=== PATIENT | female | born 1940 | race Caucasian/White ===

== ENCOUNTER 2016-04-15 01:02 | Inpatient (IN) | payer BC, OTHER ==
[2016-04-15] VITALS (12 sets, daily range): BP systolic 117–168; BP diastolic 67–96; PULSE 67–115; TEMP 36.5–37.3; O2SAT 91–97; Ht 160 cm; Wt 103.4 kg
[~2016-04-15] VITALS: Ht 160 cm; Wt 103.4 kg
[~2016-04-15 01:02] MED LIST: BECL0.3A INH; CHOL100010 PO; CYAN500T13 PO; FERR325T51 PO; FLUO20CA34 PO; FRS/40 PO; GLIP-197 PO; IPRASOL4 INH; LEVO1TAB33 PO; LISI10TA PO; METO1TAB69 PO; POTA20TA16 PO; PRAV10TA39 PO; ROPI2TAB6 PO; TIOT1AER INH; ULT50 PO
[2016-04-15] MEDS ORDERED: ALBUT/IPRATROP 3MG/0.5MG NEB 3 ML VIAL INH ONE (01:30)
--- NOTE | 2016-04-15 01:30 | EMERGENCY ROOM VISIT NOTE ---
History Report prepared by Rosi: Stacey Berumen Under the Supervision of: Dr. Flores Weiner D.O. First contact with patient: :08 Chief Complaint: RESPIRATORY PROBLEMS Stated Complaint: Difficulty Breathing, cold symptoms History of Present Illness The patient is a 76 year old female who presents to the Emergency Room with complaints of persistent shortness of breath that began Sunday, but has been worsening. The patient states that Sunday she developed a head and chest cold. She states that she talked with her PCP and was placed on Levaquin and Prednisone on Sunday, but denies any relief of her symptoms. The patient states that her symptoms seem to keep worsening. She notes that she has been increasingly fatigued at home, but denies any fever. The patient notes a history of COPD, but denies any history of pneumonia. She states that she has nebulizers at home that she has been using without relief. The patient states that she has been eating and drinking normally. Source of History: patient Onset: Sunday Position: other (global) Quality: other (shortness of breath) Timing: worsening, other (persistent) Associated Symptoms: + fatigue Review of Systems See HPI for pertinent positives & negatives. A total of 10 systems reviewed and were otherwise negative. Past Medical & Surgical Medical Problems: (1) CHF (congestive heart failure) (2) CHF exacerbation (3) COPD (chronic obstructive pulmonary disease) (4) Diab Susu Wo Compl, Type Ii Or Unspec Type, Uncontrolled (5) Hyperlipidemia Nec/Nos (6) Hypertension Nos (7) Hypoxemia (8) Respiratory failure, [id number] Family History Cancer Diabetes mellitus FH: heart disease Social History Smoking Status: Former Smoker Alcohol Use: none Drug Use: none Marital Status: single Housing Status: retirement Occupation Status: retired Current/Historical Medications Scheduled Beclomethasone Dipropionate (Qvar), 2 PUFFS INH BID Cyanocobalamin (Vitamin B12 500MCG), 1,000 MCG PO DAILY Ferrous Sulfate (Iron Supplement), 325 MG PO DAILY Fluoxetine Hcl (Prozac), 20 MG PO QAM Furosemide (Lasix), 20 MG PO DAILY Glipizide (Glipizide), 5 MG PO BID Ipratropium-Albuterol (Duoneb), 1 TREATMENT INH DAILY Levofloxacin (Levaquin), 500 MG PO DAILY Lisinopril (Prinivil), 10 MG PO DAILY Metoprolol Succ (Toprol Xl) (Toprol-Xl ), 100 MG PO DAILY Pravastatin Sodium (Pravastatin Sodium), 10 MG PO DAILY Ropinirole (Requip), 2 MG PO TID Spironolactone (Aldactone), 12.5 MG PO QAM Scheduled PRN Amoxicillin (Amoxil), 500 MG PO UD PRN for DENTAL WORK Tramadol HCl (Tramadol HCl), 50 MG PO Q6 PRN for Pain Allergies Coded Allergies: Atropine (Verified Allergy, Severe, RASH, 04/15/16) Dobutamine (Verified Allergy, Severe, RASH, 04/15/16) Physical Exam Vital Signs Date Time Temp Pulse Resp B/P Pulse Ox O2 Delivery O2 Flow Rate FiO2 04/15/16 01:19 93 Nasal Cannula 4.0 04/15/16 01:19 93 Nasal Cannula 4.0 04/15/16 01:19 37.3 96 28 125/67 93 Nasal Cannula 4.0 Physical Exam HEENT: Head - normocephalic and atraumatic Pupils are equal, round, and reactive to light. Extraocular eye muscles are intact, and sclera are anicteric. Nose - moist nasal mucosa without discharge. Mouth - moist buccal mucosa. Oropharynx is nonerythematous and there is no tonsillar exudate or edema noted. Neck: Supple; no JVD, nuchal rigidity, cervical lymphadenopathy. Heart: Tachycardic rate and rhythm. There is a normal S1 and S2 with no murmurs , clicks, or gallops appreciated. Lungs: Inspiratory and expiratory wheezing. Abdomen: Soft, completely nontender, nondistended, with good bowel sounds. There are no palpable pulsatile masses or hepatosplenomegaly. There is no guarding, rigidity, or rebound noted. Extremities: Trace pedal edema. No evidence of cyanosis, clubbing. There are easily palpable peripheral pulses. Skin: Skin is hot. warm and dry with good turgor and no rashes. Medical Decision & Procedures ER Provider Diagnostic Interpretation: Portable chest x-ray: compared from December 2015: no significant change, mild pulmonary vascular congestion but no consolidation Laboratory Results 04/15/16 02:33 Red Blood Count 3.67, Mean Corpuscular Volume 98.9, Mean Corpuscular Hemoglobin 32.4, Mean Corpuscular Hemoglobin Concent 32.8, Mean Platelet Volume 10.7, Neutrophils (%) (Auto) 76.5, Lymphocytes (%) (Auto) 13.5, Monocytes (%) (Auto) 9.6, Eosinophils (%) (Auto) 0.2, Basophils (%) (Auto) 0.0, Neutrophils # (Auto) 3.33, Lymphocytes # (Auto) 0.59, Monocytes # (Auto) 0.42, Eosinophils # (Auto) 0.01, Basophils # (Auto) 0.00 04/15/16 01:49 Test 04/15/16 01:48 04/15/16 01:49 04/15/16 02:00 04/15/16 02:33 Bedside Lactic Acid Venous 2.06 mmol/L (0.90-1.70) Anion Gap 8.0 mmol/L (3-11) Est Creatinine Clear Calc Drug Dose 33.8 ml/min Estimated GFR () 33.8 Estimated GFR (Non- 29.2 BUN/Creatinine Ratio 24.9 (10-20) Calcium Level 8.7 mg/dl (8.5-10.1) Total Bilirubin 0.3 mg/dl (0.2-1) Aspartate Amino Transf (AST/SGOT) 22 U/L (15-37) Alanine Aminotransferase (ALT/SGPT) 28 U/L (12-78) Alkaline Phosphatase 105 U/L (45-117) Total Protein 6.2 gm/dl (6.4-8.2) Albumin 3.1 gm/dl (3.4-5.0) Globulin 3.1 gm/dl (2.5-4.0) Albumin/Globulin Ratio 1.0 (0.9-2) Chemistry Specimen Hemolysis Prothrombin Time 10.6 SECONDS (9.0-12.0) Prothromb Time International Ratio 1.0 (0.9-1.1) Activated Partial Thromboplast Time 24.5 SECONDS (21.0-31.0) Partial Thromboplastin Ratio 0.9 Total Creatine Kinase 36 U/L (26-192) Creatine Kinase MB 0.5 ng/ml (0.5-3.6) Creatine Kinase MB Ratio 1.4 (0-3.0) Troponin I < 0.015 ng/ml (0-0.045) Pro-B-Type Natriuretic Peptide 695 pg/ml (0-900) White Blood Count 4.36 K/uL (4.8-10.8) Red Blood Count 3.67 M/uL (4.2-5.4) Hemoglobin 11.9 g/dL (12.0-16.0) Hematocrit 36.3 % (37-47) Mean Corpuscular Volume 98.9 fL (80-100) Mean Corpuscular Hemoglobin 32.4 pg (25-34) Mean Corpuscular Hemoglobin Concent 32.8 g/dl (32-36) Platelet Count 111 K/uL (130-400) Mean Platelet Volume 10.7 fL (7.4-10.4) Neutrophils (%) (Auto) 76.5 % Lymphocytes (%) (Auto) 13.5 % Monocytes (%) (Auto) 9.6 % Eosinophils (%) (Auto) 0.2 % Basophils (%) (Auto) 0.0 % Neutrophils # (Auto) 3.33 K/uL (1.4-6.5) Lymphocytes # (Auto) 0.59 K/uL (1.2-3.4) Monocytes # (Auto) 0.42 K/uL (0.11-0.59) Eosinophils # (Auto) 0.01 K/uL (0-0.5) Basophils # (Auto) 0.00 K/uL (0-0.2) RDW Standard Deviation 49.5 fL (36.4-46.3) RDW Coefficient of Variation 13.7 % (11.5-14.5) Immature Granulocyte % (Auto) 0.2 % Immature Granulocyte # (Auto) 0.01 K/uL (0.00-0.02) Laboratory results per my review. Medications Administered Medications (Trade) Dose Ordered Sig/Polly Route Start Time Stop Time Status Last Admin Dose Admin Albuterol/ Ipratropium (Duoneb) 12 ml ONE ONCE INH 04/15/16 01:30 04/15/16 01:31 DC 04/15/16 01:37 12 ML Methylprednisolone Sodium Succinate (Solu-Medrol IV) 125 mg NOW STAT IV 04/15/16 02:10 04/15/16 02:11 DC 04/15/16 02:41 125 MG Piperacillin Sod/ Tazobactam Sod (Zosyn Iv) 4.5 gm NOW STAT IV 04/15/16 02:30 04/15/16 02:31 DC 04/15/16 02:41 4.5 GM Procedure Patient was treated with DuoNeb 12 ml INH, Solu-Medrol IV 125 mg IV, and Zosyn IV 4.5 gm IV. ECG Indication: SOB/dyspnea Rate (beats per minute): 110 Rhythm: sinus tachycardia Findings: no acute ischemic change, no ectopy ED Course 0113: Past medical records reviewed. The patient was evaluated in room A3. A complete history and physical exam was performed. A twelve-lead EKG was obtained. An IV lock was initiated and labs were drawn as above. 0130: Ordered DuoNeb 12 ml INH. A chest x-ray was performed. 0207: I reevaluated the patient and she is still not feeling better, noting that she is still short of breath. She is currently receiving her hour long DuoNeb treatment. I discussed her recent steroid prescription and she notes that it was a taper. I discussed the treatment plan with her. She verbalized complete understanding and agreement. She will be evaluated for further treatment. 0210: Ordered Solu-Medrol IV 125 mg IV. 0230: Ordered Zosyn IV 4.5 gm IV. 0326: I discussed the patient's case with JORJE Roberson. He is going to evaluate the patient for further treatment. Medical Decision The patient is a 76 year old female who presents to the ED with shortness of breath. Differential diagnosis includes COPD exacerbation, pneumonia, bronchitis , CHF. Lab interpretation: Lactic acid is 2.06, white count 4.3, hemoglobin 11.9, platelet 111, glucose 300, BUN 42, Creatinine 1.7, trop less than 0.015, BNP 695 , Co-Ags are normal. This is a 76-year-old female patient presents to the emergency department with increasing shortness of breath despite being on steroid taper and antibiotics. The patient has a history of COPD exacerbations. She has also had pneumonia and bronchitis in the past. Chest x-ray shows no obvious consolidation but her description of symptoms sound consistent with pneumonia or bronchitis. Patient was getting some improvement in her symptoms with the hour-long nebulizer treatment. [facility] for further management. Consults Time Called: [phone] Consulting Physician: JORJE Roberson Returned Call: [phone] I discussed the patient's case with JORJE Roberson. He is going to evaluate the patient for further treatment. Impression Primary Impression: COPD exacerbation Scribe Attestation The scribe's documentation has been prepared under my direction and personally reviewed by me in its entirety. I confirm that the note above accurately reflects all work, treatment, procedures, and medical decision making performed by me. Departure Information Dispostion Being Evaluated By Hospitalist Referrals Luc Daly D.O. (PCP)
[2016-04-15] MEDS ORDERED: METHYLPREDNISOLONE 125 MG VIAL IV STA (02:10)
[2016-04-15] MEDS ORDERED: PIPERACILLIN/TAZOBACTAM 4.5 GM/100ML D5W IV STA (02:30)
[2016-04-15 02:32] LABS: BUN/CREATININE RATIO 24.9 (10-20); CALCIUM 8.7 mg/dl (8.5-10.1); CREATININE 1.7 mg/dl (0.60-1.20); POTASSIUM 4.7 mmol/L (3.5-5.1)
[2016-04-15 02:35] LABS: PARTIAL THROMBOPLASTIN RATIO 0.9; PROTHROMBIN TIME (PATIENT) 10.6 SECONDS (9.0-12.0)
[2016-04-15 02:43] LABS: COMPLETE YES; EOS % 0.2 %; HEMATOCRIT 36.3 % (37-47); IG% 0.2 %; LYMPH % 13.5 %; LYMPH ABS # 0.59 K/uL (1.2-3.4); MEAN CELL VOLUME 98.9 fL (80-100); MEAN CORPUSCULAR HEMOGLOBIN 32.4 pg (25-34); MEAN CORPUSCULAR HGB CONC 32.8 g/dl (32-36); MEAN PLATELET VOLUME 10.7 fL (7.4-10.4); MONO % 9.6 %; NEUT % 76.5 %; PLATELET COUNT 111 K/uL (130-400); RED BLOOD COUNT 3.67 M/uL (4.2-5.4); WHITE BLOOD COUNT 4.36 K/uL (4.8-10.8)
[2016-04-15] MEDS ORDERED: GLC5 PO (03:04)
[2016-04-15] MEDS ORDERED: FURO-85 PO (03:06)
[2016-04-15] MEDS ORDERED: AMOX500C3 PO (03:09)
[2016-04-15] MEDS ORDERED: SPIR25TA PO (03:10)
[2016-04-15 03:21] LABS: CKMB/CK RATIO 1.4 (0-3.0)
[2016-04-15] MEDS ORDERED: VANCOMYCIN INJ 1,000 MG in SODIUM CHLORIDE 0.9% 250ML 250 ML IV STA (03:50)
[2016-04-15] MEDS ORDERED: ZOLPIDEM TARTRATE 5 MG TAB PO PRN (04:00)
[2016-04-15] MEDS ORDERED: TRAMADOL HCL 50 MG TAB PO PRN (04:00)
[2016-04-15] MEDS ORDERED: GLUCAGON FOR INJ 1 MG VIAL SQ PRN (04:00)
[2016-04-15] MEDS ORDERED: INFLUENZA VIRUS QUAD VACCINE 0.5 ML SYR IM. ONE ×2 (04:00→08:00)
[2016-04-15] MEDS ORDERED: GLUCOSE 10 TABS/TUBE PO PRN (04:00)
[2016-04-15] MEDS ORDERED: DEXTROSE 50% 50 ML SYR IV PRN (04:00)
[2016-04-15] MEDS ORDERED: ONDANSETRON INJ 2 MG/ML 2 ML VIAL IV PRN ×2 (04:00)
[2016-04-15] MEDS ORDERED: ACETAMINOPHEN 325 MG TAB PO PRN (04:00)
[2016-04-15] MEDS ORDERED: GLUCOSE 40% GEL 15 GM TUBE PO PRN (04:00)
[2016-04-15] MEDS ORDERED: NITROGLYCERIN 0.4 MG SL PER TAB CHARGE SL PRN (04:00)
[2016-04-15] MEDS ORDERED: LEVALBUTEROL 1.25MG/0.5ML NEB INH PRN (04:15)
[2016-04-15] MEDS ORDERED: IPRATROPIUM BROMIDE NEB SOLN 0.02% 2.5 ML VIAL INH PRN (04:15)
[2016-04-15] MEDS ORDERED: INSULIN GLARGINE SOLOSTAR 100 UNITS/ML 3 ML PEN SC STA (05:06)
[2016-04-15] MEDS ORDERED: LEVOFLOXACIN CONSULT ACTIVE PRN (05:15)
[2016-04-15] MEDS ORDERED: VANCOMYCIN CONSULT ACTIVE PRN (05:15)
[2016-04-15] MEDS ORDERED: PIPERACILL/TAZOBAC CONSULT ACTIVE PRN (05:15)
[2016-04-15] MEDS ORDERED: VANCOMYCIN INJ 2,500 MG in SODIUM CHLORIDE 0.9% 500ML 500 ML IV STA (05:15)
[2016-04-15] MEDS ORDERED: LEVOFLOXACIN / D5W 500 MG in PREMIXED IN D5W 100 ML IV SCH (06:00)
[2016-04-15] MEDS ORDERED: DiphenhydrAMINE HCL 50 MG/ML VIAL IV PRN (06:45)
[2016-04-15] MEDS ORDERED: NURSING VERBAL MED ORDER ONE ×2 (06:45→21:45)
--- NOTE | 2016-04-15 06:58 | History and Physical ---
History & Physical Date & Time of Service: Apr 15, 2016 at 06:47 Chief Complaint: Copd Exacerbation, Pneumonia Primary Care Physician: Luc Daly D.O. History of Present Illness Source: patient The patient is a 76-year-old female who presents emergency department with complaint of worsening shortness of breath over the past week. The symptoms initially began as a head congestion that then extended into her chest. She went to see her PCP earlier in the week was placed on Levaquin and prednisone 4 days ago has not had any relief of her symptoms in fact they've been worsening. She does use nebulizers at home without relief. She reports never being the second the past. Past Medical/Surgical History Medical Problems: (1) CHF (congestive heart failure) Status: Chronic (2) CHF exacerbation Status: Resolved (3) COPD (chronic obstructive pulmonary disease) Status: Chronic (4) Diab Susu Wo Compl, Type Ii Or Unspec Type, Uncontrolled Status: Chronic (5) Hyperlipidemia Nec/Nos Status: Chronic (6) Hypertension Nos Status: Chronic (7) Respiratory failure, [id number] Status: Chronic Family History Cancer Diabetes mellitus FH: heart disease Social History Smoking Status: Former Smoker Smokeless Tobacco Use: No Alcohol Use: none Drug Use: none Marital Status: single Housing status: lives alone Occupational Status: retired Immunizations History of Influenza Vaccine: Yes Influenza Vaccine Date: Jan 16, 2013 History of Tetanus Vaccine?: Yes Tetanus Immunization Date: Jan 07, 2013 History of Pneumococcal: Yes Pneumococcal Date: Feb 16, 2010 History of Hepatitis B Vaccine: No Multi-Drug Resistant Organisms History of MDRO: No Allergies Coded Allergies: Atropine (Verified Allergy, Severe, RASH, 04/15/16) Dobutamine (Verified Allergy, Severe, RASH, 04/15/16) Home Medications Scheduled Beclomethasone Dipropionate (Qvar), 21 PUFFS INH BID Cyanocobalamin (Vitamin B12 500MCG), 1,000 MCG PO DAILY Ferrous Sulfate (Iron Supplement), 325 MG PO DAILY Fluoxetine Hcl (Prozac), 20 MG PO QAM Furosemide (Lasix), 20 MG PO DAILY Glipizide (Glipizide), 5 MG PO BID Ipratropium-Albuterol (Duoneb), 1 TREATMENT INH DAILY Levofloxacin (Levaquin), 500 MG PO DAILY Lisinopril (Prinivil), 10 MG PO DAILY Metoprolol Succ (Toprol Xl) (Toprol-Xl ), 100 MG PO DAILY Pravastatin Sodium (Pravastatin Sodium), 10 MG PO DAILY Ropinirole (Requip), 2 MG PO TID Spironolactone (Aldactone), 12.5 MG PO QAM Scheduled PRN Amoxicillin (Amoxil), 500 MG PO UD PRN for DENTAL WORK Tramadol HCl (Tramadol HCl), 50 MG PO Q6 PRN for Pain Review of Systems The patient denies lower extremity swelling, vision change, hearing change, sore throat, fevers, chills, sweats, weight change, fatigue, nausea, vomiting, abdominal pain, pelvic pain, blood in urine or stool, dysuria, urinary frequency or urgency, headache, memory loss, rash, abnormal bruising or bleeding , imbalance, focal weakness, numbness or tingling in arms or legs, back or neck pain, night sweats. The review of systems is otherwise negative other than for that already noted above, and at least 10 systems have been reviewed. Physical Exam Vital Signs Date Time Temp Pulse Resp B/P Pulse Ox O2 Delivery O2 Flow Rate FiO2 04/15/16 05:33 37.3 115 26 117/67 Nasal Cannula 3.0 95 04/15/16 04:00 105 26 105/54 94 Nasal Cannula 3.0 04/15/16 03:32 115 28 89 04/15/16 03:28 117/67 04/15/16 03:27 114 23 89 04/15/16 03:22 123 30 85 04/15/16 03:17 124 28 86 04/15/16 03:12 115 28 100 04/15/16 03:07 114 32 100 04/15/16 03:02 113 31 100 04/15/16 02:58 111/63 04/15/16 02:57 112 26 100 04/15/16 02:53 124/64 04/15/16 02:52 113 30 100 04/15/16 02:47 109 37 100 04/15/16 02:42 107 26 100 04/15/16 02:37 104 24 99 04/15/16 02:32 104 24 100 04/15/16 02:27 99 32 99 04/15/16 02:22 97 24 99 04/15/16 02:17 96 31 99 04/15/16 02:12 96 24 98 04/15/16 02:07 96 24 98 04/15/16 02:02 92 22 97 04/15/16 01:57 90 29 99 04/15/16 01:52 90 30 98 04/15/16 01:47 90 28 98 04/15/16 01:42 87 36 98 04/15/16 01:37 89 38 98 04/15/16 01:32 92 29 91 04/15/16 01:27 91 24 91 04/15/16 01:22 92 31 91 04/15/16 01:19 93 Nasal Cannula 4.0 04/15/16 01:19 93 Nasal Cannula 4.0 04/15/16 01:19 37.3 96 28 125/67 93 Nasal Cannula 4.0 04/15/16 01:17 89 31 91 04/15/16 01:12 84 18 92 04/15/16 01:09 125/67 The patient is awake, well-developed and adequately nourished, alert and oriented 3, normocephalic and atraumatic, lying in bed and in mild to moderate acute distress secondary to respiratory difficulty. HEENT--PERRL, EOMI, mucous membranes and oropharynx dry. Neck--supple, no JVD or bruits, thyroid normal, trachea midline, no adenopathy. Heart--normal S1 and S2, no extra beats, no murmurs, rubs or gallops. Lungs--with a few faint wheezes bilaterally, significant upper airway wheezing causing mild respiratory distress, no accessory muscle use. Abdomen--normal bowel sounds and soft, nontender and nondistended, no hernias or masses, no organomegaly. Extremities--no cyanosis, clubbing or edema. There are good distal pulses b/l. Dermatologic--normal skin turgor, normal color, warm and dry, no abnormal lymph nodes, no rash. Neurologic--cranial nerves II through XII grossly intact, motor and sensory examination normal. Rheumatologic--normal range of motion, nontender, muscles and joints. Psychiatric--normal affect. Diagnostics Laboratory Results Results Past 24 Hours Test 04/15/16 01:48 04/15/16 01:49 04/15/16 02:00 04/15/16 02:33 Range/Units Bedside Lactic Acid Venous 2.06 0.90-1.70 mmol/L Sodium Level 139 136-145 mmol/L Potassium Level 4.7 3.5-5.1 mmol/L Chloride Level 99 98-107 mmol/L Carbon Dioxide Level 32 21-32 mmol/L Anion Gap 8.0 3-11 mmol/L Blood Urea Nitrogen 42 7-18 mg/dl Creatinine 1.70 0.60-1.20 mg/dl Est Creatinine Clear Calc Drug Dose 33.8 ml/min Estimated GFR () 33.8 Estimated GFR (Non- 29.2 BUN/Creatinine Ratio 24.9 10-20 Random Glucose 300 70-99 mg/dl Calcium Level 8.7 8.5-10.1 mg/dl Total Bilirubin 0.3 0.2-1 mg/dl Aspartate Amino Transf (AST/SGOT) 22 15-37 U/L Alanine Aminotransferase (ALT/SGPT) 28 12-78 U/L Alkaline Phosphatase 105 45-117 U/L Total Protein 6.2 6.4-8.2 gm/dl Albumin 3.1 3.4-5.0 gm/dl Globulin 3.1 2.5-4.0 gm/dl Albumin/Globulin Ratio 1.0 0.9-2 Chemistry Specimen Hemolysis Prothrombin Time 10.6 9.0-12.0 SECONDS Prothromb Time International Ratio 1.0 0.9-1.1 Activated Partial Thromboplast Time 24.5 21.0-31.0 SECONDS Partial Thromboplastin Ratio 0.9 Total Creatine Kinase 36 26-192 U/L Creatine Kinase MB 0.5 0.5-3.6 ng/ml Creatine Kinase MB Ratio 1.4 0-3.0 Troponin I < 0.015 0-0.045 ng/ml Pro-B-Type Natriuretic Peptide 695 0-900 pg/ml White Blood Count 4.36 4.8-10.8 K/uL Red Blood Count 3.67 4.2-5.4 M/uL Hemoglobin 11.9 12.0-16.0 g/dL Hematocrit 36.3 37-47 % Mean Corpuscular Volume 98.9 80-100 fL Mean Corpuscular Hemoglobin 32.4 25-34 pg Mean Corpuscular Hemoglobin Concent 32.8 32-36 g/dl Platelet Count 111 130-400 K/uL Mean Platelet Volume 10.7 7.4-10.4 fL Neutrophils (%) (Auto) 76.5 % Lymphocytes (%) (Auto) 13.5 % Monocytes (%) (Auto) 9.6 % Eosinophils (%) (Auto) 0.2 % Basophils (%) (Auto) 0.0 % Neutrophils # (Auto) 3.33 1.4-6.5 K/uL Lymphocytes # (Auto) 0.59 1.2-3.4 K/uL Monocytes # (Auto) 0.42 0.11-0.59 K/uL Eosinophils # (Auto) 0.01 0-0.5 K/uL Basophils # (Auto) 0.00 0-0.2 K/uL RDW Standard Deviation 49.5 36.4-46.3 fL RDW Coefficient of Variation 13.7 11.5-14.5 % Immature Granulocyte % (Auto) 0.2 % Immature Granulocyte # (Auto) 0.01 0.00-0.02 K/uL Test 04/15/16 05:54 04/15/16 06:24 Range/Units Microbiology Results 04/15/16 Blood Culture, Received Pending 04/15/16 Blood Culture, Received Pending Impression Assessment and Plan COPD exacerbation/left lower lobe pneumonia/discordant vocal cords--the patient will be admitted to the telemetry unit will be placed on Solu-Medrol 40 mg IV every 8 hours after having received on 125 mg IV and emergency department. We' ll place on vancomycin IV per renal dosing, Zosyn 3.375 mg IV every 8 hours, levofloxacin 500 mg IV every 24 hours, guaifenesin extended release 600 mg by mouth twice a day, and Xopenex with Atrovent nebulizers to use every 6 hours while awake and every 2 hours when necessary. Diabetes mellitus--continue glipizide 5 mg by mouth twice a day patient was given a one-time dose of Lantus 20 units subcutaneous nightly the early a.m. hours, and started on Lantus 14 units subcutaneous twice a day while on IV steroids, this dosing may be needed adjusted promptly. We'll place on Accu- Cheks before meals and at bedtime with NovoLog coverage. Hypertension /. CHF--continue furosemide 40 mg by mouth twice a day potassium extended release 20 mEq by mouth daily metoprolol succinate 100 mg by mouth daily, and lisinopril 10 mg by mouth daily. Hypercholesterolemia--continue pravastatin 10 mg by mouth daily. Restless leg syndrome--continue ropinirole 2 mg by mouth 3 times a day. Depression--continue fluoxetine 20 mg by mouth every morning. Vitamin B12 deficiency--continue supplemental 1000 g by mouth daily. Level of Care Telemetry Advanced Directives Existing Advance Directive: Yes Existing Living Will: Yes Existing Power of Spot Washer: Yes (Saji Pennington (Daughter)) Resuscitation Status FULL RESUSCITATION VTE Prophylaxis VTE Risk Assessment Done? Y/N: Yes Risk Level: Moderate Given or contraindicated: SCD's
--- NOTE | 2016-04-15 07:13 | DIAGNOSTIC IMAGING REPORT ---
CHEST ONE VIEW PORTABLE CLINICAL HISTORY: Sepsis SHORTNESS OF BREATH COMPARISON STUDY: December 03, 2015 FINDINGS: The heart is at the upper limits of normal in size. There is radiographic evidence of emphysema. There is no overt failure. There are linear bibasilar opacities, likely atelectatic.[ IMPRESSION: Emphysema. Bibasal atelectasis/scarring. No evidence of acute parenchymal consolidation. Electronically signed by: Conner Shultz M.D. 04/15/2016 7:11 AM Dictated Date/Time: 04/15/2016 7:10 AM
[2016-04-15] MEDS: IPRATROPIUM BROMIDE NEB SOLN 0.02% 2.5 ML VIAL INH SCH ×3 (07:29→20:48)
[2016-04-15] MEDS: LEVALBUTEROL 1.25MG/0.5ML NEB INH SCH ×3 (07:29→20:48)
[2016-04-15] MEDS ORDERED: INFLUENZA ADMINISTRATION CHARGE ONE (08:00)
[2016-04-15] MEDS ORDERED: INSULIN GLARGINE SOLOSTAR 100 UNITS/ML 3 ML PEN SC ONE ×2 (08:15→13:00)
[2016-04-15] MEDS: METHYLPREDNISOLONE IV 40 MG in SYRINGE 0 ML IV SCH ×2 (08:39→17:40)
[2016-04-15] MEDS: CYANOCOBALAMIN 500 MCG TAB (VIT B-12) PO SCH (08:41)
[2016-04-15] MEDS: FERROUS SULFATE 325 MG TAB PO SCH (08:41)
[2016-04-15] MEDS: METOPROLOL SUCC 50MG EXT REL TAB PO SCH (08:42)
[2016-04-15] MEDS: ROPINIROLE HCL 1 MG TAB PO SCH ×3 (08:43→20:27)
[2016-04-15] MEDS: FLUOXETINE HCL 20 MG CAP PO SCH (08:43)
[2016-04-15] MEDS: FUROSEMIDE 20 MG TAB PO SCH (08:44)
[2016-04-15] MEDS: SPIRONOLACTONE 25 MG TAB PO SCH (08:44)
[2016-04-15] MEDS: GUAIFENESIN 200 MG TAB PO SCH ×2 (08:45→20:26)
--- NOTE | 2016-04-15 08:48 | Hospitalist Progress Note ---
Hospitalist Progress Note Date of Service Apr 15, 2016. Subjective Pt evaluation today including: conversation w/ patient, physical exam, chart review, lab review, review of studies, review of inpatient medication list Patient reports minimal improvement in symptoms since admission. + SOB, wheezing , and productive cough- yellow sputum (chronic). She is eating and drinking OK. Patient denies any fever, chills, sweats, lightheadedness, dizziness, vision changes, CP, palpitations, edema, abdominal pain, nausea, vomiting, diarrhea, urinary symptoms, melena, numbness/tingling, weakness, muscle/joint pain, anxiety/depression, active bleeding, or new skin discoloration/changes. Medications Current Inpatient Medications Medications (Trade) Dose Ordered Sig/Polly Route Start Time Stop Time Status Last Admin Dose Admin Acetaminophen (Tylenol Tab) 650 mg Q4H PRN PO 04/15/16 04:00 05/15/16 03:59 Zolpidem Tartrate (Ambien Tab) 5 mg HSZ PRN PO 04/15/16 04:00 05/15/16 03:59 Nitroglycerin (Nitrostat Tab) 0.4 mg UD PRN SL 04/15/16 04:00 05/15/16 03:59 Cyanocobalamin (Vitamin B-12 Tab) 1,000 mcg DAILY PO 04/15/16 09:00 05/15/16 08:59 Fluoxetine HCl (Prozac Cap) 20 mg QAM PO 04/15/16 09:00 05/15/16 08:59 Furosemide (Lasix tab) 20 mg DAILY PO 04/15/16 09:00 05/15/16 08:59 Glipizide (Glucotrol Tab) 5 mg BIDM PO 04/15/16 08:00 05/15/16 07:59 Metoprolol Succinate (Toprol Xl Tab) 100 mg DAILY PO 04/15/16 09:00 05/15/16 08:59 Pravastatin Sodium (Pravachol Tab) 10 mg PM PO 04/15/16 21:00 05/15/16 20:59 Ropinirole HCl (Requip Tab) 2 mg TID PO 04/15/16 09:00 05/15/16 08:59 Spironolactone (Aldactone Tab) 12.5 mg QAM PO 04/15/16 09:00 05/15/16 08:59 Tramadol HCl (Ultram Tab) 50 mg Q6 PRN PO 04/15/16 04:00 05/15/16 03:59 Ferrous Sulfate (Feosol Tab) 325 mg DAILY PO 04/15/16 09:00 05/15/16 08:59 Ondansetron HCl (Zofran Inj) 4 mg Q6H PRN IV 04/15/16 04:00 05/15/16 03:59 Insulin Aspart (novoLOG ASPART) SLIDING SCALE If C... ACHS SC 04/15/16 06:30 05/15/16 06:59 Glucose (Glucose 40% Gel) UD PRN PO 04/15/16 04:00 05/15/16 03:59 Glucose (Glucose Chew Tab) 1 tabs UD PRN PO 04/15/16 04:00 05/15/16 03:59 Dextrose (Dextrose 50% 50ML Syringe) 50 ml UD PRN IV 04/15/16 04:00 05/15/16 03:59 Glucagon 1 mg 1 mg UD PRN SQ 04/15/16 04:00 05/15/16 03:59 Piperacillin Sod/ Tazobactam Sod 4.5 gm/Dextrose 120 ml @ 30 mls/hr Q8H IV 04/15/16 10:00 04/22/16 09:59 Methylprednisolone Sodium Succinate/ Syringe (Solu-Medrol IV/ Syringe) 0.64 ml @ 1.5 mls/min Q8H IV 04/15/16 10:00 05/15/16 09:59 Guaifenesin (Organidin Nr Tab) 600 mg BID PO 04/15/16 09:00 05/15/16 08:59 Ipratropium [place] (Atrovent 0.02% 0.5MG/2.5ML Neb) 0.5 mg Q6R INH 04/15/16 09:00 05/15/16 08:59 04/15/16 07:29 0.5 MG Levalbuterol (Xopenex 1.25MG/ 0.5ML Neb) 1.25 mg Q6R INH 04/15/16 09:00 05/15/16 08:59 04/15/16 07:29 1.25 MG Ipratropium [place] (Atrovent 0.02% 0.5MG/2.5ML Neb) 0.5 mg Q2H PRN INH 04/15/16 04:15 05/15/16 04:14 Levalbuterol (Xopenex 1.25MG/ 0.5ML Neb) 1.25 mg Q2H PRN INH 04/15/16 04:15 05/15/16 04:14 Piperacillin Sod/ Tazobactam Sod (Consult) 1 ea UD PRN N/A 04/15/16 05:15 05/15/16 05:14 Diphenhydramine HCl (Benadryl Inj) 25 mg Q4H PRN IV 04/15/16 06:45 05/15/16 06:44 04/15/16 06:48 25 MG Insulin Glargine (Lantus Solostar Pen) 22 unit BID SC 04/15/16 21:00 05/15/16 20:59 Objective Vital Signs Date Time Temp Pulse Resp B/P Pulse Ox O2 Delivery O2 Flow Rate FiO2 04/15/16 06:59 36.8 95 18 144/78 91 Nasal Cannula 3.0 04/15/16 05:33 37.3 115 26 117/67 Nasal Cannula 3.0 95 04/15/16 04:00 105 26 105/54 94 Nasal Cannula 3.0 04/15/16 03:32 115 28 89 04/15/16 03:28 117/67 04/15/16 03:27 114 23 89 04/15/16 03:22 123 30 85 04/15/16 03:17 124 28 86 04/15/16 03:12 115 28 100 04/15/16 03:07 114 32 100 04/15/16 03:02 113 31 100 04/15/16 02:58 111/63 04/15/16 02:57 112 26 100 04/15/16 02:53 124/64 04/15/16 02:52 113 30 100 04/15/16 02:47 109 37 100 04/15/16 02:42 107 26 100 04/15/16 02:37 104 24 99 04/15/16 02:32 104 24 100 04/15/16 02:27 99 32 99 04/15/16 02:22 97 24 99 04/15/16 02:17 96 31 99 04/15/16 02:12 96 24 98 04/15/16 02:07 96 24 98 04/15/16 02:02 92 22 97 04/15/16 01:57 90 29 99 04/15/16 01:52 90 30 98 04/15/16 01:47 90 28 98 04/15/16 01:42 87 36 98 04/15/16 01:37 89 38 98 04/15/16 01:32 92 29 91 04/15/16 01:27 91 24 91 04/15/16 01:22 92 31 91 04/15/16 01:19 93 Nasal Cannula 4.0 04/15/16 01:19 93 Nasal Cannula 4.0 04/15/16 01:19 37.3 96 28 125/67 93 Nasal Cannula 4.0 04/15/16 01:17 89 31 91 04/15/16 01:12 84 18 92 04/15/16 01:09 125/ Physical Exam General Appearance: no apparent distress, + obese Eyes: normal inspection, PERRL ENT: hearing grossly normal Neck: supple Respiratory/Chest: no respiratory distress, no accessory muscle use, + decreased breath sounds, + wheezing (diffuse ) Cardiovascular: regular rate, rhythm Abdomen: normal bowel sounds, non tender, soft Extremities: no calf tenderness, + swelling (trace bilateral pitting edema ) Neurologic/Psychiatric: alert, normal mood/affect, oriented x 3 Skin: normal color, warm/dry, no rash Laboratory Results Last 24 Hours Test 04/15/16 01:48 04/15/16 01:49 04/15/16 02:00 04/15/16 02:33 Bedside Lactic Acid Venous 2.06 mmol/L Sodium Level 139 mmol/L Potassium Level 4.7 mmol/L Chloride Level 99 mmol/L Carbon Dioxide Level 32 mmol/L Anion Gap 8.0 mmol/L Blood Urea Nitrogen 42 mg/dl Creatinine 1.70 mg/dl Est Creatinine Clear Calc Drug Dose 33.8 ml/min Estimated GFR () 33.8 Estimated GFR (Non- 29.2 BUN/Creatinine Ratio 24.9 Random Glucose 300 mg/dl Calcium Level 8.7 mg/dl Total Bilirubin 0.3 mg/dl Aspartate Amino Transf (AST/SGOT) 22 U/L Alanine Aminotransferase (ALT/SGPT) 28 U/L Alkaline Phosphatase 105 U/L Total Protein 6.2 gm/dl Albumin 3.1 gm/dl Globulin 3.1 gm/dl Albumin/Globulin Ratio 1.0 Chemistry Specimen Hemolysis Prothrombin Time 10.6 SECONDS Prothromb Time International Ratio 1.0 Activated Partial Thromboplast Time 24.5 SECONDS Partial Thromboplastin Ratio 0.9 Total Creatine Kinase 36 U/L Creatine Kinase MB 0.5 ng/ml Creatine Kinase MB Ratio 1.4 Troponin I < 0.015 ng/ml Pro-B-Type Natriuretic Peptide 695 pg/ml White Blood Count 4.36 K/uL Red Blood Count 3.67 M/uL Hemoglobin 11.9 g/dL Hematocrit 36.3 % Mean Corpuscular Volume 98.9 fL Mean Corpuscular Hemoglobin 32.4 pg Mean Corpuscular Hemoglobin Concent 32.8 g/dl Platelet Count 111 K/uL Mean Platelet Volume 10.7 fL Neutrophils (%) (Auto) 76.5 % Lymphocytes (%) (Auto) 13.5 % Monocytes (%) (Auto) 9.6 % Eosinophils (%) (Auto) 0.2 % Basophils (%) (Auto) 0.0 % Neutrophils # (Auto) 3.33 K/uL Lymphocytes # (Auto) 0.59 K/uL Monocytes # (Auto) 0.42 K/uL Eosinophils # (Auto) 0.01 K/uL Basophils # (Auto) 0.00 K/uL RDW Standard Deviation 49.5 fL RDW Coefficient of Variation 13.7 % Immature Granulocyte % (Auto) 0.2 % Immature Granulocyte # (Auto) 0.01 K/uL Test 04/15/16 05:54 04/15/16 06:24 04/15/16 07:20 04/15/16 07:21 Lactic Acid Level 2.2 mmol/L Bedside Glucose 387 mg/dl 368 mg/dl Assessment and Plan The patient is a 76-year-old female who presents emergency department with complaint of worsening shortness of breath over the past week. The symptoms initially began as a head congestion that then extended into her chest. She went to see her PCP earlier in the week was placed on Levaquin and Prednisone on . She has not had any relief of her symptoms in fact they've been worsening. She does use nebulizers at home without relief. Patient was admitted on 12/04/15 for acute COPD exacerbation. Acute exacerbation of chronic COPD: -Admit to the [facility] -Solu-Medrol 40 mg IV every 8 hours after having received on 125 mg IV and emergency department. -Vancomycin IV per renal dosing and Levofloxacin 500 mg IV every 24 hours d/c'd -Zosyn 3.375 mg IV every 8 hours -Guaifenesin extended release 600 mg by mouth twice a day -Xopenex with Atrovent nebulizers to use every 6 hours while awake and every 2 hours when necessary -Continue QVAR inhaler BID -Pending blood cultures -Patient follows with Иван Argueta PA-C T2DM: -Continue Glipizide 5 mg by mouth twice a day -Patient was given a one-time dose of Lantus 20 units subcutaneous on admission due to starting IV steroids -Lantus 22 units subcutaneous twice a day while on IV steroids, titrate as needed -BSG AC & HS with sliding insulin scale Hypertension/diastolic CHF: -Continue Furosemide 40 mg by mouth twice a day -Continue Potassium extended release 20 mEq by mouth daily -Continue Metoprolol succinate 100 mg by mouth daily -Continue Lisinopril 10 mg by mouth daily Hypercholesterolemia: -Continue Pravastatin 10 mg by mouth daily Restless leg syndrome: -Continue Ropinirole 2 mg by mouth 3 times a day Depression: -Continue Fluoxetine 20 mg by mouth every morning Anemia: -Continue iron supplement 325 mg PO daily -Continue b12 supplemental 1000 g by mouth daily DVT prophylaxis: -MEME and SCDs Dispo: -Return to home when medically stable
[2016-04-15] MEDS ORDERED: LEVALBUTEROL/IPRATROPIUM NEB INH SCH (09:00)
[2016-04-15] MEDS ORDERED: INSULIN GLARGINE SOLOSTAR 100 UNITS/ML 3 ML PEN SC SCH ×3 (09:00→21:00)
[2016-04-15] MEDS: INSULIN ASPART 100 UNITS/ML 3 ML PEN SC SCH ×4 (09:06→20:28)
[2016-04-15] MEDS: PIPERACILL/TAZOBAC IV 4.5 GM in DEXTROSE 5% 100ML 100 ML IV SCH ×2 (10:11→17:40)
[2016-04-15] MEDS ORDERED: INSULIN HUMAN REGULAR SC SCH (11:30)
[2016-04-15] MEDS: BECLOMETHASONE DIP HFA 80 MCG 8.7G INH INH SCH ×2 (12:57→20:25)
[2016-04-15] MEDS ORDERED: INSULIN HUMAN REGULAR PER UNIT 5 UNITS in SYRINGE 4.95 ML IV SCH (13:45)
[2016-04-15] MEDS ORDERED: OSELTAMIVIR PHOSPHATE 75 MG CAP PO ONE (14:00)
[2016-04-15] MEDS: INSULIN GLARGINE SOLOSTAR 100 UNITS/ML 3 ML PEN SC SCH (20:21)
[2016-04-15] MEDS: PRAVASTATIN SOD 10 MG TAB PO SCH (20:27)
[2016-04-15] MEDS ORDERED: CALCIUM CARBONATE 500 MG CHEWABLE PO PRN (21:45)
[2016-04-16] VITALS (10 sets, daily range): BP systolic 145–177; BP diastolic 80–92; PULSE 67–77; TEMP 36.5–36.7; O2SAT 93–98
[2016-04-16] MEDS: IPRATROPIUM BROMIDE NEB SOLN 0.02% 2.5 ML VIAL INH SCH ×3 (02:11→19:47)
[2016-04-16] MEDS: LEVALBUTEROL 1.25MG/0.5ML NEB INH SCH ×3 (02:11→19:47)
[2016-04-16] MEDS: PIPERACILL/TAZOBAC IV 4.5 GM in DEXTROSE 5% 100ML 100 ML IV SCH ×3 (02:19→18:00)
[2016-04-16] MEDS: METHYLPREDNISOLONE IV 40 MG in SYRINGE 0 ML IV SCH ×3 (02:19→18:00)
[2016-04-16] MEDS: OSELTAMIVIR PHOSPHATE SUSP 30 MG/5 ML UDP PO SCH ×2 (06:17→20:56)
[2016-04-16 08:13] LABS: COMPLETE YES; HEMATOCRIT 35.1 % (37-47); IG% 0.3 %; LYMPH % 5.3 %; LYMPH ABS # 0.32 K/uL (1.2-3.4); MEAN CELL VOLUME 95.4 fL (80-100); MEAN CORPUSCULAR HEMOGLOBIN 32.1 pg (25-34); MEAN CORPUSCULAR HGB CONC 33.6 g/dl (32-36); MEAN PLATELET VOLUME 10.7 fL (7.4-10.4); MONO % 3.5 %; NEUT % 90.9 %; PLATELET COUNT 121 K/uL (130-400); RED BLOOD COUNT 3.68 M/uL (4.2-5.4); WHITE BLOOD COUNT 6.02 K/uL (4.8-10.8)
[2016-04-16 08:34] LABS: PARTIAL THROMBOPLASTIN RATIO 0.9; PROTHROMBIN TIME (PATIENT) 11.1 SECONDS (9.0-12.0)
[2016-04-16 08:47] LABS: CALCIUM 8.7 mg/dl (8.5-10.1); CREATININE 1.8 mg/dl (0.60-1.20); MAGNESIUM 2.3 mg/dl (1.8-2.4); POTASSIUM 4.7 mmol/L (3.5-5.1)
[2016-04-16] MEDS: GUAIFENESIN 200 MG TAB PO SCH ×2 (09:01→20:55)
[2016-04-16] MEDS: ROPINIROLE HCL 1 MG TAB PO SCH ×3 (09:01→20:56)
[2016-04-16] MEDS: CYANOCOBALAMIN 500 MCG TAB (VIT B-12) PO SCH (09:02)
[2016-04-16] MEDS: FERROUS SULFATE 325 MG TAB PO SCH (09:02)
[2016-04-16] MEDS: METOPROLOL SUCC 50MG EXT REL TAB PO SCH (09:02)
[2016-04-16] MEDS: FUROSEMIDE 20 MG TAB PO SCH (09:02)
[2016-04-16] MEDS: FLUOXETINE HCL 20 MG CAP PO SCH (09:02)
[2016-04-16] MEDS: SPIRONOLACTONE 25 MG TAB PO SCH (09:03)
[2016-04-16] MEDS: BECLOMETHASONE DIP HFA 80 MCG 8.7G INH INH SCH ×2 (09:10→20:56)
--- NOTE | 2016-04-16 09:11 | Hospitalist Progress Note ---
Hospitalist Progress Note Date of Service Apr 16, 2016. Subjective Pt evaluation today including: conversation w/ patient, physical exam, chart review, lab review, review of inpatient medication list Voiding: no voiding problems, no incontinence Patient states she is feeling lousy today. SOB/non-productive cough has not improved. Extremely SOB with exertion. +body aches. Difficulty with eating/ drinking because of SOB. Patient denies any fever, chills, sweats, lightheadedness, dizziness, vision changes, CP, palpitations, edema, abdominal pain, nausea, vomiting, diarrhea, urinary symptoms, melena, numbness/tingling, weakness, anxiety/depression, active bleeding, or new skin discoloration/ changes. Medications Current Inpatient Medications Medications (Trade) Dose Ordered Sig/Polly Route Start Time Stop Time Status Last Admin Dose Admin Acetaminophen (Tylenol Tab) 650 mg Q4H PRN PO 04/15/16 04:00 05/15/16 03:59 Zolpidem Tartrate (Ambien Tab) 5 mg HSZ PRN PO 04/15/16 04:00 05/15/16 03:59 Nitroglycerin (Nitrostat Tab) 0.4 mg UD PRN SL 04/15/16 04:00 05/15/16 03:59 Cyanocobalamin (Vitamin B-12 Tab) 1,000 mcg DAILY PO 04/15/16 09:00 05/15/16 08:59 04/15/16 08:41 1,000 MCG Fluoxetine HCl (Prozac Cap) 20 mg QAM PO 04/15/16 09:00 05/15/16 08:59 04/15/16 08:43 20 MG Furosemide (Lasix tab) 20 mg DAILY PO 04/15/16 09:00 05/15/16 08:59 04/15/16 08:44 20 MG Glipizide (Glucotrol Tab) 5 mg BIDM PO 04/15/16 08:00 05/15/16 07:59 04/15/16 17:39 5 MG Metoprolol Succinate (Toprol Xl Tab) 100 mg DAILY PO 04/15/16 09:00 05/15/16 08:59 04/15/16 08:42 100 MG Pravastatin Sodium (Pravachol Tab) 10 mg PM PO 04/15/16 21:00 05/15/16 20:59 04/15/16 20:27 10 MG Ropinirole HCl (Requip Tab) 2 mg TID PO 04/15/16 09:00 05/15/16 08:59 04/15/16 20:27 2 MG Spironolactone (Aldactone Tab) 12.5 mg QAM PO 04/15/16 09:00 05/15/16 08:59 04/15/16 08:44 12.5 MG Tramadol HCl (Ultram Tab) 50 mg Q6 PRN PO 04/15/16 04:00 05/15/16 03:59 Ferrous Sulfate (Feosol Tab) 325 mg DAILY PO 04/15/16 09:00 05/15/16 08:59 04/15/16 08:41 325 MG Ondansetron HCl (Zofran Inj) 4 mg Q6H PRN IV 04/15/16 04:00 05/15/16 03:59 Insulin Aspart (novoLOG ASPART) SLIDING SCALE If C... ACHS SC 04/15/16 06:30 05/15/16 06:59 04/15/16 17:44 4 UNITS Glucose (Glucose 40% Gel) UD PRN PO 04/15/16 04:00 05/15/16 03:59 Glucose (Glucose Chew Tab) 1 tabs UD PRN PO 04/15/16 04:00 05/15/16 03:59 Dextrose (Dextrose 50% 50ML Syringe) 50 ml UD PRN IV 04/15/16 04:00 05/15/16 03:59 Glucagon 1 mg 1 mg UD PRN SQ 04/15/16 04:00 05/15/16 03:59 Piperacillin Sod/ Tazobactam Sod 4.5 gm/Dextrose 120 ml @ 30 mls/hr Q8H IV 04/15/16 10:00 04/22/16 09:59 04/16/16 02:19 30 MLS/HR Methylprednisolone Sodium Succinate/ Syringe (Solu-Medrol IV/ Syringe) 0.64 ml @ 1.5 mls/min Q8H IV 04/15/16 10:00 05/15/16 09:59 04/16/16 02:19 1.5 MLS/MIN Guaifenesin (Organidin Nr Tab) 600 mg BID PO 04/15/16 09:00 05/15/16 08:59 04/15/16 20:26 600 MG Ipratropium [place] (Atrovent 0.02% 0.5MG/2.5ML Neb) 0.5 mg Q6R INH 04/15/16 09:00 05/15/16 08:59 04/16/16 07:47 0.5 MG Levalbuterol (Xopenex 1.25MG/ 0.5ML Neb) 1.25 mg Q6R INH 04/15/16 09:00 05/15/16 08:59 04/16/16 07:47 1.25 MG Ipratropium [place] (Atrovent 0.02% 0.5MG/2.5ML Neb) 0.5 mg Q2H PRN INH 04/15/16 04:15 05/15/16 04:14 Levalbuterol (Xopenex 1.25MG/ 0.5ML Neb) 1.25 mg Q2H PRN INH 04/15/16 04:15 05/15/16 04:14 Piperacillin Sod/ Tazobactam Sod (Consult) 1 ea UD PRN N/A 04/15/16 05:15 05/15/16 05:14 Diphenhydramine HCl (Benadryl Inj) 25 mg Q4H PRN IV 04/15/16 06:45 05/15/16 06:44 04/15/16 06:48 25 MG Beclomethasone Dipropionate (Qvar 80 Mcg Hfa Inhaler) 2 puffs BID INH 04/15/16 12:00 05/15/16 11:59 04/15/16 20:25 2 PUFFS Insulin Glargine (Lantus Solostar Pen) 26 unit BID SC 04/15/16 21:00 05/15/16 20:59 04/15/16 20:21 26 UNIT Oseltamivir Phosphate (Tamiflu Susp) 30 mg BID PO 04/16/16 06:00 04/20/16 20:59 04/16/16 06:17 30 MG Calcium Carbonate (Tums Chew Tab) 500 mg PRN PRN PO 04/15/16 21:45 05/15/16 21:44 04/15/16 21:44 500 MG Objective Vital Signs Date Time Temp Pulse Resp B/P Pulse Ox O2 Delivery O2 Flow Rate FiO2 04/16/16 07:47 77 20 96 Nasal Cannula 3.0 04/16/16 06:50 36.5 67 20 145/91 93 Nasal Cannula 3.0 04/16/16 04:07 36.5 68 16 145/80 97 Nasal Cannula 3.0 04/16/16 03:52 Nasal Cannula 3.0 04/16/16 02:24 72 20 96 Nasal Cannula 3.0 04/16/16 00:00 Nasal Cannula 3.0 04/15/16 23:29 36.5 69 16 148/84 96 Nasal Cannula 3.0 04/15/16 20:54 67 20 96 Nasal Cannula 3.0 04/15/16 20:00 Nasal Cannula 3.0 04/15/16 19:06 36.6 70 18 146/82 95 Nasal Cannula 3.0 04/15/16 16:00 91 Nasal Cannula 3.0 04/15/16 14:49 36.9 69 18 148/81 95 Nasal Cannula 2.0 04/15/16 14:29 68 20 97 Nasal Cannula 3.0 04/15/16 12:00 91 Nasal Cannula 3.0 04/15/16 11:18 36.7 78 18 168/96 96 Room Air Physical Exam General Appearance: no apparent distress, + obese Eyes: normal inspection, PERRL ENT: hearing grossly normal Neck: supple Respiratory/Chest: no respiratory distress, no accessory muscle use, + decreased breath sounds, + wheezing Cardiovascular: regular rate, rhythm, no edema Abdomen: normal bowel sounds, non tender, soft Extremities: no pedal edema, no calf tenderness Neurologic/Psychiatric: alert, normal mood/affect, oriented x 3 Skin: normal color, warm/dry, no rash Laboratory Results Last 24 Hours Test 04/15/16 10:00 04/15/16 11:28 04/15/16 16:11 04/15/16 20:07 Hepatitis C Antibody Screen NEG Bedside Glucose 428 mg/dl 150 mg/dl 109 mg/dl Test 04/16/16 07:36 04/16/16 07:44 White Blood Count 6.02 K/uL Red Blood Count 3.68 M/uL Hemoglobin 11.8 g/dL Hematocrit 35.1 % Mean Corpuscular Volume 95.4 fL Mean Corpuscular Hemoglobin 32.1 pg Mean Corpuscular Hemoglobin Concent 33.6 g/dl Platelet Count 121 K/uL Mean Platelet Volume 10.7 fL Neutrophils (%) (Auto) 90.9 % Lymphocytes (%) (Auto) 5.3 % Monocytes (%) (Auto) 3.5 % Eosinophils (%) (Auto) 0.0 % Basophils (%) (Auto) 0.0 % Neutrophils # (Auto) 5.47 K/uL Lymphocytes # (Auto) 0.32 K/uL Monocytes # (Auto) 0.21 K/uL Eosinophils # (Auto) 0.00 K/uL Basophils # (Auto) 0.00 K/uL RDW Standard Deviation 47.1 fL RDW Coefficient of Variation 13.4 % Immature Granulocyte % (Auto) 0.3 % Immature Granulocyte # (Auto) 0.02 K/uL Prothrombin Time 11.1 SECONDS Prothromb Time International Ratio 1.0 Activated Partial Thromboplast Time 24.0 SECONDS Partial Thromboplastin Ratio 0.9 Sodium Level 137 mmol/L Potassium Level 4.7 mmol/L Chloride Level 95 mmol/L Carbon Dioxide Level 33 mmol/L Anion Gap 9.0 mmol/L Blood Urea Nitrogen 49 mg/dl Creatinine 1.80 mg/dl Est Creatinine Clear Calc Drug Dose 32.0 ml/min Estimated GFR () 31.6 Estimated GFR (Non- 27.2 BUN/Creatinine Ratio 27.0 Random Glucose 230 mg/dl Calcium Level 8.7 mg/dl Magnesium Level 2.3 mg/dl Bedside Glucose 234 mg/dl Assessment and Plan The patient is a 76-year-old female who presents emergency department with complaint of worsening shortness of breath over the past week. The symptoms initially began as a head congestion that then extended into her chest. She went to see her PCP earlier in the week was placed on Levaquin and Prednisone on . She has not had any relief of her symptoms in fact they've been worsening. She does use nebulizers at home without relief. Patient was admitted on 12/04/15 for acute COPD exacerbation. Acute exacerbation of chronic COPD: -Admit to the tele -Solu-Medrol 40 mg IV every 8 hours after having received on 125 mg IV and emergency department (02/13). Sarah as patient's status improves. -Vancomycin IV per renal dosing and Levofloxacin 500 mg IV every 24 hours d/c'd -Zosyn 3.375 mg IV every 8 hours -Guaifenesin extended release 600 mg by mouth twice a day -Xopenex with Atrovent nebulizers to use every 6 hours while awake and every 2 hours when necessary -Continue QVAR inhaler BID -Pending blood cultures- preliminary negative -Requiring 3L O2 with saturations in the low 90's (02/14)- wears 3L at home. -Patient follows with Иван Argueta PA-C Influenza A: -Tamiflu 75 mg PO BID x5 days (started 04/15, PM) -Droplet precautions T2DM: -Continue Glipizide 5 mg by mouth twice a day -Patient was given a one-time dose of Lantus 20 units subcutaneous on admission due to starting IV steroids -Lantus 22 units subcutaneous twice a day while on IV steroids, titrate as needed -- Increased to 26 units BID- better control of sugars -BSG AC & HS with sliding insulin scale Hypertension/diastolic CHF: -Continue Furosemide 40 mg by mouth twice a day -Continue Potassium extended release 20 mEq by mouth daily -Continue Metoprolol succinate 100 mg by mouth daily -Continue Lisinopril 10 mg by mouth daily Hypercholesterolemia: -Continue Pravastatin 10 mg by mouth daily Restless leg syndrome: -Continue Ropinirole 2 mg by mouth 3 times a day Depression: -Continue Fluoxetine 20 mg by mouth every morning Anemia: -Continue iron supplement 325 mg PO daily -Continue b12 supplemental 1000 g by mouth daily CKD, stage III, baseline cr. ~1.7: -Stable. Follow PRP DVT prophylaxis: -MEME and SCDs Dispo: -Return to ?home when medically stable -Likely need PT/OT evaluations prior to discharge
[2016-04-16] MEDS: INSULIN ASPART 100 UNITS/ML 3 ML PEN SC SCH ×4 (09:26→21:01)
[2016-04-16] MEDS: INSULIN GLARGINE SOLOSTAR 100 UNITS/ML 3 ML PEN SC SCH ×2 (09:27→21:01)
[2016-04-16] MEDS ORDERED: DiphenhydrAMINE INJ 50 MG in SYRINGE 0 ML IV PRN (09:45)
[2016-04-16] MEDS ORDERED: VANCOMYCIN CONSULT ACTIVE PRN (09:45)
[2016-04-16] MEDS ORDERED: VANCOMYCIN INJ 1,300 MG in SODIUM CHLORIDE 0.9% 250ML 250 ML IV ONE (10:00)
--- NOTE | 2016-04-16 10:09 | Pharmacy Progress Note ---
Pharmacy Antibiotic Consult Date of Service: Apr 16, 2016. Pharmacy Dosing Scope Pharmacy is consulted to initiate vancomycin IV and pip/tazo IV dosing therapy, order appropriate labs and adjust drug dose/frequency. Subjective The patient is a 76 year old female admitted on Apr 15, 2016 at 03:55. Objective Height (Feet): 5 Height (Inches): 3.00 Weight (Kilograms): 106.000 Lab Results (24hrs): Laboratory Tests Test 04/16/16 07:36 BUN/Creatinine Ratio 27.0 Blood Urea Nitrogen 49 mg/dl Creatinine 1.80 mg/dl White Blood Count 6.02 K/uL Red Blood Count 3.68 M/uL Hemoglobin 11.8 g/dL Hematocrit 35.1 % Mean Corpuscular Volume 95.4 fL Mean Corpuscular Hemoglobin 32.1 pg Mean Corpuscular Hemoglobin Concent 33.6 g/dl Platelet Count 121 K/uL Mean Platelet Volume 10.7 fL Neutrophils (%) (Auto) 90.9 % Lymphocytes (%) (Auto) 5.3 % Monocytes (%) (Auto) 3.5 % Eosinophils (%) (Auto) 0.0 % Basophils (%) (Auto) 0.0 % Neutrophils # (Auto) 5.47 K/uL Lymphocytes # (Auto) 0.32 K/uL Monocytes # (Auto) 0.21 K/uL Eosinophils # (Auto) 0.00 K/uL Basophils # (Auto) 0.00 K/uL Assessment & Plan ASSESSMENT: * Patient is a 76 year-old female admitted with pneumonia and COPD. * It is noted she was placed on levofloxacin and prednisone outpatient 4 days prior to admission and failed therapy. * Patient also has poor renal function and an elevated BMI >35kg/m2. * Patient is also on tamiflu, per physician management. * Pharmacy was consulted to dose the vancomycin IV and pip/tazo IV therapies. * Calculated half-life to be ~23hrs. * BCx2 show NGTD. PLAN: VANCOMYCIN: * Vancomycin was given as a load on 04/15 at 2500mg IV x 1 dose on 04/15 ~23mg/kg and then was stopped per the physician. * It was restarted today at 1300mg IV x 1 dose ~12mg/kg as patient had clinically declined. * Will get a random level tomorrow morning and will redose patient based off of this level for continued maintenance doses. PIP/TAZO: * Will continue patient on the maintenance doses of 4.5 g IV q8h due to CrC>20ml /min and BMI>30kg/m3. Pharmacy will continue to follow and will adjust dose/frequency as necessary. Thank you
[2016-04-16] MEDS: PRAVASTATIN SOD 10 MG TAB PO SCH (20:54)
[2016-04-17] MEDS: PIPERACILL/TAZOBAC IV 4.5 GM in DEXTROSE 5% 100ML 100 ML IV SCH ×3 (01:50→17:29)
[2016-04-17] MEDS: METHYLPREDNISOLONE IV 40 MG in SYRINGE 0 ML IV SCH ×3 (01:52→17:29)
[2016-04-17 02:29] VITALS: PULSE 68; O2SAT 98
[2016-04-17] MEDS: IPRATROPIUM BROMIDE NEB SOLN 0.02% 2.5 ML VIAL INH SCH (02:29)
[2016-04-17] MEDS: LEVALBUTEROL 1.25MG/0.5ML NEB INH SCH (02:29)
[2016-04-17 06:45] VITALS: BP 159/92; PULSE 67; TEMP 36.5; O2SAT 96
[2016-04-17 06:47] LABS: BASO % 0.1 %; BASO ABS # 0.01 K/uL (0-0.2); COMPLETE YES; HEMATOCRIT 39.3 % (37-47); IG% 0.8 %; LYMPH % 6.4 %; LYMPH ABS # 0.48 K/uL (1.2-3.4); MEAN CELL VOLUME 96.3 fL (80-100); MEAN CORPUSCULAR HEMOGLOBIN 32.1 pg (25-34); MEAN CORPUSCULAR HGB CONC 33.3 g/dl (32-36); MEAN PLATELET VOLUME 10.7 fL (7.4-10.4); MONO % 2.4 %; NEUT % 90.3 %; PLATELET COUNT 126 K/uL (130-400); RED BLOOD COUNT 4.08 M/uL (4.2-5.4); WHITE BLOOD COUNT 7.45 K/uL (4.8-10.8)
[2016-04-17 06:55] LABS: INR 1.1 (0.9-1.1); PARTIAL THROMBOPLASTIN RATIO 0.9; PROTHROMBIN TIME (PATIENT) 11.3 SECONDS (9.0-12.0)
[2016-04-17 07:13] LABS: CALCIUM 8.7 mg/dl (8.5-10.1); CREATININE 1.8 mg/dl (0.60-1.20); MAGNESIUM 2.5 mg/dl (1.8-2.4); POTASSIUM 4.3 mmol/L (3.5-5.1)
[2016-04-17] MEDS: ROPINIROLE HCL 1 MG TAB PO SCH ×3 (08:18→22:10)
[2016-04-17] MEDS: CYANOCOBALAMIN 500 MCG TAB (VIT B-12) PO SCH (08:18)
[2016-04-17] MEDS: OSELTAMIVIR PHOSPHATE SUSP 30 MG/5 ML UDP PO SCH ×2 (08:18→22:07)
[2016-04-17] MEDS: METOPROLOL SUCC 50MG EXT REL TAB PO SCH (08:18)
[2016-04-17] MEDS: GUAIFENESIN 200 MG TAB PO SCH ×2 (08:19→22:08)
[2016-04-17] MEDS: FERROUS SULFATE 325 MG TAB PO SCH (08:19)
[2016-04-17] MEDS: SPIRONOLACTONE 25 MG TAB PO SCH (08:19)
[2016-04-17] MEDS: FUROSEMIDE 20 MG TAB PO SCH (08:19)
[2016-04-17] MEDS: BECLOMETHASONE DIP HFA 80 MCG 8.7G INH INH SCH ×2 (08:20→22:08)
[2016-04-17] MEDS: FLUOXETINE HCL 20 MG CAP PO SCH (08:20)
[2016-04-17] MEDS: INSULIN ASPART 100 UNITS/ML 3 ML PEN SC SCH ×4 (08:21→22:16)
[2016-04-17] MEDS: INSULIN GLARGINE SOLOSTAR 100 UNITS/ML 3 ML PEN SC SCH ×2 (08:22→22:16)
[2016-04-17] MEDS ORDERED: VANCOMYCIN INJ 750 MG in SODIUM CHLORIDE 0.9% 250ML 250 ML IV ONE (13:00)
[2016-04-17] MEDS: LEValbuterol HFA 15GM INHALER INH SCH ×2 (14:08→22:09)
[2016-04-17] MEDS: IPRATROPIUM BROMIDE HFA INHALER INH SCH ×2 (14:08→22:09)
--- NOTE | 2016-04-17 14:26 | Hospitalist Progress Note ---
Hospitalist Progress Note Date of Service Apr 17, 2016. Subjective Pt evaluation today including: conversation w/ patient, physical exam, chart review, lab review, review of studies, review of inpatient medication list Pain: None PO Intake: Tolerating PO diet, decreased appetite Voiding: no voiding problems Patient states that her breathing is about the same as yesterday. She complains of shortness of breath at rest, dyspnea on exertion, a non-productive cough, and intermittent wheezing. She also complains of decreased appetite, although she is tolerating PO food. She does state that her weakness and fatigue have improved from yesterday, although she is still not back to baseline. The patient denies fevers, chills, sweats, chest pain, palpitations, claudication, nausea, vomiting, abdominal pain, dysuria, hematuria, urinary retention, paralysis, numbness and tingling. Additional Comments: See HPI for pertinent positives and negatives. All other systems reviewed and negative. Objective Vital Signs Date Time Temp Pulse Resp B/P Pulse Ox O2 Delivery O2 Flow Rate FiO2 04/17/16 08:45 Nasal Cannula 3.0 04/17/16 06:45 36.5 67 80 159/92 96 Nasal Cannula 3.0 04/17/16 02:29 68 18 98 Nasal Cannula 3.0 04/17/16 00:05 Nasal Cannula 3.0 04/16/16 23:33 36.6 67 18 154/84 95 Nasal Cannula 3.0 04/16/16 19:48 67 18 98 Nasal Cannula 3.0 04/16/16 16:00 96 Nasal Cannula 3.0 04/16/16 15:28 36.7 76 20 177/92 96 Nasal Cannula 4.0 Physical Exam General Appearance: WD/WN, no apparent distress, + obese (morbidly obese) Eyes: normal inspection, PERRL, EOMI ENT: normal ENT inspection, hearing grossly normal, pharynx normal, + pertinent finding (no signs of thrush) Neck: supple, no JVD, trachea midline Respiratory/Chest: lungs clear, no respiratory distress, + decreased breath sounds, + pertinent finding (very poor air movement) Cardiovascular: regular rate, rhythm, no gallop, no murmur Abdomen: normal bowel sounds, non tender, soft Extremities: non-tender, normal inspection, no pedal edema Neurologic/Psychiatric: alert, normal mood/affect, oriented x 3 Skin: normal color, warm/dry, no rash Laboratory Results Last 24 Hours Test 04/16/16 16:50 04/16/16 20:11 04/17/16 06:07 04/17/16 07:29 Bedside Glucose 275 mg/dl 236 mg/dl 221 mg/dl White Blood Count 7.45 K/uL Red Blood Count 4.08 M/uL Hemoglobin 13.1 g/dL Hematocrit 39.3 % Mean Corpuscular Volume 96.3 fL Mean Corpuscular Hemoglobin 32.1 pg Mean Corpuscular Hemoglobin Concent 33.3 g/dl Platelet Count 126 K/uL Mean Platelet Volume 10.7 fL Neutrophils (%) (Auto) 90.3 % Lymphocytes (%) (Auto) 6.4 % Monocytes (%) (Auto) 2.4 % Eosinophils (%) (Auto) 0.0 % Basophils (%) (Auto) 0.1 % Neutrophils # (Auto) 6.72 K/uL Lymphocytes # (Auto) 0.48 K/uL Monocytes # (Auto) 0.18 K/uL Eosinophils # (Auto) 0.00 K/uL Basophils # (Auto) 0.01 K/uL RDW Standard Deviation 46.9 fL RDW Coefficient of Variation 13.2 % Immature Granulocyte % (Auto) 0.8 % Immature Granulocyte # (Auto) 0.06 K/uL Prothrombin Time 11.3 SECONDS Prothromb Time International Ratio 1.1 Activated Partial Thromboplast Time 22.3 SECONDS Partial Thromboplastin Ratio 0.9 Sodium Level 139 mmol/L Potassium Level 4.3 mmol/L Chloride Level 96 mmol/L Carbon Dioxide Level 35 mmol/L Anion Gap 8.0 mmol/L Blood Urea Nitrogen 50 mg/dl Creatinine 1.80 mg/dl Est Creatinine Clear Calc Drug Dose 32.0 ml/min Estimated GFR () 31.6 Estimated GFR (Non- 27.2 BUN/Creatinine Ratio 28.0 Random Glucose 227 mg/dl Calcium Level 8.7 mg/dl Magnesium Level 2.5 mg/dl Test 04/17/16 09:45 04/17/16 11:29 Random Vancomycin Level 17.2 mcg/ml Bedside Glucose 265 mg/dl Diagnostic Results Reviewed EKG and agree with interpretation as follows: 69 bpm, NSR Assessment and Plan 76 y/o female with a history of COPD, CHF, DM II, HTN, and HLD who presents to the ED on 04/15 with worsening shortness of breath over the past week. The symptoms initially began as a head congestion that then extended into her chest. She went to see her PCP earlier in the week was placed on Levaquin and Prednisone on . She has not had any relief of her symptoms. She does use nebulizers at home without relief. Patient was admitted on 12/04/15 for acute COPD exacerbation. Acute exacerbation of chronic COPD -Admit to telemetry -Continue Solu-Medrol 40 mg IV q8h as pt still has very poor air movement, no improvement of sx. Received Solu-Medrol 125 mg IV x 1 in ED on 04/15. -D/C Vancomycin IV and Levofloxacin 500 mg IV -Continue Zosyn IV -Guaifenesin extended release 600 mg PO BID -Xopenex/Atrovent nebulizers q6hWA and q2h prn SOB/wheezing -Continue QVAR inhaler BID -Blood cultures NGTD x 2 -Requiring 3L O2 with saturations in mid to high 90s (04/17)- wears 3L at home. -Patient follows with Иван Argueta PA-C, requested to see him when he comes for hospital rounds on 04/18. Consult order placed -Sputum culture if produced Influenza A -Tamiflu 30 mg PO BID x5 days (started 04/15, PM). -Droplet precautions Diabetes mellitus type 2--last recorded HgbA1c in 2013 -Continue Glipizide 5 mg PO BID -Patient was given a one-time dose of Lantus 20 units subcutaneous on admission due to starting IV steroids -Lantus 22 units subcutaneous twice a day while on IV steroids, titrate as needed -- Increased to 26 units BID- better control of sugars -BSG AC & HS with sliding insulin scale -Recheck HgbA1c HTN -Continue metoprolol succinate 100 mg PO qd and lisinopril 10 mg PO qd Chronic diastolic CHF -Continue furosemide 40 mg PO BID and potassium extended release 20 mEq PO qd HLD -Continue pravastatin 10 mg PO qd Restless leg syndrome -Continue ropinirole 2 mg PO TID Depression -Continue fluoxetine 20 mg PO qd Anemia -Continue iron supplement 325 mg PO qd -Continue B12 supplemental 1000 g PO qd CKD, stage III, baseline cr. ~1.7 -Stable. Creatinine 1.8 04/17 -Follow with PRP DVT prophylaxis: -MEME and SCDs Dispo: -Return to home when medically stable -Likely need PT/OT evaluations prior to discharge
[2016-04-17 14:46] VITALS: BP 148/82; PULSE 64; TEMP 36.7; O2SAT 98
[2016-04-17 15:04] LABS: ESTIMATED AVERAGE GLUCOSE 203 mg/dl; HA1C FLAG Normal (Normal)
[2016-04-17 16:00] VITALS: O2SAT 98
[2016-04-17] MEDS: PRAVASTATIN SOD 10 MG TAB PO SCH (22:08)
[2016-04-17 23:59] VITALS: O2SAT 98
[2016-04-18 00:34] VITALS: BP 161/88; PULSE 63; TEMP 36.6; O2SAT 96
[2016-04-18] MEDS: METHYLPREDNISOLONE IV 40 MG in SYRINGE 0 ML IV SCH (02:11)
[2016-04-18] MEDS: LEValbuterol HFA 15GM INHALER INH SCH ×4 (02:12→21:36)
[2016-04-18] MEDS: PIPERACILL/TAZOBAC IV 4.5 GM in DEXTROSE 5% 100ML 100 ML IV SCH (02:12)
[2016-04-18] MEDS: IPRATROPIUM BROMIDE HFA INHALER INH SCH ×4 (02:12→21:37)
[2016-04-18 07:18] VITALS: BP 147/79; PULSE 58; TEMP 36.5; O2SAT 98
--- NOTE | 2016-04-18 08:33 | DIAGNOSTIC IMAGING REPORT ---
CHEST 2 VIEWS ROUTINE CLINICAL HISTORY: Pneumonia. COPD. COMPARISON STUDY: Chest radiograph April 15, 2016 per FINDINGS: No pneumothorax or pleural effusion is present. There is no evidence of pulmonary edema. Mild cardiomegaly is unchanged. Linear left lower lung opacity is suggestive of atelectasis. There is no evidence of pulmonary edema. The appearance of the chest is unchanged. Lumbar spine fusion hardware is partially imaged. IMPRESSION: 1. No acute cardiopulmonary findings. 2. Linear left basilar opacity suggestive of atelectasis. Electronically signed by: Eduardo Ruff M.D. 04/18/2016 8:31 AM Dictated Date/Time: 04/18/2016 8:30 AM
[2016-04-18 08:39] LABS: HEMATOCRIT 37.9 % (37-47); MEAN CELL VOLUME 97.9 fL (80-100); MEAN CORPUSCULAR HEMOGLOBIN 32.3 pg (25-34); MEAN PLATELET VOLUME 10.8 fL (7.4-10.4); PLATELET COUNT 109 K/uL (130-400); RED BLOOD COUNT 3.87 M/uL (4.2-5.4); WHITE BLOOD COUNT 6.86 K/uL (4.8-10.8)
[2016-04-18 08:40] LABS: BASO % 0.1 %; BASO ABS # 0.01 K/uL (0-0.2); COMPLETE YES; IG% 1.2 %; LYMPH % 6.3 %; LYMPH ABS # 0.43 K/uL (1.2-3.4); MONO % 2.9 %; NEUT % 89.5 %; PLT ESTIMATE DECREASED
[2016-04-18 08:44] LABS: BLOOD UREA NITROGEN 45 mg/dl (7-18); BUN/CREATININE RATIO 25.1 (10-20); CALCIUM 8.6 mg/dl (8.5-10.1); CARBON DIOXIDE 34 mmol/L (21-32); CHLORIDE 98 mmol/L (98-107); GLUCOSE 195 mg/dl (70-99); SODIUM 140 mmol/L (136-145)
[2016-04-18] MEDS: BECLOMETHASONE DIP HFA 80 MCG 8.7G INH INH SCH ×2 (08:56→21:35)
[2016-04-18] MEDS: CYANOCOBALAMIN 500 MCG TAB (VIT B-12) PO SCH (08:57)
[2016-04-18] MEDS: OSELTAMIVIR PHOSPHATE SUSP 30 MG/5 ML UDP PO SCH ×2 (08:57→21:38)
[2016-04-18] MEDS: SPIRONOLACTONE 25 MG TAB PO SCH (08:57)
[2016-04-18] MEDS: GUAIFENESIN 200 MG TAB PO SCH ×2 (08:58→21:37)
[2016-04-18] MEDS: FLUOXETINE HCL 20 MG CAP PO SCH (08:59)
[2016-04-18] MEDS: FUROSEMIDE 20 MG TAB PO SCH (08:59)
[2016-04-18] MEDS: METOPROLOL SUCC 50MG EXT REL TAB PO SCH (08:59)
[2016-04-18] MEDS: FERROUS SULFATE 325 MG TAB PO SCH (08:59)
[2016-04-18] MEDS: ROPINIROLE HCL 1 MG TAB PO SCH ×3 (08:59→21:38)
[2016-04-18] MEDS: INSULIN ASPART 100 UNITS/ML 3 ML PEN SC SCH ×4 (09:01→21:00)
[2016-04-18] MEDS: INSULIN GLARGINE SOLOSTAR 100 UNITS/ML 3 ML PEN SC SCH ×2 (09:02→21:43)
[2016-04-18 09:45] LABS: MAGNESIUM 2.5 mg/dl (1.8-2.4); POTASSIUM 4.5 mmol/L (3.5-5.1)
[2016-04-18] MEDS: LEVOFLOXACIN 750 MG TAB PO SCH (11:33)
--- NOTE | 2016-04-18 14:07 | Clinical Documentation Query ---
CLINICAL DOCUMENTATION QUERY Dr. VENTURA, In your clinical opinion is this patient being managed for: ( ) Possible/suspected gram negative Pneumonia ( ) Other explanation of clinical findings (Please Explain) ( ) Unable to determine (Please Define) ( ) Need to Discuss ( ) Not Agree The medical record reflects the following clinical findings, treatment, and risk factors. Clinical Indicators: 76 yo female presenting after failed outpatient treatment with levaquin and prednisone for a cough. Vital signs 37.3-96-28, 125/67, O2 sat 93% on 4L, CXR with L basilar opacity. Treatment:IV levaquin, IV vancomycin, IV zosyn, atrovent and xopenex nebs, repeat CXR, O2 support, Risk Factors: age, failed outpatient treatment, COPD with home nebs and inhalers, DM Please clarify and document your clinical opinion in the progress notes and discharge summary. Terms such as "probable", "suspected", "likely", "questionable", "possible", or "still to be ruled out" are acceptable. IF IN AGREEMENT, YOU MUST DOCUMENT ABOVE DIAGNOSTIC STATEMENT IN DAILY PROGRESS NOTES AND DISCHARGE SUMMARY. This document is not part of the patient's record. Thank You, Onelia Iqbal, RHYS [phone]
--- NOTE | 2016-04-18 14:44 | Hospitalist Progress Note ---
Hospitalist Progress Note Date of Service Apr 18, 2016. Subjective Pt evaluation today including: conversation w/ patient, physical exam, chart review, lab review, review of studies, review of inpatient medication list Patient reports feeling about the same. She states that her breathing still has not improved. She complains of shortness of breath at rest, MANCUSO, a non- productive cough, and intermittent wheezing. She states that even prolonged talking can make her feel short of breath. She still has a decreased appetite. She does state that her weakness and fatigue has continued to improve. The patient denies fevers, chills, sweats, chest pain, palpitations, claudication, nausea, vomiting, abdominal pain, dysuria, hematuria, urinary retention, paralysis, weakness, numbness and tingling. Additional Comments: See HPI for pertinent positives and negatives. All other systems reviewed and negative. Objective Vital Signs Date Time Temp Pulse Resp B/P Pulse Ox O2 Delivery O2 Flow Rate FiO2 04/18/16 08:45 Nasal Cannula 3.0 04/18/16 07:18 36.5 58 18 147/79 98 Nasal Cannula 3.0 04/18/16 00:34 36.6 63 18 161/88 96 Room Air 04/17/16 23:59 98 Nasal Cannula 2.0 04/17/16 16:00 98 Nasal Cannula 3.0 95 04/17/16 14:46 36.7 64 18 148/82 98 Nasal Cannula 3.0 Physical Exam General Appearance: WD/WN, no apparent distress, + obese (morbidly obese) Eyes: normal inspection, PERRL, EOMI ENT: normal ENT inspection, hearing grossly normal, pharynx normal (no thrush) Neck: supple, no JVD, trachea midline Respiratory/Chest: lungs clear, no respiratory distress, + decreased breath sounds, + pertinent finding (very limited air movement, unable to take an adequate deep breath) Cardiovascular: regular rate, rhythm, no gallop, no murmur Abdomen: normal bowel sounds, non tender, soft Extremities: non-tender, normal inspection, + swelling (1+ pitting edema) Neurologic/Psychiatric: alert, normal mood/affect, oriented x 3 Skin: normal color, warm/dry, no rash Laboratory Results Last 24 Hours Test 04/17/16 16:29 04/17/16 19:53 04/18/16 07:30 04/18/16 07:43 Bedside Glucose 201 mg/dl 230 mg/dl 205 mg/dl White Blood Count 6.86 K/uL Red Blood Count 3.87 M/uL Hemoglobin 12.5 g/dL Hematocrit 37.9 % Mean Corpuscular Volume 97.9 fL Mean Corpuscular Hemoglobin 32.3 pg Mean Corpuscular Hemoglobin Concent 33.0 g/dl Platelet Count 109 K/uL Mean Platelet Volume 10.8 fL Neutrophils (%) (Auto) 89.5 % Lymphocytes (%) (Auto) 6.3 % Monocytes (%) (Auto) 2.9 % Eosinophils (%) (Auto) 0.0 % Basophils (%) (Auto) 0.1 % Neutrophils # (Auto) 6.14 K/uL Lymphocytes # (Auto) 0.43 K/uL Monocytes # (Auto) 0.20 K/uL Eosinophils # (Auto) 0.00 K/uL Basophils # (Auto) 0.01 K/uL RDW Standard Deviation 47.1 fL RDW Coefficient of Variation 13.3 % Immature Granulocyte % (Auto) 1.2 % Immature Granulocyte # (Auto) 0.08 K/uL Platelet Estimate DECREASED Sodium Level 140 mmol/L Potassium Level mmol/L Chloride Level 98 mmol/L Carbon Dioxide Level 34 mmol/L Anion Gap 8.0 mmol/L Blood Urea Nitrogen 45 mg/dl Creatinine 1.80 mg/dl Est Creatinine Clear Calc Drug Dose 32.0 ml/min Estimated GFR () 31.6 Estimated GFR (Non- 27.2 BUN/Creatinine Ratio 25.1 Random Glucose 195 mg/dl Calcium Level 8.6 mg/dl Magnesium Level mg/dl Test 04/18/16 09:15 04/18/16 11:39 Potassium Level 4.5 mmol/L Magnesium Level 2.5 mg/dl Bedside Glucose 170 mg/dl Diagnostic Results Reviewed the following studies and agree with interpretation as follows: Patient Name: ANIL LLAMAS Unit Number: [id number] Dictated: 04/18/16829 Transcribed: 04/18/16829 JA Printed Date/Time: [~ rep prt dt]/[~ rep prt tm] [~ rep ct labl] - [~ rep ct ivnm] [facility] [place] [address] Dictated: 04/18/16829 Transcribed: 04/18/16829 JA Printed Date/Time: [~ rep prt dt]/[~ rep prt tm] [~ rep ct labl] - [~ rep ct ivnm] Patient: ANIL LLAMAS [id number] [facility] Rec: [id number] Address2: Acct ID: [id number] [facility] Zip: [place] [address] Date: 1940 Sex: F Room[facility]Bed: [facility] Ref Phy: Luc Daly D.O. SC: [facility] Att Phy: Carlos Baez MD, PhD Report #: [id number] Sarah Phy: Luc Daly D.O. Test: CXR Admit Phy: Yamil Torres M.D. Supervisor Photocomposition: MIGUEL Interpreting Phy: Eduardo Ruff MD Diagnosis: COPD EXACERBATION, PNEUMONIA Ordering Phy: Carlos Baez MD, PhD Service Date: 04/18/16 Admit Date: 04/15/1700/14/17 MNE: [id number] CONF: DICTATED BY: Eduardo Ruff MD]] CC: Luc Daly D.O. Lin, Daniel Y., MD, PhD Endcc: [~ rep ct add3]] CHEST 2 VIEWS ROUTINE CLINICAL HISTORY: Pneumonia. COPD. COMPARISON STUDY: Chest radiograph April 15, 2016 per FINDINGS: No pneumothorax or pleural effusion is present. There is no evidence of pulmonary edema. Mild cardiomegaly is unchanged. Linear left lower lung opacity is suggestive of atelectasis. There is no evidence of pulmonary edema. The appearance of the chest is unchanged. Lumbar spine fusion hardware is partially imaged. IMPRESSION: 1. No acute cardiopulmonary findings. 2. Linear left basilar opacity suggestive of atelectasis. Electronically signed by: Eduardo Ruff M.D. 04/18/2016 8:31 AM Dictated Date/Time: 04/18/2016 8:30 AM The status of this report is Signed. Draft = Not yet reviewed or approved by Radiologist. Signed = Reviewed and approved by Radiologist. <AttendingPhy>Carlos Baez MD, PhD</AttendingPhy> <FamilyPhy>Malika, Luc J.,D.O.</FamilyPhy> <PrimaryPhy>Luc Daly D.O.</PrimaryPhy> < UnitNumber>[id number]</UnitNumber> <VisitNumber>[id number]</VisitNumber> < PatientName>ANIL LLAMAS</PatientName> <DateOfBirth>1940</DateOfBirth > <Location>[facility]</Location> <ServiceDate>04/15/16</ServiceDate> <MNE>ESINDI</ MNE> <OrderingPhy>Carlos Baez MD, PhD</OrderingPhy> <OrderingPhyMNE>f rep ord dr wilcox</OrderingPhyMNE> <DictatingPhyMNE>f rep dict dr wilcox</DictatingPhyMNE> < CCListMNE>f rep ct damiene</CCListMNE> <AdmittingPhyMNE>f pt admit dr wilcox</ AdmittingPhyMNE> <AttendingPhyMNE>f pt attend dr wilcox</AttendingPhyMNE> <ConsultingPhyMNE>f pt consult dr wilcox</ConsultingPhyMNE> <FamilyPhyMNE>f pt fam dr wilcox</FamilyPhyMNE> <OtherPhyMNE>f pt other dr wilcox</OtherPhyMNE> < PrimaryPhyMNE>f pt prim care dr wilcox</PrimaryPhyMNE> <ReferringPhyMNE>f pt referring dr wilcox</ReferringPhyMNE> Assessment and Plan 76 y/o female with a history of COPD, CHF, DM II, HTN, and HLD who presents to the ED on 04/15 with worsening shortness of breath over the past week. The symptoms initially began as a head congestion that then extended into her chest. She went to see her PCP earlier in the week was placed on Levaquin and Prednisone on . She has not had any relief of her symptoms. She does use nebulizers at home without relief. Patient was admitted on 12/04/15 for acute COPD exacerbation. Acute exacerbation of chronic COPD -Admit to telemetry -Received Solu-Medrol 125 mg IV x 1 in ED on 04/15, then Solu-Medrol 40 mg IV q8h. D/C Solu-Medrol on 04/18 -Start Prednisone 40 mg PO BID -D/C Vancomycin IV and Levofloxacin 500 mg IV 04/15 -D/C Zosyn IV 04/18 -Switch to Levaquin 750 mg PO q48h due to creatinine clearance <49. Pt. had taken 4 days of Levaquin outpatient, but will try again now that flu is being managed -Guaifenesin extended release 600 mg PO BID -Xopenex/Atrovent nebulizers q6hWA and q2h prn SOB/wheezing -Continue QVAR inhaler BID -Blood cultures NGTD x 2 -Requiring 3L O2 with saturations in high 90s (04/18)- wears 3L at home. -Patient follows with Иван Argueta PA-C, requested to see him when he comes for hospital rounds on 04/18. Consult order placed, awaiting evaluation -Sputum culture if produced Influenza A -Tamiflu 30 mg PO BID x5 days (started 04/15, PM). -Droplet precautions Diabetes mellitus type 2--last recorded HgbA1c in 2013 -Continue Glipizide 5 mg PO BID -Patient was given a one-time dose of Lantus 20 units subcutaneous on admission due to starting IV steroids -Lantus 22 units subcutaneous twice a day while on IV steroids, titrate as needed -- Increased to 26 units BID- better control of sugars -BSG AC & HS with sliding insulin scale -Rechecked HgbA1c 8.7 on 04/17. Discussed with pt that she will need to follow up with her PCP as an outpatient regarding better control. Sugars have improved while inpatient on Lantus and Novolog sliding scale, but she does not take any insulin at home HTN -Continue metoprolol succinate 100 mg PO qd and lisinopril 10 mg PO qd Chronic diastolic CHF -Continue furosemide 40 mg PO BID and potassium extended release 20 mEq PO qd HLD -Continue pravastatin 10 mg PO qd Restless leg syndrome -Continue ropinirole 2 mg PO TID Depression -Continue fluoxetine 20 mg PO qd Anemia -Continue iron supplement 325 mg PO qd -Continue B12 supplemental 1000 g PO qd CKD, stage III, baseline cr. ~1.7 -Stable. Creatinine 1.8 04/18, BUN improving -Follow with PRP DVT prophylaxis: -MEME and SCDs Dispo: -Return to home when medically stable -PT recommends acute inpatient rehab due to deconditioning and pt living alone with a full flight of stairs -Case management following
[2016-04-18 15:01] VITALS: BP 149/82; PULSE 64; TEMP 36.7; O2SAT 92
[2016-04-18 15:45] VITALS: O2SAT 93; O2SAT 94
[2016-04-18 16:20] VITALS: O2SAT 94
[2016-04-18] MEDS: PRAVASTATIN SOD 10 MG TAB PO SCH (21:39)
[2016-04-19] VITALS (8 sets, daily range): BP systolic 144–182; BP diastolic 73–97; PULSE 64–81; TEMP 36.5–36.7; O2SAT 90–98
[2016-04-19] MEDS: IPRATROPIUM BROMIDE HFA INHALER INH SCH ×2 (02:32→08:08)
[2016-04-19] MEDS: LEValbuterol HFA 15GM INHALER INH SCH ×2 (02:32→08:08)
[2016-04-19 06:10] LABS: BASO % 0.1 %; BASO ABS # 0.01 K/uL (0-0.2); COMPLETE YES; IG% 1.4 %; MEAN CELL VOLUME 96.7 fL (80-100); MEAN CORPUSCULAR HEMOGLOBIN 31.6 pg (25-34); MEAN CORPUSCULAR HGB CONC 32.7 g/dl (32-36); MEAN PLATELET VOLUME 10.6 fL (7.4-10.4); MONO % 7.5 %; PLATELET COUNT 215 K/uL (130-400); RED BLOOD COUNT 4.24 M/uL (4.2-5.4); WHITE BLOOD COUNT 12.21 K/uL (4.8-10.8)
[2016-04-19 06:28] LABS: BLOOD UREA NITROGEN 45 mg/dl (7-18); CARBON DIOXIDE 40 mmol/L (21-32); CHLORIDE 97 mmol/L (98-107); GLUCOSE 67 mg/dl (70-99); SODIUM 142 mmol/L (136-145)
[2016-04-19] MEDS: OSELTAMIVIR PHOSPHATE SUSP 30 MG/5 ML UDP PO SCH ×2 (08:07→20:25)
[2016-04-19] MEDS: BECLOMETHASONE DIP HFA 80 MCG 8.7G INH INH SCH ×3 (08:08→20:27)
[2016-04-19] MEDS: CYANOCOBALAMIN 500 MCG TAB (VIT B-12) PO SCH (08:09)
[2016-04-19] MEDS: SPIRONOLACTONE 25 MG TAB PO SCH (08:09)
[2016-04-19] MEDS: FERROUS SULFATE 325 MG TAB PO SCH (08:09)
[2016-04-19] MEDS: GUAIFENESIN 200 MG TAB PO SCH ×2 (08:10→20:20)
[2016-04-19] MEDS: METOPROLOL SUCC 50MG EXT REL TAB PO SCH (08:10)
[2016-04-19] MEDS: FLUOXETINE HCL 20 MG CAP PO SCH (08:10)
[2016-04-19] MEDS: ROPINIROLE HCL 1 MG TAB PO SCH ×3 (08:10→20:19)
[2016-04-19] MEDS: FUROSEMIDE 20 MG TAB PO SCH (08:45)
[2016-04-19] MEDS: INSULIN GLARGINE SOLOSTAR 100 UNITS/ML 3 ML PEN SC SCH ×2 (08:47→20:24)
[2016-04-19] MEDS: INSULIN ASPART 100 UNITS/ML 3 ML PEN SC SCH ×4 (08:47→20:25)
[2016-04-19] MEDS ORDERED: METHYLPREDNISOLONE IV 20 MG in SYRINGE 0 ML IV ONE (11:00)
--- NOTE | 2016-04-19 11:02 | CONSULTATION REPORT ---
DATE OF CONSULTATION: 04/18/2016 DATE OF CONSULTATION: 04/18/2016. REASON FOR CONSULTATION: COPD exacerbation. HISTORY OF PRESENT ILLNESS: The patient is a 76-year-old female who we follow in the office. She was last seen in our office at the end of December 2015 for a regular followup and was doing well at the time. We follow her in the office for severe COPD as well as pulmonary hypertension, COPD and is oxygen dependent. The patient apparently started with symptoms of difficulty with her breathing about a week ago. She contacted the office and had antibiotic and prednisone called in for her. She had been on that about 4 days and was not seeing any improvement. She is becoming a little bit more short of breath and symptoms did worsen a little bit so she presented to [facility] emergency room where she was admitted on 04/15/2016. In the ER they did do flu titers and she was positive for influenza A. She did have chest x-ray done which did not show any evidence of pneumonia, did show emphysematous change as well as bibasilar atelectasis and scarring. The patient reports that her symptoms were such that she was coughing. She was coughing up a little bit of yellow mucus, although not getting a lot. She was having wheezing. She was more short of breath. She was having to use her oxygen at a little bit higher rate than her normal 2-3 liters per minute. She felt that she did have a low grade fever but she was not completely certain. She did have wheezing. She did have increased dyspnea on exertion. She did have some headache. She had some body aches and chills. She did not really have any GI symptoms. No nausea or vomiting, no indigestion or heartburn. She states that her legs may have been a little bit more swollen than normal, although it was not significant. She states that she felt very fatigued and run down and had no energy. She denied any chest pain, no palpitations. No pleuritic chest pain. She denied any vomiting, no diarrhea. She denied any dysuria. She reports that prior to this she had been in her normal state of health. As stated earlier, we last saw the patient in the office in December of 2015. Reviewing her records, her last PFT was 2012 and showed a forced vital capacity of 1.77 liters which was 65% of predicted, an FEV1 was 0.83 liters which is 38% predicted and FEV1/FVC ratio of 57% of predicted. Her DLCO was 39% of predicted. Interpretation was severe COPD with no response to bronchodilation. The patient also has pulmonary hypertension for which she underwent a right heart catheterization in October 2014 that showed peak pulmonary artery pressure at the time of 52. The patient also follows with cardiology for some congestive heart failure. The patient reports since being in the hospital her symptoms have improved. She is not as short of breath as she was. She still is feeling very rundown and tired. She denies any other concerns or problems at this time. When I saw her physical therapy was in with her and discussion was being made about possible transition to [facility]. PAST MEDICAL HISTORY: Includes pulmonary hypertension with peak pulmonary artery pressure of 52 in October 2014, severe COPD which is oxygen dependent, chronic diastolic failure, diabetes mellitus, depression, chronic kidney disease stage III, hyperlipidemia, chronic edema, hypertension, restless leg syndrome, chronic back pain, vitamin D deficiency. PAST SURGICAL HISTORY: Includes right heart catheterization, multiple bronchoscopy, cholecystectomy, spinal arthrodesis, tonsillectomy and total knee replacement. FAMILY HISTORY: Includes hypertension, breast cancer in her daughter. SOCIAL HISTORY: The patient is a former smoker having smoked 1 pack a day for 30 years. She quit several years ago. She is retired. CURRENT MEDICATIONS: Per hospitalist history and physical include QVAR 2 puffs twice daily, vitamin B12 1000 mcg p.o. daily, iron sulfate 325 mg daily, Prozac 20 mg daily, Lasix 20 mg daily, glipizide 5 mg twice daily, DuoNeb anywhere from 1 to 4 times a day, lisinopril 10 mg daily, Toprol 100 mg daily, pravastatin 10 mg daily, Requip 2 mg 3 times daily, Aldactone 12.5 mg daily, tramadol 50 mg q. 6 hours as needed for pain. ALLERGIES: ATROPINE AND DOBUTAMINE. REVIEW OF SYSTEMS: As above, otherwise unremarkable. PHYSICAL EXAMINATION: GENERAL: The patient is a 76-year-old female sitting at bedside, does not appear in any acute respiratory distress, really does not appear in any distress in general. She is alert and oriented x3. Mood is good. Affect is good. VITAL SIGNS: Temp 36.5, pulse 58, respirations 18, blood pressure is 147/79, pulse ox 98% on 3 liters. HEAD, EYES, EARS, NOSE, AND THROAT: Normocephalic, atraumatic. Pupils equal, round and reactive to light and accommodation. Extraocular movements are intact. [place] moist gingival and buccal mucosa. NECK: Supple. No mass. No adenopathy. No bruit. CHEST: The patient has diminished breath sounds bilaterally. Few faint wheezes, although difficult to ascertain due to limited airflow. No rale or rhonchi noted at this time. CARDIOVASCULAR: Regular rate and rhythm. No murmurs, gallops or rubs. ABDOMEN: Bowel sounds are present. Abdomen soft, nontender. No guarding, rigidity or organomegaly. EXTREMITIES: The patient has 1+ pitting edema, no erythema, no cyanosis or clubbing. NEUROLOGIC: Cranial nerves II through XII are intact. No focal deficit noted. LABORATORY DATA: Shows a white count of 6,000, H\T\H 12.5 and 37.9, platelet count 109,000. BUN 45, creatinine 1.8. Flu cultures positive for influenza A. Blood cultures negative to date. Chest x-ray shows no acute findings. IMPRESSION: This is a 76-year-old female who we follow in the office for severe COPD as well as pulmonary hypertension who was admitted through the Emergency Room on 04/15/2016 with increased difficulty with her breathing. She was found to have influenza type A via nasal swab. At this point, I agree with covering her with Tamiflu. Would recommend cover for the 5 days as recommended. I also agree with the antibiotic choice of hospitalist team to cover for possible bacterial exacerbation of her COPD with her immunocompromised state being what it is with having the flu. Continue oxygen. The patient unfortunately is on oxygen continuously and wears 3 liters via nasal cannula. This will be continued following hospitalization. Agree with hospice recommendation try to get sputum culture although the patient usually has limited mucus production and difficulty expectorating any mucus. May want to consider flutter valve to see if we can help with this. At this point, will continue to follow up with the patient. ISMAEL
--- NOTE | 2016-04-19 11:21 | PROGRESS NOTE ---
DATE: 04/19/2016 DATE: 04/19/2016. PROBLEM LIST: Includes: 1. Influenza A. 2. Oxygen-dependent chronic obstructive pulmonary disease with exacerbation. 3. Severe chronic obstructive pulmonary disease. SUBJECTIVE: The patient actually is feeling a little worse today. She feels like her her chest is more tight. She is not able to move air as easily as she did yesterday. She is having a cough. The cough is dry. She states it is starting to break up a little bit. She is feeling more short of breath than she was. She states that sitting up in bed today made her a little bit short of breath. She did have some difficulty overnight. Apparently her oxygen tubing became disconnected and her oxygen saturation was down in the 50% to 60% range according to the patient when they checked it. Once her oxygen was hooked up correctly, her saturations came back to the low 90%. The patient reports that she still is very rundown and tired. She still has no energy. She is not having any fever that she is aware of. No chills. She does have chest heaviness and tightness which is consistent with where she has been. She denies any other difficulties at this time. No diarrhea. No abdominal pain. No nausea or vomiting. She is voiding well. No swelling in her extremities. OBJECTIVE: GENERAL: The patient is a 76-year-old female lying in bed, does not appear in any acute distress, does get a little bit winded with speaking. No accessory muscle use. She is alert and oriented x3. Mood is good. Affect is good. VITAL SIGNS: Temp 36.6, pulse 72, respirations 18, blood pressure is 144/76, pulse ox is 92% on 3 liters. HEAD, EYES, EARS, NOSE, AND THROAT: Normocephalic, atraumatic. Pupils equal, round, reactive to light and accommodation. Extraocular movements are intact. [place] moist gingival and buccal mucosa. NECK: Supple. No mass, no adenopathy, no bruit. CHEST: Breath sounds actually more diminished today. No significant wheezing although air movement is not good today. Actually less than it was yesterday. No rales or rhonchi appreciated. CARDIOVASCULAR: Regular rate and rhythm. No murmurs, gallops or rubs. ABDOMEN: Soft, nontender. No guarding, rigidity or organomegaly. EXTREMITIES: No erythema or edema. LABORATORY DATA: Shows white count 12,000, H\T\H of 13.4 and 41.0, platelet count 215,000. BUN 45, creatinine 1.8. No new imaging. IMPRESSION: This is a 76-year-old female with severe chronic obstructive pulmonary disease who is oxygen dependent, who is having exacerbation to her breathing as well as testing positive for influenza A. In reviewing her medications at this point the patient needs to be on nebulization. This patient unfortunately cannot generate enough inspiratory effort to adequately get inhaled medication from a metered dose inhaler into her lungs deep enough to really benefit her. She does need nebulization, therefore I will switch her back over to neb treatment. We will do nebs q. 4 hours while awake and every 2 hours as needed, also want to give her 20 mg of Solu-Medrol IV just as a 1-time dose to see if we can open airway at this point. As stated will switch her over to a nebulized medication q. 4 hours while awake and q. 2 hours as needed. Give her Solu-Medrol one time dose today, would recommend to continue prednisone at 40 mg orally b.i.d. Agree with continuing oral antibiotic. Finish out 5-day course of Tamiflu. Also put order in for flutter valve to see if we can get the secretions mobilizing as they start to break up. Will continue to follow through hospitalization. I do still think the patient is going to require short term rehabilitation stay such as at [facility]. We are seeing influenza A in the elderly as it is very fatiguing for them. They lose a lot of strength and they are much higher fall risk. At this point, will continue to follow.
--- NOTE | 2016-04-19 11:32 | Progress Note ---
Progress Note pt seen and examed, d/w PA about romo points of dignosis and care plan, agreed current management, for details please referral to PA's note Influenza A, and Acute exacerbation of chronic COPD, with baseline poor pulm function, Improving watery slowly, pulmonology input appreciated Continue steroid, scheduled nebulizer treatment every 4 hours as needed, Continue antibiotics , will continue totally 7-8 days of antibiotics Follow up sputum culture Continue 3L O2 with saturations in high 90s (04/18)- wears 3L at home. Planning for rehabilitation in day 1 or 2 Encourage out of bed to chair, incentive spirometry etc.
[2016-04-19] MEDS: IPRATROPIUM BROMIDE NEB SOLN 0.02% 2.5 ML VIAL INH SCH ×3 (11:33→19:05)
[2016-04-19] MEDS: LEVALBUTEROL 1.25MG/0.5ML NEB INH SCH ×3 (11:33→19:05)
[2016-04-19] MEDS ORDERED: SODIUM CHLORIDE 0.65% NA SOLN 45 ML (OCEAN) PRN (11:45)
[2016-04-19] MEDS ORDERED: LEVALBUTEROL/IPRATROPIUM NEB INH SCH (12:00)
--- NOTE | 2016-04-19 14:17 | Hospitalist Progress Note ---
Hospitalist Progress Note Date of Service Apr 19, 2016. Subjective Pt evaluation today including: conversation w/ patient, physical exam, chart review, lab review, conversation w/ retail sales consultant (spoke with Иван Argueta PA-C), review of inpatient medication list PO Intake: Decreased appetite, tolerating PO diet Voiding: no voiding problems Patient reports having difficulty last night. She states that she had been experiencing worsening shortness of breath for a few hours before she summoned the nurse, who discovered that her oxygen had been accidentally disconnected. Per the patient, her pulse ox was in the 50s at that time, but it did return to the low 90s once her oxygen was reconnected. Currently, her breathing feels about the same as it has been. She still complains of SOB, MANCUSO, non-productive cough, and intermittent wheezing. She complains of decreased appetite and states that her food has been tasting "off" today. The patient denies fevers, chills, sweats, chest pain, palpitations, claudication, nausea, vomiting, abdominal pain, dysuria, hematuria, urinary retention, paralysis, weakness, numbness and tingling. Additional Comments: See HPI for pertinent positives and negatives. All other systems reviewed and negative. Objective Vital Signs Date Time Temp Pulse Resp B/P Pulse Ox O2 Delivery O2 Flow Rate FiO2 04/19/16 10:33 80 24 90 Nasal Cannula 3.0 04/19/16 08:45 Nasal Cannula 3.0 04/19/16 08:27 36.6 72 18 144/76 92 Nasal Cannula 3.0 04/19/16 00:13 36.7 69 18 152/82 93 3.0 04/19/16 00:00 Nasal Cannula 3.0 04/18/16 16:20 94 Nasal Cannula 3.0 04/18/16 15:45 94 Nasal Cannula 3.0 04/18/16 15:01 36.7 64 18 149/82 92 Nasal Cannula 3.0 Physical Exam General Appearance: WD/WN, no apparent distress, + obese (morbidly obese) Eyes: normal inspection, PERRL, EOMI ENT: normal ENT inspection, hearing grossly normal, + pertinent finding (thrush ) Neck: supple, no JVD, trachea midline Respiratory/Chest: no respiratory distress, + decreased breath sounds (very poor air movement, decreased inspirations compared to yesterday), + wheezing Cardiovascular: regular rate, rhythm, no gallop, no murmur Abdomen: normal bowel sounds, non tender, soft Extremities: normal range of motion, non-tender, + swelling (1+ pitting edema) Neurologic/Psychiatric: alert, normal mood/affect, oriented x 3 Skin: normal color, warm/dry, no rash Laboratory Results Last 24 Hours Test 04/18/16 16:34 04/18/16 20:57 04/19/16 05:07 04/19/16 05:10 Bedside Glucose 160 mg/dl 115 mg/dl 72 mg/dl White Blood Count 12.21 K/uL Red Blood Count 4.24 M/uL Hemoglobin 13.4 g/dL Hematocrit 41.0 % Mean Corpuscular Volume 96.7 fL Mean Corpuscular Hemoglobin 31.6 pg Mean Corpuscular Hemoglobin Concent 32.7 g/dl Platelet Count 215 K/uL Mean Platelet Volume 10.6 fL Neutrophils (%) (Auto) 82.0 % Lymphocytes (%) (Auto) 9.0 % Monocytes (%) (Auto) 7.5 % Eosinophils (%) (Auto) 0.0 % Basophils (%) (Auto) 0.1 % Neutrophils # (Auto) 10.02 K/uL Lymphocytes # (Auto) 1.10 K/uL Monocytes # (Auto) 0.91 K/uL Eosinophils # (Auto) 0.00 K/uL Basophils # (Auto) 0.01 K/uL RDW Standard Deviation 45.4 fL RDW Coefficient of Variation 13.0 % Immature Granulocyte % (Auto) 1.4 % Immature Granulocyte # (Auto) 0.17 K/uL Sodium Level 142 mmol/L Potassium Level mmol/L Chloride Level 97 mmol/L Carbon Dioxide Level 40 mmol/L Anion Gap 5.0 mmol/L Blood Urea Nitrogen 45 mg/dl Creatinine 1.60 mg/dl Est Creatinine Clear Calc Drug Dose 36.0 ml/min Estimated GFR () 36.4 Estimated GFR (Non- 31.4 BUN/Creatinine Ratio 28.0 Random Glucose 67 mg/dl Calcium Level 9.0 mg/dl Test 04/19/16 07:51 04/19/16 08:10 04/19/16 11:55 Bedside Glucose 102 mg/dl 83 mg/dl Potassium Level 3.8 mmol/L Assessment and Plan 76 y/o female with a history of COPD, CHF, DM II, HTN, and HLD who presents to the ED on 04/15 with worsening shortness of breath over the past week. The symptoms initially began as a head congestion that then extended into her chest. She went to see her PCP earlier in the week was placed on Levaquin and Prednisone on . She has not had any relief of her symptoms. She does use nebulizers at home without relief. Patient was admitted on 12/04/15 for acute COPD exacerbation. Acute exacerbation of chronic COPD -Admit to telemetry -Received Solu-Medrol 125 mg IV x 1 in ED on 04/15, then Solu-Medrol 40 mg IV q8h. D/C Solu-Medrol on 04/18 -Continue Prednisone 40 mg PO BID -D/C Vancomycin IV and Levofloxacin 500 mg IV 04/15 -D/C Zosyn IV 04/18 -Switch to Levaquin 750 mg PO q48h due to creatinine clearance <49. Pt. had taken 4 days of Levaquin outpatient, but will try again now that flu is being managed -Guaifenesin extended release 600 mg PO BID -Xopenex/Atrovent nebulizers q4hWA and q2h prn SOB/wheezing -Continue QVAR inhaler BID -Blood cultures NGTD x 2 -Requiring 3L O2 with saturations in low 90s (04/19)- wears 3L at home. -Pulmonology consulted, appreciate recs: spoke with Иван Argueta PA-C, who states that patient has very poor baseline and is not much worse off than her normal. She will definitely need nebulizer treatments as she does not have the ability to adequately draw in MDI medications. He gave her a 1 time dose of Solu-Medrol 20 mg IV to help open her up more, otherwise can continue prednisone 40 mg PO BID. He recommended a very slow taper, in a few days she can go down to 60 mg qd and then taper 5 mg every 4-5 days. Also recommended trying a flutter valve to help clear her mucus. -Sputum culture if produced Influenza A -Tamiflu 30 mg PO BID x5 days (started 1/15, AM), last dose will be evening of -Droplet precautions Oral candidiasis -Start nystatin 5 ml PO QID x 14 days Diabetes mellitus type 2--last recorded HgbA1c in 2013 -Continue Glipizide 5 mg PO BID -Patient was given a one-time dose of Lantus 20 units subcutaneous on admission due to starting IV steroids -Lantus 22 units subcutaneous twice a day while on IV steroids, titrate as needed -- Increased to 26 units BID- better control of sugars -BSG AC & HS with sliding insulin scale -Rechecked HgbA1c 8.7 on 04/17. Discussed with pt that she will need to follow up with her PCP as an outpatient regarding better control. Sugars have improved while inpatient on Lantus and Novolog sliding scale, but she does not take any insulin at home. As steroids are tapered down, may be able to decrease insulin. HTN -Continue metoprolol succinate 100 mg PO qd and lisinopril 10 mg PO qd Chronic diastolic CHF -Continue furosemide 40 mg PO BID and potassium extended release 20 mEq PO qd HLD -Continue pravastatin 10 mg PO qd Restless leg syndrome -Continue ropinirole 2 mg PO TID Depression -Continue fluoxetine 20 mg PO qd Anemia -Continue iron supplement 325 mg PO qd -Continue B12 supplemental 1000 g PO qd CKD, stage III, baseline cr. ~1.7 -Stable. Creatinine 1.6 04/19, BUN stable -Follow with PRP DVT prophylaxis: -MEME and SCDs Dispo: -Return to home when medically stable -PT recommends acute inpatient rehab due to deconditioning and pt living alone with a full flight of stairs -Case management following, will place referral to [facility] per patient's request
[2016-04-19] MEDS: NYSTATIN SUSP 500,000 U/5 ML UDC PO SCH ×2 (16:41→20:19)
[2016-04-19] MEDS: PRAVASTATIN SOD 10 MG TAB PO SCH (20:19)
[2016-04-20 06:13] LABS: COMPLETE YES; HEMATOCRIT 36.6 % (37-47); IG% 1.5 %; LYMPH ABS # 0.48 K/uL (1.2-3.4); MEAN CELL VOLUME 98.1 fL (80-100); MEAN CORPUSCULAR HEMOGLOBIN 31.9 pg (25-34); MEAN CORPUSCULAR HGB CONC 32.5 g/dl (32-36); MEAN PLATELET VOLUME 10.4 fL (7.4-10.4); MONO % 5.9 %; NEUT % 84.6 %; PLATELET COUNT 119 K/uL (130-400); RED BLOOD COUNT 3.73 M/uL (4.2-5.4); WHITE BLOOD COUNT 5.98 K/uL (4.8-10.8)
[2016-04-20 06:47] LABS: BLOOD UREA NITROGEN 43 mg/dl (7-18); BUN/CREATININE RATIO 30.6 (10-20); CALCIUM 8.7 mg/dl (8.5-10.1); CARBON DIOXIDE 36 mmol/L (21-32); CHLORIDE 98 mmol/L (98-107); GLUCOSE 171 mg/dl (70-99); SODIUM 141 mmol/L (136-145)
--- NOTE | 2016-04-20 07:04 | PULMONARY PROGRESS NOTE ---
DATE: 04/20/2016 HISTORY OF PRESENT ILLNESS: The patient is comfortable this morning. She states she is very weak. She is able to ambulate in the hallways twice yesterday, did developed dyspnea with ambulation. She states she would have difficulty with ambulating at home. She is tolerating the nebulizer very well. She is not on a long acting bronchodilator. She is on prednisone 40 mg b.i.d. She states she is better than at the time of admission. She continues to have a bit of cough which is nonproductive with some anorexia. She slept fairly well last night. According to nurses' notes, she was ambulating independently to the bathroom without difficulty or significant dyspnea. She is able to ambulate in the hallway without difficulty except for dyspnea with exertion, but states she is weak. PHYSICAL EXAMINATION: VITAL SIGNS: Stable. Blood pressure 153/73, oxygen saturation 97% on 3 liters. Her weight is 105 kilograms and that has been stable. Nurses' notes and medications reviewed. HEENT AND NECK: Unremarkable except for a small posterior pharynx and large pendulous uvula abutting up against the posterior pharyngeal wall and a large tongue. Mandibular exam unremarkable. No neck vein distention or HJR. No adenopathy is noted. Thyroid nonpalpable. HEART: Regular rate and rhythm. No murmurs are heard. LUNGS: Reveal some mild wheezing with expiration bilaterally with decreased breath sounds. Scattered rhonchi are noted as well. There is no fremitus or dullness to percussion. ABDOMEN: Soft and obese, nontender. EXTREMITIES: She has no cyanosis, clubbing or edema. IMAGING DATA: Chest x-ray revealed a bit of linear plate-like atelectasis at the left lower lobe area. Otherwise, it looked good. Evidence of previous surgery of the lumbar spine was noted. LABORATORY DATA: White count 5.98, hemoglobin 11.9 with a platelet count of 119,000 which is slightly reduced. PRP shows a CO2 of 40, BUN of 45, creatinine 1.6. Sugars have been in the 200-230 range. Magnesium was 2.5. Hepatitis B core antibody and hepatitis C antibodies are negative. The influenza antigen for influenza A was positive. Blood cultures so far are unremarkable. IMPRESSION: 1. Chronic obstructive lung disease with exacerbation. 2. Influenza A. 3. Chronic kidney disease. 4. Diabetes mellitus. RECOMMENDATIONS: 1. Decrease prednisone at 60 mg daily. 2. Add Symbicort 160/4.5 two puffs b.i.d. and I believe the inhaled steroids, QVAR 80 mcg could be held at this point. 3. Continue on the nebulizer with Atrovent and albuterol 4 times a day and then q. 4 hours p.r.n. 4. Continue with increasing the patient's activity. Overall, she seems to be improving nicely. At this point, I will continue with the CPAP each time she sleeps. ZULEIKAD
[2016-04-20 07:32] VITALS: PULSE 52; O2SAT 97
[2016-04-20] MEDS: LEVALBUTEROL 1.25MG/0.5ML NEB INH SCH ×4 (07:32→20:13)
[2016-04-20] MEDS: IPRATROPIUM BROMIDE NEB SOLN 0.02% 2.5 ML VIAL INH SCH ×4 (07:32→20:13)
[2016-04-20 07:39] VITALS: BP 177/90; PULSE 52; TEMP 36.6; O2SAT 98
[2016-04-20] MEDS: FLUOXETINE HCL 20 MG CAP PO SCH (08:36)
[2016-04-20] MEDS: FUROSEMIDE 20 MG TAB PO SCH (08:36)
[2016-04-20] MEDS: SPIRONOLACTONE 25 MG TAB PO SCH (08:37)
[2016-04-20] MEDS: GUAIFENESIN 200 MG TAB PO SCH ×2 (08:38→19:48)
[2016-04-20] MEDS: ROPINIROLE HCL 1 MG TAB PO SCH ×3 (08:38→19:49)
[2016-04-20] MEDS: METOPROLOL SUCC 50MG EXT REL TAB PO SCH (08:39)
[2016-04-20] MEDS: CYANOCOBALAMIN 500 MCG TAB (VIT B-12) PO SCH (08:39)
[2016-04-20] MEDS: FERROUS SULFATE 325 MG TAB PO SCH (08:39)
[2016-04-20] MEDS: NYSTATIN SUSP 500,000 U/5 ML UDC PO SCH ×4 (08:40→19:48)
[2016-04-20] MEDS: BECLOMETHASONE DIP HFA 80 MCG 8.7G INH INH SCH ×2 (08:41→19:48)
[2016-04-20] MEDS: INSULIN ASPART 100 UNITS/ML 3 ML PEN SC SCH ×4 (08:52→21:00)
[2016-04-20] MEDS: OSELTAMIVIR PHOSPHATE SUSP 30 MG/5 ML UDP PO SCH ×2 (08:53→19:48)
[2016-04-20] MEDS: INSULIN GLARGINE SOLOSTAR 100 UNITS/ML 3 ML PEN SC SCH ×2 (08:53→21:12)
[2016-04-20 11:07] VITALS: PULSE 89; O2SAT 97
[2016-04-20] MEDS: LEVOFLOXACIN 750 MG TAB PO SCH (13:16)
--- NOTE | 2016-04-20 14:36 | Progress Note ---
Subjective Date of Service: Apr 20, 2016. Subjective Pt evaluation today including: conversation w/ patient, conversation w/ family , physical exam, chart review, lab review, review of studies, conversation w/ account consultant, review of inpatient medication list Still feeling generalized weakness,SOB WHEN out of bed to the rest room, associated with the some wheezing No fever no cough, no chest pain Problem List Medical Problems: (1) Cellulitis Status: Acute (2) COPD exacerbation Status: Acute (3) COPD exacerbation Status: Acute (4) Hypoxia Status: Acute (5) SOB (shortness of breath) Status: Acute Review of Systems Constitutional: + fatigue, + weakness, No chills, No fever, No problem reported , No sweats, No weight loss Eyes: No diplopia, No discharge, No eye pain, No redness, No worsening of vision ENT: No dental problems, No hearing loss, No nasal symptoms, No sore throat, No tinnitus, No trouble swallowing, No unusual epistaxis Respiratory: + dyspnea on exertion, + shortness of breath, No cough, No dyspnea at rest, No hemoptysis, No sputum, No wheezing Cardiac: No PND, No chest pain, No claudication, No edema, No orthopnea, No palpitations Abdomen: No constipation, No diarrhea, No nausea, No pain, No vomiting Musculoskeletal: No calf pain, No joint pain, No muscle pain, No swelling Female : No abnormal vaginal bleeding, No dysuria, No hematuria, No incontinence, No urinary frequency, No vaginal discharge Neurologic: No balance problems, No memory loss, No numbness/tingling, No paralysis, No vertigo, No weakness Psychiatric: No anhedonism, No anxiety, No depression symptoms, No insomnia, No substance abuse Heme: No abnormal bleeding/bruising, No clotting problems, No night sweats, No swollen lymph nodes Endo: No excessive thirst, No excessive urination, No fatigue Skin: No bleeding, No color change, No itch, No new/changing skin lesions, No rash Objective Vital Signs Date Time Temp Pulse Resp B/P Pulse Ox O2 Delivery O2 Flow Rate FiO2 04/20/16 11:07 89 20 97 Nasal Cannula 3.0 04/20/16 08:00 Nasal Cannula 3.0 04/20/16 07:39 36.6 52 20 177/90 98 Nasal Cannula 3.0 04/20/16 07:32 52 20 97 Nasal Cannula 3.0 98 04/20/16 00:00 Nasal Cannula 3.0 04/19/16 23:52 36.5 81 18 153/73 94 Room Air 04/19/16 21:00 64 177/97 04/19/16 19:15 Nasal Cannula 3.0 04/19/16 19:06 71 20 97 Nasal Cannula 3.0 04/19/16 16:54 Nasal Cannula 3.0 04/19/16 15:54 36.7 71 17 182/96 98 Nasal Cannula 3.0 Humidified Air 04/19/16 15:16 65 20 97 Nasal Cannula 3.0 Physical Exam General Appearance: + obese Eyes: normal inspection, PERRL, EOMI, sclerae normal ENT: normal ENT inspection, hearing grossly normal, pharynx normal Neck: supple, no adenopathy, thyroid normal, no JVD, no carotid bruits, trachea midline Respiratory/Chest: chest non-tender, normal breath sounds, no respiratory distress, no accessory muscle use, + decreased breath sounds, + wheezing (mild right Lower lung) Cardiovascular: regular rate, rhythm, no edema, no gallop, no JVD, no murmur Abdomen: normal bowel sounds, non tender, soft, no organomegaly, no pulsatile mass Extremities: normal range of motion, non-tender, normal inspection, no pedal edema, no calf tenderness, normal capillary refill, pelvis stable Neurologic/Psychiatric: transition manager II-XII nml as tested, no motor/sensory deficits, alert, normal mood/affect, oriented x 3 Skin: normal color, warm/dry, no rash Lymphatic: no adenopathy Laboratory Results Last 24 Hours Test 04/19/16 16:29 04/19/16 16:30 04/19/16 16:53 04/19/16 20:10 Bedside Glucose 69 mg/dl 68 mg/dl 117 mg/dl 208 mg/dl Test 04/20/16 05:20 04/20/16 06:58 04/20/16 07:33 04/20/16 12:09 White Blood Count 5.98 K/uL Red Blood Count 3.73 M/uL Hemoglobin 11.9 g/dL Hematocrit 36.6 % Mean Corpuscular Volume 98.1 fL Mean Corpuscular Hemoglobin 31.9 pg Mean Corpuscular Hemoglobin Concent 32.5 g/dl Platelet Count 119 K/uL Mean Platelet Volume 10.4 fL Neutrophils (%) (Auto) 84.6 % Lymphocytes (%) (Auto) 8.0 % Monocytes (%) (Auto) 5.9 % Eosinophils (%) (Auto) 0.0 % Basophils (%) (Auto) 0.0 % Neutrophils # (Auto) 5.06 K/uL Lymphocytes # (Auto) 0.48 K/uL Monocytes # (Auto) 0.35 K/uL Eosinophils # (Auto) 0.00 K/uL Basophils # (Auto) 0.00 K/uL RDW Standard Deviation 46.7 fL RDW Coefficient of Variation 13.0 % Immature Granulocyte % (Auto) 1.5 % Immature Granulocyte # (Auto) 0.09 K/uL Sodium Level 141 mmol/L Potassium Level mmol/L 4.2 mmol/L Chloride Level 98 mmol/L Carbon Dioxide Level 36 mmol/L Anion Gap 7.0 mmol/L Blood Urea Nitrogen 43 mg/dl Creatinine 1.40 mg/dl Est Creatinine Clear Calc Drug Dose 40.9 ml/min Estimated GFR () 42.8 Estimated GFR (Non- 36.9 BUN/Creatinine Ratio 30.6 Random Glucose 171 mg/dl Calcium Level 8.7 mg/dl Bedside Glucose 146 mg/dl 139 mg/dl Assessment and Plan 76-year-old white female admitted on Influenza A, and Acute exacerbation of chronic COPD, with baseline poor pulm function, Influenza A, is complete totally 5 days treatment Acute exacerbation of chronic COPD, chronic respiratory failure home O2 dependent with baseline poor pulm function, Improving very slowly, pulmonology input appreciated Continue steroid, scheduled nebulizer treatment every 4 hours as needed, Continue antibiotics , will continue totally 7-8 days of antibiotics Follow up sputum culture Continue 3L O2 with saturations in high 90s (04/18)- wears 3L at home. Oral candidiasis, Start nystatin 5 ml PO QID x 14 days Diabetes mellitus type 2--last recorded HgbA1c in 2013 -Continue Glipizide 5 mg PO BID -Lantus 22 units subcutaneous twice a day while on IV steroids, titrate as needed -- Increased to 26 units BID- better control of sugars -Rechecked HgbA1c 8.7 on 04/17. Discussed with pt that she will need to follow up with her PCP as an outpatient regarding better control. Sugars have improved while inpatient on Lantus and Novolog sliding scale, but she does not take any insulin at home. As steroids are tapered down, may be able to decrease insulin. HTN, Chronic diastolic CHF, HLD, Restless leg syndrome, Depression, Anemia: Stable continue current medication CKD, stage III, baseline cr. ~1.7: Stable Planning for rehabilitation tomorrow Encourage out of bed to chair, incentive spirometry etc. GI and DVT prophylaxis Continued [facility] stay due to: home environment unsafe for pt Discharge planning: rehab hospital
[2016-04-20 15:54] VITALS: BP 166/88; PULSE 66; TEMP 36.6; O2SAT 93
[2016-04-20 15:55] VITALS: PULSE 63; O2SAT 98
[2016-04-20] MEDS: PRAVASTATIN SOD 10 MG TAB PO SCH (19:48)
[2016-04-20 20:00] VITALS: PULSE 73; O2SAT 96
[2016-04-21 00:10] VITALS: BP 178/105; PULSE 71; TEMP 36.4; O2SAT 94
[2016-04-21 07:27] VITALS: BP 162/82; PULSE 56; TEMP 36.5; O2SAT 97
--- NOTE | 2016-04-21 07:28 | PROGRESS NOTE ---
DATE: 04/21/2016 She is able to ambulate in the room without difficulty. She is working on the computer this morning at 6:00 and states she feels much better. She denies cough or wheezing or chest pain. Slept very well last night. According to nurses' notes she did well yesterday afternoon after being transferred to another room. She states throughout the night her wheezing has improved. PHYSICAL EXAMINATION: VITAL SIGNS: Stable. She remains hypertensive, blood pressure 178/105 at midnight. She is afebrile, pulse is 70 and regular, respiratory rate is 16 this morning, oxygen saturation 94% on room air. Weight 103.4 kilograms. She was 106 kilograms on the which is probably relatively stable. Nurses' notes and meds reviewed. HEENT: Unremarkable except for a small posterior pharynx and a small nose. No thrush is noted. No adenopathy is noted. Carotid upstroke normal, no bruits auscultated. Expansion of the thorax is good with deep inspiration. HEART: Regular rate and rhythm. No murmurs are auscultated. No gallops are heard. LUNGS: Clear with decreased breath sounds bilaterally. With forced expiration, she has some very mild wheezing right at the end of expiration. ABDOMEN: Soft and nontender. She has no cyanosis, clubbing or edema. Chest x-ray revealed minimal atelectatic changes at the left base. EKG was normal. Hemoglobin 11.9 yesterday. Sugars have been in the 138-146 range although on the 18 she did have some hyperglycemia. BUN is 43, creatinine of 1.4, CO2 is elevated at 36. Influenza A is positive. IMPRESSION: 1. Chronic obstructive lung disease with exacerbation. 2. Influenza A. 3. Obesity. RECOMMENDATIONS: 1. At this point, I think the Levaquin probably could be discontinued. 2. Recommend decreasing the prednisone to 40 mg daily with a taper over about one week. 3. Increase activity as much as possible. 4. May consider holding the Lasix because of the elevated BUN and creatinine and adjusting the Aldactone appropriately. 5. Continue on the Xopenex with Atrovent 4 times a day or q. 4 hours p.r.n. I believe changing her to Symbicort 160/4.5 two puffs b.i.d. with a mouth rinse and stopping the Qvar would be appropriate as well. She can follow up with Иван Argueta PA-C next week. Overall, she seems to be doing well. She is anxious to get out and do some ambulating in the hallway today as well.
[2016-04-21 07:59] VITALS: PULSE 73; O2SAT 96
[2016-04-21] MEDS: IPRATROPIUM BROMIDE NEB SOLN 0.02% 2.5 ML VIAL INH SCH (07:59)
[2016-04-21] MEDS: LEVALBUTEROL 1.25MG/0.5ML NEB INH SCH (07:59)
[2016-04-21] MEDS: FUROSEMIDE 20 MG TAB PO SCH (08:00)
[2016-04-21] MEDS: BECLOMETHASONE DIP HFA 80 MCG 8.7G INH INH SCH (08:00)
[2016-04-21] MEDS: FLUOXETINE HCL 20 MG CAP PO SCH (08:00)
[2016-04-21] MEDS: SPIRONOLACTONE 25 MG TAB PO SCH (08:01)
[2016-04-21] MEDS: METOPROLOL SUCC 50MG EXT REL TAB PO SCH (08:03)
[2016-04-21] MEDS: FERROUS SULFATE 325 MG TAB PO SCH (08:03)
[2016-04-21] MEDS: CYANOCOBALAMIN 500 MCG TAB (VIT B-12) PO SCH (08:03)
[2016-04-21] MEDS: GUAIFENESIN 200 MG TAB PO SCH (08:04)
[2016-04-21] MEDS: NYSTATIN SUSP 500,000 U/5 ML UDC PO SCH ×2 (08:04→12:00)
[2016-04-21] MEDS: ROPINIROLE HCL 1 MG TAB PO SCH ×2 (08:04→13:39)
[2016-04-21] MEDS: INSULIN ASPART 100 UNITS/ML 3 ML PEN SC SCH ×2 (09:13→13:14)
[2016-04-21] MEDS: INSULIN GLARGINE SOLOSTAR 100 UNITS/ML 3 ML PEN SC SCH (09:14)
[2016-04-21 09:17] LABS: BASO % 0.1 %; BASO ABS # 0.01 K/uL (0-0.2); COMPLETE YES; HEMATOCRIT 43.3 % (37-47); IG% 1.6 %; LYMPH % 8.2 %; MEAN CELL VOLUME 96.7 fL (80-100); MEAN CORPUSCULAR HEMOGLOBIN 31.5 pg (25-34); MEAN CORPUSCULAR HGB CONC 32.6 g/dl (32-36); MEAN PLATELET VOLUME 10.4 fL (7.4-10.4); MONO % 6.9 %; NEUT % 83.2 %; PLATELET COUNT 159 K/uL (130-400); RED BLOOD COUNT 4.48 M/uL (4.2-5.4); WHITE BLOOD COUNT 9.79 K/uL (4.8-10.8)
--- NOTE | 2016-04-21 09:40 | Progress Note ---
Progress Note pt seen and examed, d/w PA about romo points of dignosis and care plan, agreed current management, for details please referral to PA's note Slowly improving, I feel she improved at least 30% compared to yesterday although bed sitting up, we'll continue slowly tapering of steroid, continue breathing treatment, will agree to send to [facility] rehabilitation if bed available today
[2016-04-21 09:58] LABS: BUN/CREATININE RATIO 28.9 (10-20); CREATININE 1.4 mg/dl (0.60-1.20); POTASSIUM 3.9 mmol/L (3.5-5.1)
[2016-04-21 11:33] VITALS: PULSE 75; O2SAT 97
--- NOTE | 2016-04-21 11:44 | Hospitalist Progress Note ---
Hospitalist Progress Note Date of Service Apr 21, 2016. Subjective Pt evaluation today including: conversation w/ patient, physical exam, chart review, lab review, review of inpatient medication list PO Intake: Tolerating PO diet, appetite improving Voiding: no voiding problems Patient reports feeling okay. She states that she is slowly improving. She still complains of shortness of breath, although she states that it has improved. She also complains of dyspnea on exertion, a non-productive cough, and intermittent wheezing. She states that she still has a decreased appetite but that it has also been slowly improving. She complains of weakness and fatigue. The patient denies fevers, chills, sweats, chest pain, palpitations, claudication, nausea, vomiting, abdominal pain, dysuria, hematuria, urinary retention, paralysis, weakness, numbness and tingling. Additional Comments: See HPI for pertinent positives and negatives. All other systems reviewed and negative. Objective Vital Signs Date Time Temp Pulse Resp B/P Pulse Ox O2 Delivery O2 Flow Rate FiO2 04/21/16 08:00 Nasal Cannula 3.0 04/21/16 07:59 73 18 96 Nasal Cannula 3.0 04/21/16 07:27 36.5 56 18 162/82 97 Nasal Cannula 4.0 04/21/16 00:10 36.4 71 18 178/105 94 4.0 04/21/16 00:00 Nasal Cannula 4.0 04/20/16 20:00 73 18 96 Nasal Cannula 3.0 04/20/16 20:00 Nasal Cannula 3.0 04/20/16 16:00 Nasal Cannula 3.0 04/20/16 15:55 63 20 98 Nasal Cannula 3.0 04/20/16 15:54 36.6 66 16 166/88 93 Nasal Cannula 3.0 Humidified Oxygen Physical Exam General Appearance: WD/WN, no apparent distress, + obese (morbidly obese) Eyes: normal inspection, PERRL, EOMI ENT: normal ENT inspection, hearing grossly normal, pharynx normal Neck: supple, no JVD, trachea midline Respiratory/Chest: normal breath sounds, no respiratory distress, + decreased breath sounds, + wheezing (inspiratory wheezing throughout) Cardiovascular: regular rate, rhythm, no gallop, no murmur Abdomen: normal bowel sounds, non tender, soft Extremities: normal inspection, no pedal edema, no calf tenderness Neurologic/Psychiatric: alert, normal mood/affect, oriented x 3 Skin: normal color, warm/dry, no rash Laboratory Results Last 24 Hours Test 04/20/16 12:09 04/20/16 16:33 04/20/16 20:47 04/21/16 07:53 Bedside Glucose 139 mg/dl 149 mg/dl 138 mg/dl 123 mg/dl Test 04/21/16 08:35 White Blood Count 9.79 K/uL Red Blood Count 4.48 M/uL Hemoglobin 14.1 g/dL Hematocrit 43.3 % Mean Corpuscular Volume 96.7 fL Mean Corpuscular Hemoglobin 31.5 pg Mean Corpuscular Hemoglobin Concent 32.6 g/dl Platelet Count 159 K/uL Mean Platelet Volume 10.4 fL Neutrophils (%) (Auto) 83.2 % Lymphocytes (%) (Auto) 8.2 % Monocytes (%) (Auto) 6.9 % Eosinophils (%) (Auto) 0.0 % Basophils (%) (Auto) 0.1 % Neutrophils # (Auto) 8.14 K/uL Lymphocytes # (Auto) 0.80 K/uL Monocytes # (Auto) 0.68 K/uL Eosinophils # (Auto) 0.00 K/uL Basophils # (Auto) 0.01 K/uL RDW Standard Deviation 44.6 fL RDW Coefficient of Variation 12.7 % Immature Granulocyte % (Auto) 1.6 % Immature Granulocyte # (Auto) 0.16 K/uL Sodium Level 141 mmol/L Potassium Level 3.9 mmol/L Chloride Level 94 mmol/L Carbon Dioxide Level 39 mmol/L Anion Gap 8.0 mmol/L Blood Urea Nitrogen 41 mg/dl Creatinine 1.40 mg/dl Est Creatinine Clear Calc Drug Dose 40.5 ml/min Estimated GFR () 42.8 Estimated GFR (Non- 36.9 BUN/Creatinine Ratio 28.9 Random Glucose 99 mg/dl Calcium Level 9.0 mg/dl Assessment and Plan 76 y/o female with a history of COPD, CHF, DM II, HTN, and HLD who presents to the ED on 04/15 with worsening shortness of breath over the past week. The symptoms initially began as a head congestion that then extended into her chest. She went to see her PCP earlier in the week was placed on Levaquin and Prednisone on . She has not had any relief of her symptoms. She does use nebulizers at home without relief. Patient was admitted on 12/04/15 for acute COPD exacerbation. Acute exacerbation of chronic COPD -Admit to telemetry. Transferred to med/surg 04/20 as she has been stable -Received Solu-Medrol 125 mg IV x 1 in ED on 04/15, then Solu-Medrol 40 mg IV q8h. D/C Solu-Medrol on 04/18 -Decrease Prednisone to 60 mg PO qd -D/C Vancomycin IV and Levofloxacin 500 mg IV 04/15 -D/C Zosyn IV 04/18 -Switched to Levaquin 750 mg PO q48h due to creatinine clearance <49. Pt. had taken 4 days of Levaquin outpatient, but will try again now that flu is being managed -Levaquin D/C'd 04/21 as pt has received 7 days of abx -Guaifenesin extended release 600 mg PO BID -Xopenex/Atrovent nebulizers q4hWA and q2h prn SOB/wheezing -Hold QVAR as per pulm recs -Blood cultures final no growth x 2 -Requiring 3L O2 with saturations in mid 90s (04/21)- wears 3L at home. -Pulmonology consulted, appreciate recs: spoke with Иван Argueta PA-C, who states that patient has very poor baseline and is not much worse off than her normal. She will definitely need nebulizer treatments as she does not have the ability to adequately draw in MDI medications. He gave her a 1 time dose of Solu-Medrol 20 mg IV to help open her up more, otherwise can continue prednisone 40 mg PO BID. He recommended a very slow taper, in a few days she can go down to 60 mg qd and then taper 5 mg every 4-5 days. Also recommended trying a flutter valve to help clear her mucus. -Dr. Dawson of pulmonology recs decreasing Prednisone, stopping abx, holding QVAR and adding Symbicort; however, pt has tried Symbicort in the past and it did not help. -Sputum culture if produced Influenza A -Tamiflu 30 mg PO BID x5 days (started 1/15, AM), last dose will be evening of --all doses taken, course completed Oral candidiasis -Continue nystatin 5 ml PO QID x 14 days, day #3 Diabetes mellitus type 2--last recorded HgbA1c in 2013 -Continue Glipizide 5 mg PO BID -Patient was given a one-time dose of Lantus 20 units subcutaneous on admission due to starting IV steroids -Lantus 22 units subcutaneous twice a day while on IV steroids, titrate as needed -- Increased to 26 units BID- better control of sugars -BSG AC & HS with sliding insulin scale -Rechecked HgbA1c 8.7 on 04/17. Discussed with pt that she will need to follow up with her PCP as an outpatient regarding better control. Sugars have improved while inpatient on Lantus and Novolog sliding scale, but she does not take any insulin at home. As steroids are tapered down, may be able to decrease insulin. HTN -Continue metoprolol succinate 100 mg PO qd and lisinopril 10 mg PO qd Chronic diastolic CHF -Continue furosemide 40 mg PO BID and potassium extended release 20 mEq PO qd HLD -Continue pravastatin 10 mg PO qd Restless leg syndrome -Continue ropinirole 2 mg PO TID Depression -Continue fluoxetine 20 mg PO qd Anemia -Continue iron supplement 325 mg PO qd -Continue B12 supplemental 1000 g PO qd CKD, stage III, baseline cr. ~1.7 -Stable. Creatinine 1.4 04/21, BUN stable -Follow with PRP DVT prophylaxis: -MEME and SCDs Dispo: -Return to home when medically stable -PT recommends acute inpatient rehab due to deconditioning and pt living alone with a full flight of stairs -Insurance denied [facility]SN[facility]. CM talked to pt regarding SNF options, she is agreeable to [facility]. Referral placed.
[2016-04-21] MEDS ORDERED: NYSS5 PO (13:00)
[2016-04-21] MEDS ORDERED: IPRASOL4 INH (13:00)
[2016-04-21] MEDS ORDERED: PRD10 PO (13:00)
--- NOTE | 2016-04-21 13:22 | Discharge Instructions ---
Discharge Instructions Admission Reason for Admission: Copd Exacerbation, Pneumonia Discharge Discharge Diagnosis / Problem: Chronic obstructive pulmonary disease exacerbation, influenza A Discharge Goals Goal(s): Decrease discomfort, Improve function, Diagnostic testing, Therapeutic intervention Activity Recommendations Activity Limitations: as noted below Lifting Limitations: no more than 10 pounds Exercise/Sports Limitations: gradually increase as tolerated Shower/Bathe: no limitations . Instructions / Follow-Up Instructions / Follow-Up You were admitted to the hospital for an exacerbation of your chronic obstructive pulmonary disease (COPD). You were also found to be positive for influenza A. You were treated with IV antibiotics, steroids, and Tamiflu, as well as supportive care such as IV fluids. Due to your weakness and fatigue, you were evaluated by physical therapy, who recommended that you stay at an acute rehab facility to work on getting your strength back. Unfortunately, your insurance denied a stay at [facility], but you will be able to pursue acute physical therapy rehab at [facility] instead. You will continue your Duoneb treatments from home, however you may use them every 6 hours while you're awake. You may use a treatment every 2 hours as needed for shortness of breath or wheezing. Your QVAR has been held as it is likely not being drawn into your lungs properly and adding any real benefit. Your antibiotics have been stopped as you have received 7 days of treatment, which is adequate. You will continue taking Prednisone. As per Иван Argueta PA-C's recommendations , you have been placed on a long, slow taper. Please take as directed: -Take 6 tablets by mouth a day for 4 days -Take 5.5 tablets a day for 4 days -Take 5 tablets a day for 4 days -Take 4.5 tablets a day for 4 days -Take 4 tablets a day for 4 days -Take 3.5 tablets a day for 4 days -Take 3 tablets a day for 4 days -Take 2.5 tablets a day for 4 days -Take 2 tablets a day for 4 days -Take 1.5 tablets a day for 4 days -Take 1 tablet a day for 4 days -Take 0.5 tablet a day for 4 days, then STOP You also developed oral candidiasis, or thrush, during your stay. You have been given oral Nystatin to treat this infection. Please continue to use 5 mL ( 1 teaspoon) of Nystatin four times a day for the next 11 days to complete the course. Please seek medical attention if you experience fevers, chills, sweats, chest pain, worsening shortness of breath, nausea, or vomiting. Please follow up with your primary care provider in 1 week. Current Hospital Diet Patient's current hospital diet: AHA Diet (Heart Healthy), Diabetes Type 2 Diet Discharge Diet Recommended Diet: AHA Diet (Heart Healthy), Diabetes Type 2 Diet Pending Studies Studies pending at discharge: no Laboratory Results Hemoglobin A1c Test 04/17/16 06:07 Range/Units Estimated Average Glucose 203 mg/dl Hemoglobin A1c 8.7 H 4.5-5.6 % Medical Emergencies . Who to Call and When: Medical Emergencies: If at any time you feel your situation is an emergency, please call 911 immediately. . Non-Emergent Contact Non-Emergency issues call your: Primary Care Provider Call Non-Emergent contact if: you have a fever, you have any medication questions . Past History Medical & Surgical History: (1) Influenza A (2) COPD (chronic obstructive pulmonary disease) (3) Oral candidiasis . "Provider Documentation" section prepared by Tova Ventura. VTE Core Measure Inpt VTE Proph given/why not?: SCD's
--- NOTE | 2016-04-21 13:28 | Discharge Summary ---
Discharge Summary Admission Date: Apr 15, 2016 at 03:55 Discharge Date: Apr 21, 2016 Discharge Disposition: care home facility ([facility]) Principal Diagnosis: COPD exacerbation, Influenza A Immunizations: Have You Had Influenza Vaccine: Yes Influenza Vaccine Date: Jan 16, 2013 History of Tetanus Vaccine?: Yes Tetanus Immunization Date: Jan 07, 2013 History of Pneumococcal: Yes Pneumococcal Date: Feb 16, 2010 History of Hepatitis B Vaccine: No Medication Reconciliation New Medications: Prednisone (Prednisone) 10 Mg Tab 10 MG PO UD for 48 Days, #156 TABS Take 6 tabs (60 mg) daily for 4 days. Then decrease dose by 5 mg daily for 4 days. Decrease dose by 5 mg every 4 days. Nystatin (Nystatin) 5 Ml Susp 5 ML PO QID for 11 Days, #220 ML Take 5 ml (1 teaspoon) by mouth four times a day. Changed Medications: Ipratropium-Albuterol (Duoneb) 3 Ml Nebu 1 TREATMENT INH Q6HWA for 30 Days, #150 UNITS (Changed from: DAILY; MIDDAY) Use 1 neb treatment every 6 hours while awake. May use every 2 hours as needed for shortness of breath & wheezing. Continued Medications: Amoxicillin (Amoxil) 500 Mg Cap 500 MG PO UD PRN for DENTAL WORK Cyanocobalamin (Vitamin B12 500MCG) 500 Mcg Tab 1000 MCG PO DAILY Ferrous Sulfate (Iron Supplement) 325 Mg Tab 325 MG PO DAILY Fluoxetine Hcl (Prozac) 20 Mg Cap 20 MG PO QAM Furosemide (Lasix) 20 Mg Tab 20 MG PO DAILY, TAB Glipizide (Glipizide) 5 Mg Tab 5 MG PO BID Lisinopril (Prinivil) 10 Mg Tab 10 MG PO DAILY Metoprolol Succ (Toprol Xl) (Toprol-Xl ) 100 Mg Tabcr 100 MG PO DAILY Pravastatin Sodium (Pravastatin Sodium) 10 Mg Tab 10 MG PO DAILY Ropinirole (Requip) 2 Mg Tab 2 MG PO TID Spironolactone (Aldactone) 25 Mg Tab 12.5 MG PO QAM Tramadol HCl (Tramadol HCl) 50 Mg Tab 50 MG PO Q6 PRN for Pain Discontinued Medications: Beclomethasone Dipropionate (Qvar) 80 Mcg/ Aer 2 PUFFS INH BID, 3 Refills Levofloxacin (Levaquin) 500 Mg Tab 500 MG PO DAILY, #10 Referrals At Discharge Follow up Referrals: [employer] Referral - Within 1 Week with Иван Argueta PA-C Discharge Exam See Hospitalist Progress Note 04/21/16 for HPI, ROS, and physical exam. Hospital Course 76 y/o female with a history of COPD, CHF, DM II, HTN, and HLD who presents to the ED on 04/15 with worsening shortness of breath over the past week. The symptoms initially began as a head congestion that then extended into her chest. She went to see her PCP earlier in the week was placed on Levaquin and Prednisone on . She has not had any relief of her symptoms. She does use nebulizers at home without relief. Patient was admitted on 12/04/15 for acute COPD exacerbation. Acute exacerbation of chronic COPD -Admit to telemetry. Transferred to med/surg 04/20 as she has been stable -Received Solu-Medrol 125 mg IV x 1 in ED on 04/15, then Solu-Medrol 40 mg IV q8h. D/C Solu-Medrol on 04/18 -Decrease Prednisone to 60 mg PO qd 04/21. Will taper Prednisone as per Иван Argueta's recommendations: 60 mg PO qd x 4 days, then decrease by 5 mg every 4 days until completion. -D/C Vancomycin IV and Levofloxacin 500 mg IV 04/15 -D/C Zosyn IV 04/18 -Switched to Levaquin 750 mg PO q48h due to creatinine clearance <49. Pt. had taken 4 days of Levaquin outpatient, but will try again now that flu is being managed -Levaquin D/C'd 04/21 as pt has received 7 days of abx -Guaifenesin extended release 600 mg PO BID. D/C upon discharge, not effective. -Xopenex/Atrovent nebulizers q4hWA and q2h prn SOB/wheezing -Hold QVAR as per pulm recs -Blood cultures final no growth x 2 -Requiring 3L O2 with saturations in mid 90s (04/21)- wears 3L at home. -Pulmonology consulted, appreciate recs: spoke with Иван Argueta PA-C, who states that patient has very poor baseline and is not much worse off than her normal. She will definitely need nebulizer treatments as she does not have the ability to adequately draw in MDI medications. He gave her a 1 time dose of Solu-Medrol 20 mg IV to help open her up more, otherwise can continue prednisone 40 mg PO BID. He recommended a very slow taper, in a few days she can go down to 60 mg qd and then taper 5 mg every 4-5 days. Also recommended trying a flutter valve to help clear her mucus. -Dr. Dawson of pulmonology recs decreasing Prednisone, stopping abx, holding QVAR and adding Symbicort; however, pt has tried Symbicort in the past and it did not help. -Sputum culture if produced Influenza A -Tamiflu 30 mg PO BID x5 days (started 04/16, AM), last dose will be evening of --all doses taken, course completed Oral candidiasis -Continue nystatin 5 ml PO QID x 14 days, day #3. Script for remaining 11 days given at discharge. Diabetes mellitus type 2--last recorded HgbA1c in 2013 -Continue Glipizide 5 mg PO BID -Patient was given a one-time dose of Lantus 20 units subcutaneous on admission due to starting IV steroids -Lantus 22 units subcutaneous twice a day while on IV steroids, titrate as needed -- Increased to 26 units BID- better control of sugars -BSG AC & HS with sliding insulin scale -Rechecked HgbA1c 8.7 on 04/17. Discussed with pt that she will need to follow up with her PCP as an outpatient regarding better control. Sugars have improved while inpatient on Lantus and Novolog sliding scale, but she does not take any insulin at home. As steroids are tapered down, may be able to decrease insulin. HTN -Continue metoprolol succinate 100 mg PO qd and lisinopril 10 mg PO qd Chronic diastolic CHF -Continue furosemide 40 mg PO BID and potassium extended release 20 mEq PO qd HLD -Continue pravastatin 10 mg PO qd Restless leg syndrome -Continue ropinirole 2 mg PO TID Depression -Continue fluoxetine 20 mg PO qd Anemia -Continue iron supplement 325 mg PO qd -Continue B12 supplemental 1000 g PO qd CKD, stage III, baseline cr. ~1.7 -Stable. Creatinine 1.4 04/21, BUN stable -Follow with PRP DVT prophylaxis: -MEME and SCDs Dispo: -Return to home when medically stable -PT recommends acute inpatient rehab due to deconditioning and pt living alone with a full flight of stairs -Insurance denied [facility]. CM talked to pt regarding SNF options, she is agreeable to [facility]. Referral placed. [facility] accepted pt and can take her today (04/21) Total Time Spent: Greater than 30 minutes This includes examination of the patient, discharge planning, medication reconciliation, and communication with other providers. Discharge Instructions Please refer to the electronic Patient Visit Report (Discharge Instructions) for additional information.
[2016-04-21 13:50] VITALS: BP 162/82; PULSE 75; TEMP 36.5; O2SAT 97
[2016-09-01] MEDS ORDERED: SYMIN INH (10:49)
[2016-09-01] MEDS ORDERED: IPRASOL4 INH (10:49)
[2016-09-01] MEDS ORDERED: PRD10 PO (10:49)
[2016-09-01] MEDS ORDERED: DTR2 PO (10:49)
[2016-09-01] MEDS ORDERED: DLR500 PO (10:49)
== END 2016-04-21 14:39 | DRG 191 ==
LOC: ENRESERVTM → ENRESERVDT → EDBD 01:02 → C.EDA 01:07 → UNDOADMIN 03:55 → C.MED 03:55 → C.MS4W 04-20 22:39
PROVIDERS: ADMIT Hospitalist; ATTEND Hospitalist
DX: J44.1 Chronic obstructive pulmonary disease with (acute) exacerbation (principal); I50.32 Chronic diastolic (congestive) heart failure; J96.10 Chronic respiratory failure, unspecified whether with hypoxia or hypercapnia; B37.0 Candidal stomatitis; J11.1 Influenza due to unidentified influenza virus with other respiratory manifestations; E78.00 Pure hypercholesterolemia, unspecified; E11.9 Type 2 diabetes mellitus without complications; E66.9 Obesity, unspecified; E78.5 Hyperlipidemia, unspecified; I27.2 Other secondary pulmonary hypertension; D64.9 Anemia, unspecified; I12.9 Hypertensive chronic kidney disease with stage 1 through stage 4 chronic kidney disease, or unspecified chronic kidney disease; N18.3 Chronic kidney disease, stage 3 (moderate); G25.81 Restless legs syndrome; F32.9 Major depressive disorder, single episode, unspecified; E53.8 Deficiency of other specified B group vitamins; Z83.3 Family history of diabetes mellitus; Z87.891 Personal history of nicotine dependence; Z82.49 Family history of ischemic heart disease and other diseases of the circulatory system; Z99.81 Dependence on supplemental oxygen

== ENCOUNTER 2016-08-24 12:42 | Inpatient (IN) | payer BC, OTHER ==
[~2016-08-24] VITALS: Ht 162.6 cm; Wt 100.3 kg
[~2016-08-24 12:42] MED LIST changes: +AMOX500C3 PO; -BECL0.3A INH; -CHOL100010 PO; -FRS/40 PO; +FURO-85 PO; +GLC5 PO; -GLIP-197 PO; -LEVO1TAB33 PO; +METO100T44 PO; -METO1TAB69 PO; +NYSS5 PO; -POTA20TA16 PO; +PRD10 PO; +SPIR25TA PO; -TIOT1AER INH
[2016-08-24 13:23] VITALS: BP 134/77; PULSE 83; TEMP 36.6; O2SAT 91; BMI 39.4
[2016-08-24] MEDS ORDERED: NURSING VERBAL MED ORDER ONE (13:30)
--- NOTE | 2016-08-24 13:44 | History and Physical ---
History & Physical Date & Time of Service: August 24, 2016 at 13:29 Chief Complaint: Laie Exacerbation Primary Care Physician: Luc Daly D.O. History of Present Illness Source: patient This is a 76-year-old female with a past medical history of multiple COPD exacerbations, chronic diastolic CHF, DM II, HTN, and HLD who presents as a direct admission from the pulmonary clinic per request of Иван Argueta PA-C. The paient has been admitted for multiple COPD exacerbations within the past year, this being the third in hospital stay. Patient reports her increasing shortness of breath has come on for about a three-week timeframe. She had cannot remember if she began feeling this way at the end of her last prednisone taper, but this seems to be about the same time frame. She reports she is coughing and bringing up sputum which is yellow. She also notes a decreased exercise tolerance to walking. At home she wears 3 L O2 chronically, and currently with saturations equal to 91% on 4 L. The patient has not been on antibiotics recently. She denies any fevers, chills, sweats. She admits to occasionally having a dull chest ache but denies any sharp acute or stabbing pains. She denies any abdominal complaints, last bowel movement was yesterday. She typically ambulates without assistance, occasionally uses a cane when she is out. Past Medical/Surgical History Medical Problems: (1) CHF (congestive heart failure) Status: Chronic (2) CHF exacerbation Status: Resolved (3) COPD (chronic obstructive pulmonary disease) Status: Chronic (4) Diab Susu Wo Compl, Type Ii Or Unspec Type, Uncontrolled Status: Chronic (5) Hyperlipidemia Nec/Nos Status: Chronic (6) Hypertension Nos Status: Chronic (7) Respiratory failure, [id number] Status: Chronic Family History Cancer Diabetes mellitus FH: heart disease Social History Smoking Status: Former Smoker Smokeless Tobacco Use: No Alcohol Use: none Drug Use: none Marital Status: single Housing status: lives alone Occupational Status: retired Immunizations History of Influenza Vaccine: Yes Influenza Vaccine Date: Jan 16, 2013 History of Tetanus Vaccine?: Yes Tetanus Immunization Date: Jan 07, 2013 History of Pneumococcal: Yes Pneumococcal Date: Feb 16, 2010 History of Hepatitis B Vaccine: No Multi-Drug Resistant Organisms History of MDRO: No Allergies Coded Allergies: Atropine (Verified Allergy, Severe, RASH, 04/15/16) Dobutamine (Verified Allergy, Severe, RASH, 04/15/16) Home Medications Scheduled Cyanocobalamin (Vitamin B12 500MCG), 1,000 MCG PO DAILY Ferrous Sulfate (Iron Supplement), 325 MG PO DAILY Fluoxetine Hcl (Prozac), 20 MG PO QAM Furosemide (Lasix), 20 MG PO DAILY Glipizide (Glipizide), 5 MG PO BID Ipratropium-Albuterol (Duoneb), 1 TREATMENT INH Q6HWA Lisinopril (Prinivil), 10 MG PO DAILY Metoprolol Succ (Toprol Xl) (Toprol-Xl ), 100 MG PO DAILY Nystatin (Nystatin), 5 ML PO QID Pravastatin Sodium (Pravastatin Sodium), 10 MG PO DAILY Prednisone (Prednisone), 10 MG PO UD Ropinirole (Requip), 2 MG PO TID Spironolactone (Aldactone), 12.5 MG PO QAM Scheduled PRN Amoxicillin (Amoxil), 500 MG PO UD PRN for DENTAL WORK Tramadol HCl (Tramadol HCl), 50 MG PO Q6 PRN for Pain Review of Systems Constitutional: No fever, chills, sweats, + increased fatigue & weakness Eyes: No diplopia, no changes in vision ENT: No sore throat, tinnitus, or trouble swallowing Respiratory: See history of present illness Cardiovascular: No chest pain, palpitations, or flutter Abdomen: No pain, No constipation, No diarrhea, No nausea, No vomiting Musculoskeletal: No calf pain, No joint pain, No swelling Genitourinary : No dysuria or urinary frequency, No hematuria Neurologic: No numbness/tingling, no difficulty with ambulation, no sensory or motor deficits Psychiatric: No depression or anxiety symptoms Endocrine: No fatigue, No weight changes Integumentary: No itch, No rash Physical Exam Vital Signs Date Time Temp Pulse Resp B/P Pulse Ox O2 Delivery O2 Flow Rate FiO2 08/24/16 13:23 36.6 83 20 134/77 91 4.0 General: awake, alert, no apparent distress, sitting up in bed Head: Normocephalic, atraumatic ENT: PERRL, EOMI, no pharyngeal exudate, mucous membranes moist Chest: On 4 L via NC, sats equal 91%, presents with expiratory wheezing throughout and tight breath sounds, no rales or rhonchi. Cardiac: Regular rate and rhythm, no murmur, no JVD, normal peripheral pulses, good capillary refill Abdominal: NABS x 4 quadrants, soft, nontender to palpation, no rebound, guarding or tenderness Extremities: Normal inspection, no peripheral edema or erythema, calfs nontender to palpation Psych: Normal mood and affect Neuro: AAO x 3, strength intact bilaterally and related 5/5, no motor deficits, speech is clear, no peripheral sensory deficits Diagnostics Diagnostic Radiology Ordered CXR Impression Assessment and Plan 76 y/o female with PMHx of COPD, chronic diastolic CHF, DM II, HTN, and HLD who presents as a direct admission from the pulmonary clinic per request of Иван Argueta PA-C. The kelvin has been admitted for multiple COPD exacerbations within the past year, this being the third in hospital stay. Acute exacerbation of chronic COPD - [facility] - Ordered Solu-Medrol 125 mg IV x 1 in ED on 04/15, then Solu-Medrol 40 mg IV q8h - can eventually transition to po taper once symptoms improved. - Continue supportive care with duonebs, incentive spirometry, guaifenesin 600 mg BID for now - Xopenex/Atrovent nebulizers q4hWA and q2h prn SOB/wheezing - No labs, so ordering all. Will check blood cultures - WBC = 8K with a mild left shift, hgb 11, MCV is elevated, - O2 sats are 91 % on 4 L, typically wears 3L at baseline - Pulmonology consulted, appreciate recs - Sputum culture if produced Diabetes mellitus type 2 - Continue Glipizide 5 mg PO BID - Will order one-time dose of Lantus 20 units subcutaneous on admission due to starting IV steroids, can titrate as glucose increases- last admission the pt required 26 U BID which allowed for adequate control of glucose - Lantus 22 units subcutaneous twice a day while on IV steroids, titrate as needed - ISS with accuchecks AC & HS - Last HgbA1c 8.7 on 04/17. - rechecking HTN -Continue metoprolol succinate 100 mg PO qd and lisinopril 10 mg PO qd Chronic diastolic CHF -Continue furosemide 40 mg PO BID and potassium extended release 20 mEq PO qd HLD -Continue pravastatin 10 mg PO qd Restless leg syndrome -Continue ropinirole 2 mg PO TID Depression -Continue fluoxetine 20 mg PO qd Anemia, iron deficiency -Continue iron supplement 325 mg PO qd -Continue B12 supplemental 1000 g PO qd CKD, stage III, baseline cr. ~1.6 -Stable. Creatinine 1.3 -Follow with PRP DVT prophylaxis: -MEME and SCDs, Lovenox 40 mg subq CODE STATUS: FULL CODE Disposition: Pt from home, discharge when medically stable Level of Care Med/Surg Resuscitation Status FULL RESUSCITATION VTE Prophylaxis Risk Level: Low Given or contraindicated: Enoxaparin (Lovenox)SQ, T.E.D. Stockings, SCD's Reviewed: Pt Seen/Exam by Me History Pt is feeling somewhat improved. Feels her breathing is still tight. No chest pain. Ate without issue. Does note LE swelling b/l. She states she has had more salt lately. She also states that she has self decreased her lasix dose due to urinary incontinence. On prior lasix dosing she noted "just some dribbling" and was able to do fine with depends, however on the increased dosing she is having what she describes as stress incontinence that is soaking 3-4 depends a day "and I can't afford that". She states she feels the urge to urinate but by the time she is able to get to a bathroom she has already gone. "If I took the dose they had me on I would have to sit by the toilet all day." She has not seen cardiology to discuss this with them. Agree with HPI/ROS as noted. Pt was reported to me by Иван Argueta as hypoxic to 70s-80s in the office on increased O2. General Appearance: no apparent distress, obese Respiratory: lungs clear, no respiratory distress, decreased breath sounds Cardiovascular: normal peripheral pulses, regular rate, rhythm Gastrointestinal: non tender, soft Extremities: non-tender, pedal edema (1+ pitting) Neurologic/Psychiatric: alert, normal mood/affect Skin Characteristics: normal color, warm/dry Assessment/Plan Agree with plan as outlined above COPD exacerbation nebs, steroids CHF: self decreased lasix dosing Monitor during admission This will need addressed prior to or shortly after d/c to avoid CHF exacerbation
[2016-08-24] MEDS ORDERED: GLUCOSE 40% GEL 15 GM TUBE PO PRN (13:45)
[2016-08-24] MEDS ORDERED: GLUCAGON FOR INJ 1 MG VIAL SQ PRN (13:45)
[2016-08-24] MEDS ORDERED: GLUCOSE 10 TABS/TUBE PO PRN (13:45)
[2016-08-24] MEDS ORDERED: ACETAMINOPHEN 325 MG TAB PO PRN (13:45)
[2016-08-24] MEDS ORDERED: TRAMADOL HCL 50 MG TAB PO PRN (13:45)
[2016-08-24] MEDS ORDERED: ONDANSETRON INJ 2 MG/ML 2 ML VIAL IV PRN (13:45)
[2016-08-24] MEDS ORDERED: DEXTROSE 50% 50 ML SYR IV PRN (13:45)
[2016-08-24] MEDS ORDERED: PATIENT'S HEIGHT AND/OR WEIGHT NEEDED SCH (14:00)
[2016-08-24] MEDS ORDERED: PHARMACY GLYCEMIC MGMT CONSULT PRN (14:00)
[2016-08-24] MEDS ORDERED: POLYETHYLENE (MIRALAX) 17 GM PACK PO PRN (14:00)
[2016-08-24] MEDS ORDERED: METHYLPREDNISOLONE 125 MG in SYRINGE 0 ML IV SCH (14:00)
[2016-08-24] MEDS: ROPINIROLE HCL 1 MG TAB PO SCH ×2 (14:29→20:28)
[2016-08-24 14:38] LABS: BASO % 0.2 %; BASO ABS # 0.02 K/uL (0-0.2); COMPLETE YES; EOS % 1.1 %; HEMATOCRIT 35.5 % (37-47); IG% 0.1 %; LYMPH % 9.4 %; LYMPH ABS # 0.79 K/uL (1.2-3.4); MEAN CELL VOLUME 101.7 fL (80-100); MEAN CORPUSCULAR HEMOGLOBIN 31.5 pg (25-34); MEAN PLATELET VOLUME 10.7 fL (7.4-10.4); MONO % 5.4 %; NEUT % 83.8 %; PLATELET COUNT 147 K/uL (130-400); RED BLOOD COUNT 3.49 M/uL (4.2-5.4); WHITE BLOOD COUNT 8.41 K/uL (4.8-10.8)
[2016-08-24 14:53] LABS: BLOOD UREA NITROGEN 14 mg/dl (7-18); BUN/CREATININE RATIO 11.1 (10-20); CALCIUM 8.9 mg/dl (8.5-10.1); CARBON DIOXIDE 39 mmol/L (21-32); CHLORIDE 102 mmol/L (98-107); GLUCOSE 162 mg/dl (70-99); POTASSIUM 3.7 mmol/L (3.5-5.1); SODIUM 144 mmol/L (136-145)
[2016-08-24 14:57] LABS: INR 1.1 (0.9-1.1); PROTHROMBIN TIME (PATIENT) 11.6 SECONDS (9.0-12.0)
[2016-08-24 15:19] VITALS: PULSE 89; O2SAT 95
[2016-08-24] MEDS ORDERED: NURSING DECISION MEDICATION ORDER SCH (15:30)
[2016-08-24] MEDS ORDERED: GUAIFENESIN 200 MG TAB PO PRN (15:30)
--- NOTE | 2016-08-24 15:56 | Pharmacy Progress Note ---
Glycemic Control Intl Consult Date of Service August 24, 2016. Scope Glycemic Pharmacist consulted by Dr Parker on 08/24/16 for glycemic control and to write orders per [facility] inpatient glycemic control protocol Objective Weight (Kilograms): 102.400 Accuchecks BSG (last 24hrs): Test 08/24/16 14:20 Random Glucose 162 mg/dl (70-99) Laboratory Data (last 24hrs) Test 08/24/16 14:20 Anion Gap 3.0 mmol/L BUN/Creatinine Ratio 11.1 Blood Urea Nitrogen 14 mg/dl Creatinine 1.30 mg/dl Potassium Level 3.7 mmol/L Sodium Level 144 mmol/L White Blood Count 8.41 K/uL Red Blood Count 3.49 M/uL Hemoglobin 11.0 g/dL Hematocrit 35.5 % Mean Corpuscular Volume 101.7 fL Mean Corpuscular Hemoglobin 31.5 pg Mean Corpuscular Hemoglobin Concent 31.0 g/dl Platelet Count 147 K/uL Mean Platelet Volume 10.7 fL Neutrophils (%) (Auto) 83.8 % Lymphocytes (%) (Auto) 9.4 % Monocytes (%) (Auto) 5.4 % Eosinophils (%) (Auto) 1.1 % Basophils (%) (Auto) 0.2 % Neutrophils # (Auto) 7.05 K/uL Lymphocytes # (Auto) 0.79 K/uL Monocytes # (Auto) 0.45 K/uL Eosinophils # (Auto) 0.09 K/uL Basophils # (Auto) 0.02 K/uL Recent Pertinent Medications Outpatient Anti-diabetic Regimen: * Glipizide 5 mg PO BID * A1c = 8.7 % 04/17/16 Risk Factors for Insulin Resistance: * Steroids: Solu-medrol 125 mg IV x 1, then 40 mg IV q8h * Diet: AHA/T2DM Assessment & Plan ASSESSMENT: * ADA & AACE recommend a goal blood sugar range 140-180 mg/dl for the majority of critically ill & non-critically ill patients. However, more stringent targets may be selected in individual cases. Will utilize more stringent goal of 110-140 mg/dl based on patient age & comorbidities. * Pt is maintained on oral antidiabetic agents as an outpatient * Oral agents are not recommended for inpatient use d/t drug interactions, changing PO intake, and difficulty titrating for acute hyper/hypoglycemia. ADA recommends re-initiating outpatient oral agents 1-2 days prior to discharge if/ when appropriate if they were held on admission. * Will hold oral agents for admission and utilize SQ basal bolus insulin regimen which is the recommended regimen for inpatient glycemic control. * 76 yr old T2DM female admitted with COPD exacerbation receiving high dose IV steroids. * Patient was admitted to [facility] in April of this year. She was on the same dose of steroids (40 mg IV q8) and required 26 units of Lantus BID plus 11-32 units of bolus insulin per day. * Current BSG is acceptable, however, I anticipate steroid induced hyperglycemia. * Will give first dose of Lantus now - based on weight and stress of 3. Further Lantus per scale until exact requirements are known. * Bolus insulin will be based on weight and stress of 2 PLAN FOR INPATIENT GLYCEMIC CONTROL: * Holding outpatient oral diabetes medications * Basal insulin with LANTUS * 25 units now * 20-25 units (20 if BSG is less than 160, 25 units for BSG 160 mg/dL or more) * Correctional Insulin with NOVOLOG ACHS * Goal Range: Low 110 mg/dL - High 140 mg/dL * Correction Factor: 25 mg/dL/unit * Nutritional / Prandial insulin per carb ratio of 1 unit per 8 grams CHO consumed * Add overnight checks with coverage at 00 and 04 * Please note that the plan above was derived based on current level of insulin resistance and hospital stress. These recommendations are appropriate for inpatient admission only. Plan of care upon discharge will need to be reassessed to avoid potential outpatient hypo/hyperglycemia. Thank you.
[2016-08-24] MEDS ORDERED: ALBUT/IPRATROP 3MG/0.5MG NEB 3 ML VIAL INH SCH (16:00)
--- NOTE | 2016-08-24 16:00 | DIAGNOSTIC IMAGING REPORT ---
TWO VIEW CHEST CLINICAL HISTORY: COPD exacerbation.. FINDINGS: PA and lateral chest radiographs are compared to study dated 04/18/2016 and correlated with chest CT dated 12/06/2015. PA view is degraded by patient rotation. The heart is enlarged and there is atherosclerotic calcification of the thoracic aorta. The pulmonary vasculature is noncongested. Emphysematous change and chronic interstitial thickening are similar to previous. There are bibasilar airspace opacities. No pleural effusion is identified. There is no pneumothorax. The skeletal structures are osteopenic. Degenerative change is noted in the thoracic spine and shoulders. Fusion hardware is partially imaged in the upper lumbar spine. Cholecystectomy clips are observed. IMPRESSION: 1. Cardiomegaly and emphysema. There is no radiographic evidence of congestive failure. 2. There are increasing bibasilar airspace opacities as compared to 04/18/2016. This could represent atelectasis versus an infectious/inflammatory pneumonitis. Clinical correlation will be required and radiographic follow-up to resolution is recommended. Electronically signed by: Ivan Garcia M.D. 08/24/2016 3:59 PM Dictated Date/Time: 08/24/2016 3:57 PM
[2016-08-24] MEDS ORDERED: INSULIN GLARGINE SOLOSTAR 100 UNITS/ML 3 ML PEN SC ONE (16:30)
[2016-08-24 16:59] LABS: URINE APPEARANCE CLEAR (CLEAR); URINE BILIRUBIN NEG (NEG); URINE COLOR YELLOW; URINE EPITHELIAL CELL AUTO 20-30 /lpf (0-5); URINE NITRITE NEG (NEG); UROBILINOGEN NEG (NEG); ZZUR CULT IF INDIC CLEAN CATCH YES
[2016-08-24 17:01] LABS: MANUAL MICROSCOPIC REQUIRED? NO; REVIEW REQ? NO
[2016-08-24] MEDS: INSULIN ASPART 100 UNITS/ML 3 ML PEN SC SCH ×3 (17:43→23:55)
--- NOTE | 2016-08-24 18:06 | Pulmonary Consultation ---
History General Date of Service: August 24, 2016. Stated Complaint: COPD Exacerbation HPI The patient is a 76 year old female with h/o end stage COPD, chronically dyspneic, was progressively getting worse, states that her O2 sat was around 70 % with minimal exertion at home, taking a long time to recover. She denies fever or chills, denies worsening cough or sputum production. Had multiple hospitalizations in the past for COPD exacerbations. Last April she was admitted foe influenza. She is not on steroid therapy now, but for the past year she was taking steroids for a long time, she would tend to worsen when it would be stopped In 2012 her PFT: FEV1/FVC: 47% FEV1: 0.83/38% FVC: 1.77/65% T.63/252% FVC: 2.85/95% RV: 9.04/480% RV/T% DLCO: 40% DLCO/VA: 75% Historian: patient Review of Systems Constitutional: reports: as stated in HPI Eyes: reports: no symptoms ENT: reports: no symptoms Cardiovascular: reports: edema, denies: chest pain, syncope Respiratory: reports: MANCUSO, cough, shortness of breath, sputum production, wheezing Gastrointestinal: reports: no symptoms Genitourinary - Female: reports: no symptoms Musculoskeletal: reports: no symptoms Neurologic: reports: no symptoms Psychiatric: reports: no symptoms Endocrine: no symptoms Hematologic / Lymphatic: no symptoms Past Medical History Past Medical History: COPD, depression, GERD, hypertension Past Surgical History: hysterectomy, orthopedic surgery Family History Cancer Diabetes mellitus FH: heart disease Parent: Cancer Social History Hx Tobacco Use In Past Year?: Yes Smoking Status: Former Smoker (quit in 2002, almost 1 ppd for most of adult life) Alcohol: socially Drug Use: none Marital status: single Housing status: lives alone Occupational Status: retired Immunizations History of Influenza Vaccine: Yes Influenza Vaccine Date: Jan 16, 2013 History of Tetanus Vaccine?: Yes Tetanus Immunization Date: Jan 07, 2013 History of Pneumococcal: Yes Pneumococcal Date: Feb 16, 2010 History of Hepatitis B Vaccine: No History of MDRO History of MDRO: No Allergies Coded Allergies: Atropine (Verified Allergy, Severe, RASH, 04/15/16) Dobutamine (Verified Allergy, Severe, RASH, 04/15/16) Current Medications Reported Home Medications Medications Dose Route/Sig Max Daily Dose Days Date Category Dose Instructions Prednisone 10 Mg Tab 10 Mg PO UD 48 04/21/16 Rx Take 6 tabs (60 mg) daily for 4 days. Then decrease dose by 5 mg daily for 4 days. Decrease dose by 5 mg every 4 days. Nystatin 5 Ml Susp 5 Ml PO QID 11 04/21/16 Rx Take 5 ml (1 teaspoon) by mouth four times a day. Duoneb (Ipratropium-Albuterol) 3 Ml Nebu 1 Treatment INH Q6HWA 30 04/21/16 Rx Use 1 neb treatment every 6 hours while awake. May use every 2 hours as needed for shortness of breath & wheezing. Aldactone (Spironolactone) 25 Mg Tab 12.5 Mg PO QAM 04/15/16 Reported Amoxil (Amoxicillin) 500 Mg Cap 500 Mg PO UD PRN 04/15/16 Reported Lasix (Furosemide) 20 Mg Tab 20 Mg PO DAILY 04/15/16 Reported Tramadol HCl 50 Mg Tab 50 Mg PO Q6 PRN 04/15/16 Reported Glipizide 5 Mg Tab 5 Mg PO BID 04/15/16 Reported Pravastatin Sodium 10 Mg Tab 10 Mg PO DAILY 08/10/13 Reported Vitamin B12 500MCG (Cyanocobalamin) 500 Mcg Tab 1,000 Mcg PO DAILY 08/10/13 Reported Prinivil (Lisinopril) 10 Mg Tab 10 Mg PO DAILY 08/10/13 Reported Iron Supplement (Ferrous Sulfate) 325 Mg Tab 325 Mg PO DAILY 07/10/12 Reported Requip (Ropinirole HCl) 2 Mg Tab 2 Mg PO TID 07/10/12 Reported Toprol-Xl (Metoprolol Succinate) 100 Mg Tabcr 100 Mg PO DAILY 07/10/12 Reported Prozac (Fluoxetine Hcl) 20 Mg Cap 20 Mg PO QAM 10/13/11 Reported Physical Physical Exam Vital Signs: Date Time Temp Pulse Resp B/P Pulse Ox O2 Delivery O2 Flow Rate FiO2 08/24/16 15:19 89 22 95 Nasal Cannula 3.0 08/24/16 13:23 36.6 83 20 134/77 91 Nasal Cannula 4.0 General Appearance: mild distress, obese Eyes: PERRLA ENT: NORMAL THROAT EXAM Neck: NO TENDERNESS, TRACHEA MIDLINE Respiratory: wheezing, other (very diminished breath sounds) Cardiovasular: REGULAR RATE/RHYTHM, NORMAL S1S2 Abdomen: NON TENDER, NO REBOUND, NO GUARDING Upper Extremities: NO EDEMA Lower Extremities: edema (bilateral) Neuro: ALERT, ORIENTED x 3 Diagnostics Labs Results Past 24 Hours Test 08/24/16 14:20 08/24/16 14:35 08/24/16 16:45 08/24/16 16:48 Range/Units White Blood Count 8.41 4.8-10.8 K/uL Red Blood Count 3.49 4.2-5.4 M/uL Hemoglobin 11.0 12.0-16.0 g/dL Hematocrit 35.5 37-47 % Mean Corpuscular Volume 101.7 80-100 fL Mean Corpuscular Hemoglobin 31.5 25-34 pg Mean Corpuscular Hemoglobin Concent 31.0 32-36 g/dl Platelet Count 147 130-400 K/uL Mean Platelet Volume 10.7 7.4-10.4 fL Neutrophils (%) (Auto) 83.8 % Lymphocytes (%) (Auto) 9.4 % Monocytes (%) (Auto) 5.4 % Eosinophils (%) (Auto) 1.1 % Basophils (%) (Auto) 0.2 % Neutrophils # (Auto) 7.05 1.4-6.5 K/uL Lymphocytes # (Auto) 0.79 1.2-3.4 K/uL Monocytes # (Auto) 0.45 0.11-0.59 K/uL Eosinophils # (Auto) 0.09 0-0.5 K/uL Basophils # (Auto) 0.02 0-0.2 K/uL RDW Standard Deviation 50.3 36.4-46.3 fL RDW Coefficient of Variation 13.5 11.5-14.5 % Immature Granulocyte % (Auto) 0.1 % Immature Granulocyte # (Auto) 0.01 0.00-0.02 K/uL Sodium Level 144 136-145 mmol/L Potassium Level 3.7 3.5-5.1 mmol/L Chloride Level 102 98-107 mmol/L Carbon Dioxide Level 39 21-32 mmol/L Anion Gap 3.0 3-11 mmol/L Blood Urea Nitrogen 14 7-18 mg/dl Creatinine 1.30 0.60-1.20 mg/dl Estimated GFR () 46.8 Estimated GFR (Non- 40.4 BUN/Creatinine Ratio 11.1 10-20 Random Glucose 162 70-99 mg/dl Calcium Level 8.9 8.5-10.1 mg/dl Prothrombin Time 11.6 9.0-12.0 SECONDS Prothromb Time International Ratio 1.1 0.9-1.1 Urine Color YELLOW Urine Appearance CLEAR CLEAR Urine pH 5.0 4.5-7.5 Urine Specific [place] 1.010 1.000-1.030 Urine Protein NEG NEG Urine Glucose (UA) NEG NEG Urine Ketones NEG NEG Urine Occult Blood NEG NEG Urine Nitrite NEG NEG Urine Bilirubin NEG NEG Urine Urobilinogen NEG NEG Urine Leukocyte Esterase TRACE NEG Urine WBC (Auto) 10-30 0-5 /hpf Urine RBC (Auto) 0-4 0-4 /hpf Urine Hyaline Casts (Auto) 1-5 0-5 /lpf Urine Epithelial Cells (Auto) 20-30 0-5 /lpf Urine Bacteria (Auto) NEG NEG Bedside Glucose 203 70-90 mg/dl Microbiology Results 08/24/16 Blood Culture, Received Pending 08/24/16 Blood Culture, Received Pending 08/24/16 Urine Culture, Received Pending Diagnostic Radiology CXR today: 1. Cardiomegaly and emphysema. There is no radiographic evidence of congestive failure. 2. There are increasing bibasilar airspace opacities as compared to 04/18/2016. This could represent atelectasis versus an infectious/inflammatory pneumonitis. Clinical correlation will be required and radiographic follow-up to resolution is recommended. Impression Assessment and Plan 76 year old female with advanced emphysema, presents with an exacerbation episode. Plan: [place] steroids, bronchodilators around the clock No immediate need for Abx, WBC normal, afebrile. The CXR likely shows basilar atelectasis. Supplement O2. Will consider lobsterman Prednisone therapy after the taper. To be followed up as outpatient. Continue diuretics. Has pulmonary HTN based on RHC from 2014, PAP 52/21. Probably secondary to pulmonary disease, not amenable to PH therapy since it is not group I. DVT prophylaxis Note Total Time (mins): 35
[2016-08-24] MEDS: LEVALBUTEROL 1.25MG/0.5ML NEB INH SCH (19:23)
[2016-08-24] MEDS: IPRATROPIUM BROMIDE NEB SOLN 0.02% 2.5 ML VIAL INH SCH (19:23)
[2016-08-24 19:24] VITALS: PULSE 96; O2SAT 93
[2016-08-24 19:30] VITALS: O2SAT 3
[2016-08-24] MEDS ORDERED: INSULIN GLARGINE SOLOSTAR 100 UNITS/ML 3 ML PEN SC SCH (20:00)
[2016-08-24] MEDS: ENOXAPARIN 40 MG/0.4 ML SYR SQ SCH (20:29)
[2016-08-24] MEDS ORDERED: LEVALBUTEROL/IPRATROPIUM NEB INH SCH (21:00)
[2016-08-24] MEDS ORDERED: METHYLPREDNISOLONE IV 40 MG in SYRINGE 0 ML IV SCH (22:00)
[2016-08-24 23:43] VITALS: BP 158/79; PULSE 72; TEMP 36.8; O2SAT 91
[2016-08-25] VITALS (9 sets, daily range): BP systolic 148–170; BP diastolic 79–90; PULSE 56–96; TEMP 36.6–36.9; O2SAT 90–97
[2016-08-25] MEDS: LEVALBUTEROL 1.25MG/0.5ML NEB INH SCH ×4 (01:40→18:51)
[2016-08-25] MEDS: IPRATROPIUM BROMIDE NEB SOLN 0.02% 2.5 ML VIAL INH SCH ×4 (01:40→18:51)
[2016-08-25] MEDS: INSULIN ASPART 100 UNITS/ML 3 ML PEN SC SCH ×5 (03:54→21:00)
[2016-08-25 06:51] LABS: COMPLETE YES; EOS % 0.2 %; HEMATOCRIT 31.1 % (37-47); IG% 0.4 %; LYMPH % 5.8 %; LYMPH ABS # 0.31 K/uL (1.2-3.4); MEAN CELL VOLUME 100.3 fL (80-100); MEAN CORPUSCULAR HEMOGLOBIN 32.3 pg (25-34); MEAN CORPUSCULAR HGB CONC 32.2 g/dl (32-36); MEAN PLATELET VOLUME 10.9 fL (7.4-10.4); MONO % 1.9 %; NEUT % 91.7 %; PLATELET COUNT 119 K/uL (130-400); WHITE BLOOD COUNT 5.35 K/uL (4.8-10.8)
[2016-08-25 07:19] LABS: ESTIMATED AVERAGE GLUCOSE 143 mg/dl; HA1C FLAG Normal (Normal)
[2016-08-25 07:23] LABS: BUN/CREATININE RATIO 16.5 (10-20); CALCIUM 8.1 mg/dl (8.5-10.1); CREATININE 1.4 mg/dl (0.60-1.20); POTASSIUM 4.2 mmol/L (3.5-5.1)
[2016-08-25] MEDS: LISINOPRIL 10 MG TAB PO SCH (07:53)
[2016-08-25] MEDS: METOPROLOL SUCC 50MG EXT REL TAB PO SCH (07:53)
[2016-08-25] MEDS: ROPINIROLE HCL 1 MG TAB PO SCH ×3 (07:54→21:05)
[2016-08-25] MEDS: PRAVASTATIN SOD 10 MG TAB PO SCH (07:55)
[2016-08-25] MEDS: FUROSEMIDE 20 MG TAB PO SCH (07:55)
[2016-08-25] MEDS: CYANOCOBALAMIN 500 MCG TAB (VIT B-12) PO SCH (07:56)
[2016-08-25] MEDS: FLUOXETINE HCL 20 MG CAP PO SCH (07:56)
[2016-08-25] MEDS: FERROUS SULFATE 325 MG TAB PO SCH (07:57)
[2016-08-25] MEDS: SPIRONOLACTONE 25 MG TAB PO SCH (07:57)
--- NOTE | 2016-08-25 08:39 | Clinical Documentation Query ---
AZUCENA Baron : CLINICAL DOCUMENTATION QUERY Patient is a 76 year old female admitted for acute COPD exacerbation as a direct admission from the pulmonary clinic. Documentation includes home use of 3 L/min of supplemental O2 chronically. As appropriate, consider documentation as suggested below to capture the severity of illness associated with this clinical diagnosis. Thank you. In your clinical opinion is this patient being managed for: (x ) Chronic respiratory failure with hypoxia ( ) Other explanation of clinical findings (Please Explain) ( ) Unable to determine (Please Define) ( ) Need to Discuss ( ) Not Agree The medical record reflects the following clinical findings, treatment, and risk factors. Clinical Indicators: As above Treatment: 3 L/min of supplemental O2 chronically Risk Factors: Chronic diastolic CHF, COPD, smoking history Please clarify and document your clinical opinion in the progress notes and discharge summary. Terms such as "probable", "suspected", "likely", "questionable", "possible", or "still to be ruled out" are acceptable. IF IN AGREEMENT, YOU MUST DOCUMENT ABOVE DIAGNOSTIC STATEMENT IN DAILY PROGRESS NOTES AND DISCHARGE SUMMARY. This document is not part of the patient's record. Thank You, Craig Julian, RHYS [phone]
[2016-08-25] MEDS: INSULIN GLARGINE SOLOSTAR 100 UNITS/ML 3 ML PEN SC SCH ×2 (09:01→21:07)
--- NOTE | 2016-08-25 11:05 | Pharmacy Progress Note ---
Glycemic Control: Progress Nt Date of Service August 25, 2016. Scope Glycemic Pharmacist consulted by for glycemic control and to write orders per [facility] inpatient glycemic control protocol. Objective Accuchecks BSG (last 24hrs): Test 08/24/16 14:20 08/24/16 16:48 08/24/16 20:10 08/24/16 23:50 Random Glucose 162 mg/dl (70-99) Bedside Glucose 203 mg/dl (70-90) 199 mg/dl (70-90) 252 mg/dl (70-90) Test 08/25/16 03:51 08/25/16 06:20 08/25/16 07:36 Bedside Glucose 269 mg/dl (70-90) 184 mg/dl (70-90) Random Glucose 215 mg/dl (70-99) Laboratory Data (last 24hrs) HbA1c: Test 08/25/16 06:20 Hemoglobin A1c 6.6 % (4.5-5.6) H Recent Pertinent Medications Outpatient Anti-diabetic Regimen: * Glipizide 5mg PO BIDM The patient is currently receiving: * Basal insulin: Lantus 20-25 units every 12 hours depending on BSG 20 units if BSG < 160 25 units if BSG > 160 * Correctional Insulin: Novolog Correction per scale ACHS Goal Range: Low 110 mg/dL - High 140 mg/dL Correction Factor: 25 mg/dL/unit * Prandial insulin: Per carb ratio of 1 unit per 8 grams CHO consumed * Oral Agents: On hold for admission Risk Factors for Insulin Resistance: * Steroids * Diet Assessment & Plan ASSESSMENT: Initial: * Pt is maintained on oral antidiabetic agents as an outpatient with adequate control per recent A1c. No changes needed at discharge. * Oral agents are not recommended for inpatient use d/t drug interactions, changing PO intake, and difficulty titrating for acute hyper/hypoglycemia. ADA recommends re-initiating outpatient oral agents 1-2 days prior to discharge if/ when appropriate if they were held on admission. * Will hold oral agents for admission and utilize SQ basal bolus insulin regimen which is the recommended regimen for inpatient glycemic control. * Pt known to pharmacy from previous admissions/glycemic consults * Patient was admitted to [facility] in April of this year. She was on the same dose of steroids (40 mg IV q8) and required 26 units of Lantus BID plus 11-32 units of bolus insulin per day. 08/25/16: * Pt ordered high dose RTC steroids --> Solumedrol 40mg IV Q8hrs * Will utilize weight/high stress based dosing and titrate based on BSG trends and steroid dosing * Pt has required 86 units of insulin over the past 24hrs. * 50 units of basal insulin * 36 units of prandial insulin (lower d/t no CHO intake overnight) * BSGs ranging 184 - 269mg/dl over the past 24hrs * Continue high stress basal insulin dosing * Initial bolus insulin dosing was based on stress = 2, now that solumedrol is being scheduled Q8hrs, will increase to high stress bolus insulin parameters. Steroids have their most profound effect on postprandial hyperglycemia therefore aggressive CF/CR warranted. PLAN FOR INPATIENT GLYCEMIC CONTROL: * Hold outpatient oral diabetes medications * Continue Basal insulin with LANTUS * 20-25 units (20 if BSG is less than 160, 25 units for BSG 160 mg/dL or more) SQ Q12hrs * Tighten Bolus Insulin with NOVOLOG ACHS * Goal Range: Low 110 mg/dL - High 140 mg/dL * Correction Factor: 15 mg/dL/unit * Nutritional / Prandial insulin per carb ratio of 1 unit per 5 grams CHO consumed * Please note that the plan above was derived based on current level of insulin resistance and hospital stress. These recommendations are appropriate for inpatient admission only. Plan of care upon discharge will need to be reassessed to avoid potential outpatient hypo/hyperglycemia. Thank you.
[2016-08-25] MEDS: METHYLPREDNISOLONE IV 40 MG in SYRINGE 0 ML IV SCH ×2 (13:02→21:05)
[2016-08-25] MEDS ORDERED: HydrALAZINE HCL 20 MG/ML VIAL IV. PRN (14:30)
--- NOTE | 2016-08-25 14:34 | Hospitalist Progress Note ---
Hospitalist Progress Note Date of Service August 25, 2016. Subjective Pt evaluation today including: conversation w/ patient, physical exam, chart review, lab review, review of studies, conversation w/ mobile sales consultant, review of inpatient medication list Patient reports still feeling fairly winded. Occasional productive cough with yellow sputum. Denies any fever or chills. She was particularly winded when she got up to use the restroom. Denies any dizziness. She reports her oxygen dropped to 70s with ambulation. Additional Comments: 6 system review negative. Please see pertinent positives in the history of present illness section. Objective Vital Signs Date Time Temp Pulse Resp B/P Pulse Ox O2 Delivery O2 Flow Rate FiO2 08/25/16 14:09 68 16 90 Nasal Cannula 3.0 08/25/16 08:00 94 Nasal Cannula 3.0 08/25/16 07:28 66 16 94 Nasal Cannula 3.0 08/25/16 07:18 36.6 56 20 148/79 97 Room Air 08/25/16 01:40 96 16 93 Nasal Cannula 3.0 08/25/16 00:01 Nasal Cannula 4.0 08/24/16 23:43 36.8 72 18 158/79 91 Nasal Cannula 2.0 08/24/16 19:30 Nasal Cannula 4.0 08/24/16 19:24 96 26 93 Nasal Cannula 3.0 08/24/16 15:19 89 22 95 Nasal Cannula 3.0 Physical Exam General Appearance: + mild distress (mild respiratory distress) Eyes: EOMI Neck: no JVD Respiratory/Chest: + pertinent finding (decreased breath sounds at the bases bilaterally. No wheezing auscultated. No crackles. No rhonchi.) Cardiovascular: regular rate, rhythm Abdomen: normal bowel sounds, non tender, soft Extremities: + pertinent finding (+1 pitting edema noted in the lower extremities left greater than right. No erythema, warmth or tenderness appreciated.) Neurologic/Psychiatric: no motor/sensory deficits, oriented x 3 Skin: warm/dry Laboratory Results 08/25/16 06:20 Red Blood Count 3.10, Mean Corpuscular Volume 100.3, Mean Corpuscular Hemoglobin 32.3, Mean Corpuscular Hemoglobin Concent 32.2, Mean Platelet Volume 10.9, Neutrophils (%) (Auto) 91.7, Lymphocytes (%) (Auto) 5.8, Monocytes (%) ( Auto) 1.9, Eosinophils (%) (Auto) 0.2, Basophils (%) (Auto) 0.0, Neutrophils # ( Auto) 4.91, Lymphocytes # (Auto) 0.31, Monocytes # (Auto) 0.10, Eosinophils # ( Auto) 0.01, Basophils # (Auto) 0.00 08/25/16 06:20 Test 08/24/16 14:35 08/24/16 16:45 08/25/16 06:20 08/25/16 11:37 Prothrombin Time 11.6 SECONDS (9.0-12.0) Prothromb Time International Ratio 1.1 (0.9-1.1) Urine Color YELLOW Urine Appearance CLEAR (CLEAR) Urine pH 5.0 (4.5-7.5) Urine Specific [place] 1.010 (1.000-1.030) Urine Protein NEG (NEG) Urine Glucose (UA) NEG (NEG) Urine Ketones NEG (NEG) Urine Occult Blood NEG (NEG) Urine Nitrite NEG (NEG) Urine Bilirubin NEG (NEG) Urine Urobilinogen NEG (NEG) Urine Leukocyte Esterase TRACE (NEG) Urine WBC (Auto) 10-30 /hpf (0-5) Urine RBC (Auto) 0-4 /hpf (0-4) Urine Hyaline Casts (Auto) 1-5 /lpf (0-5) Urine Epithelial Cells (Auto) 20-30 /lpf (0-5) Urine Bacteria (Auto) NEG (NEG) White Blood Count 5.35 K/uL (4.8-10.8) Red Blood Count 3.10 M/uL (4.2-5.4) Hemoglobin 10.0 g/dL (12.0-16.0) Hematocrit 31.1 % (37-47) Mean Corpuscular Volume 100.3 fL (80-100) Mean Corpuscular Hemoglobin 32.3 pg (25-34) Mean Corpuscular Hemoglobin Concent 32.2 g/dl (32-36) Platelet Count 119 K/uL (130-400) Mean Platelet Volume 10.9 fL (7.4-10.4) Neutrophils (%) (Auto) 91.7 % Lymphocytes (%) (Auto) 5.8 % Monocytes (%) (Auto) 1.9 % Eosinophils (%) (Auto) 0.2 % Basophils (%) (Auto) 0.0 % Neutrophils # (Auto) 4.91 K/uL (1.4-6.5) Lymphocytes # (Auto) 0.31 K/uL (1.2-3.4) Monocytes # (Auto) 0.10 K/uL (0.11-0.59) Eosinophils # (Auto) 0.01 K/uL (0-0.5) Basophils # (Auto) 0.00 K/uL (0-0.2) RDW Standard Deviation 48.1 fL (36.4-46.3) RDW Coefficient of Variation 13.2 % (11.5-14.5) Immature Granulocyte % (Auto) 0.4 % Immature Granulocyte # (Auto) 0.02 K/uL (0.00-0.02) Anion Gap 5.0 mmol/L (3-11) Est Creatinine Clear Calc Drug Dose 40.7 ml/min Estimated GFR () 42.8 Estimated GFR (Non- 36.9 BUN/Creatinine Ratio 16.5 (10-20) Estimated Average Glucose 143 mg/dl Hemoglobin A1c 6.6 % (4.5-5.6) Calcium Level 8.1 mg/dl (8.5-10.1) Bedside Glucose 154 mg/dl (70-90) Last 24 Hours Test 08/24/16 14:20 08/24/16 14:35 08/24/16 16:45 08/24/16 16:48 White Blood Count 8.41 K/uL Red Blood Count 3.49 M/uL Hemoglobin 11.0 g/dL Hematocrit 35.5 % Mean Corpuscular Volume 101.7 fL Mean Corpuscular Hemoglobin 31.5 pg Mean Corpuscular Hemoglobin Concent 31.0 g/dl Platelet Count 147 K/uL Mean Platelet Volume 10.7 fL Neutrophils (%) (Auto) 83.8 % Lymphocytes (%) (Auto) 9.4 % Monocytes (%) (Auto) 5.4 % Eosinophils (%) (Auto) 1.1 % Basophils (%) (Auto) 0.2 % Neutrophils # (Auto) 7.05 K/uL Lymphocytes # (Auto) 0.79 K/uL Monocytes # (Auto) 0.45 K/uL Eosinophils # (Auto) 0.09 K/uL Basophils # (Auto) 0.02 K/uL RDW Standard Deviation 50.3 fL RDW Coefficient of Variation 13.5 % Immature Granulocyte % (Auto) 0.1 % Immature Granulocyte # (Auto) 0.01 K/uL Sodium Level 144 mmol/L Potassium Level 3.7 mmol/L Chloride Level 102 mmol/L Carbon Dioxide Level 39 mmol/L Anion Gap 3.0 mmol/L Blood Urea Nitrogen 14 mg/dl Creatinine 1.30 mg/dl Estimated GFR () 46.8 Estimated GFR (Non- 40.4 BUN/Creatinine Ratio 11.1 Random Glucose 162 mg/dl Calcium Level 8.9 mg/dl Prothrombin Time 11.6 SECONDS Prothromb Time International Ratio 1.1 Urine Color YELLOW Urine Appearance CLEAR Urine pH 5.0 Urine Specific [place] 1.010 Urine Protein NEG Urine Glucose (UA) NEG Urine Ketones NEG Urine Occult Blood NEG Urine Nitrite NEG Urine Bilirubin NEG Urine Urobilinogen NEG Urine Leukocyte Esterase TRACE Urine WBC (Auto) 10-30 /hpf Urine RBC (Auto) 0-4 /hpf Urine Hyaline Casts (Auto) 1-5 /lpf Urine Epithelial Cells (Auto) 20-30 /lpf Urine Bacteria (Auto) NEG Bedside Glucose 203 mg/dl Test 08/24/16 20:10 08/24/16 23:50 08/25/16 03:51 08/25/16 06:20 Bedside Glucose 199 mg/dl 252 mg/dl 269 mg/dl White Blood Count 5.35 K/uL Red Blood Count 3.10 M/uL Hemoglobin 10.0 g/dL Hematocrit 31.1 % Mean Corpuscular Volume 100.3 fL Mean Corpuscular Hemoglobin 32.3 pg Mean Corpuscular Hemoglobin Concent 32.2 g/dl Platelet Count 119 K/uL Mean Platelet Volume 10.9 fL Neutrophils (%) (Auto) 91.7 % Lymphocytes (%) (Auto) 5.8 % Monocytes (%) (Auto) 1.9 % Eosinophils (%) (Auto) 0.2 % Basophils (%) (Auto) 0.0 % Neutrophils # (Auto) 4.91 K/uL Lymphocytes # (Auto) 0.31 K/uL Monocytes # (Auto) 0.10 K/uL Eosinophils # (Auto) 0.01 K/uL Basophils # (Auto) 0.00 K/uL RDW Standard Deviation 48.1 fL RDW Coefficient of Variation 13.2 % Immature Granulocyte % (Auto) 0.4 % Immature Granulocyte # (Auto) 0.02 K/uL Sodium Level 142 mmol/L Potassium Level 4.2 mmol/L Chloride Level 100 mmol/L Carbon Dioxide Level 37 mmol/L Anion Gap 5.0 mmol/L Blood Urea Nitrogen 23 mg/dl Creatinine 1.40 mg/dl Est Creatinine Clear Calc Drug Dose 40.7 ml/min Estimated GFR () 42.8 Estimated GFR (Non- 36.9 BUN/Creatinine Ratio 16.5 Random Glucose 215 mg/dl Estimated Average Glucose 143 mg/dl Hemoglobin A1c 6.6 % Calcium Level 8.1 mg/dl Test 08/25/16 07:36 08/25/16 11:37 Bedside Glucose 184 mg/dl 154 mg/dl Assessment and Plan 76 y/o female with PMHx of COPD, chronic diastolic CHF, DM II, HTN, and HLD who presents as a direct admission from the pulmonary clinic per request of Иван Argueta PA-C. The paient has been admitted for multiple COPD exacerbations within the past year, this being the third in hospital stay. Acute on chronic respiratory failure with hypoxia secondary to COPD exacerbation and possibly mild decompensation of Diastolic CHF - Admitted to [facility] -pulm consult appreciated: continue Solumedrol 40 mg IV q 8 h hold off on ABX for now (no fever, WBC) continue scheduled duonebs -goal O2 88-92% -continue Mucinex 600 mg po BID Diabetes mellitus type 2 -pharmacy managing HTN -Continue metoprolol succinate 100 mg PO qd -hold lisinopril 10 mg PO qd temporarily for slight bump in CR and anticipated diuresis Diastolic CHF-pt admits to not taking lasix as prescribed. She takes 20 mg daily instead of 40 mg daily d/t frequent urination and incontinence -Continue Lasix 20 mg po daily -Give one dose of Lasix 20 mg IV now -I&O monitoring -daily standing scale weights Urinary incontinence-->? secondary to Lasix vs infectious etiology or urge incontinence -UA 10 -30 WBCs-->await urine culture -consider addition of Oxybutynin HLD -Continue pravastatin 10 mg PO qd Restless leg syndrome -Continue ropinirole 2 mg PO TID Depression -Continue fluoxetine 20 mg PO qd Anemia, iron deficiency -Continue iron supplement 325 mg PO qd -Continue B12 supplemental 1000 g PO qd CKD, stage III, baseline cr. ~1.6 -follow PRP DVT prophylaxis: -MEME and SCDs, Lovenox 40 mg subq CODE STATUS: FULL CODE Disposition: Pt from home, discharge when medically stable
[2016-08-25] MEDS ORDERED: FUROSEMIDE INJ 20 MG in SYRINGE 0 ML IV SCH (15:00)
--- NOTE | 2016-08-25 15:13 | Pulmonology Progress Note ---
Pulmonary Progress Note Date of Service August 25, 2016. Attending Dr. Price Subjective Some improvement today. Ambulating inside the room, but desaturating easily. Less dyspneic though. States that her rhinorrhea and cough resolved in the hospital Objective General Appearance: no distress, obese Eyes: PERRLA ENT: NORMAL THROAT EXAM Neck: NO TENDERNESS, TRACHEA MIDLINE Respiratory: faint wheezing, very diminished breath sounds Cardiovasular: REGULAR RATE/RHYTHM, NORMAL S1S2 Abdomen: NON TENDER, NO REBOUND, NO GUARDING Upper Extremities: NO EDEMA Lower Extremities: edema (bilateral) Neuro: ALERT, ORIENTED x 3 Assessment & Plan 76 year old female with advanced emphysema, presents with an exacerbation episode. Plan: Continue steroids, bronchodilators around the clock No immediate need for Abx, WBC normal, afebrile. The CXR likely shows basilar atelectasis. Supplement O2. Ambulate as tolerated, increase the O2 before/ Recommend terminal operator Prednisone therapy after the taper. To be followed up as outpatient. Continue diuretics. Has pulmonary HTN based on RHC from 2014, PAP 52/21. Probably secondary to pulmonary disease, not amenable to PH therapy since it is not group I. Patient is looking into an assisted living, I think it is a good idea, plus, another benefit would be removal of a possible offending agent that is contributing to rhinorrhea and cough DVT prophylaxis Data Medications: Current Inpatient Medications Medications (Trade) Dose Ordered Sig/Polly Route Start Time Stop Time Status Last Admin Dose Admin Enoxaparin Sodium (Lovenox Inj) 40 mg Q24H SQ 08/24/16 21:00 09/23/16 20:59 08/24/16 20:29 40 MG Acetaminophen (Tylenol Tab) 650 mg Q4H PRN PO 08/24/16 13:45 09/23/16 13:44 08/24/16 23:53 650 MG Polyethylene (Miralax Powder Packet) 17 gm DAILY PRN PO 08/24/16 14:00 09/23/16 13:59 Ondansetron HCl (Zofran Inj) 4 mg Q6H PRN IV 08/24/16 13:45 09/23/16 13:44 Cyanocobalamin (Vitamin B-12 Tab) 1,000 mcg DAILY PO 08/25/16 08:00 09/24/16 07:59 08/25/16 07:56 1,000 MCG Fluoxetine HCl (Prozac Cap) 20 mg QAM PO 08/25/16 08:00 09/24/16 07:59 08/25/16 07:56 20 MG Furosemide (Lasix Tab) 20 mg DAILY PO 08/25/16 08:00 09/24/16 07:59 08/25/16 07:55 20 MG Lisinopril (Zestril Tab) 10 mg DAILY PO 08/25/16 08:00 09/24/16 07:59 Future Hold Metoprolol Succinate (Toprol Xl Tab) 100 mg DAILY PO 08/25/16 08:00 09/24/16 07:59 08/25/16 07:53 100 MG Pravastatin Sodium (Pravachol Tab) 10 mg DAILY PO 08/25/16 08:00 09/24/16 07:59 08/25/16 07:55 10 MG Ropinirole HCl (Requip Tab) 2 mg TID PO 08/24/16 14:00 09/23/16 13:59 08/25/16 13:02 2 MG Spironolactone (Aldactone Tab) 12.5 mg QAM PO 08/25/16 08:00 09/24/16 07:59 08/25/16 07:57 12.5 MG Tramadol HCl (Ultram Tab) 50 mg Q6 PRN PO 08/24/16 13:45 09/23/16 13:44 Ferrous Sulfate (Feosol Tab) 325 mg DAILY PO 08/25/16 08:00 09/24/16 07:59 08/25/16 07:57 325 MG Insulin Aspart (novoLOG ASPART) SLIDING SCALE If C... ACHS SC 08/24/16 16:30 09/23/16 16:29 08/25/16 13:00 11 UNITS Glucose (Glucose 40% Gel) 15-30 GRAMS 15 GRAMS... UD PRN PO 08/24/16 13:45 09/23/16 13:44 Glucose (Glucose Chew Tab) 4-8 Tablets 4 Tabl... UD PRN PO 08/24/16 13:45 09/23/16 13:44 Dextrose (Dextrose 50% 50ML Syringe) 25-50ML OF 50% DW IV FOR... UD PRN IV 08/24/16 13:45 09/23/16 13:44 Glucagon (Glucagon Inj) 1 mg UD PRN SQ 08/24/16 13:45 09/23/16 13:44 Miscellaneous Information (Consult Glycemic Management Pharmacy) 1 ea UD PRN N/A 08/24/16 14:00 09/23/16 13:59 Insulin Glargine (Lantus Solostar Pen) SEE PROTOCOL TEXT ... BID SC 08/25/16 08:00 09/24/16 07:59 08/25/16 09:01 25 UNIT Insulin Aspart (novoLOG ASPART) SLIDING SCALE If C... 0000,0400 SC 08/25/16 00:00 09/24/16 00:00 08/25/16 03:54 6 UNITS Guaifenesin (Organidin Nr Tab) 200 mg Q4H PRN PO 08/24/16 15:30 09/23/16 15:29 Ipratropium [place] (Atrovent 0.02% 0.5MG/2.5ML Neb) 0.5 mg Q6R INH 08/24/16 21:00 09/23/16 20:59 08/25/16 14:09 0.5 MG Levalbuterol 1.25 mg 1.25 mg Q6R INH 08/24/16 21:00 09/23/16 20:59 08/25/16 14:09 1.25 MG Methylprednisolone Sodium Succinate 40 mg/Syringe 0.64 ml @ 1.5 mls/min Q8 IV 08/25/16 14:00 09/24/16 13:59 08/25/16 13:02 1.5 MLS/MIN Furosemide/Syringe (Lasix Inj/ Syringe) 2 ml @ 4 mls/min TODAY@1500 IV 08/25/16 15:00 08/25/16 17:00 Hydralazine HCl (HydrALAZINE INJ) 10 mg Q6H PRN IV. 08/25/16 14:30 09/24/16 14:29 I & O: 24-Hour Column 08/25/16 08:00 Intake Total 240 ml Output Total 400 ml Balance -160 ml Vital Signs: Date Time Temp Pulse Resp B/P Pulse Ox O2 Delivery O2 Flow Rate FiO2 08/25/16 14:30 36.9 69 16 162/87 93 3.0 08/25/16 14:19 68 92 08/25/16 14:09 68 16 90 Nasal Cannula 3.0 08/25/16 08:00 94 Nasal Cannula 3.0 08/25/16 07:28 66 16 94 Nasal Cannula 3.0 08/25/16 07:18 36.6 56 20 148/79 97 Room Air 08/25/16 01:40 96 16 93 Nasal Cannula 3.0 08/25/16 00:01 Nasal Cannula 4.0 08/24/16 23:43 36.8 72 18 158/79 91 Nasal Cannula 2.0 08/24/16 19:30 Nasal Cannula 4.0 08/24/16 19:24 96 26 93 Nasal Cannula 3.0 08/24/16 15:19 89 22 95 Nasal Cannula 3.0 Laboratory Results: Last 24 Hours Test 08/24/16 16:45 08/24/16 16:48 08/24/16 20:10 08/24/16 23:50 Urine Color YELLOW Urine Appearance CLEAR Urine pH 5.0 Urine Specific [place] 1.010 Urine Protein NEG Urine Glucose (UA) NEG Urine Ketones NEG Urine Occult Blood NEG Urine Nitrite NEG Urine Bilirubin NEG Urine Urobilinogen NEG Urine Leukocyte Esterase TRACE Urine WBC (Auto) 10-30 /hpf Urine RBC (Auto) 0-4 /hpf Urine Hyaline Casts (Auto) 1-5 /lpf Urine Epithelial Cells (Auto) 20-30 /lpf Urine Bacteria (Auto) NEG Bedside Glucose 203 mg/dl 199 mg/dl 252 mg/dl Test 08/25/16 03:51 08/25/16 06:20 08/25/16 07:36 08/25/16 11:37 Bedside Glucose 269 mg/dl 184 mg/dl 154 mg/dl White Blood Count 5.35 K/uL Red Blood Count 3.10 M/uL Hemoglobin 10.0 g/dL Hematocrit 31.1 % Mean Corpuscular Volume 100.3 fL Mean Corpuscular Hemoglobin 32.3 pg Mean Corpuscular Hemoglobin Concent 32.2 g/dl Platelet Count 119 K/uL Mean Platelet Volume 10.9 fL Neutrophils (%) (Auto) 91.7 % Lymphocytes (%) (Auto) 5.8 % Monocytes (%) (Auto) 1.9 % Eosinophils (%) (Auto) 0.2 % Basophils (%) (Auto) 0.0 % Neutrophils # (Auto) 4.91 K/uL Lymphocytes # (Auto) 0.31 K/uL Monocytes # (Auto) 0.10 K/uL Eosinophils # (Auto) 0.01 K/uL Basophils # (Auto) 0.00 K/uL RDW Standard Deviation 48.1 fL RDW Coefficient of Variation 13.2 % Immature Granulocyte % (Auto) 0.4 % Immature Granulocyte # (Auto) 0.02 K/uL Sodium Level 142 mmol/L Potassium Level 4.2 mmol/L Chloride Level 100 mmol/L Carbon Dioxide Level 37 mmol/L Anion Gap 5.0 mmol/L Blood Urea Nitrogen 23 mg/dl Creatinine 1.40 mg/dl Est Creatinine Clear Calc Drug Dose 40.7 ml/min Estimated GFR () 42.8 Estimated GFR (Non- 36.9 BUN/Creatinine Ratio 16.5 Random Glucose 215 mg/dl Estimated Average Glucose 143 mg/dl Hemoglobin A1c 6.6 % Calcium Level 8.1 mg/dl
[2016-08-25] MEDS: ENOXAPARIN 40 MG/0.4 ML SYR SQ SCH (21:05)
[2016-08-26] VITALS (10 sets, daily range): BP systolic 123–170; BP diastolic 71–93; PULSE 59–72; TEMP 36.4–36.6; O2SAT 94–100
[2016-08-26] MEDS: INSULIN ASPART 100 UNITS/ML 3 ML PEN SC SCH ×6 (00:39→20:47)
[2016-08-26] MEDS: IPRATROPIUM BROMIDE NEB SOLN 0.02% 2.5 ML VIAL INH SCH ×4 (01:59→19:00)
[2016-08-26] MEDS: LEVALBUTEROL 1.25MG/0.5ML NEB INH SCH ×4 (01:59→19:00)
[2016-08-26] MEDS: METHYLPREDNISOLONE IV 40 MG in SYRINGE 0 ML IV SCH ×3 (05:08→20:56)
[2016-08-26 06:24] LABS: COMPLETE YES; HEMATOCRIT 32.7 % (37-47); IG% 0.3 %; LYMPH % 4.9 %; LYMPH ABS # 0.33 K/uL (1.2-3.4); MEAN CORPUSCULAR HEMOGLOBIN 31.2 pg (25-34); MEAN CORPUSCULAR HGB CONC 31.2 g/dl (32-36); MEAN PLATELET VOLUME 10.9 fL (7.4-10.4); MONO % 1.6 %; NEUT % 93.2 %; PLATELET COUNT 133 K/uL (130-400); RED BLOOD COUNT 3.27 M/uL (4.2-5.4); WHITE BLOOD COUNT 6.77 K/uL (4.8-10.8)
[2016-08-26 07:03] LABS: BUN/CREATININE RATIO 23.2 (10-20); CALCIUM 8.2 mg/dl (8.5-10.1); CREATININE 1.6 mg/dl (0.60-1.20); POTASSIUM 4.3 mmol/L (3.5-5.1)
[2016-08-26] MEDS: FERROUS SULFATE 325 MG TAB PO SCH (08:21)
[2016-08-26] MEDS: HydrALAZINE 10 MG TAB PO SCH ×3 (08:21→20:51)
[2016-08-26] MEDS: PRAVASTATIN SOD 10 MG TAB PO SCH (08:21)
[2016-08-26] MEDS: FLUOXETINE HCL 20 MG CAP PO SCH (08:21)
[2016-08-26] MEDS: ROPINIROLE HCL 1 MG TAB PO SCH ×3 (08:22→20:51)
[2016-08-26] MEDS: METOPROLOL SUCC 50MG EXT REL TAB PO SCH (08:22)
[2016-08-26] MEDS: CYANOCOBALAMIN 500 MCG TAB (VIT B-12) PO SCH (08:23)
[2016-08-26] MEDS: INSULIN GLARGINE SOLOSTAR 100 UNITS/ML 3 ML PEN SC SCH (09:52)
[2016-08-26] MEDS: HEPARIN SOD 5000 UNIT/0.5 ML CARP SQ SCH ×2 (09:53→20:53)
--- NOTE | 2016-08-26 10:50 | Progress Note ---
Subjective Date of Service: August 26, 2016. Subjective Pt evaluation today including: conversation w/ patient, physical exam, chart review, lab review, review of studies, conversation w/ technology methodology consultant, review of inpatient medication list Sitting up in chair, eating breakfast, reported doing the same, possible difficulty breathing is better Patient worry about oral thrush when she is on current medication No other complaints Problem List Medical Problems: (1) Cellulitis Status: Acute (2) COPD exacerbation Status: Acute (3) COPD exacerbation Status: Acute (4) Hypoxia Status: Acute (5) SOB (shortness of breath) Status: Acute Review of Systems Constitutional: No chills, No fatigue, No fever, No problem reported, No sweats , No weakness, No weight loss Eyes: No diplopia, No discharge, No eye pain, No redness, No worsening of vision ENT: + tinnitus, No dental problems, No hearing loss, No nasal symptoms, No sore throat, No trouble swallowing, No unusual epistaxis Respiratory: + cough, + dyspnea on exertion, + shortness of breath, No dyspnea at rest, No hemoptysis, No sputum, No wheezing Cardiac: No PND, No chest pain, No claudication, No edema, No orthopnea, No palpitations Abdomen: No constipation, No diarrhea, No nausea, No pain, No vomiting Musculoskeletal: No calf pain, No joint pain, No muscle pain, No swelling Female : No abnormal vaginal bleeding, No dysuria, No hematuria, No incontinence, No urinary frequency, No vaginal discharge Neurologic: No balance problems, No memory loss, No numbness/tingling, No paralysis, No vertigo, No weakness Psychiatric: No anhedonism, No anxiety, No depression symptoms, No insomnia, No substance abuse Heme: No abnormal bleeding/bruising, No clotting problems, No night sweats, No swollen lymph nodes Endo: No excessive thirst, No excessive urination, No fatigue Skin: No bleeding, No color change, No itch, No new/changing skin lesions, No rash Objective Vital Signs Date Time Temp Pulse Resp B/P Pulse Ox O2 Delivery O2 Flow Rate FiO2 08/26/16 07:17 36.6 63 16 170/92 100 Nasal Cannula 3.5 08/26/16 07:08 70 16 100 Nasal Cannula 3.0 08/26/16 01:59 66 16 95 Nasal Cannula 3.0 08/26/16 00:00 95 Nasal Cannula 3.0 08/25/16 23:55 36.6 57 20 170/90 93 Room Air 08/25/16 18:51 66 16 95 Nasal Cannula 3.0 08/25/16 14:30 36.9 69 16 162/87 93 3.0 08/25/16 14:19 68 92 08/25/16 14:09 68 16 90 Nasal Cannula 3.0 Physical Exam General Appearance: WD/WN, no apparent distress, + obese Eyes: normal inspection, PERRL, EOMI, sclerae normal ENT: normal ENT inspection, hearing grossly normal, pharynx normal Neck: supple, no adenopathy, thyroid normal, no JVD, no carotid bruits, trachea midline Respiratory/Chest: chest non-tender, normal breath sounds, no respiratory distress, no accessory muscle use, + decreased breath sounds Cardiovascular: regular rate, rhythm, no edema, no gallop, no JVD, no murmur Abdomen: normal bowel sounds, non tender, soft, no organomegaly, no pulsatile mass Extremities: normal range of motion, non-tender, normal inspection, no pedal edema, no calf tenderness, normal capillary refill, pelvis stable 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, no motor/sensory deficits, alert, normal mood/affect, oriented x 3 Skin: normal color, warm/dry, no rash Lymphatic: no adenopathy Laboratory Results Last 24 Hours Test 08/25/16 11:37 08/25/16 16:34 08/25/16 20:26 08/26/16 00:21 Bedside Glucose 154 mg/dl 82 mg/dl 131 mg/dl 175 mg/dl Test 08/26/16 05:01 08/26/16 05:48 08/26/16 07:36 Bedside Glucose 213 mg/dl 216 mg/dl White Blood Count 6.77 K/uL Red Blood Count 3.27 M/uL Hemoglobin 10.2 g/dL Hematocrit 32.7 % Mean Corpuscular Volume 100.0 fL Mean Corpuscular Hemoglobin 31.2 pg Mean Corpuscular Hemoglobin Concent 31.2 g/dl Platelet Count 133 K/uL Mean Platelet Volume 10.9 fL Neutrophils (%) (Auto) 93.2 % Lymphocytes (%) (Auto) 4.9 % Monocytes (%) (Auto) 1.6 % Eosinophils (%) (Auto) 0.0 % Basophils (%) (Auto) 0.0 % Neutrophils # (Auto) 6.31 K/uL Lymphocytes # (Auto) 0.33 K/uL Monocytes # (Auto) 0.11 K/uL Eosinophils # (Auto) 0.00 K/uL Basophils # (Auto) 0.00 K/uL RDW Standard Deviation 48.0 fL RDW Coefficient of Variation 13.0 % Immature Granulocyte % (Auto) 0.3 % Immature Granulocyte # (Auto) 0.02 K/uL Sodium Level 139 mmol/L Potassium Level 4.3 mmol/L Chloride Level 96 mmol/L Carbon Dioxide Level 36 mmol/L Anion Gap 7.0 mmol/L Blood Urea Nitrogen 37 mg/dl Creatinine 1.60 mg/dl Est Creatinine Clear Calc Drug Dose 35.7 ml/min Estimated GFR () 36.4 Estimated GFR (Non- 31.4 BUN/Creatinine Ratio 23.2 Random Glucose 205 mg/dl Calcium Level 8.2 mg/dl Assessment and Plan 76 y/o female with admitted on Aug 24 2016 because of COPD exacerbation COPD exacerbation: Stable and possible improving Chronic respiratory failure with hypoxia and home O2 dependent advanced emphysema, possibly mild decompensation of Diastolic CHF: Stable Possible acute on chronic renal failure stage III, today's creatinine is 1.6 from 1.3 upon admission, although possible in her baseline, however I will stop Lasix and Aldactone, and hold her lisinopril, will watch renal function closely Accelerated hypertension, likely because of holding of lisinopril, has started hydrolyzing, scheduled and as needed Possible oral thrush: Okay to start nystatin mouthwash PMHx of COPD, chronic diastolic CHF, DM II, HTN, and HLD has multiple COPD exacerbations within the past year, this being the third in hospital stay. continue Solumedrol 40 mg IV q 8 h not on ABX for now (no fever, WBC) continue scheduled duonebs -goal O2 88-92% -continue Mucinex 600 mg po BID -I&O monitoring -daily standing scale weights Urinary incontinence--> is not new per patient, possible urge incontinence -UA 10 -30 WBCs-->await urine culture -consider addition of Oxybutynin Pulmonary just recommend rat exterminator Prednisone therapy after the taper. To be followed up as outpatient. Discussed her about the long-term prednisone, she says she will not do it until talk to Kendall Oates Patient is looking into an assisted living, Disposition: Pt from home, discharge when medically stable Discussed with patient with present of nurse about a care plan, discussed the risks and benefits, Continued [facility] stay due to: multiple IV medications needed Discharge planning: home
--- NOTE | 2016-08-26 11:19 | Pharmacy Progress Note ---
Glycemic Control: Progress Nt Date of Service August 26, 2016. Scope Glycemic Pharmacist consulted for glycemic control and to write orders per formerly [facility] inpatient glycemic control protocol. Objective Accuchecks BSG (last 24hrs): Test 08/25/16 11:37 08/25/16 16:34 08/25/16 20:26 08/26/16 00:21 Bedside Glucose 154 mg/dl (70-90) 82 mg/dl (70-90) 131 mg/dl (70-90) 175 mg/dl (70-90) Test 08/26/16 05:01 08/26/16 05:48 08/26/16 07:36 Bedside Glucose 213 mg/dl (70-90) 216 mg/dl (70-90) Random Glucose 205 mg/dl (70-99) Laboratory Data (last 24hrs) HbA1c: Test 08/25/16 06:20 Hemoglobin A1c 6.6 % (4.5-5.6) H Recent Pertinent Medications Outpatient Anti-diabetic Regimen: * Glipizide 5mg PO BIDM The patient is currently receiving: * Basal insulin: Lantus 20-25 units every 12 hours depending on BSG 20 units if BSG < 160 25 units if BSG > 160 * Correctional Insulin: Novolog Correction per scale ACHS Goal Range: Low 110 mg/dL - High 140 mg/dL Correction Factor: 15 mg/dL/unit * Prandial insulin: Per carb ratio of 1 unit per 5 grams CHO consumed * Oral Agents: On hold for admission Risk Factors for Insulin Resistance: * Steroids * Diet Assessment & Plan ASSESSMENT: Initial: * Pt is maintained on oral antidiabetic agents as an outpatient with adequate control per recent A1c. * Oral agents are not recommended for inpatient use d/t drug interactions, changing PO intake, and difficulty titrating for acute hyper/hypoglycemia. ADA recommends re-initiating outpatient oral agents 1-2 days prior to discharge if/ when appropriate if they were held on admission. * Will hold oral agents for admission and utilize SQ basal bolus insulin regimen which is the recommended regimen for inpatient glycemic control. * Pt known to pharmacy from previous admissions/glycemic consults * Patient was admitted to [facility] in April of this year. She was on the same dose of steroids (40 mg IV q8) and required 26 units of Lantus BID plus 11-32 units of bolus insulin per day. 08/26/16: * Pt continues on high dose RTC steroids --> Solumedrol 40mg IV Q8hrs * Initiated SQ basal bolus insulin regimen on 08/24 based on weight/high stress. Titrating dosing daily based on BSG trends and steroid dosing * Pt has required 64+ units of insulin over the past 24hrs. * 25 units of basal insulin ... unfortunately, pt refused basal insulin dose last evening which resulted in rebound hyperglycemia this morning * 39units of prandial/correctional insulin * BSGs ranging 82 - 216mg/dl over the past 24hrs, goal BSGs are 100-140mg/dl. * Continue high stress basal insulin dosing * Steroids have their most profound effect on postprandial hyperglycemia therefore aggressive CF/CR warranted. * Will increase AM dosing of basal insulin this morning secondary to rebound hyperglycemia. Schedule lower PM dose this evening in hopes that patient will not refuse dose. PLAN FOR INPATIENT GLYCEMIC CONTROL: SQ basal bolus insulin regimen based on an estimated total daily dose of 70-80 units/day secondary to Solumedrol 40mg IV Q8hrs. * Hold outpatient oral diabetes medications * Basal insulin * Lantus 30 units SQ in AM + 10 units in PM if BSG > 140mg/dl * Bolus Insulin * NovoLog ACHS * Goal Range: Low 110 mg/dL - High 140 mg/dL * Correction Factor: 15 mg/dL/unit * Nutritional / Prandial insulin per carb ratio of 1 unit per 5 grams CHO consumed * Taper insulin regimen with each step down in steroid dosing. * Please note that the plan above was derived based on current level of insulin resistance and hospital stress. These recommendations are appropriate for inpatient admission only. Plan of care upon discharge will need to be reassessed to avoid potential outpatient hypo/hyperglycemia. Thank you. Looking ahead to discharge: * Pt is maintained on glipizide as an outpatient with adequate control per recent A1c. Insulin most likely not needed at discharge but pt may benefit from once daily NPH if high dose prednisone taper is continued at discharge.
--- NOTE | 2016-08-26 13:19 | Pulmonology Progress Note ---
Pulmonary Progress Note Date of Service August 26, 2016. Attending Dr. Price Subjective No improvement today. Objective General Appearance: no distress, obese Eyes: PERRLA ENT: NORMAL THROAT EXAM Neck: NO TENDERNESS, TRACHEA MIDLINE Respiratory: faint wheezing, very diminished breath sounds Cardiovasular: REGULAR RATE/RHYTHM, NORMAL S1S2 Abdomen: NON TENDER, NO REBOUND, NO GUARDING Upper Extremities: NO EDEMA Lower Extremities: edema (bilateral) Neuro: ALERT, ORIENTED x 3 Assessment & Plan 76 year old female with advanced emphysema, presents with an exacerbation episode. Plan: Continue steroids, bronchodilators around the clock No need for Abx, WBC normal, afebrile. The CXR likely shows basilar atelectasis. Supplement O2. Recommend chcf Prednisone therapy after the taper. To be followed up as outpatient. Will discuss with Иван Argueta, he is managing her as outpatient, she is on Qvar. Used to be on Spiriva and Tudorza. I am not sure why she is on Qvar now, but we'll probably have to escalate the outpatient regimen to include combo inhaled steroid/LABA plus a long acting anticholinergic. Consider adding Daliresp as well Diuretics on hold, mild bump in creatinine, but not far from her baseline Has pulmonary HTN based on RHC from 2014, PAP 52/21. Probably secondary to pulmonary disease, not amenable to PH therapy since it is not group I. Patient is looking into an assisted living, I think it is a good idea, plus, another benefit would be removal of a possible offending agent that is contributing to rhinorrhea and cough DVT prophylaxis Data Medications: Current Inpatient Medications Medications (Trade) Dose Ordered Sig/Polly Route Start Time Stop Time Status Last Admin Dose Admin Acetaminophen (Tylenol Tab) 650 mg Q4H PRN PO 08/24/16 13:45 09/23/16 13:44 08/24/16 23:53 650 MG Polyethylene (Miralax Powder Packet) 17 gm DAILY PRN PO 08/24/16 14:00 09/23/16 13:59 Ondansetron HCl (Zofran Inj) 4 mg Q6H PRN IV 08/24/16 13:45 09/23/16 13:44 Cyanocobalamin (Vitamin B-12 Tab) 1,000 mcg DAILY PO 08/25/16 08:00 09/24/16 07:59 08/26/16 08:23 1,000 MCG Fluoxetine HCl (Prozac Cap) 20 mg QAM PO 08/25/16 08:00 09/24/16 07:59 08/26/16 08:21 20 MG Furosemide (Lasix Tab) 20 mg DAILY PO 08/25/16 08:00 09/24/16 07:59 Future Hold 08/25/16 07:55 20 MG Lisinopril (Zestril Tab) 10 mg DAILY PO 08/25/16 08:00 09/24/16 07:59 Future Hold Metoprolol Succinate (Toprol Xl Tab) 100 mg DAILY PO 08/25/16 08:00 09/24/16 07:59 08/26/16 08:22 100 MG Pravastatin Sodium (Pravachol Tab) 10 mg DAILY PO 08/25/16 08:00 09/24/16 07:59 08/26/16 08:21 10 MG Ropinirole HCl (Requip Tab) 2 mg TID PO 08/24/16 14:00 09/23/16 13:59 08/26/16 08:22 2 MG Spironolactone (Aldactone Tab) 12.5 mg QAM PO 08/25/16 08:00 09/24/16 07:59 Future Hold 08/25/16 07:57 12.5 MG Tramadol HCl (Ultram Tab) 50 mg Q6 PRN PO 08/24/16 13:45 09/23/16 13:44 Ferrous Sulfate (Feosol Tab) 325 mg DAILY PO 08/25/16 08:00 09/24/16 07:59 08/26/16 08:21 325 MG Insulin Aspart (novoLOG ASPART) SLIDING SCALE If C... ACHS SC 08/24/16 16:30 09/23/16 16:29 08/26/16 09:52 14 UNITS Glucose (Glucose 40% Gel) 15-30 GRAMS 15 GRAMS... UD PRN PO 08/24/16 13:45 09/23/16 13:44 Glucose (Glucose Chew Tab) 4-8 Tablets 4 Tabl... UD PRN PO 08/24/16 13:45 09/23/16 13:44 Dextrose (Dextrose 50% 50ML Syringe) 25-50ML OF 50% DW IV FOR... UD PRN IV 08/24/16 13:45 09/23/16 13:44 Glucagon (Glucagon Inj) 1 mg UD PRN SQ 08/24/16 13:45 09/23/16 13:44 Miscellaneous Information (Consult Glycemic Management Pharmacy) 1 ea UD PRN N/A 08/24/16 14:00 09/23/16 13:59 Insulin Aspart (novoLOG ASPART) SLIDING SCALE If C... 0000,0400 SC 08/25/16 00:00 09/24/16 00:00 08/26/16 05:07 3 UNITS Guaifenesin (Organidin Nr Tab) 200 mg Q4H PRN PO 08/24/16 15:30 09/23/16 15:29 Ipratropium [place] (Atrovent 0.02% 0.5MG/2.5ML Neb) 0.5 mg Q6R INH 08/24/16 21:00 09/23/16 20:59 08/26/16 07:08 0.5 MG Levalbuterol 1.25 mg 1.25 mg Q6R INH 08/24/16 21:00 09/23/16 20:59 08/26/16 07:08 1.25 MG Methylprednisolone Sodium Succinate/ Syringe (Solu-Medrol IV/ Syringe) 0.64 ml @ 1.5 mls/min Q8 IV 08/25/16 14:00 09/24/16 13:59 08/26/16 05:08 1.5 MLS/MIN Insulin Glargine (Lantus Solostar Pen) 30 unit DAILY SC 08/26/16 08:00 09/25/16 07:59 08/26/16 09:52 30 UNIT Hydralazine HCl (Apresoline Tab) 10 mg TID PO 08/26/16 08:00 09/25/16 07:59 08/26/16 08:21 10 MG Heparin Sodium (Porcine) (Heparin Sq 5000 Unit/0.5ml) 5,000 unit Q12 SQ 08/26/16 09:00 09/25/16 08:59 08/26/16 09:53 5,000 UNIT Nystatin (Mycostatin Susp) 10 ml QID PO 08/26/16 12:00 08/29/16 11:59 Hydralazine HCl (HydrALAZINE INJ) 20 mg Q6H PRN IV. 08/26/16 14:30 09/25/16 14:29 Insulin Glargine (Lantus Solostar Pen) see protocol text HS SC 08/26/16 21:00 09/25/16 20:59 I & O: 24-Hour Column 08/26/16 08:00 Intake Total 200 ml Balance 200 ml Vital Signs: Date Time Temp Pulse Resp B/P Pulse Ox O2 Delivery O2 Flow Rate FiO2 08/26/16 08:00 Nasal Cannula 3.0 08/26/16 07:17 36.6 63 16 170/92 100 Nasal Cannula 3.5 08/26/16 07:08 70 16 100 Nasal Cannula 3.0 08/26/16 01:59 66 16 95 Nasal Cannula 3.0 08/26/16 00:00 95 Nasal Cannula 3.0 08/25/16 23:55 36.6 57 20 170/90 93 Room Air 08/25/16 18:51 66 16 95 Nasal Cannula 3.0 08/25/16 14:30 36.9 69 16 162/87 93 3.0 08/25/16 14:19 68 92 08/25/16 14:09 68 16 90 Nasal Cannula 3.0 Laboratory Results: Last 24 Hours Test 08/25/16 16:34 08/25/16 20:26 08/26/16 00:21 08/26/16 05:01 Bedside Glucose 82 mg/dl 131 mg/dl 175 mg/dl 213 mg/dl Test 08/26/16 05:48 08/26/16 07:36 08/26/16 11:23 White Blood Count 6.77 K/uL Red Blood Count 3.27 M/uL Hemoglobin 10.2 g/dL Hematocrit 32.7 % Mean Corpuscular Volume 100.0 fL Mean Corpuscular Hemoglobin 31.2 pg Mean Corpuscular Hemoglobin Concent 31.2 g/dl Platelet Count 133 K/uL Mean Platelet Volume 10.9 fL Neutrophils (%) (Auto) 93.2 % Lymphocytes (%) (Auto) 4.9 % Monocytes (%) (Auto) 1.6 % Eosinophils (%) (Auto) 0.0 % Basophils (%) (Auto) 0.0 % Neutrophils # (Auto) 6.31 K/uL Lymphocytes # (Auto) 0.33 K/uL Monocytes # (Auto) 0.11 K/uL Eosinophils # (Auto) 0.00 K/uL Basophils # (Auto) 0.00 K/uL RDW Standard Deviation 48.0 fL RDW Coefficient of Variation 13.0 % Immature Granulocyte % (Auto) 0.3 % Immature Granulocyte # (Auto) 0.02 K/uL Sodium Level 139 mmol/L Potassium Level 4.3 mmol/L Chloride Level 96 mmol/L Carbon Dioxide Level 36 mmol/L Anion Gap 7.0 mmol/L Blood Urea Nitrogen 37 mg/dl Creatinine 1.60 mg/dl Est Creatinine Clear Calc Drug Dose 35.7 ml/min Estimated GFR () 36.4 Estimated GFR (Non- 31.4 BUN/Creatinine Ratio 23.2 Random Glucose 205 mg/dl Calcium Level 8.2 mg/dl Bedside Glucose 216 mg/dl 314 mg/dl
[2016-08-26] MEDS: NYSTATIN SUSP 500,000 U/5 ML UDC PO SCH ×3 (13:48→20:50)
[2016-08-26] MEDS ORDERED: HydrALAZINE HCL 20 MG/ML VIAL IV. PRN (14:30)
[2016-08-26] MEDS ORDERED: INSULIN GLARGINE SOLOSTAR 100 UNITS/ML 3 ML PEN SC SCH (21:00)
[2016-08-27] VITALS (8 sets, daily range): BP systolic 125–170; BP diastolic 71–94; PULSE 65–90; TEMP 36.5; O2SAT 91–96
[2016-08-27] MEDS: LEVALBUTEROL 1.25MG/0.5ML NEB INH SCH ×4 (02:02→18:55)
[2016-08-27] MEDS: IPRATROPIUM BROMIDE NEB SOLN 0.02% 2.5 ML VIAL INH SCH ×4 (02:02→18:55)
[2016-08-27] MEDS: INSULIN ASPART 100 UNITS/ML 3 ML PEN SC SCH ×6 (04:57→20:49)
[2016-08-27] MEDS: METHYLPREDNISOLONE IV 40 MG in SYRINGE 0 ML IV SCH ×3 (05:46→20:51)
[2016-08-27 05:53] LABS: COMPLETE YES; HEMATOCRIT 32.7 % (37-47); IG% 0.1 %; LYMPH % 4.1 %; LYMPH ABS # 0.29 K/uL (1.2-3.4); MEAN CELL VOLUME 101.2 fL (80-100); MEAN CORPUSCULAR HEMOGLOBIN 32.5 pg (25-34); MEAN CORPUSCULAR HGB CONC 32.1 g/dl (32-36); MEAN PLATELET VOLUME 10.9 fL (7.4-10.4); MONO % 2.8 %; PLATELET COUNT 139 K/uL (130-400); RED BLOOD COUNT 3.23 M/uL (4.2-5.4); WHITE BLOOD COUNT 7.15 K/uL (4.8-10.8)
[2016-08-27 06:37] LABS: BUN/CREATININE RATIO 33.3 (10-20); CALCIUM 8.2 mg/dl (8.5-10.1); CREATININE 1.4 mg/dl (0.60-1.20); MAGNESIUM 2.6 mg/dl (1.8-2.4); POTASSIUM 4.2 mmol/L (3.5-5.1)
[2016-08-27] MEDS: INSULIN GLARGINE SOLOSTAR 100 UNITS/ML 3 ML PEN SC SCH (08:49)
[2016-08-27] MEDS: HEPARIN SOD 5000 UNIT/0.5 ML CARP SQ SCH ×2 (08:49→20:55)
[2016-08-27] MEDS: SPIRONOLACTONE 25 MG TAB PO SCH (09:26)
[2016-08-27] MEDS: HydrALAZINE 10 MG TAB PO SCH ×3 (09:28→20:52)
[2016-08-27] MEDS: FERROUS SULFATE 325 MG TAB PO SCH (09:28)
[2016-08-27] MEDS: FUROSEMIDE 20 MG TAB PO SCH (09:29)
[2016-08-27] MEDS: FLUOXETINE HCL 20 MG CAP PO SCH (09:29)
[2016-08-27] MEDS: PRAVASTATIN SOD 10 MG TAB PO SCH (09:29)
[2016-08-27] MEDS: ROPINIROLE HCL 1 MG TAB PO SCH ×3 (09:30→20:52)
[2016-08-27] MEDS: METOPROLOL SUCC 50MG EXT REL TAB PO SCH (09:30)
[2016-08-27] MEDS: CYANOCOBALAMIN 500 MCG TAB (VIT B-12) PO SCH (09:31)
[2016-08-27] MEDS: NYSTATIN SUSP 500,000 U/5 ML UDC PO SCH ×4 (09:32→20:50)
--- NOTE | 2016-08-27 13:00 | Urology Consultation ---
History General Date of Service: August 27, 2016. Chief Complaint: Urinary incontinence Primary Care Physician: Luc Daly D.O. Pt seen a urologist before?: No History of Present Illness 76 yo female admitted due to respiratory difficulties associated with her longstanding COPD. Her inpatient and outpatient charts are reviewed. She notes she has been on longstanding therapy with Lasix for CHF and respiratory difficulties but recently this has started causing urgency and significant urge incontinence. She has baseline low volume [place]. She notes a history of sporadic UTIs, not typically an issue and promptly resolved. It seems her incontinence caused some noncompliance with her Lasix therapy. She has not seen a urologist previously. At worst, she was using 3-4 Depends a day and cost was prohibitive. Urology consultation is requested to assist with her difficulties. She denies trouble with constipation, does note baseline difficulties with dry mouth. HPI - Urinary Incontinence Duration: months Pads per day: 3-4 Type of incontinence: stress, urgent Urodynamics done?: No Laboratory Last 24 Hours Test 08/26/16 16:25 08/26/16 20:13 08/27/16 00:26 08/27/16 04:00 Bedside Glucose 126 mg/dl 126 mg/dl 104 mg/dl 113 mg/dl Test 08/27/16 05:33 08/27/16 07:43 08/27/16 11:22 White Blood Count 7.15 K/uL Red Blood Count 3.23 M/uL Hemoglobin 10.5 g/dL Hematocrit 32.7 % Mean Corpuscular Volume 101.2 fL Mean Corpuscular Hemoglobin 32.5 pg Mean Corpuscular Hemoglobin Concent 32.1 g/dl Platelet Count 139 K/uL Mean Platelet Volume 10.9 fL Neutrophils (%) (Auto) 93.0 % Lymphocytes (%) (Auto) 4.1 % Monocytes (%) (Auto) 2.8 % Eosinophils (%) (Auto) 0.0 % Basophils (%) (Auto) 0.0 % Neutrophils # (Auto) 6.65 K/uL Lymphocytes # (Auto) 0.29 K/uL Monocytes # (Auto) 0.20 K/uL Eosinophils # (Auto) 0.00 K/uL Basophils # (Auto) 0.00 K/uL RDW Standard Deviation 48.0 fL RDW Coefficient of Variation 13.0 % Immature Granulocyte % (Auto) 0.1 % Immature Granulocyte # (Auto) 0.01 K/uL Sodium Level 140 mmol/L Potassium Level 4.2 mmol/L Chloride Level 98 mmol/L Carbon Dioxide Level 35 mmol/L Anion Gap 7.0 mmol/L Blood Urea Nitrogen 47 mg/dl Creatinine 1.40 mg/dl Est Creatinine Clear Calc Drug Dose 40.8 ml/min Estimated GFR () 42.8 Estimated GFR (Non- 36.9 BUN/Creatinine Ratio 33.3 Random Glucose 114 mg/dl Calcium Level 8.2 mg/dl Magnesium Level 2.6 mg/dl Bedside Glucose 143 mg/dl 196 mg/dl Problem List Medical Problems: (1) Cellulitis Status: Acute (2) COPD exacerbation Status: Acute (3) COPD exacerbation Status: Acute (4) Hypoxia Status: Acute (5) SOB (shortness of breath) Status: Acute Past History congestive heart failure, COPD, depression, diabetes, GERD, high cholesterol, hypertension, renal disease, other (obesity, pulmonary HTN) Past Surgical History: cholecystectomy, hysterectomy, orthopedic surgery, spinal surgery, TKR, tonsillectomy Family History Cancer Diabetes mellitus FH: heart disease BRCA daughter, HTN parents Social History Hx Tobacco Use In Past Year?: Yes Smoking: non-smoker, quit greater than 1 year Alcohol: socially Drug use: none Marital status: single, Housing status: lives alone Occupation status: retired Immunizations History of Influenza Vaccine: Yes Influenza Vaccine Date: Jan 16, 2013 History of Tetanus Vaccine?: Yes Tetanus Immunization Date: Jan 07, 2013 History of Pneumococcal: Yes Pneumococcal Date: Feb 16, 2010 History of Hepatitis B Vaccine: No History of MDRO No Allergies Coded Allergies: Atropine (Verified Allergy, Severe, RASH, 04/15/16) Dobutamine (Verified Allergy, Severe, RASH, 04/15/16) Medications Home Medications: Home Meds and Scripts Medications Dose Route/Sig Max Daily Dose Days Date Category Dose Instructions Prednisone 10 Mg Tab 10 Mg PO UD 48 04/21/16 Rx Take 6 tabs (60 mg) daily for 4 days. Then decrease dose by 5 mg daily for 4 days. Decrease dose by 5 mg every 4 days. Nystatin 5 Ml Susp 5 Ml PO QID 11 04/21/16 Rx Take 5 ml (1 teaspoon) by mouth four times a day. Duoneb (Ipratropium-Albuterol) 3 Ml Nebu 1 Treatment INH Q6HWA 30 04/21/16 Rx Use 1 neb treatment every 6 hours while awake. May use every 2 hours as needed for shortness of breath & wheezing. Aldactone (Spironolactone) 25 Mg Tab 12.5 Mg PO QAM 04/15/16 Reported Amoxil (Amoxicillin) 500 Mg Cap 500 Mg PO UD PRN 04/15/16 Reported Lasix (Furosemide) 20 Mg Tab 20 Mg PO DAILY 04/15/16 Reported Tramadol HCl 50 Mg Tab 50 Mg PO Q6 PRN 04/15/16 Reported Glipizide 5 Mg Tab 5 Mg PO BID 04/15/16 Reported Pravastatin Sodium 10 Mg Tab 10 Mg PO DAILY 08/10/13 Reported Vitamin B12 500MCG (Cyanocobalamin) 500 Mcg Tab 1,000 Mcg PO DAILY 08/10/13 Reported Prinivil (Lisinopril) 10 Mg Tab 10 Mg PO DAILY 08/10/13 Reported Iron Supplement (Ferrous Sulfate) 325 Mg Tab 325 Mg PO DAILY 07/10/12 Reported Requip (Ropinirole HCl) 2 Mg Tab 2 Mg PO TID 07/10/12 Reported Toprol-Xl (Metoprolol Succinate) 100 Mg Tabcr 100 Mg PO DAILY 07/10/12 Reported Prozac (Fluoxetine Hcl) 20 Mg Cap 20 Mg PO QAM 10/13/11 Reported Inpatient Medications: Current Inpatient Medications Medications (Trade) Dose Ordered Sig/Polly Route Start Time Stop Time Status Last Admin Dose Admin Acetaminophen (Tylenol Tab) 650 mg Q4H PRN PO 08/24/16 13:45 09/23/16 13:44 08/24/16 23:53 650 MG Polyethylene (Miralax Powder Packet) 17 gm DAILY PRN PO 08/24/16 14:00 09/23/16 13:59 Ondansetron HCl (Zofran Inj) 4 mg Q6H PRN IV 08/24/16 13:45 09/23/16 13:44 Cyanocobalamin (Vitamin B-12 Tab) 1,000 mcg DAILY PO 08/25/16 08:00 09/24/16 07:59 08/27/16 09:31 1,000 MCG Fluoxetine HCl (Prozac Cap) 20 mg QAM PO 08/25/16 08:00 09/24/16 07:59 08/27/16 09:29 20 MG Furosemide (Lasix Tab) 20 mg DAILY PO 08/25/16 08:00 09/24/16 07:59 Future hold 08/27/16 09:29 20 MG Lisinopril (Zestril Tab) 10 mg DAILY PO 08/25/16 08:00 09/24/16 07:59 Future Hold Metoprolol Succinate (Toprol Xl Tab) 100 mg DAILY PO 08/25/16 08:00 09/24/16 07:59 08/27/16 09:30 100 MG Pravastatin Sodium (Pravachol Tab) 10 mg DAILY PO 08/25/16 08:00 09/24/16 07:59 08/27/16 09:29 10 MG Ropinirole HCl (Requip Tab) 2 mg TID PO 08/24/16 14:00 09/23/16 13:59 08/27/16 09:30 2 MG Spironolactone (Aldactone Tab) 12.5 mg QAM PO 08/25/16 08:00 09/24/16 07:59 Future hold 08/27/16 09:26 12.5 MG Tramadol HCl (Ultram Tab) 50 mg Q6 PRN PO 08/24/16 13:45 09/23/16 13:44 Ferrous Sulfate (Feosol Tab) 325 mg DAILY PO 08/25/16 08:00 09/24/16 07:59 08/27/16 09:28 325 MG Insulin Aspart (novoLOG ASPART) SLIDING SCALE If C... ACHS SC 08/24/16 16:30 09/23/16 16:29 08/27/16 08:48 10 UNITS Glucose (Glucose 40% Gel) 15-30 GRAMS 15 GRAMS... UD PRN PO 08/24/16 13:45 09/23/16 13:44 Glucose (Glucose Chew Tab) 4-8 Tablets 4 Tabl... UD PRN PO 08/24/16 13:45 09/23/16 13:44 Dextrose (Dextrose 50% 50ML Syringe) 25-50ML OF 50% DW IV FOR... UD PRN IV 08/24/16 13:45 09/23/16 13:44 Glucagon (Glucagon Inj) 1 mg UD PRN SQ 08/24/16 13:45 09/23/16 13:44 Miscellaneous Information (Consult Glycemic Management Pharmacy) 1 ea UD PRN N/A 08/24/16 14:00 09/23/16 13:59 Guaifenesin (Organidin Nr Tab) 200 mg Q4H PRN PO 08/24/16 15:30 09/23/16 15:29 Ipratropium [place] (Atrovent 0.02% 0.5MG/2.5ML Neb) 0.5 mg Q6R INH 08/24/16 21:00 09/23/16 20:59 08/27/16 07:42 0.5 MG Levalbuterol 1.25 mg 1.25 mg Q6R INH 08/24/16 21:00 09/23/16 20:59 08/27/16 07:42 1.25 MG Methylprednisolone Sodium Succinate/ Syringe (Solu-Medrol IV/ Syringe) 0.64 ml @ 1.5 mls/min Q8 IV 08/25/16 14:00 09/24/16 13:59 08/27/16 05:46 1.5 MLS/MIN Insulin Glargine (Lantus Solostar Pen) 30 unit DAILY SC 08/26/16 08:00 09/25/16 07:59 08/27/16 08:49 30 UNIT Hydralazine HCl (Apresoline Tab) 10 mg TID PO 08/26/16 08:00 09/25/16 07:59 08/27/16 09:28 10 MG Heparin Sodium (Porcine) (Heparin Sq 5000 Unit/0.5ml) 5,000 unit Q12 SQ 08/26/16 09:00 09/25/16 08:59 08/27/16 08:49 5,000 UNIT Nystatin (Mycostatin Susp) 10 ml QID PO 08/26/16 12:00 08/29/16 11:59 08/27/16 09:32 10 ML Hydralazine HCl (HydrALAZINE INJ) 20 mg Q6H PRN IV. 08/26/16 14:30 09/25/16 14:29 Review of Systems Review of Systems Constitutional: No chills, No fever Eyes: No double vision, No eye pain Endocrine: No tired/sluggish Gastrointestinal: No nausea, No vomiting Cardiovascular: + swelling ankles/feet Respiratory: + shortness of breath (chronic) Skin: No boils Musculoskeletal: + arthritis Ears / Nose / Throat: No hoarse voice, No sinus Psychologic / Mental: No trouble remembering Female : + frequent urination, + leaking urine, + see HPI Physical Exam Vital Signs: Vital Signs Past 12 Hours Date Time Temp Pulse Resp B/P Pulse Ox O2 Delivery O2 Flow Rate FiO2 08/27/16 08:00 Nasal Cannula 3.0 08/27/16 07:43 74 20 93 Nasal Cannula 3.0 08/27/16 07:25 36.5 78 20 125/71 92 3.0 08/27/16 02:02 80 24 96 Nasal Cannula 3.0 Physical Exam: General Appearance: + mild distress, + obese ENT: hearing grossly normal Neck: supple, no adenopathy Respiratory/Chest: + respiratory distress (moderate SOB) Cardiovascular: + pertinent finding (+ LE edema) Gastrointestinal: Abdomen: normal abdomen Bladder: normal bladder Renal: normal renal Liver: normal liver Spleen: normal spleen Neurologic/Psychiatric: alert Skin: normal color Assessment & Plan Assessment & Plan A/P 76 yo female with urge incontinence Her voiding difficulties seem to be impacting her compliance. Recent UC&S shows contamination, no UTI. I think it would be reasonable to start a trial of anticholinergics - tolteridine 2 mg BID ordered. She is warned against possible worsening of her dry mouth. Side effect profile reviewed. Will plan on outpatient f/u in the next few weeks to f/u effect of medication. Contact information provided. Thank you for allowing us to participate in this patient's care. Please recall our service PRN any new issues or concerns.
[2016-08-27] MEDS ORDERED: BUDESONIDE/FORMOTEROL FUMARATE 160/4.5 60 PUFFS/INHALER INH ONE (13:17)
[2016-08-27] MEDS ORDERED: ROFLUMILAST 500 MCG TAB PO ONE (13:22)
--- NOTE | 2016-08-27 14:31 | Pharmacy Progress Note ---
Glycemic Control: Progress Nt Date of Service August 27, 2016. Scope Glycemic Pharmacist consulted for glycemic control and to write orders per [facility] inpatient glycemic control protocol. Objective Accuchecks BSG (last 24hrs): Test 08/26/16 16:25 08/26/16 20:13 08/27/16 00:26 08/27/16 04:00 Bedside Glucose 126 mg/dl (70-90) 126 mg/dl (70-90) 104 mg/dl (70-90) 113 mg/dl (70-90) Test 08/27/16 05:33 08/27/16 07:43 08/27/16 11:22 Random Glucose 114 mg/dl (70-99) Bedside Glucose 143 mg/dl (70-90) 196 mg/dl (70-90) Laboratory Data (last 24hrs) HbA1c: Test 08/25/16 06:20 Hemoglobin A1c 6.6 % (4.5-5.6) H Recent Pertinent Medications Outpatient Anti-diabetic Regimen: * Glipizide 5mg PO BIDM The patient is currently receiving: * Basal insulin: Lantus 30 units SQ Q24hrs - given in the morning * Correctional Insulin: Novolog Correction per scale ACHS Goal Range: Low 110 mg/dL - High 140 mg/dL Correction Factor: 15 mg/dL/unit * Prandial insulin: Per carb ratio of 1 unit per 5 grams CHO consumed * Oral Agents: On hold for admission Risk Factors for Insulin Resistance: * Steroids * Diet Assessment & Plan ASSESSMENT: Initial: * Pt known to pharmacy from previous admissions/glycemic consults * Patient was admitted to [facility] in April of this year. She was on the same dose of steroids (40 mg IV q8) and required 26 units of Lantus BID plus 11-32 units of bolus insulin per day. * Outpatient glipizide on hold for admission and pt is being treated wit SQ basal bolus insulin regimen for steroid induced hyperglycemia 08/27/16: * Pt continues on high dose RTC steroids --> Solumedrol 40mg IV Q8hrs * Initiated SQ basal bolus insulin regimen on 08/24 based on weight/high stress. Titrating dosing daily based on BSG trends and steroid dosing * Pt has required 84+ units of insulin over the past 24hrs. * 30 units of basal insulin * 54units of prandial/correctional insulin * Preferred distribution of basal:prandial insulin for steroid induced hyperglycemia is ~30-40% basal:60-70% prandial as steroids have their most profound effect on post-prandial hyperglycemia. Also, do not want too much additional basal insulin on board in the event that steroids are rapidly tapered - this would lead to hypoglycemia. * BSGs ranging 126 - 196mg/dl over the past 24hrs, goal BSGs are 100-140mg/dl. * Continue high stress basal insulin dosing PLAN FOR INPATIENT GLYCEMIC CONTROL: SQ basal bolus insulin regimen based on an estimated total daily dose of 70-80 units/day secondary to Solumedrol 40mg IV Q8hrs. * Hold outpatient oral diabetes medications * Basal insulin * Lantus 30 units SQ in AM * Bolus Insulin * NovoLog ACHS * Goal Range: Low 110 mg/dL - High 140 mg/dL * Correction Factor: 15 mg/dL/unit * Nutritional / Prandial insulin per carb ratio of 1 unit per 5 grams CHO consumed * Taper insulin regimen with each step down in steroid dosing. * Please note that the plan above was derived based on current level of insulin resistance and hospital stress. These recommendations are appropriate for inpatient admission only. Plan of care upon discharge will need to be reassessed to avoid potential outpatient hypo/hyperglycemia. Thank you. Looking ahead to discharge: * Pt is maintained on glipizide as an outpatient with adequate control per recent A1c. Insulin most likely not needed at discharge but pt may benefit from once daily NPH if high dose prednisone taper is continued at discharge.
--- NOTE | 2016-08-27 15:32 | Pulmonology Progress Note ---
Pulmonary Progress Note Date of Service August 27, 2016. Attending Dr. Price Subjective Feels about the same, desaturating in the 70s with minimal exertion. Objective General Appearance: no distress, obese Eyes: PERRLA ENT: NORMAL THROAT EXAM Neck: NO TENDERNESS, TRACHEA MIDLINE Respiratory: faint wheezing, very diminished breath sounds Cardiovasular: REGULAR RATE/RHYTHM, NORMAL S1S2 Abdomen: NON TENDER, NO REBOUND, NO GUARDING Upper Extremities: NO EDEMA Lower Extremities: edema (bilateral) Neuro: ALERT, ORIENTED x 3 Assessment & Plan 76 year old female with advanced emphysema, presents with an exacerbation episode. Plan: Continue steroids, bronchodilators around the clock No need for Abx, WBC normal, afebrile. The CXR likely shows basilar atelectasis. Supplement O2. Recommend meterman Prednisone therapy after the taper. To be followed up as outpatient. I discussed with the patient, will start her on Symbicort (she takes Qvar as outpatient). I also added Daliresp, I counseled her regarding side effects. Will see if it helps her. Start Tudorza when she is closing in her discharge, meanwhile on short acting antimuscarinics Resumed Lasix. Has pulmonary HTN based on RHC from 2014, PAP 52/21. Probably secondary to pulmonary disease, not amenable to PH therapy since it is not group I. Patient is looking into an assisted living, I think it is a good idea, plus, another benefit would be removal of a possible offending agent that is contributing to rhinorrhea and cough DVT prophylaxis - SC heparin Data Medications: Current Inpatient Medications Medications (Trade) Dose Ordered Sig/Polly Route Start Time Stop Time Status Last Admin Dose Admin Acetaminophen (Tylenol Tab) 650 mg Q4H PRN PO 08/24/16 13:45 09/23/16 13:44 08/24/16 23:53 650 MG Polyethylene (Miralax Powder Packet) 17 gm DAILY PRN PO 08/24/16 14:00 09/23/16 13:59 Ondansetron HCl (Zofran Inj) 4 mg Q6H PRN IV 08/24/16 13:45 09/23/16 13:44 Cyanocobalamin (Vitamin B-12 Tab) 1,000 mcg DAILY PO 08/25/16 08:00 09/24/16 07:59 08/27/16 09:31 1,000 MCG Fluoxetine HCl (Prozac Cap) 20 mg QAM PO 08/25/16 08:00 09/24/16 07:59 08/27/16 09:29 20 MG Furosemide (Lasix Tab) 20 mg DAILY PO 08/25/16 08:00 09/24/16 07:59 Future hold 08/27/16 09:29 20 MG Lisinopril (Zestril Tab) 10 mg DAILY PO 08/25/16 08:00 09/24/16 07:59 Future Hold Metoprolol Succinate (Toprol Xl Tab) 100 mg DAILY PO 08/25/16 08:00 09/24/16 07:59 08/27/16 09:30 100 MG Pravastatin Sodium (Pravachol Tab) 10 mg DAILY PO 08/25/16 08:00 09/24/16 07:59 08/27/16 09:29 10 MG Ropinirole HCl (Requip Tab) 2 mg TID PO 08/24/16 14:00 09/23/16 13:59 08/27/16 14:14 2 MG Spironolactone (Aldactone Tab) 12.5 mg QAM PO 08/25/16 08:00 09/24/16 07:59 Future hold 08/27/16 09:26 12.5 MG Tramadol HCl (Ultram Tab) 50 mg Q6 PRN PO 08/24/16 13:45 09/23/16 13:44 Ferrous Sulfate (Feosol Tab) 325 mg DAILY PO 08/25/16 08:00 09/24/16 07:59 08/27/16 09:28 325 MG Insulin Aspart (novoLOG ASPART) SLIDING SCALE If C... ACHS SC 08/24/16 16:30 09/23/16 16:29 08/27/16 14:07 17 UNITS Glucose (Glucose 40% Gel) 15-30 GRAMS 15 GRAMS... UD PRN PO 08/24/16 13:45 09/23/16 13:44 Glucose (Glucose Chew Tab) 4-8 Tablets 4 Tabl... UD PRN PO 08/24/16 13:45 09/23/16 13:44 Dextrose (Dextrose 50% 50ML Syringe) 25-50ML OF 50% DW IV FOR... UD PRN IV 08/24/16 13:45 09/23/16 13:44 Glucagon (Glucagon Inj) 1 mg UD PRN SQ 08/24/16 13:45 09/23/16 13:44 Miscellaneous Information (Consult Glycemic Management Pharmacy) 1 ea UD PRN N/A 08/24/16 14:00 09/23/16 13:59 Guaifenesin (Organidin Nr Tab) 200 mg Q4H PRN PO 08/24/16 15:30 09/23/16 15:29 Ipratropium [place] (Atrovent 0.02% 0.5MG/2.5ML Neb) 0.5 mg Q6R INH 08/24/16 21:00 09/23/16 20:59 08/27/16 14:05 0.5 MG Levalbuterol 1.25 mg 1.25 mg Q6R INH 08/24/16 21:00 09/23/16 20:59 08/27/16 14:05 1.25 MG Methylprednisolone Sodium Succinate/ Syringe (Solu-Medrol IV/ Syringe) 0.64 ml @ 1.5 mls/min Q8 IV 08/25/16 14:00 09/24/16 13:59 08/27/16 14:09 1.5 MLS/MIN Insulin Glargine (Lantus Solostar Pen) 30 unit DAILY SC 08/26/16 08:00 09/25/16 07:59 08/27/16 08:49 30 UNIT Hydralazine HCl (Apresoline Tab) 10 mg TID PO 08/26/16 08:00 09/25/16 07:59 08/27/16 14:14 10 MG Heparin Sodium (Porcine) (Heparin Sq 5000 Unit/0.5ml) 5,000 unit Q12 SQ 08/26/16 09:00 09/25/16 08:59 08/27/16 08:49 5,000 UNIT Nystatin (Mycostatin Susp) 10 ml QID PO 08/26/16 12:00 08/29/16 11:59 08/27/16 14:15 10 ML Hydralazine HCl (HydrALAZINE INJ) 20 mg Q6H PRN IV. 08/26/16 14:30 09/25/16 14:29 Tolterodine Tartrate (Detrol Tab) 2 mg BID PO 08/27/16 20:00 09/26/16 19:59 Budesonide/ Formoterol Fumarate (Symbicort 160/ 4.5 Inh) 2 puffs BID INH 08/27/16 20:00 09/26/16 19:59 Roflumilast (Daliresp Tab) 500 mcg DAILY PO 08/28/16 08:00 09/27/16 07:59 I & O: 24-Hour Column 08/27/16 08:00 Intake Total 670 ml Balance 670 ml Vital Signs: Date Time Temp Pulse Resp B/P Pulse Ox O2 Delivery O2 Flow Rate FiO2 08/27/16 14:46 36.5 67 20 153/83 91 08/27/16 14:13 65 170/94 08/27/16 14:05 87 20 96 Nasal Cannula 3.0 08/27/16 08:00 Nasal Cannula 3.0 08/27/16 07:43 74 20 93 Nasal Cannula 3.0 08/27/16 07:25 36.5 78 20 125/71 92 3.0 08/27/16 02:02 80 24 96 Nasal Cannula 3.0 08/27/16 00:00 96 Nasal Cannula 3.0 08/26/16 23:48 36.4 63 20 160/90 94 Nasal Cannula 2.0 08/26/16 21:00 63 161/93 08/26/16 19:00 72 18 96 Nasal Cannula 3.0 08/26/16 16:00 Nasal Cannula 3.0 Laboratory Results: Last 24 Hours Test 08/26/16 16:25 08/26/16 20:13 08/27/16 00:26 08/27/16 04:00 Bedside Glucose 126 mg/dl 126 mg/dl 104 mg/dl 113 mg/dl Test 08/27/16 05:33 08/27/16 07:43 08/27/16 11:22 White Blood Count 7.15 K/uL Red Blood Count 3.23 M/uL Hemoglobin 10.5 g/dL Hematocrit 32.7 % Mean Corpuscular Volume 101.2 fL Mean Corpuscular Hemoglobin 32.5 pg Mean Corpuscular Hemoglobin Concent 32.1 g/dl Platelet Count 139 K/uL Mean Platelet Volume 10.9 fL Neutrophils (%) (Auto) 93.0 % Lymphocytes (%) (Auto) 4.1 % Monocytes (%) (Auto) 2.8 % Eosinophils (%) (Auto) 0.0 % Basophils (%) (Auto) 0.0 % Neutrophils # (Auto) 6.65 K/uL Lymphocytes # (Auto) 0.29 K/uL Monocytes # (Auto) 0.20 K/uL Eosinophils # (Auto) 0.00 K/uL Basophils # (Auto) 0.00 K/uL RDW Standard Deviation 48.0 fL RDW Coefficient of Variation 13.0 % Immature Granulocyte % (Auto) 0.1 % Immature Granulocyte # (Auto) 0.01 K/uL Sodium Level 140 mmol/L Potassium Level 4.2 mmol/L Chloride Level 98 mmol/L Carbon Dioxide Level 35 mmol/L Anion Gap 7.0 mmol/L Blood Urea Nitrogen 47 mg/dl Creatinine 1.40 mg/dl Est Creatinine Clear Calc Drug Dose 40.8 ml/min Estimated GFR () 42.8 Estimated GFR (Non- 36.9 BUN/Creatinine Ratio 33.3 Random Glucose 114 mg/dl Calcium Level 8.2 mg/dl Magnesium Level 2.6 mg/dl Bedside Glucose 143 mg/dl 196 mg/dl
--- NOTE | 2016-08-27 16:50 | Progress Note ---
Subjective Date of Service: August 27, 2016. Subjective Pt evaluation today including: conversation w/ patient, physical exam, chart review, lab review, review of studies, conversation w/ internal control consultant, review of inpatient medication list Sitting up, reading computer, however she reported difficulty breathing not really improving, was having dyspnea on exertion and desaturation when in the restroom, Some cough, denied chest pain Problem List Medical Problems: (1) Cellulitis Status: Acute (2) COPD exacerbation Status: Acute (3) COPD exacerbation Status: Acute (4) Hypoxia Status: Acute (5) SOB (shortness of breath) Status: Acute Review of Systems Constitutional: No chills, No fatigue, No fever, No problem reported, No sweats , No weakness, No weight loss Eyes: No diplopia, No discharge, No eye pain, No redness, No worsening of vision ENT: No dental problems, No hearing loss, No nasal symptoms, No sore throat, No tinnitus, No trouble swallowing, No unusual epistaxis Respiratory: + cough, + dyspnea on exertion, + see HPI, + shortness of breath, + sputum, + wheezing, No dyspnea at rest, No hemoptysis Cardiac: No PND, No chest pain, No claudication, No edema, No orthopnea, No palpitations Abdomen: No constipation, No diarrhea, No nausea, No pain, No vomiting Musculoskeletal: No calf pain, No joint pain, No muscle pain, No swelling Female : + incontinence, No abnormal vaginal bleeding, No dysuria, No hematuria, No urinary frequency, No vaginal discharge Neurologic: No balance problems, No memory loss, No numbness/tingling, No paralysis, No vertigo, No weakness Psychiatric: No anhedonism, No anxiety, No depression symptoms, No insomnia, No substance abuse Heme: No abnormal bleeding/bruising, No clotting problems, No night sweats, No swollen lymph nodes Endo: No excessive thirst, No excessive urination, No fatigue Skin: No bleeding, No color change, No itch, No new/changing skin lesions, No rash Objective Vital Signs Date Time Temp Pulse Resp B/P Pulse Ox O2 Delivery O2 Flow Rate FiO2 08/27/16 14:46 36.5 67 20 153/83 91 08/27/16 14:13 65 170/94 08/27/16 14:05 87 20 96 Nasal Cannula 3.0 08/27/16 08:00 Nasal Cannula 3.0 08/27/16 07:43 74 20 93 Nasal Cannula 3.0 08/27/16 07:25 36.5 78 20 125/71 92 3.0 08/27/16 02:02 80 24 96 Nasal Cannula 3.0 08/27/16 00:00 96 Nasal Cannula 3.0 08/26/16 23:48 36.4 63 20 160/90 94 Nasal Cannula 2.0 08/26/16 21:00 63 161/93 08/26/16 19:00 72 18 96 Nasal Cannula 3.0 Physical Exam General Appearance: WD/WN, no apparent distress, + obese Eyes: normal inspection, PERRL, EOMI, sclerae normal ENT: normal ENT inspection, hearing grossly normal, pharynx normal Neck: supple, no adenopathy, thyroid normal, no JVD, no carotid bruits, trachea midline Respiratory/Chest: chest non-tender, normal breath sounds, no respiratory distress, no accessory muscle use, + decreased breath sounds Cardiovascular: regular rate, rhythm, no edema, no gallop, no JVD, no murmur Abdomen: normal bowel sounds, non tender, soft, no organomegaly, no pulsatile mass Extremities: normal range of motion, non-tender, normal inspection, no pedal edema, no calf tenderness, normal capillary refill, pelvis stable Neurologic/Psychiatric: landscape supervisor II-XII nml as tested, no motor/sensory deficits, alert, normal mood/affect, oriented x 3 Skin: normal color, warm/dry, no rash Lymphatic: no adenopathy Laboratory Results Last 24 Hours Test 08/26/16 20:13 08/27/16 00:26 08/27/16 04:00 08/27/16 05:33 Bedside Glucose 126 mg/dl 104 mg/dl 113 mg/dl White Blood Count 7.15 K/uL Red Blood Count 3.23 M/uL Hemoglobin 10.5 g/dL Hematocrit 32.7 % Mean Corpuscular Volume 101.2 fL Mean Corpuscular Hemoglobin 32.5 pg Mean Corpuscular Hemoglobin Concent 32.1 g/dl Platelet Count 139 K/uL Mean Platelet Volume 10.9 fL Neutrophils (%) (Auto) 93.0 % Lymphocytes (%) (Auto) 4.1 % Monocytes (%) (Auto) 2.8 % Eosinophils (%) (Auto) 0.0 % Basophils (%) (Auto) 0.0 % Neutrophils # (Auto) 6.65 K/uL Lymphocytes # (Auto) 0.29 K/uL Monocytes # (Auto) 0.20 K/uL Eosinophils # (Auto) 0.00 K/uL Basophils # (Auto) 0.00 K/uL RDW Standard Deviation 48.0 fL RDW Coefficient of Variation 13.0 % Immature Granulocyte % (Auto) 0.1 % Immature Granulocyte # (Auto) 0.01 K/uL Sodium Level 140 mmol/L Potassium Level 4.2 mmol/L Chloride Level 98 mmol/L Carbon Dioxide Level 35 mmol/L Anion Gap 7.0 mmol/L Blood Urea Nitrogen 47 mg/dl Creatinine 1.40 mg/dl Est Creatinine Clear Calc Drug Dose 40.8 ml/min Estimated GFR () 42.8 Estimated GFR (Non- 36.9 BUN/Creatinine Ratio 33.3 Random Glucose 114 mg/dl Calcium Level 8.2 mg/dl Magnesium Level 2.6 mg/dl Test 08/27/16 07:43 08/27/16 11:22 Bedside Glucose 143 mg/dl 196 mg/dl Assessment and Plan 76 y/o female with admitted on Aug 24 2016 because of COPD exacerbation, COPD exacerbation: Stable and a little improving Chronic respiratory failure with hypoxia and home O2 dependent advanced emphysema, continue current care, continue Solu-Medrol, nebulizer treatment, I recommend from sales merchandiser, we started Symbicort (she takes Qvar as outpatient), added Daliresp, Per sales merchandiser start Tudorza when she is closing in her discharge, meanwhile on short acting antimuscarinics possibly mild decompensation of Diastolic CHF: Stable Possible acute on chronic renal failure stage III, yesterday creatinine is 1.6 from 1.3 upon admission, although possible in her baseline Lasix and Aldactone was hold yesterday , and restart it today because improving renal function and continue hold her lisinopril, will watch renal function closely Accelerated hypertension, likely because of holding of lisinopril, has started hydrolyzing, scheduled and as needed Possible oral thrush: Okay to start nystatin mouthwash PMHx of COPD, chronic diastolic CHF, DM II, HTN, and HLD has multiple COPD exacerbations within the past year, this being the third in hospital stay. Urinary incontinence--> is not new per patient, possible urge incontinence -UA 10 -30 WBCs-->await urine culture - Urology saw her, start a trial of anticholinergics - tolteridine 2 mg BID ordered, and has appointment to follow up plan Patient is looking into an assisted living, Disposition: Pt from home, discharge when medically stable Continued [facility] stay due to: multiple IV medications needed Discharge planning: home
[2016-08-27] MEDS: BUDESONIDE/FORMOTEROL FUMARATE 160/4.5 60 PUFFS/INHALER INH SCH (20:53)
[2016-08-27] MEDS: TOLTERODINE TARTRATE 2 MG TAB PO SCH (20:53)
[2016-08-28] VITALS (7 sets, daily range): BP systolic 150–173; BP diastolic 83–98; PULSE 60–88; TEMP 36.4–36.8; O2SAT 91–99
[2016-08-28] MEDS: IPRATROPIUM BROMIDE NEB SOLN 0.02% 2.5 ML VIAL INH SCH ×4 (01:52→18:45)
[2016-08-28] MEDS: LEVALBUTEROL 1.25MG/0.5ML NEB INH SCH ×4 (01:52→18:45)
[2016-08-28] MEDS: METHYLPREDNISOLONE IV 40 MG in SYRINGE 0 ML IV SCH ×3 (06:08→21:42)
[2016-08-28] MEDS: BUDESONIDE/FORMOTEROL FUMARATE 160/4.5 60 PUFFS/INHALER INH SCH ×2 (07:47→21:41)
[2016-08-28] MEDS: SPIRONOLACTONE 25 MG TAB PO SCH (07:48)
[2016-08-28] MEDS: HydrALAZINE 10 MG TAB PO SCH ×3 (07:49→21:44)
[2016-08-28] MEDS: FERROUS SULFATE 325 MG TAB PO SCH (07:50)
[2016-08-28] MEDS: ROFLUMILAST 500 MCG TAB PO SCH (07:50)
[2016-08-28] MEDS: TOLTERODINE TARTRATE 2 MG TAB PO SCH ×2 (07:50→21:44)
[2016-08-28] MEDS: FUROSEMIDE 20 MG TAB PO SCH (07:55)
[2016-08-28] MEDS: FLUOXETINE HCL 20 MG CAP PO SCH (07:56)
[2016-08-28] MEDS: PRAVASTATIN SOD 10 MG TAB PO SCH (07:56)
[2016-08-28] MEDS: METOPROLOL SUCC 50MG EXT REL TAB PO SCH (07:57)
[2016-08-28] MEDS: ROPINIROLE HCL 1 MG TAB PO SCH ×3 (07:57→21:45)
[2016-08-28] MEDS: CYANOCOBALAMIN 500 MCG TAB (VIT B-12) PO SCH (07:58)
[2016-08-28] MEDS: INSULIN ASPART 100 UNITS/ML 3 ML PEN SC SCH ×4 (08:38→21:00)
[2016-08-28] MEDS: HEPARIN SOD 5000 UNIT/0.5 ML CARP SQ SCH ×2 (08:39→21:40)
[2016-08-28] MEDS: INSULIN GLARGINE SOLOSTAR 100 UNITS/ML 3 ML PEN SC SCH (08:40)
[2016-08-28] MEDS: NYSTATIN SUSP 500,000 U/5 ML UDC PO SCH ×4 (08:46→21:43)
--- NOTE | 2016-08-28 11:57 | Pulmonology Progress Note ---
Pulmonary Progress Note Date of Service August 28, 2016. Attending Subjective Does not feel much improved feels good at rest and the starts to get very short of breath on exertion Objective General Appearance: no distress, obese Eyes: PERRLA ENT: NORMAL THROAT EXAM Neck: NO TENDERNESS, TRACHEA MIDLINE Respiratory: faint wheezing, very diminished breath sounds Cardiovasular: REGULAR RATE/RHYTHM, NORMAL S1S2 Abdomen: NON TENDER, NO REBOUND, NO GUARDING Upper Extremities: NO EDEMA Lower Extremities: edema (bilateral) Neuro: ALERT, ORIENTED x 3 Assessment & Plan 76 year old female with advanced emphysema, presents with an exacerbation episode. Plan: Continue steroids, bronchodilators around the clock No need for Abx, WBC normal, afebrile. The CXR likely shows basilar atelectasis. Supplement O2. might also benefit from home trilogy upon discharge and w/u for [facility] outpatient continue symbicort and daliresp will slowly taper steroids add spiriva or tudorza at the time discharge pt/ot will also need pulmonary rehab as outpatient Patient lives alone and does not want to go to any assisted facility Data Medications: Current Inpatient Medications Medications (Trade) Dose Ordered Sig/Polly Route Start Time Stop Time Status Last Admin Dose Admin Acetaminophen (Tylenol Tab) 650 mg Q4H PRN PO 08/24/16 13:45 09/23/16 13:44 08/24/16 23:53 650 MG Polyethylene (Miralax Powder Packet) 17 gm DAILY PRN PO 08/24/16 14:00 09/23/16 13:59 Ondansetron HCl (Zofran Inj) 4 mg Q6H PRN IV 08/24/16 13:45 09/23/16 13:44 Cyanocobalamin (Vitamin B-12 Tab) 1,000 mcg DAILY PO 08/25/16 08:00 09/24/16 07:59 08/28/16 07:58 1,000 MCG Fluoxetine HCl (Prozac Cap) 20 mg QAM PO 08/25/16 08:00 09/24/16 07:59 08/28/16 07:56 20 MG Furosemide (Lasix Tab) 20 mg DAILY PO 08/25/16 08:00 09/24/16 07:59 Future hold 08/28/16 07:55 20 MG Lisinopril (Zestril Tab) 10 mg DAILY PO 08/25/16 08:00 09/24/16 07:59 Future hold Metoprolol Succinate (Toprol Xl Tab) 100 mg DAILY PO 08/25/16 08:00 09/24/16 07:59 08/28/16 07:57 100 MG Pravastatin Sodium (Pravachol Tab) 10 mg DAILY PO 08/25/16 08:00 09/24/16 07:59 08/28/16 07:56 10 MG Ropinirole HCl (Requip Tab) 2 mg TID PO 08/24/16 14:00 09/23/16 13:59 08/28/16 07:57 2 MG Spironolactone (Aldactone Tab) 12.5 mg QAM PO 08/25/16 08:00 09/24/16 07:59 Future hold 08/28/16 07:48 12.5 MG Tramadol HCl (Ultram Tab) 50 mg Q6 PRN PO 08/24/16 13:45 09/23/16 13:44 Ferrous Sulfate (Feosol Tab) 325 mg DAILY PO 08/25/16 08:00 09/24/16 07:59 08/28/16 07:50 325 MG Insulin Aspart (novoLOG ASPART) SLIDING SCALE If C... ACHS SC 08/24/16 16:30 09/23/16 16:29 08/28/16 08:38 13 UNITS Glucose (Glucose 40% Gel) 15-30 GRAMS 15 GRAMS... UD PRN PO 08/24/16 13:45 09/23/16 13:44 Glucose (Glucose Chew Tab) 4-8 Tablets 4 Tabl... UD PRN PO 08/24/16 13:45 09/23/16 13:44 Dextrose (Dextrose 50% 50ML Syringe) 25-50ML OF 50% DW IV FOR... UD PRN IV 08/24/16 13:45 09/23/16 13:44 Glucagon (Glucagon Inj) 1 mg UD PRN SQ 08/24/16 13:45 09/23/16 13:44 Miscellaneous Information (Consult Glycemic Management Pharmacy) 1 ea UD PRN N/A 08/24/16 14:00 09/23/16 13:59 Guaifenesin (Organidin Nr Tab) 200 mg Q4H PRN PO 08/24/16 15:30 09/23/16 15:29 Ipratropium [place] (Atrovent 0.02% 0.5MG/2.5ML Neb) 0.5 mg Q6R INH 08/24/16 21:00 09/23/16 20:59 08/28/16 07:11 0.5 MG Levalbuterol 1.25 mg 1.25 mg Q6R INH 08/24/16 21:00 09/23/16 20:59 08/28/16 07:12 1.25 MG Methylprednisolone Sodium Succinate/ Syringe (Solu-Medrol IV/ Syringe) 0.64 ml @ 1.5 mls/min Q8 IV 08/25/16 14:00 09/24/16 13:59 08/28/16 06:08 1.5 MLS/MIN Insulin Glargine (Lantus Solostar Pen) 30 unit DAILY SC 08/26/16 08:00 09/25/16 07:59 08/28/16 08:40 30 UNIT Hydralazine HCl (Apresoline Tab) 10 mg TID PO 08/26/16 08:00 09/25/16 07:59 08/28/16 07:49 10 MG Heparin Sodium (Porcine) (Heparin Sq 5000 Unit/0.5ml) 5,000 unit Q12 SQ 08/26/16 09:00 09/25/16 08:59 08/28/16 08:39 5,000 UNIT Nystatin (Mycostatin Susp) 10 ml QID PO 08/26/16 12:00 08/29/16 11:59 08/28/16 08:46 10 ML Hydralazine HCl (HydrALAZINE INJ) 20 mg Q6H PRN IV. 08/26/16 14:30 09/25/16 14:29 Tolterodine Tartrate (Detrol Tab) 2 mg BID PO 08/27/16 20:00 09/26/16 19:59 08/28/16 07:50 2 MG Budesonide/ Formoterol Fumarate (Symbicort 160/ 4.5 Inh) 2 puffs BID INH 08/27/16 20:00 09/26/16 19:59 08/28/16 07:47 2 PUFFS Roflumilast (Daliresp Tab) 500 mcg DAILY PO 08/28/16 08:00 09/27/16 07:59 08/28/16 07:50 500 MCG I & O: 24-Hour Column 08/28/16 08:00 Intake Total 410 ml Output Total 2200 ml Balance -1790 ml Vital Signs: Date Time Temp Pulse Resp B/P Pulse Ox O2 Delivery O2 Flow Rate FiO2 08/28/16 08:00 Nasal Cannula 3.0 08/28/16 07:36 36.4 60 18 160/84 99 Nasal Cannula 3.0 08/28/16 07:12 84 18 93 Nasal Cannula 3.0 08/28/16 01:52 86 18 96 Nasal Cannula 3.0 08/28/16 00:31 36.4 71 20 173/98 91 Room Air 08/27/16 23:59 Nasal Cannula 3.0 08/27/16 18:55 90 18 95 Nasal Cannula 3.0 08/27/16 16:00 Nasal Cannula 3.0 08/27/16 14:46 36.5 67 20 153/83 91 08/27/16 14:13 65 170/94 08/27/16 14:05 87 20 96 Nasal Cannula 3.0 Laboratory Results: Last 24 Hours Test 08/27/16 16:34 08/27/16 20:28 08/28/16 07:38 Bedside Glucose 202 mg/dl 144 mg/dl 111 mg/dl
--- NOTE | 2016-08-28 17:48 | Progress Note ---
Subjective Date of Service: August 28, 2016. Subjective pt is very tremulous and still gets markedly short of breath with minor exertion , no cough or sputum which is a marked difference from home( usually with rhinorhea and cough), she has no other complaints or problems at this time, is considering snf for subacute rehab or assisted living on discharge Problem List Medical Problems: (1) Cellulitis Status: Acute (2) COPD exacerbation Status: Acute (3) COPD exacerbation Status: Acute (4) Hypoxia Status: Acute (5) SOB (shortness of breath) Status: Acute Review of Systems Constitutional: + fatigue, + weakness, No chills, No fever ENT: No hearing loss, No sore throat, No unusual epistaxis Respiratory: + dyspnea on exertion, + shortness of breath, No cough, No sputum Cardiac: No chest pain, No edema, No orthopnea Abdomen: No nausea, No pain, No vomiting Musculoskeletal: + joint pain, + swelling, No muscle pain Female : No dysuria, No urinary frequency Objective Vital Signs Date Time Temp Pulse Resp B/P Pulse Ox O2 Delivery O2 Flow Rate FiO2 08/28/16 17:24 36.8 63 18 150/83 94 3.0 08/28/16 14:12 67 153/84 08/28/16 08:00 Nasal Cannula 3.0 08/28/16 07:36 36.4 60 18 160/84 99 Nasal Cannula 3.0 08/28/16 07:12 84 18 93 Nasal Cannula 3.0 08/28/16 01:52 86 18 96 Nasal Cannula 3.0 08/28/16 00:31 36.4 71 20 173/98 91 Room Air 08/27/16 23:59 Nasal Cannula 3.0 08/27/16 18:55 90 18 95 Nasal Cannula 3.0 Physical Exam General Appearance: WD/WN, + moderate distress, + obese Eyes: PERRL, EOMI ENT: hearing grossly normal, pharynx normal Neck: supple, thyroid normal Respiratory/Chest: + decreased breath sounds, + accessory muscle use, + rales Cardiovascular: regular rate, rhythm, no murmur Abdomen: normal bowel sounds, non tender, soft Extremities: no calf tenderness, + pedal edema (trace) Neurologic/Psychiatric: alert, oriented x 3 Laboratory Results Last 24 Hours Test 08/27/16 20:28 5/29/17 07:38 08/28/16 12:06 08/28/16 16:53 Bedside Glucose 144 mg/dl 111 mg/dl 161 mg/dl 93 mg/dl Assessment and Plan 76 y/o female with admitted on Aug 24 2016 because of COPD exacerbation, COPD exacerbation: Chronic respiratory failure with hypoxia and home O2 dependent Solu-Medrol, nebulizer treatment, Symbicort (she takes Qvar as outpatient), added Daliresp, Per field service manager start Tudorza when she is closing in her discharge(or spiriva) , consider trilogy at discharge chronic diastolic heart failure, stable acute on chronic renal failure stage III, yesterday creatinine is 1.6 from 1.3 upon admission, Lasix and Aldactone restarted after initial hold and continue hold her lisinopril Possible oral thrush: nystatin mouthwash improved Urinary incontinence--> is not new per patient, possible urge incontinence - Urology saw her, start a trial of anticholinergics - tolteridine 2 mg BID ordered, and has appointment to follow up plan, urine culture pending Continued [facility] stay due to: multiple IV medications needed Discharge planning: home
[2016-08-29] VITALS (9 sets, daily range): BP systolic 151–163; BP diastolic 71–94; PULSE 60–85; TEMP 36.4–36.6; O2SAT 78–97
[2016-08-29] MEDS: IPRATROPIUM BROMIDE NEB SOLN 0.02% 2.5 ML VIAL INH SCH ×4 (03:00→19:10)
[2016-08-29] MEDS: LEVALBUTEROL 1.25MG/0.5ML NEB INH SCH ×4 (03:00→19:10)
[2016-08-29] MEDS: METHYLPREDNISOLONE IV 40 MG in SYRINGE 0 ML IV SCH ×2 (06:09→18:28)
[2016-08-29] MEDS: BUDESONIDE/FORMOTEROL FUMARATE 160/4.5 60 PUFFS/INHALER INH SCH ×2 (08:07→20:56)
[2016-08-29] MEDS: METOPROLOL SUCC 50MG EXT REL TAB PO SCH (08:08)
[2016-08-29] MEDS: CYANOCOBALAMIN 500 MCG TAB (VIT B-12) PO SCH (08:08)
[2016-08-29] MEDS: NYSTATIN SUSP 500,000 U/5 ML UDC PO SCH (08:10)
[2016-08-29] MEDS: HydrALAZINE 10 MG TAB PO SCH ×3 (08:11→20:56)
[2016-08-29] MEDS: TOLTERODINE TARTRATE 2 MG TAB PO SCH ×2 (08:11→20:57)
[2016-08-29] MEDS: ROPINIROLE HCL 1 MG TAB PO SCH ×3 (08:11→20:57)
[2016-08-29] MEDS: FUROSEMIDE 20 MG TAB PO SCH (08:11)
[2016-08-29] MEDS: SPIRONOLACTONE 25 MG TAB PO SCH (08:11)
[2016-08-29] MEDS: FERROUS SULFATE 325 MG TAB PO SCH (08:11)
[2016-08-29] MEDS: ROFLUMILAST 500 MCG TAB PO SCH (08:11)
[2016-08-29] MEDS: FLUOXETINE HCL 20 MG CAP PO SCH (08:12)
[2016-08-29] MEDS: PRAVASTATIN SOD 10 MG TAB PO SCH (08:12)
[2016-08-29] MEDS: LISINOPRIL 10 MG TAB PO SCH (08:12)
[2016-08-29] MEDS: INSULIN ASPART 100 UNITS/ML 3 ML PEN SC SCH ×4 (08:52→20:59)
[2016-08-29] MEDS: INSULIN GLARGINE SOLOSTAR 100 UNITS/ML 3 ML PEN SC SCH (08:52)
[2016-08-29] MEDS: HEPARIN SOD 5000 UNIT/0.5 ML CARP SQ SCH ×2 (08:53→21:06)
--- NOTE | 2016-08-29 10:00 | Pulmonology Progress Note ---
Pulmonary Progress Note Date of Service August 29, 2016. Attending Subjective No new complaints Tolerating daliresp so far Has never had pulmonary rehab according to her Objective General Appearance: no distress, obese Eyes: PERRLA ENT: NORMAL THROAT EXAM Neck: NO TENDERNESS, TRACHEA MIDLINE Respiratory: clear, good air entry b/l Cardiovasular: REGULAR RATE/RHYTHM, NORMAL S1S2 Abdomen: NON TENDER, NO REBOUND, NO GUARDING Upper Extremities: NO EDEMA Lower Extremities: edema (bilateral) improving Neuro: ALERT, ORIENTED x 4 Assessment & Plan 76 year old female with advanced emphysema, presents with an exacerbation episode. Plan: decrease solumedrol to q 12 hrs continue neb rx q 6 hrs add spiriva or tudorza prior to discharge Her weight is also contributing to her shortness of breath advise weight loss continue daliresp : daliresp also can cause weight loss which might benefit the patient needs pul rehab as outpatient continue o2 3L at rest and 5L on exertion ( o2 sats drop to 78% on exertion on 3L ) evaluate for trilogy before discharge Data Medications: Current Inpatient Medications Medications (Trade) Dose Ordered Sig/Polly Route Start Time Stop Time Status Last Admin Dose Admin Acetaminophen (Tylenol Tab) 650 mg Q4H PRN PO 08/24/16 13:45 09/23/16 13:44 08/24/16 23:53 650 MG Polyethylene (Miralax Powder Packet) 17 gm DAILY PRN PO 08/24/16 14:00 09/23/16 13:59 Ondansetron HCl (Zofran Inj) 4 mg Q6H PRN IV 08/24/16 13:45 09/23/16 13:44 Cyanocobalamin (Vitamin B-12 Tab) 1,000 mcg DAILY PO 08/25/16 08:00 09/24/16 07:59 08/29/16 08:08 1,000 MCG Fluoxetine HCl (Prozac Cap) 20 mg QAM PO 08/25/16 08:00 09/24/16 07:59 08/29/16 08:12 20 MG Furosemide (Lasix Tab) 20 mg DAILY PO 08/25/16 08:00 09/24/16 07:59 Future hold 08/29/16 08:11 20 MG Lisinopril (Zestril Tab) 10 mg DAILY PO 08/25/16 08:00 09/24/16 07:59 Future hold 08/29/16 08:12 10 MG Metoprolol Succinate (Toprol Xl Tab) 100 mg DAILY PO 08/25/16 08:00 09/24/16 07:59 08/29/16 08:08 100 MG Pravastatin Sodium (Pravachol Tab) 10 mg DAILY PO 08/25/16 08:00 09/24/16 07:59 08/29/16 08:12 10 MG Ropinirole HCl (Requip Tab) 2 mg TID PO 08/24/16 14:00 09/23/16 13:59 08/29/16 08:11 2 MG Spironolactone (Aldactone Tab) 12.5 mg QAM PO 08/25/16 08:00 09/24/16 07:59 Future hold 08/29/16 08:11 12.5 MG Tramadol HCl (Ultram Tab) 50 mg Q6 PRN PO 08/24/16 13:45 09/23/16 13:44 Ferrous Sulfate (Feosol Tab) 325 mg DAILY PO 08/25/16 08:00 09/24/16 07:59 08/29/16 08:11 325 MG Insulin Aspart (novoLOG ASPART) SLIDING SCALE If C... ACHS SC 08/24/16 16:30 09/23/16 16:29 08/29/16 08:52 10 UNITS Glucose (Glucose 40% Gel) 15-30 GRAMS 15 GRAMS... UD PRN PO 08/24/16 13:45 09/23/16 13:44 Glucose (Glucose Chew Tab) 4-8 Tablets 4 Tabl... UD PRN PO 08/24/16 13:45 09/23/16 13:44 Dextrose (Dextrose 50% 50ML Syringe) 25-50ML OF 50% DW IV FOR... UD PRN IV 08/24/16 13:45 09/23/16 13:44 Glucagon (Glucagon Inj) 1 mg UD PRN SQ 08/24/16 13:45 09/23/16 13:44 Miscellaneous Information (Consult Glycemic Management Pharmacy) 1 ea UD PRN N/A 08/24/16 14:00 09/23/16 13:59 Guaifenesin (Organidin Nr Tab) 200 mg Q4H PRN PO 08/24/16 15:30 09/23/16 15:29 Ipratropium [place] (Atrovent 0.02% 0.5MG/2.5ML Neb) 0.5 mg Q6R INH 08/24/16 21:00 09/23/16 20:59 08/29/16 07:26 0.5 MG Levalbuterol 1.25 mg 1.25 mg Q6R INH 08/24/16 21:00 09/23/16 20:59 08/29/16 07:26 1.25 MG Methylprednisolone Sodium Succinate/ Syringe (Solu-Medrol IV/ Syringe) 0.64 ml @ 1.5 mls/min Q8 IV 08/25/16 14:00 09/24/16 13:59 08/29/16 06:09 1.5 MLS/MIN Insulin Glargine (Lantus Solostar Pen) 30 unit DAILY SC 08/26/16 08:00 09/25/16 07:59 08/29/16 08:52 30 UNIT Hydralazine HCl (Apresoline Tab) 10 mg TID PO 08/26/16 08:00 09/25/16 07:59 08/29/16 08:11 10 MG Heparin Sodium (Porcine) (Heparin Sq 5000 Unit/0.5ml) 5,000 unit Q12 SQ 08/26/16 09:00 09/25/16 08:59 08/29/16 08:53 5,000 UNIT Nystatin (Mycostatin Susp) 10 ml QID PO 08/26/16 12:00 08/29/16 11:59 08/29/16 08:10 10 ML Hydralazine HCl (HydrALAZINE INJ) 20 mg Q6H PRN IV. 08/26/16 14:30 09/25/16 14:29 Tolterodine Tartrate (Detrol Tab) 2 mg BID PO 08/27/16 20:00 09/26/16 19:59 08/29/16 08:11 2 MG Budesonide/ Formoterol Fumarate (Symbicort 160/ 4.5 Inh) 2 puffs BID INH 08/27/16 20:00 09/26/16 19:59 08/29/16 08:07 2 PUFFS Roflumilast (Daliresp Tab) 500 mcg DAILY PO 08/28/16 08:00 09/27/16 07:59 08/29/16 08:11 500 MCG I & O: 24-Hour Column 08/29/16 08:00 Intake Total 480 ml Output Total 2400 ml Balance -1920 ml Vital Signs: Date Time Temp Pulse Resp B/P Pulse Ox O2 Delivery O2 Flow Rate FiO2 08/29/16 08:00 95 Nasal Cannula 3.0 08/29/16 07:26 85 18 95 Nasal Cannula 3.0 08/29/16 07:21 36.6 60 18 161/84 95 3.0 08/29/16 00:00 Nasal Cannula 3.0 08/28/16 18:45 88 18 93 Nasal Cannula 3.0 08/28/16 17:24 36.8 63 18 150/83 94 3.0 08/28/16 16:30 Nasal Cannula 3.0 08/28/16 14:12 67 153/84 Laboratory Results: Last 24 Hours Test 08/28/16 12:06 08/28/16 16:53 08/28/16 20:25 08/29/16 07:39 Bedside Glucose 161 mg/dl 93 mg/dl 110 mg/dl 125 mg/dl
--- NOTE | 2016-08-29 11:31 | Pharmacy Progress Note ---
Glycemic Control: Progress Nt Date of Service August 29, 2016. Scope Glycemic Pharmacist consulted by Dr Parker on 08/24/16 for glycemic control and to write orders per [facility] inpatient glycemic control protocol. Objective Accuchecks BSG (last 24hrs): Test 08/28/16 12:06 08/28/16 16:53 08/28/16 20:25 08/29/16 07:39 Bedside Glucose 161 mg/dl (70-90) 93 mg/dl (70-90) 110 mg/dl (70-90) 125 mg/dl (70-90) HbA1c: Test 08/25/16 06:20 Hemoglobin A1c 6.6 % (4.5-5.6) H Recent Pertinent Medications Outpatient Anti-diabetic Regimen: * Glipizide 5mg PO BIDM The patient is currently receiving: * Basal insulin: Lantus 30 units SQ Q24hrs - given in the morning * Correctional Insulin: Novolog Correction per scale ACHS Goal Range: Low 110 mg/dL - High 140 mg/dL Correction Factor: 15 mg/dL/unit * Prandial insulin: Per carb ratio of 1 unit per 5 grams CHO consumed * Oral Agents: On hold for admission Risk Factors for Insulin Resistance: * Steroids - Solu Medrol 40 mg IV q8h --> 40 mg IV q12h on 08/29 * Diet Assessment & Plan ASSESSMENT: Initial: * Pt known to pharmacy from previous admissions/glycemic consults * Patient was admitted to [facility] in April of this year. She was on the same dose of steroids (40 mg IV q8) and required 26 units of Lantus BID plus 11-32 units of bolus insulin per day. * Outpatient glipizide on hold for admission and pt is being treated wit SQ basal bolus insulin regimen for steroid induced hyperglycemia 08/29/16: * Pt continues on high dose RTC steroids * Solumedrol 40mg IV Q8hrs -> taper to q12h today * Initiated SQ basal bolus insulin regimen on 08/24 based on weight/high stress. Titrating dosing daily based on BSG trends and steroid dosing * Pt required 61-66 units per day over the past 48 hours. BSGs ranging 93 - 161 mg/dl over the past 24hrs * Preferred distribution of basal:prandial insulin for steroid induced hyperglycemia is ~30-40% basal:60-70% prandial as steroids have their most profound effect on post-prandial hyperglycemia. Also, do not want too much additional basal insulin on board in the event that steroids are rapidly tapered - this would lead to hypoglycemia. * Fasting BSG within goal. Will change to Lantus per scale starting with am dose on 08/30 incase steroid taper warrants change to basal requirements. * I anticipate correctional/prandial needs to start decreasing due to tapering of steroids * will loosen CF and CR parameters starting with dinner PLAN FOR INPATIENT GLYCEMIC CONTROL: * Hold outpatient oral diabetes medications * Basal insulin * Lantus 25-30 units SQ in AM * 25 units for BSG less than 140 md/dL * 30 units for BSG 140 mg/dL or greater * Bolus Insulin * NovoLog ACHS * Goal Range: Low 110 mg/dL - High 140 mg/dL * Correction Factor: 15 mg/dL/unit * Nutritional / Prandial insulin per carb ratio of 1 unit per 5 grams CHO consumed * Change to Correction factor of 20 and carb ratio of 6 @ HS * Taper insulin regimen with each step down in steroid dosing. * Please note that the plan above was derived based on current level of insulin resistance and hospital stress. These recommendations are appropriate for inpatient admission only. Plan of care upon discharge will need to be reassessed to avoid potential outpatient hypo/hyperglycemia. Thank you. Looking ahead to discharge: * Pt is maintained on glipizide as an outpatient with adequate control per recent A1c. Insulin most likely not needed at discharge but pt may benefit from once daily NPH if high dose prednisone taper is continued at discharge.
--- NOTE | 2016-08-29 14:13 | Progress Note ---
Subjective Date of Service: August 29, 2016. Subjective this pt is not really improving greatly is stable at rest but has significant dyspnea on exertion, including hypoxia on exertion. she has little cough since coming to hospital unlike when she was at home with much rhinorrhea and coughing Problem List Medical Problems: (1) Cellulitis Status: Acute (2) COPD exacerbation Status: Acute (3) COPD exacerbation Status: Acute (4) Hypoxia Status: Acute (5) SOB (shortness of breath) Status: Acute Review of Systems Constitutional: + fatigue, + weakness, No chills, No fever Respiratory: + dyspnea on exertion, + shortness of breath, No cough, No dyspnea at rest, No sputum Cardiac: No PND, No chest pain, No orthopnea Abdomen: No diarrhea, No nausea, No pain, No vomiting Musculoskeletal: No joint pain, No muscle pain Neurologic: No memory loss, No paralysis, No weakness Psychiatric: No anhedonism, No depression symptoms Objective Vital Signs Date Time Temp Pulse Resp B/P Pulse Ox O2 Delivery O2 Flow Rate FiO2 08/29/16 12:45 70 153/75 08/29/16 10:19 78 08/29/16 08:00 95 Nasal Cannula 3.0 08/29/16 07:26 85 18 95 Nasal Cannula 3.0 08/29/16 07:21 36.6 60 18 161/84 95 3.0 08/29/16 00:00 Nasal Cannula 3.0 08/28/16 18:45 88 18 93 Nasal Cannula 3.0 08/28/16 17:24 36.8 63 18 150/83 94 3.0 08/28/16 16:30 Nasal Cannula 3.0 08/28/16 14:12 67 153/84 Physical Exam General Appearance: WD/WN, + moderate distress Neck: supple, trachea midline Respiratory/Chest: + respiratory distress, + decreased breath sounds, + accessory muscle use Cardiovascular: regular rate, rhythm, no murmur Abdomen: normal bowel sounds, non tender, soft Extremities: no pedal edema, no calf tenderness Neurologic/Psychiatric: alert, oriented x 3 Laboratory Results Last 24 Hours Test 08/28/16 16:53 08/28/16 20:25 08/29/16 07:39 08/29/16 11:34 Bedside Glucose 93 mg/dl 110 mg/dl 125 mg/dl 193 mg/dl Assessment and Plan 76 y/o female with admitted on Aug 24 2016 because of COPD exacerbation, COPD exacerbation: not really getting any better, may need placement for care Chronic respiratory failure with hypoxia and home O2 dependent Solu-Medrol reduced to bid, nebulizer treatment, Symbicort (she takes Qvar as outpatient), added Daliresp, Per modeling manager start Tudorza when she is closing in her discharge(or spiriva) , consider trilogy at discharge chronic diastolic heart failure, continues to be stable acute on chronic renal failure stage III, resolved oral thrush: improved with nystatin mouthwash Urinary incontinence--> urge incontinence- tolteridine 2 mg BID ordered improved will follow up as outpt Continued [facility] stay due to: multiple IV medications needed Discharge planning: home
[2016-08-29] MEDS ORDERED: NURSING VERBAL MED ORDER ONE (16:15)
[2016-08-29] MEDS: NYSTATIN POWDER 15GM BTL EXT PRN (18:28)
[2016-08-30] VITALS (12 sets, daily range): BP systolic 138–167; BP diastolic 76–91; PULSE 62–75; TEMP 36.2–36.8; O2SAT 85–100
[2016-08-30] MEDS: IPRATROPIUM BROMIDE NEB SOLN 0.02% 2.5 ML VIAL INH SCH ×4 (01:32→19:07)
[2016-08-30] MEDS: LEVALBUTEROL 1.25MG/0.5ML NEB INH SCH ×4 (01:32→19:07)
[2016-08-30 06:45] LABS: MEAN CORPUSCULAR HEMOGLOBIN 30.5 pg (25-34); MEAN CORPUSCULAR HGB CONC 30.5 g/dl (32-36); MEAN PLATELET VOLUME 10.6 fL (7.4-10.4); PLATELET COUNT 211 K/uL (130-400); WHITE BLOOD COUNT 11.17 K/uL (4.8-10.8)
[2016-08-30] MEDS: HydrALAZINE 10 MG TAB PO SCH ×3 (07:35→19:38)
[2016-08-30] MEDS: CYANOCOBALAMIN 500 MCG TAB (VIT B-12) PO SCH (07:36)
[2016-08-30] MEDS: FERROUS SULFATE 325 MG TAB PO SCH (07:36)
[2016-08-30] MEDS: METOPROLOL SUCC 50MG EXT REL TAB PO SCH (07:36)
[2016-08-30] MEDS: ROPINIROLE HCL 1 MG TAB PO SCH ×3 (07:36→19:39)
[2016-08-30] MEDS: ROFLUMILAST 500 MCG TAB PO SCH (07:37)
[2016-08-30] MEDS: TOLTERODINE TARTRATE 2 MG TAB PO SCH ×2 (07:37→19:39)
[2016-08-30] MEDS: SPIRONOLACTONE 25 MG TAB PO SCH (07:37)
[2016-08-30] MEDS: LISINOPRIL 10 MG TAB PO SCH (07:37)
[2016-08-30] MEDS: PRAVASTATIN SOD 10 MG TAB PO SCH (07:37)
[2016-08-30] MEDS: FLUOXETINE HCL 20 MG CAP PO SCH (07:37)
[2016-08-30] MEDS: FUROSEMIDE 20 MG TAB PO SCH (07:38)
[2016-08-30] MEDS: BUDESONIDE/FORMOTEROL FUMARATE 160/4.5 60 PUFFS/INHALER INH SCH ×2 (07:38→19:37)
[2016-08-30] MEDS: NYSTATIN POWDER 15GM BTL EXT PRN ×2 (07:38→16:41)
[2016-08-30] MEDS: METHYLPREDNISOLONE IV 40 MG in SYRINGE 0 ML IV SCH (07:38)
[2016-08-30] MEDS ORDERED: INSULIN GLARGINE SOLOSTAR 100 UNITS/ML 3 ML PEN SC SCH (08:00)
[2016-08-30] MEDS: INSULIN ASPART 100 UNITS/ML 3 ML PEN SC SCH ×4 (08:52→20:55)
[2016-08-30] MEDS: HEPARIN SOD 5000 UNIT/0.5 ML CARP SQ SCH ×2 (08:53→20:56)
[2016-08-30 09:25] LABS: BUN/CREATININE RATIO 33.3 (10-20); CREATININE 1.6 mg/dl (0.60-1.20); POTASSIUM 4.1 mmol/L (3.5-5.1)
[2016-08-30 09:27] LABS: CALCIUM 8.6 mg/dl (8.5-10.1)
--- NOTE | 2016-08-30 11:13 | Pulmonology Progress Note ---
Pulmonary Progress Note Date of Service August 30, 2016. Attending Subjective no new complaints Objective General Appearance: no distress, obese Eyes: PERRLA ENT: NORMAL THROAT EXAM Neck: NO TENDERNESS, TRACHEA MIDLINE Respiratory: clear, good air entry b/l Cardiovasular: REGULAR RATE/RHYTHM, NORMAL S1S2 Abdomen: NON TENDER, NO REBOUND, NO GUARDING Upper Extremities: NO EDEMA Lower Extremities: edema (bilateral) improving Neuro: ALERT, ORIENTED x 4 Assessment & Plan 76 year old female with advanced emphysema, presents with an exacerbation episode. Plan: d/c iv solumedrol start po prednisone 50 mg day , taper by 10 mg QOD until d/c continue neb rx q 6 hrs add spiriva or tudorza prior to discharge Her weight is also contributing to her shortness of breath advise weight loss continue daliresp : daliresp also can cause weight loss which might benefit the patient needs pul rehab as outpatient continue o2 3L at rest and 5L on exertion ( o2 sats drop to 78% on exertion on 3L ) evaluate for trilogy before discharge continue pt/ot patient appears to be open today for discussion about going to a rehab center first Data Medications: Current Inpatient Medications Medications (Trade) Dose Ordered Sig/Polly Route Start Time Stop Time Status Last Admin Dose Admin Acetaminophen (Tylenol Tab) 650 mg Q4H PRN PO 08/24/16 13:45 09/23/16 13:44 08/24/16 23:53 650 MG Polyethylene (Miralax Powder Packet) 17 gm DAILY PRN PO 08/24/16 14:00 09/23/16 13:59 Ondansetron HCl (Zofran Inj) 4 mg Q6H PRN IV 08/24/16 13:45 09/23/16 13:44 Cyanocobalamin (Vitamin B-12 Tab) 1,000 mcg DAILY PO 08/25/16 08:00 09/24/16 07:59 08/30/16 07:36 1,000 MCG Fluoxetine HCl (Prozac Cap) 20 mg QAM PO 08/25/16 08:00 09/24/16 07:59 08/30/16 07:37 20 MG Furosemide (Lasix Tab) 20 mg DAILY PO 08/25/16 08:00 09/24/16 07:59 Future hold 08/30/16 07:38 20 MG Lisinopril (Zestril Tab) 10 mg DAILY PO 08/25/16 08:00 09/24/16 07:59 Future hold 08/30/16 07:37 10 MG Metoprolol Succinate (Toprol Xl Tab) 100 mg DAILY PO 08/25/16 08:00 09/24/16 07:59 08/30/16 07:36 100 MG Pravastatin Sodium (Pravachol Tab) 10 mg DAILY PO 08/25/16 08:00 09/24/16 07:59 08/30/16 07:37 10 MG Ropinirole HCl (Requip Tab) 2 mg TID PO 08/24/16 14:00 09/23/16 13:59 08/30/16 07:36 2 MG Spironolactone (Aldactone Tab) 12.5 mg QAM PO 08/25/16 08:00 09/24/16 07:59 Future hold 08/30/16 07:37 12.5 MG Tramadol HCl (Ultram Tab) 50 mg Q6 PRN PO 08/24/16 13:45 09/23/16 13:44 Ferrous Sulfate (Feosol Tab) 325 mg DAILY PO 08/25/16 08:00 09/24/16 07:59 08/30/16 07:36 325 MG Glucose (Glucose 40% Gel) 15-30 GRAMS 15 GRAMS... UD PRN PO 08/24/16 13:45 09/23/16 13:44 Glucose (Glucose Chew Tab) 4-8 Tablets 4 Tabl... UD PRN PO 08/24/16 13:45 09/23/16 13:44 Dextrose (Dextrose 50% 50ML Syringe) 25-50ML OF 50% DW IV FOR... UD PRN IV 08/24/16 13:45 09/23/16 13:44 Glucagon (Glucagon Inj) 1 mg UD PRN SQ 08/24/16 13:45 09/23/16 13:44 Miscellaneous Information (Consult Glycemic Management Pharmacy) 1 ea UD PRN N/A 08/24/16 14:00 09/23/16 13:59 Guaifenesin (Organidin Nr Tab) 200 mg Q4H PRN PO 08/24/16 15:30 09/23/16 15:29 Ipratropium [place] (Atrovent 0.02% 0.5MG/2.5ML Neb) 0.5 mg Q6R INH 08/24/16 21:00 09/23/16 20:59 08/30/16 07:02 0.5 MG Levalbuterol (Xopenex 1.25MG/ 0.5ML Neb) 1.25 mg Q6R INH 08/24/16 21:00 09/23/16 20:59 08/30/16 07:02 1.25 MG Hydralazine HCl (Apresoline Tab) 10 mg TID PO 08/26/16 08:00 09/25/16 07:59 08/30/16 07:35 10 MG Heparin Sodium (Porcine) (Heparin Sq 5000 Unit/0.5ml) 5,000 unit Q12 SQ 08/26/16 09:00 09/25/16 08:59 08/30/16 08:53 5,000 UNIT Hydralazine HCl (HydrALAZINE INJ) 20 mg Q6H PRN IV. 08/26/16 14:30 09/25/16 14:29 Tolterodine Tartrate (Detrol Tab) 2 mg BID PO 08/27/16 20:00 09/26/16 19:59 08/30/16 07:37 2 MG Budesonide/ Formoterol Fumarate (Symbicort 160/ 4.5 Inh) 2 puffs BID INH 08/27/16 20:00 09/26/16 19:59 08/30/16 07:38 2 PUFFS Roflumilast (Daliresp Tab) 500 mcg DAILY PO 08/28/16 08:00 09/27/16 07:59 08/30/16 07:37 500 MCG Insulin Glargine (Lantus Solostar Pen) see protocol text DAILY SC 08/30/16 08:00 09/29/16 07:59 08/30/16 08:53 25 UNIT Insulin Aspart (novoLOG ASPART) SLIDING SCALE If C... ACHS SC 08/29/16 21:00 09/28/16 20:59 08/30/16 08:52 4 UNITS Nystatin (Mycostatin Powder) 1 appln PRN PRN EXT 08/29/16 16:30 09/28/16 16:29 08/30/16 07:38 1 APPLN I & O: 24-Hour Column 08/30/16 08:00 Intake Total 1145 ml Output Total 2100 ml Balance -955 ml Vital Signs: Date Time Temp Pulse Resp B/P Pulse Ox O2 Delivery O2 Flow Rate FiO2 08/30/16 08:00 100 Nasal Cannula 3.0 08/30/16 07:49 36.2 62 20 167/91 100 Nasal Cannula 4.0 162/83 08/30/16 07:03 64 16 98 Nasal Cannula 3.0 08/30/16 01:33 71 16 96 Nasal Cannula 3.0 08/30/16 00:07 36.5 64 20 152/81 93 Nasal Cannula 4.0 08/30/16 00:00 Nasal Cannula 3.0 08/29/16 21:00 64 18 151/71 94 Nasal Cannula 3.0 08/29/16 19:10 71 16 96 Nasal Cannula 3.0 08/29/16 16:00 Nasal Cannula 3.0 08/29/16 15:10 62 18 97 Nasal Cannula 3.0 08/29/16 15:08 36.4 69 18 163/94 95 4.0 08/29/16 12:45 70 153/75 Laboratory Results: Last 24 Hours Test 08/29/16 11:34 08/29/16 16:43 08/29/16 20:35 08/30/16 06:30 Bedside Glucose 193 mg/dl 70 mg/dl 72 mg/dl White Blood Count 11.17 K/uL Red Blood Count 4.10 M/uL Hemoglobin 12.5 g/dL Hematocrit 41.0 % Mean Corpuscular Volume 100.0 fL Mean Corpuscular Hemoglobin 30.5 pg Mean Corpuscular Hemoglobin Concent 30.5 g/dl RDW Standard Deviation 47.9 fL RDW Coefficient of Variation 13.1 % Platelet Count 211 K/uL Mean Platelet Volume 10.6 fL Sodium Level 141 mmol/L Potassium Level 4.1 mmol/L Chloride Level 97 mmol/L Carbon Dioxide Level 36 mmol/L Anion Gap 8.0 mmol/L Blood Urea Nitrogen 53 mg/dl Creatinine 1.60 mg/dl Est Creatinine Clear Calc Drug Dose 35.5 ml/min Estimated GFR () 36.4 Estimated GFR (Non- 31.4 BUN/Creatinine Ratio 33.3 Random Glucose 94 mg/dl Calcium Level 8.6 mg/dl Test 08/30/16 08:00 Bedside Glucose 91 mg/dl
--- NOTE | 2016-08-30 11:16 | Pharmacy Progress Note ---
Glycemic Control: Progress Nt Date of Service August 30, 2016. Scope Glycemic Pharmacist consulted by Dr Parker on 08/24/16 for glycemic control and to write orders per [facility] inpatient glycemic control protocol. Objective Accuchecks BSG (last 24hrs): Test 08/29/16 11:34 08/29/16 16:43 08/29/16 20:35 08/30/16 06:30 Bedside Glucose 193 mg/dl (70-90) 70 mg/dl (70-90) 72 mg/dl (70-90) Random Glucose 94 mg/dl (70-99) Test 08/30/16 08:00 Bedside Glucose 91 mg/dl (70-90) Laboratory Data (last 24hrs) Test 08/30/16 06:30 Anion Gap 8.0 mmol/L BUN/Creatinine Ratio 33.3 Blood Urea Nitrogen 53 mg/dl Creatinine 1.60 mg/dl Potassium Level 4.1 mmol/L Sodium Level 141 mmol/L White Blood Count 11.17 K/uL HbA1c: Test 08/25/16 06:20 Hemoglobin A1c 6.6 % (4.5-5.6) H Recent Pertinent Medications Outpatient Anti-diabetic Regimen: * Glipizide 5mg PO BIDM The patient is currently receiving: * Basal insulin: Lantus 30 units SQ Q24hrs - given in the morning * Correctional Insulin: Novolog Correction per scale ACHS Goal Range: Low 110 mg/dL - High 140 mg/dL Correction Factor: 20 mg/dL/unit * Prandial insulin: Per carb ratio of 1 unit per 6 grams CHO consumed * Oral Agents: On hold for admission Risk Factors for Insulin Resistance: * Steroids - Solu Medrol 40 mg IV q8h --> 40 mg IV q12h on 08/29 * Diet Assessment & Plan ASSESSMENT: Initial: * Pt known to pharmacy from previous admissions/glycemic consults * Patient was admitted to [facility] in April of this year. She was on the same dose of steroids (40 mg IV q8) and required 26 units of Lantus BID plus 11-32 units of bolus insulin per day. * Outpatient glipizide on hold for admission and pt is being treated wit SQ basal bolus insulin regimen for steroid induced hyperglycemia 08/29/16: * Pt continues on high dose RTC steroids - Solumedrol 40mg IV Q8hrs -> taper to q12h today * Titrating dosing daily based on BSG trends and steroid dosing * Pt required 61-66 units per day over the past 48 hours. BSGs ranging 93 - 161 mg/dl over the past 24hrs * Fasting BSG within goal. Will change to Lantus per scale starting with am dose on 08/30 incase steroid taper warrants change to basal requirements. * I anticipate correctional/prandial needs to start decreasing due to tapering of steroids * will loosen CF and CR parameters starting with dinner 08/30/16: * Adequate glycemic control over the past 24 hours * BSGs ranged from 70 to 193 mg/dL * Patient received 59 units of insulin * Risk factors for insulin resistance remain unchanged today * Solu medrol IV continued at 40 mg IV BID * Continue to titrate insulin regimen as steroids are decreased * Fasting BSG at goal but I anticipate it will further decrease tomorrow * Will loosen bolus insulin parameters due to BSG significantly less than 100 mg/dL x 2 checks yesterday * Decrease basal and bolus insulin based off of anticipated need of TDD of 50 units PLAN FOR INPATIENT GLYCEMIC CONTROL: * Hold outpatient oral diabetes medications * Basal insulin * Lantus 20-25 units SQ in AM * 20 units for BSG less than 140 md/dL * 25 units for BSG 140 mg/dL or greater * Bolus Insulin * NovoLog ACHS * Goal Range: Low 110 mg/dL - High 140 mg/dL * Correction Factor: 30 mg/dL/unit * Nutritional / Prandial insulin per carb ratio of 1 unit per 10 grams CHO consumed * Taper insulin regimen with each step down in steroid dosing. * Please note that the plan above was derived based on current level of insulin resistance and hospital stress. These recommendations are appropriate for inpatient admission only. Plan of care upon discharge will need to be reassessed to avoid potential outpatient hypo/hyperglycemia. Thank you. DISCHARGE RECOMMENDATIONS: * Pt is maintained on glipizide as an outpatient with adequate control per recent A1c. Insulin most likely not needed at discharge but pt may benefit from once daily NPH if high dose prednisone taper is continued at discharge.
--- NOTE | 2016-08-30 18:12 | Progress Note ---
Subjective Date of Service: August 30, 2016. Subjective This pt remains very short of breath, mostly with exertion, significant desaturations, pt understands in the short lomeli she want to go to subacute rehab and considers [facility] Problem List Medical Problems: (1) Cellulitis Status: Acute (2) COPD exacerbation Status: Acute (3) COPD exacerbation Status: Acute (4) Hypoxia Status: Acute (5) SOB (shortness of breath) Status: Acute Review of Systems Constitutional: No chills, No fever Respiratory: + cough, + dyspnea on exertion, + shortness of breath, No dyspnea at rest, No sputum, No wheezing Cardiac: No PND, No chest pain, No orthopnea Abdomen: No diarrhea, No nausea, No pain, No vomiting Female : No dysuria, No urinary frequency Psychiatric: No anhedonism, No depression symptoms Objective Vital Signs Date Time Temp Pulse Resp B/P Pulse Ox O2 Delivery O2 Flow Rate FiO2 08/30/16 16:57 Room Air 08/30/16 14:43 36.7 69 22 151/81 93 Nasal Cannula 4.0 08/30/16 14:10 71 16 96 Nasal Cannula 3.0 08/30/16 13:51 69 153/81 08/30/16 10:29 85 08/30/16 08:00 100 Nasal Cannula 3.0 08/30/16 07:49 36.2 62 20 167/91 100 Nasal Cannula 4.0 162/83 08/30/16 07:03 64 16 98 Nasal Cannula 3.0 08/30/16 01:33 71 16 96 Nasal Cannula 3.0 08/30/16 00:07 36.5 64 20 152/81 93 Nasal Cannula 4.0 08/30/16 00:00 Nasal Cannula 3.0 08/29/16 21:00 64 18 151/71 94 Nasal Cannula 3.0 08/29/16 19:10 71 16 96 Nasal Cannula 3.0 Physical Exam General Appearance: WD/WN, + moderate distress Eyes: PERRL, EOMI Neck: supple, no JVD Respiratory/Chest: + decreased breath sounds, + accessory muscle use Cardiovascular: regular rate, rhythm, no murmur Abdomen: normal bowel sounds, non tender, soft Extremities: no pedal edema, no calf tenderness Neurologic/Psychiatric: alert, oriented x 3 Laboratory Results Last 24 Hours Test 08/29/16 20:35 08/30/16 06:30 08/30/16 08:00 08/30/16 11:20 Bedside Glucose 72 mg/dl 91 mg/dl 134 mg/dl White Blood Count 11.17 K/uL Red Blood Count 4.10 M/uL Hemoglobin 12.5 g/dL Hematocrit 41.0 % Mean Corpuscular Volume 100.0 fL Mean Corpuscular Hemoglobin 30.5 pg Mean Corpuscular Hemoglobin Concent 30.5 g/dl RDW Standard Deviation 47.9 fL RDW Coefficient of Variation 13.1 % Platelet Count 211 K/uL Mean Platelet Volume 10.6 fL Sodium Level 141 mmol/L Potassium Level 4.1 mmol/L Chloride Level 97 mmol/L Carbon Dioxide Level 36 mmol/L Anion Gap 8.0 mmol/L Blood Urea Nitrogen 53 mg/dl Creatinine 1.60 mg/dl Est Creatinine Clear Calc Drug Dose 35.5 ml/min Estimated GFR () 36.4 Estimated GFR (Non- 31.4 BUN/Creatinine Ratio 33.3 Random Glucose 94 mg/dl Calcium Level 8.6 mg/dl Test 08/30/16 17:16 Bedside Glucose 162 mg/dl Assessment and Plan 76 y/o female with admitted on Aug 24 2016 because of COPD exacerbation, COPD exacerbation: very hypoxic with exertion Chronic respiratory failure with hypoxia and home O2 dependent Solu-Medrol now transitioned to po prednisone nebulizer treatment, Symbicort ( she takes Qvar as outpatient), added Daliresp, Per nat instructor start Tudorza when she is closing in her discharge(or spiriva) , consider trilogy at discharge per pulmonary recommendations chronic diastolic heart failure, her dyspnea seems pulmonary acute on chronic renal failure stage III, resolved oral thrush: improved with nystatin mouthwash Urinary incontinence--> urge incontinence- tolteridine 2 mg BID ordered improved will follow up as outpt Continued [facility] stay due to: multiple IV medications needed Discharge planning: home
[2016-08-31] VITALS (8 sets, daily range): BP systolic 143–163; BP diastolic 77–90; PULSE 63–83; TEMP 36.7–36.9; O2SAT 94–98; Ht 162.6 cm; Wt 100.3 kg
[2016-08-31] MEDS: LEVALBUTEROL 1.25MG/0.5ML NEB INH SCH ×4 (01:08→19:29)
[2016-08-31] MEDS: IPRATROPIUM BROMIDE NEB SOLN 0.02% 2.5 ML VIAL INH SCH ×4 (01:08→19:29)
[2016-08-31] MEDS: BUDESONIDE/FORMOTEROL FUMARATE 160/4.5 60 PUFFS/INHALER INH SCH ×2 (09:04→20:28)
[2016-08-31] MEDS: LISINOPRIL 10 MG TAB PO SCH (09:05)
[2016-08-31] MEDS: FUROSEMIDE 20 MG TAB PO SCH (09:05)
[2016-08-31] MEDS: METOPROLOL SUCC 50MG EXT REL TAB PO SCH (09:05)
[2016-08-31] MEDS: SPIRONOLACTONE 25 MG TAB PO SCH (09:06)
[2016-08-31] MEDS: ROFLUMILAST 500 MCG TAB PO SCH (09:06)
[2016-08-31] MEDS: PRAVASTATIN SOD 10 MG TAB PO SCH (09:06)
[2016-08-31] MEDS: FLUOXETINE HCL 20 MG CAP PO SCH (09:06)
[2016-08-31] MEDS: ROPINIROLE HCL 1 MG TAB PO SCH ×3 (09:07→20:31)
[2016-08-31] MEDS: FERROUS SULFATE 325 MG TAB PO SCH (09:07)
[2016-08-31] MEDS: CYANOCOBALAMIN 500 MCG TAB (VIT B-12) PO SCH (09:07)
[2016-08-31] MEDS: HydrALAZINE 10 MG TAB PO SCH ×3 (09:07→20:29)
[2016-08-31] MEDS: TOLTERODINE TARTRATE 2 MG TAB PO SCH ×2 (09:07→20:31)
[2016-08-31] MEDS: INSULIN ASPART 100 UNITS/ML 3 ML PEN SC SCH ×4 (09:14→20:38)
[2016-08-31] MEDS: HEPARIN SOD 5000 UNIT/0.5 ML CARP SQ SCH ×2 (09:17→20:36)
--- NOTE | 2016-08-31 10:24 | Pulmonology Progress Note ---
Pulmonary Progress Note Date of Service Aug 31, 2016. Attending Subjective no new complaints says she will be discharged to rehab center Objective General Appearance: no distress, obese Eyes: PERRLA ENT: NORMAL THROAT EXAM Neck: NO TENDERNESS, TRACHEA MIDLINE Respiratory: clear, good air entry b/l Cardiovasular: REGULAR RATE/RHYTHM, NORMAL S1S2 Abdomen: NON TENDER, NO REBOUND, NO GUARDING Upper Extremities: NO EDEMA Lower Extremities: edema (bilateral) improving Neuro: ALERT, ORIENTED x 4 Assessment & Plan 76 year old female with advanced emphysema, presents with an exacerbation episode. Plan: d/c iv solumedrol start po prednisone 50 mg day , taper by 10 mg QOD until d/c continue neb rx q 6 hrs add spiriva or tudorza prior to discharge Her weight is also contributing to her shortness of breath advise weight loss continue daliresp : daliresp also can cause weight loss which might benefit the patient needs pul rehab as outpatient continue o2 3L at rest and 5L on exertion ( o2 sats drop to 78% on exertion on 3L ) evaluate for trilogy before discharge continue pt/ot f/u with pulmonary as outpatient nothing much to add at this time will sign off Data Medications: Current Inpatient Medications Medications (Trade) Dose Ordered Sig/Polly Route Start Time Stop Time Status Last Admin Dose Admin Acetaminophen (Tylenol Tab) 650 mg Q4H PRN PO 08/24/16 13:45 09/23/16 13:44 08/24/16 23:53 650 MG Polyethylene (Miralax Powder Packet) 17 gm DAILY PRN PO 08/24/16 14:00 09/23/16 13:59 Ondansetron HCl (Zofran Inj) 4 mg Q6H PRN IV 08/24/16 13:45 09/23/16 13:44 Cyanocobalamin (Vitamin B-12 Tab) 1,000 mcg DAILY PO 08/25/16 08:00 09/24/16 07:59 08/31/16 09:07 1,000 MCG Fluoxetine HCl (Prozac Cap) 20 mg QAM PO 08/25/16 08:00 09/24/16 07:59 08/31/16 09:06 20 MG Furosemide (Lasix Tab) 20 mg DAILY PO 08/25/16 08:00 09/24/16 07:59 Future hold 08/31/16 09:05 20 MG Lisinopril (Zestril Tab) 10 mg DAILY PO 08/25/16 08:00 09/24/16 07:59 Future hold 08/31/16 09:05 10 MG Metoprolol Succinate (Toprol Xl Tab) 100 mg DAILY PO 08/25/16 08:00 09/24/16 07:59 08/31/16 09:05 100 MG Pravastatin Sodium (Pravachol Tab) 10 mg DAILY PO 08/25/16 08:00 09/24/16 07:59 08/31/16 09:06 10 MG Ropinirole HCl (Requip Tab) 2 mg TID PO 08/24/16 14:00 09/23/16 13:59 08/31/16 09:07 2 MG Spironolactone (Aldactone Tab) 12.5 mg QAM PO 08/25/16 08:00 09/24/16 07:59 Future hold 08/31/16 09:06 12.5 MG Tramadol HCl (Ultram Tab) 50 mg Q6 PRN PO 08/24/16 13:45 09/23/16 13:44 Ferrous Sulfate (Feosol Tab) 325 mg DAILY PO 08/25/16 08:00 09/24/16 07:59 08/31/16 09:07 325 MG Glucose (Glucose 40% Gel) 15-30 GRAMS 15 GRAMS... UD PRN PO 08/24/16 13:45 09/23/16 13:44 Glucose (Glucose Chew Tab) 4-8 Tablets 4 Tabl... UD PRN PO 08/24/16 13:45 09/23/16 13:44 Dextrose (Dextrose 50% 50ML Syringe) 25-50ML OF 50% DW IV FOR... UD PRN IV 08/24/16 13:45 09/23/16 13:44 Glucagon (Glucagon Inj) 1 mg UD PRN SQ 08/24/16 13:45 09/23/16 13:44 Miscellaneous Information (Consult Glycemic Management Pharmacy) 1 ea UD PRN N/A 08/24/16 14:00 09/23/16 13:59 Guaifenesin (Organidin Nr Tab) 200 mg Q4H PRN PO 08/24/16 15:30 09/23/16 15:29 Ipratropium [place] (Atrovent 0.02% 0.5MG/2.5ML Neb) 0.5 mg Q6R INH 08/24/16 21:00 09/23/16 20:59 08/31/16 06:55 0.5 MG Levalbuterol (Xopenex 1.25MG/ 0.5ML Neb) 1.25 mg Q6R INH 08/24/16 21:00 09/23/16 20:59 08/31/16 06:55 1.25 MG Hydralazine HCl (Apresoline Tab) 10 mg TID PO 08/26/16 08:00 09/25/16 07:59 08/31/16 09:07 10 MG Heparin Sodium (Porcine) (Heparin Sq 5000 Unit/0.5ml) 5,000 unit Q12 SQ 08/26/16 09:00 09/25/16 08:59 08/31/16 09:17 5,000 UNIT Hydralazine HCl (HydrALAZINE INJ) 20 mg Q6H PRN IV. 08/26/16 14:30 09/25/16 14:29 Tolterodine Tartrate (Detrol Tab) 2 mg BID PO 08/27/16 20:00 09/26/16 19:59 08/31/16 09:07 2 MG Budesonide/ Formoterol Fumarate (Symbicort 160/ 4.5 Inh) 2 puffs BID INH 08/27/16 20:00 09/26/16 19:59 08/31/16 09:04 2 PUFFS Roflumilast (Daliresp Tab) 500 mcg DAILY PO 08/28/16 08:00 09/27/16 07:59 08/31/16 09:06 500 MCG Insulin Aspart (novoLOG ASPART) SLIDING SCALE If C... ACHS SC 08/29/16 21:00 09/28/16 20:59 08/30/16 20:55 4 UNITS Nystatin (Mycostatin Powder) 1 appln PRN PRN EXT 08/29/16 16:30 09/28/16 16:29 08/30/16 16:41 1 APPLN Prednisone (PredniSONE TAB) 50 mg Taper DAILY PO 08/31/16 08:00 09/10/16 07:59 08/31/16 09:08 50 MG Vital Signs: Date Time Temp Pulse Resp B/P (MAP) Pulse Ox O2 Delivery O2 Flow Rate FiO2 08/31/16 07:56 36.7 83 20 163/82 (109) 98 Nasal Cannula 4.0 08/31/16 07:41 Nasal Cannula 3.0 08/31/16 06:55 75 16 94 Nasal Cannula 3.0 08/31/16 01:09 66 16 96 Nasal Cannula 3.0 08/31/16 00:00 Nasal Cannula 3.0 08/30/16 23:57 36.8 66 20 138/76 (96) 99 Room Air 08/30/16 19:41 73 146/83 (104) 08/30/16 19:08 75 16 97 Nasal Cannula 3.0 08/30/16 16:57 Room Air 08/30/16 14:43 36.7 69 22 151/81 (104) 93 Nasal Cannula 4.0 08/30/16 14:10 71 16 96 Nasal Cannula 3.0 08/30/16 13:51 69 153/81 (105) 08/30/16 10:29 85 Laboratory Results: Last 24 Hours Test 08/30/16 11:20 08/30/16 17:16 08/30/16 20:18 08/31/16 07:41 Bedside Glucose 134 mg/dl 162 mg/dl 243 mg/dl 46 mg/dl Test 08/31/16 08:00 Bedside Glucose 73 mg/dl
[2016-08-31] MEDS: NYSTATIN POWDER 15GM BTL EXT PRN ×2 (12:42→22:31)
--- NOTE | 2016-08-31 13:31 | Progress Note ---
Subjective Date of Service: Aug 31, 2016. Subjective this pt remains short of breath, she did however do well at PT, she did also ask about end of life care information and agreed to speak to palliative care nurse cough and marked MANCUSO Problem List Medical Problems: (1) Cellulitis Status: Acute (2) COPD exacerbation Status: Acute (3) COPD exacerbation Status: Acute (4) Hypoxia Status: Acute (5) SOB (shortness of breath) Status: Acute Review of Systems Constitutional: + weakness, + fatigue, No fever, No chills Respiratory: + cough, + sputum, + shortness of breath, + dyspnea on exertion Cardiac: No chest pain, No orthopnea, No PND Abdomen: No pain, No nausea, No vomiting, No diarrhea Musculoskeletal: No joint pain, No muscle pain, No swelling Female : No dysuria, No urinary frequency Psychiatric: No depression symptoms, No anhedonism, No anxiety Objective Vital Signs Date Time Temp Pulse Resp B/P (MAP) Pulse Ox O2 Delivery O2 Flow Rate FiO2 08/31/16 11:54 66 155/77 (103) 08/31/16 07:56 36.7 83 20 163/82 (109) 98 Nasal Cannula 4.0 08/31/16 07:41 Nasal Cannula 3.0 08/31/16 06:55 75 16 94 Nasal Cannula 3.0 08/31/16 01:09 66 16 96 Nasal Cannula 3.0 08/31/16 00:00 Nasal Cannula 3.0 08/30/16 23:57 36.8 66 20 138/76 (96) 99 Room Air 08/30/16 19:41 73 146/83 (104) 08/30/16 19:08 75 16 97 Nasal Cannula 3.0 08/30/16 16:57 Room Air 08/30/16 14:43 36.7 69 22 151/81 (104) 93 Nasal Cannula 4.0 08/30/16 14:10 71 16 96 Nasal Cannula 3.0 08/30/16 13:51 69 153/81 (105) Physical Exam General Appearance: WD/WN, + mild distress Eyes: PERRL, EOMI Neck: supple, no JVD, trachea midline Respiratory/Chest: + respiratory distress, + decreased breath sounds, + accessory muscle use Cardiovascular: regular rate, rhythm, no murmur Abdomen: normal bowel sounds, non tender, soft Extremities: no pedal edema, no calf tenderness Neurologic/Psychiatric: alert, oriented x 3 Laboratory Results Last 24 Hours Test 08/30/16 17:16 08/30/16 20:18 08/31/16 07:41 08/31/16 08:00 Bedside Glucose 162 mg/dl 243 mg/dl 46 mg/dl 73 mg/dl Test 08/31/16 11:31 Bedside Glucose 209 mg/dl Assessment and Plan 76 y/o female with admitted on Aug 24 2016 because of COPD exacerbation, COPD exacerbation: very hypoxic with exertion, however did well walking at PT 08/31, will attempt to arrange outpt pulm rehab Chronic respiratory failure with hypoxia and home O2 dependent Solu-Medrol now transitioned to po prednisone nebulizer treatment, Symbicort ( she takes Qvar as outpatient), added Daliresp, Per mobile application engineer start Tudorza when she is closing in her discharge(or spiriva) , consider trilogy at discharge per pulmonary recommendations chronic diastolic heart failure, her dyspnea seems pulmonary acute on chronic renal failure stage III, resolved oral thrush: improved with nystatin mouthwash Urinary incontinence--> urge incontinence- tolteridine 2 mg BID ordered improved will follow up as outpt Hospice care eval for home support Continued [facility] stay due to: multiple IV medications needed Discharge planning: home
--- NOTE | 2016-08-31 15:48 | Palliative Care Consultation ---
Consultation Date of Consultation: Aug 31, 2016. Requesting Physician: Dr. Angel Attending Physician: Dr. Angel Reason for Consultation: Goals of care History of Present Illness This 76 year old female patient presented to the hospital as a direct admission from Jada Cervantse, office for COPD exacerbation. Other PMH listed below. Patient was last in the hospital in April with COPD, influenza and pneumonia. She went to [facility] for rehab after that admission, then home with home health and eventually was discharged and was home independently. Here, CXR showed increased bibasilar airspace opacities representing atelectasis vs. infectious/inflammatory pneumonitis. She was started on IV solu-medrol and nebulizers. She is being followed by pulmonology, is now switched to oral prednisone, and is continuing her home meds. Pulm suggests starting patient on Tudorza or Spiriva prior to discharge as well. Patient was talking about nursing homes that had end-of-life care and is beginning to think about her advance care planning. Palliative care consulted to assist in establishing goals of care talk about options for end of life care when the time comes. I met with patient in room 420. She is awake, alert and oriented x4. Pleasant and talkative, mildly short of breath at rest but she states this is her baseline. She denies any pain or discomfort. Regarding her COPD, patient stated , "I know my lungs are going to get any better. I just want to maintain the function I have." It's important to the patient to remain independent for as long as she can and to spend time with her family. At this time, she lives alone in a 2-story condo. She has some concerns about that, which is why she was wanting to go to SNF. She performed too well with physical therapy to qualify for a SNF for rehab. We discussed home health options and an eventual transition to hospice. I reiterated that I was not telling her she was hospice- appropriate at this time, I just wanted to explain the service so she knows options. She verbalized understanding. At this time, she [facility] (as she's had in the past). We discussed ways to make living easier at home, such as moving potty chair to 1st floor she she doesn't have to go up and down stairs. Patient does have a living will/advance directive and would want to be made comfortable when she is end-stage. I did not specifically talk about code status with her. Tomorrow I will go over a POLST form and offer completing it with her. Past Medical/Surgical History Medical History: CHF COPD DM type 2 HLD Htn Social History Smoking Status: Former Smoker (quit in 2002, almost 1 ppd for most of adult life) History of Alcohol Use: Yes Drug Use: none Marital Status: single, Housing Status: lives alone Occupation Status: retired Review of Systems Constitutional: No weakness Respiratory: + cough, + shortness of breath, + dyspnea on exertion Cardiac: + edema, No chest pain Abdomen: No pain, No nausea, No vomiting Female : No problem reported Psychiatric: No depression symptoms, No anxiety Allergies Coded Allergies: Atropine (Verified Allergy, Severe, RASH, 04/15/16) Dobutamine (Verified Allergy, Severe, RASH, 04/15/16) Medications Current Inpatient Medications Medications (Trade) Dose Ordered Sig/Polly Route Start Time Stop Time Status Last Admin Dose Admin Acetaminophen (Tylenol Tab) 650 mg Q4H PRN PO 08/24/16 13:45 09/23/16 13:44 08/24/16 23:53 650 MG Polyethylene (Miralax Powder Packet) 17 gm DAILY PRN PO 08/24/16 14:00 09/23/16 13:59 Ondansetron HCl (Zofran Inj) 4 mg Q6H PRN IV 08/24/16 13:45 09/23/16 13:44 Cyanocobalamin (Vitamin B-12 Tab) 1,000 mcg DAILY PO 08/25/16 08:00 09/24/16 07:59 08/31/16 09:07 1,000 MCG Fluoxetine HCl (Prozac Cap) 20 mg QAM PO 08/25/16 08:00 09/24/16 07:59 08/31/16 09:06 20 MG Furosemide (Lasix Tab) 20 mg DAILY PO 08/25/16 08:00 09/24/16 07:59 Future hold 08/31/16 09:05 20 MG Lisinopril (Zestril Tab) 10 mg DAILY PO 08/25/16 08:00 09/24/16 07:59 Future hold 08/31/16 09:05 10 MG Metoprolol Succinate (Toprol Xl Tab) 100 mg DAILY PO 08/25/16 08:00 09/24/16 07:59 08/31/16 09:05 100 MG Pravastatin Sodium (Pravachol Tab) 10 mg DAILY PO 08/25/16 08:00 09/24/16 07:59 08/31/16 09:06 10 MG Ropinirole HCl (Requip Tab) 2 mg TID PO 08/24/16 14:00 09/23/16 13:59 08/31/16 13:30 2 MG Spironolactone (Aldactone Tab) 12.5 mg QAM PO 08/25/16 08:00 09/24/16 07:59 Future hold 08/31/16 09:06 12.5 MG Tramadol HCl (Ultram Tab) 50 mg Q6 PRN PO 08/24/16 13:45 09/23/16 13:44 Ferrous Sulfate (Feosol Tab) 325 mg DAILY PO 08/25/16 08:00 09/24/16 07:59 08/31/16 09:07 325 MG Glucose (Glucose 40% Gel) 15-30 GRAMS 15 GRAMS... UD PRN PO 08/24/16 13:45 09/23/16 13:44 Glucose (Glucose Chew Tab) 4-8 Tablets 4 Tabl... UD PRN PO 08/24/16 13:45 09/23/16 13:44 Dextrose (Dextrose 50% 50ML Syringe) 25-50ML OF 50% DW IV FOR... UD PRN IV 08/24/16 13:45 09/23/16 13:44 Glucagon (Glucagon Inj) 1 mg UD PRN SQ 08/24/16 13:45 09/23/16 13:44 Guaifenesin (Organidin Nr Tab) 200 mg Q4H PRN PO 08/24/16 15:30 09/23/16 15:29 Ipratropium [place] (Atrovent 0.02% 0.5MG/2.5ML Neb) 0.5 mg Q6R INH 08/24/16 21:00 09/23/16 20:59 08/31/16 14:23 0.5 MG Levalbuterol (Xopenex 1.25MG/ 0.5ML Neb) 1.25 mg Q6R INH 08/24/16 21:00 09/23/16 20:59 08/31/16 14:23 1.25 MG Hydralazine HCl (Apresoline Tab) 10 mg TID PO 08/26/16 08:00 09/25/16 07:59 08/31/16 13:30 10 MG Heparin Sodium (Porcine) (Heparin Sq 5000 Unit/0.5ml) 5,000 unit Q12 SQ 08/26/16 09:00 09/25/16 08:59 08/31/16 09:17 5,000 UNIT Hydralazine HCl (HydrALAZINE INJ) 20 mg Q6H PRN IV. 08/26/16 14:30 09/25/16 14:29 Tolterodine Tartrate (Detrol Tab) 2 mg BID PO 08/27/16 20:00 09/26/16 19:59 08/31/16 09:07 2 MG Budesonide/ Formoterol Fumarate (Symbicort 160/ 4.5 Inh) 2 puffs BID INH 08/27/16 20:00 09/26/16 19:59 08/31/16 09:04 2 PUFFS Roflumilast (Daliresp Tab) 500 mcg DAILY PO 08/28/16 08:00 09/27/16 07:59 08/31/16 09:06 500 MCG Insulin Aspart (novoLOG ASPART) SLIDING SCALE If C... ACHS SC 08/29/16 21:00 09/28/16 20:59 08/31/16 12:39 7 UNITS Nystatin (Mycostatin Powder) 1 appln PRN PRN EXT 08/29/16 16:30 09/28/16 16:29 08/31/16 12:42 1 APPLN Prednisone (PredniSONE TAB) 50 mg Taper DAILY PO 08/31/16 08:00 09/10/16 07:59 08/31/16 09:08 50 MG Physical Exam Date Time Temp Pulse Resp B/P (MAP) Pulse Ox O2 Delivery O2 Flow Rate FiO2 08/31/16 14:23 72 16 94 Nasal Cannula 3.0 08/31/16 13:28 71 153/81 (105) 08/31/16 11:54 66 155/77 (103) 08/31/16 07:56 36.7 83 20 163/82 (109) 98 Nasal Cannula 4.0 08/31/16 07:41 Nasal Cannula 3.0 08/31/16 06:55 75 16 94 Nasal Cannula 3.0 08/31/16 01:09 66 16 96 Nasal Cannula 3.0 08/31/16 00:00 Nasal Cannula 3.0 08/30/16 23:57 36.8 66 20 138/76 (96) 99 Room Air 08/30/16 19:41 73 146/83 (104) 08/30/16 19:08 75 16 97 Nasal Cannula 3.0 08/30/16 16:57 Room Air 08/30/16 14:43 36.7 69 22 151/81 (104) 93 Nasal Cannula 4.0 General Appearance: no apparent distress, + obese, + pertinent finding ( chronically ill appearing) ENT: hearing grossly normal Neck: supple, thyroid normal Respiratory: no respiratory distress, no accessory muscle use, + decreased breath sounds (bilateral bases) Cardiovascular: regular rate, rhythm, + normal peripheral pulses, + pertinent finding (+2 pitting edema to bilatral ankles) Abdomen: normal bowel sounds, non tender, soft Neurologic/Psychiatric: alert, normal mood/affect, oriented x 3 Laboratory Results Last 24 Hours Test 08/30/16 17:16 08/30/16 20:18 08/31/16 07:41 08/31/16 08:00 Bedside Glucose 162 mg/dl 243 mg/dl 46 mg/dl 73 mg/dl Test 08/31/16 11:31 Bedside Glucose 209 mg/dl Assessment & Plan Palliative Performance Scale: 70 % Problem list: SOB Activity intolerance COPD exacerbation, approaching end-stage disease Thrush CHF Goals of care (Z51.5) Palliative care plan: -Patient will go home with home health. [facility] who also has the [facility] Palliative and Hospice program as well, so an easy transition can be made in the future. -Patient is looking into facilities including assisted living. Her budget is limited which concerns her. shopping centre manager will continue this conversation with hr. -Patient has living will and wants to be comfortable at the end of life. She is currently a full resuscitation, I will discuss this with her tomorrow to be sure this coincides with her goals. I will also offer a POLST form. -To go to pulmonary rehab after discharge. Pulmonary following to be sure she has optimal medical management of COPD. -Patient states she is going to be on daily dose of prednisone. She is concerned about side effects but also feels better from a respiratory standpoint when she is on prednisone. She is hoping this will keep exacerbations at bay. Thank you kindly for this consult. I will follow as needed.
[2016-09-01 00:04] VITALS: BP 139/79; PULSE 65; TEMP 36.6; O2SAT 95
[2016-09-01] MEDS: IPRATROPIUM BROMIDE NEB SOLN 0.02% 2.5 ML VIAL INH SCH ×2 (02:01→07:28)
[2016-09-01] MEDS: LEVALBUTEROL 1.25MG/0.5ML NEB INH SCH ×2 (02:01→07:27)
[2016-09-01 07:28] VITALS: PULSE 56; O2SAT 96
[2016-09-01 07:57] VITALS: BP_SYST 168; BP_SYST 171; BP_DIAS 84; BP_DIAS 92; PULSE 61; TEMP 36.5; O2SAT 100
[2016-09-01] MEDS: TOLTERODINE TARTRATE 2 MG TAB PO SCH (08:22)
[2016-09-01] MEDS: PRAVASTATIN SOD 10 MG TAB PO SCH (08:22)
[2016-09-01] MEDS: BUDESONIDE/FORMOTEROL FUMARATE 160/4.5 60 PUFFS/INHALER INH SCH (08:22)
[2016-09-01] MEDS: ROFLUMILAST 500 MCG TAB PO SCH (08:22)
[2016-09-01] MEDS: ROPINIROLE HCL 1 MG TAB PO SCH ×2 (08:22→13:52)
[2016-09-01] MEDS: FERROUS SULFATE 325 MG TAB PO SCH (08:22)
[2016-09-01] MEDS: CYANOCOBALAMIN 500 MCG TAB (VIT B-12) PO SCH (08:23)
[2016-09-01] MEDS: HydrALAZINE 10 MG TAB PO SCH ×2 (08:23→13:52)
[2016-09-01] MEDS: METOPROLOL SUCC 50MG EXT REL TAB PO SCH (08:23)
[2016-09-01] MEDS: LISINOPRIL 10 MG TAB PO SCH (08:24)
[2016-09-01] MEDS: FLUOXETINE HCL 20 MG CAP PO SCH (08:24)
[2016-09-01] MEDS: FUROSEMIDE 20 MG TAB PO SCH (08:24)
[2016-09-01] MEDS: SPIRONOLACTONE 25 MG TAB PO SCH (08:25)
[2016-09-01] MEDS: INSULIN ASPART 100 UNITS/ML 3 ML PEN SC SCH ×2 (08:37→12:53)
[2016-09-01] MEDS: HEPARIN SOD 5000 UNIT/0.5 ML CARP SQ SCH (08:37)
--- NOTE | 2016-09-01 10:45 | Palliative Care Progress Note ---
Palliative Care Progress Note Date of Service Sep 01, 2016. Subjective Pt evaluation today including: conversation w/ patient -Patient is feeling like herself today, still feels she is at her baseline. Is sitting on side of bed watching videos on her ipad. -I went over and explained POLST form. See plan below. Review of Systems Constitutional: No weakness Respiratory: + cough, + dyspnea on exertion, No dyspnea at rest Cardiac: + edema, No chest pain Abdomen: No pain, No nausea, No vomiting Psychiatric: No depression symptoms, No anxiety Objective Vital Signs Date Time Temp Pulse Resp B/P (MAP) Pulse Ox O2 Delivery O2 Flow Rate FiO2 09/01/16 08:30 Nasal Cannula 3.0 09/01/16 07:57 36.5 61 18 171/92 (118) 100 3.0 168/84 (112) 09/01/16 07:28 56 16 96 Nasal Cannula 3.0 09/01/16 00:04 36.6 65 18 139/79 (99) 95 2.0 09/01/16 00:00 Nasal Cannula 3.0 08/31/16 20:25 63 159/90 (113) 08/31/16 20:00 Nasal Cannula 3.0 08/31/16 15:54 Nasal Cannula 3.0 08/31/16 14:35 36.9 77 18 143/83 (103) 94 Room Air 08/31/16 14:23 72 16 94 Nasal Cannula 3.0 08/31/16 13:28 71 153/81 (105) 08/31/16 11:54 66 155/77 (103) Physical Exam General Appearance: no apparent distress, + obese, + pertinent finding ( chronically ill appearing) ENT: hearing grossly normal Neck: supple, no JVD Respiratory/Chest: no respiratory distress, no accessory muscle use, + decreased breath sounds, + pertinent finding (NC) Cardiovascular: regular rate, rhythm, + normal peripheral pulses, + pertinent finding (+2 pitting edema to bilateral lower extremities) Abdomen: normal bowel sounds, non tender, soft Neurologic/Psychiatric: alert, normal mood/affect, oriented x 3 Laboratory Results Last 24 Hours Test 08/31/16 11:31 08/31/16 16:33 08/31/16 20:17 09/01/16 04:03 Bedside Glucose 209 mg/dl 211 mg/dl 209 mg/dl 181 mg/dl Test 09/01/16 07:46 Bedside Glucose 135 mg/dl Assessment and Plan Problem list: SOB Activity intolerance COPD exacerbation, approaching end-stage disease Thrush CHF Goals of care (Z51.5) Palliative care plan: -POLST form discussed and completed with patient as follows: DNR, full treatment with additional order "no long-term ventilation, trial of elective intubation if indicated," abx if life can be prolonged, and trial of artificial hydration/nutrition. -Surrogate/POA is patient's daughter, Saji Pennington. -Plan is for home with home health, eventually will likely transition to hospice care. Patient has a living will which states when she is truly end- stage she would like to comfortable. -Patient's goal for now is to maintain her independence and to manage her SOB/ COPD. She feels well at this time. Thank you for allowing me to care for this nice patient. Please contact me with any further palliative care needs. Palliative Performance Scale: 70 % Discharge planning: home with home health
[2016-09-01] MEDS ORDERED: DTR2 PO (10:49)
[2016-09-01] MEDS ORDERED: SYMIN INH (10:49)
[2016-09-01] MEDS ORDERED: DLR500 PO (10:49)
[2016-09-01] MEDS ORDERED: IPRASOL4 INH (10:49)
[2016-09-01] MEDS ORDERED: PRD10 PO (10:49)
--- NOTE | 2016-09-01 10:50 | Discharge Instructions ---
Discharge Instructions Date of Service Sep 01, 2016. Admission Reason for Admission: [place] Exacerbation Discharge Discharge Diagnosis / Problem: copd exacerbaton Discharge Goals Goal(s): Diagnostic testing, Therapeutic intervention Activity Recommendations Activity Limitations: resume your previous activity . Current Hospital Diet Patient's current hospital diet: AHA Diet (Heart Healthy), Diabetes Type 2 Diet Discharge Diet Recommended Diet: Regular Diet Pending Studies Studies pending at discharge: no Laboratory Results Hemoglobin A1c Test 08/25/16 06:20 Range/Units Estimated Average Glucose 143 mg/dl Hemoglobin A1c 6.6 H 4.5-5.6 % Medical Emergencies . Who to Call and When: Medical Emergencies: If at any time you feel your situation is an emergency, please call 911 immediately. . Non-Emergent Contact Non-Emergency issues call your: Primary Care Provider, Inspector Air [employer]rier . . "Provider Documentation" section prepared by Anders Angel. . VTE Core Measure Inpt VTE Proph given/why not?: Enoxaparin (Lovenox)ALEX, TGilbertoEAlex Henry, SCD's
[2016-09-01 11:14] VITALS: O2SAT 85
[2016-09-01 11:33] VITALS: BP 168/84; PULSE 61; TEMP 36.5; O2SAT 100
--- NOTE | 2016-09-01 12:34 | Discharge Summary ---
Discharge Summary Date of Service Sep 01, 2016. Discharge Summary Admission Date: August 24, 2016 at 12:42 Discharge Date: Sep 01, 2016 Discharge Disposition: Home with services Principal Diagnosis: copd exacerbation Immunizations: Have You Had Influenza Vaccine: Yes Influenza Vaccine Date: Jan 16, 2013 History of Tetanus Vaccine?: Yes Tetanus Immunization Date: Jan 07, 2013 History of Pneumococcal: Yes Pneumococcal Date: Feb 16, 2010 History of Hepatitis B Vaccine: No Medication Reconciliation New Medications: Budesonide/Formoterol Fumarate (Symbicort 160-4.5 Mcg/Act) 60 Puffs/Inhaler Aero 2 PUFFS INH BID, #1 INHALER 2 Refills Prednisone (Prednisone) 10 Mg Tab 10 MG PO UD, #42 TAB 4 pills a day x 4 days then 3 pills a day x 4 days then 2 pills a day x 4 days then one pill a day and as directed Roflumilast (Daliresp) 500 Mcg Tab 500 MCG PO DAILY, #30 TAB 5 Refills Tolterodine Tartrate (Detrol) 2 Mg Tab 2 MG PO BID, #60 TAB 6 Refills Continued Medications: Amoxicillin (Amoxil) 500 Mg Cap 500 MG PO UD PRN for DENTAL WORK Cyanocobalamin (Vitamin B12 500MCG) 500 Mcg Tab 1000 MCG PO DAILY Ferrous Sulfate (Iron Supplement) 325 Mg Tab 325 MG PO DAILY Fluoxetine Hcl (Prozac) 20 Mg Cap 20 MG PO QAM Furosemide (Lasix) 20 Mg Tab 20 MG PO DAILY, TAB Glipizide (Glipizide) 5 Mg Tab 5 MG PO BID Ipratropium-Albuterol (Duoneb) 3 Ml Nebu 1 TREATMENT INH Q6HWA for 30 Days, #150 UNITS (This prescription has been renewed) Use 1 neb treatment every 6 hours while awake. May use every 2 hours as needed for shortness of breath & wheezing. Lisinopril (Prinivil) 10 Mg Tab 10 MG PO DAILY Metoprolol Succ (Toprol Xl) (Toprol-Xl ) 100 Mg Tabcr 100 MG PO DAILY Nystatin (Nystatin) 5 Ml Susp 5 ML PO QID for 11 Days, #220 ML Take 5 ml (1 teaspoon) by mouth four times a day. Pravastatin Sodium (Pravastatin Sodium) 10 Mg Tab 10 MG PO DAILY Ropinirole (Requip) 2 Mg Tab 2 MG PO TID Spironolactone (Aldactone) 25 Mg Tab 12.5 MG PO QAM Tramadol HCl (Tramadol HCl) 50 Mg Tab 50 MG PO Q6 PRN for Pain Discontinued Medications: Prednisone (Prednisone) 10 Mg Tab 10 MG PO UD for 48 Days, #156 TABS Take 6 tabs (60 mg) daily for 4 days. Then decrease dose by 5 mg daily for 4 days. Decrease dose by 5 mg every 4 days. Discharge Exam Review of Systems: Constitutional: No fever, No chills, No sweats Respiratory: + shortness of breath, + dyspnea on exertion, No cough, No sputum Abdomen: No pain, No nausea Genitourinary - Female: No dysuria, No urinary frequency Hospital Course 76 y/o female with admitted on Aug 24 2016 because of COPD exacerbation, COPD exacerbation: very hypoxic with exertion, however did well walking at PT 08/31, will arrange outpt pulm rehab Chronic respiratory failure with hypoxia and home O2 dependent po prednisone with taper nebulizer treatment, Symbicort \ [place]resp, wants to speak to cindi otero about TUDORZA before starting to see if samples are available, will be on ipratropium via neb for anticholinergic Discussed trilogy at discharge pt does not feel she would be comfortable using chronic diastolic heart failure, her dyspnea seems pulmonary acute on chronic renal failure stage III, resolved oral thrush:resolved with nystatin mouthwash Urinary incontinence--> urge incontinence- tolteridine 2 mg BID ordered improved will follow up as outpt Hospice care eval for home support, will have home health Total Time Spent: Greater than 30 minutes This includes examination of the patient, discharge planning, medication reconciliation, and communication with other providers. Discharge Instructions Please refer to the electronic Patient Visit Report (Discharge Instructions) for additional information.
[2016-12-04] MEDS ORDERED: AZIT-57 PO (12:58)
[2017-01-26] MEDS ORDERED: LSX40 PO (14:23)
[2017-01-26] MEDS ORDERED: LISI10TA PO (14:23)
[2017-01-26] MEDS ORDERED: POTA20TA16 PO (14:23)
[2017-02-07] MEDS ORDERED: CLR10 PO (09:07)
[2017-02-07] MEDS ORDERED: SPR25 PO (09:08)
[2017-02-07] MEDS ORDERED: PRED10TA PO (09:08)
[2017-02-07] MEDS ORDERED: CRD200 PO (13:06)
== END 2016-09-01 14:19 | disposition home health service (06) | DRG 191 ==
LOC: C.4E 12:42
PROVIDERS: ADMIT Family Medicine; ATTEND Internal Medicine
DX: J44.1 Chronic obstructive pulmonary disease with (acute) exacerbation (principal); J96.11 Chronic respiratory failure with hypoxia; N17.9 Acute kidney failure, unspecified; B37.0 Candidal stomatitis; I13.0 Hypertensive heart and chronic kidney disease with heart failure and stage 1 through stage 4 chronic kidney disease, or unspecified chronic kidney disease; I50.32 Chronic diastolic (congestive) heart failure; N18.3 Chronic kidney disease, stage 3 (moderate); E11.22 Type 2 diabetes mellitus with diabetic chronic kidney disease; D50.8 Other iron deficiency anemias; G25.81 Restless legs syndrome; F32.9 Major depressive disorder, single episode, unspecified; E78.5 Hyperlipidemia, unspecified; Z79.899 Other long term (current) drug therapy; Z79.84 Long term (current) use of oral hypoglycemic drugs; Z79.891 Long term (current) use of opiate analgesic; Z99.81 Dependence on supplemental oxygen; Z79.52 Long term (current) use of systemic steroids; Z87.891 Personal history of nicotine dependence

== ENCOUNTER → 2016-09-21 | Outpatient (CLI) | payer BC ==
[~2016-09-21] MED LIST changes: +AMIO200T4 PO; +AZIT-57 PO; +CLR10 PO; +CRD200 PO; +DLR500 PO; +DTR2 PO; +ELQ25 PO; +FERR1TAB13 PO; +FURO40TA3 PO; +LISI-729 PO; +LSN5 PO; +LSX40 PO; +MELATAB2 PO; +METO50TA7 PO; +MYR25 PO; +NVLGIPEN SC; +NVLNI SC; +POTA20TA16 PO; +PRD5 PO; +PRED-301 PO; +PRED10TA PO; +PRED20TA PO; +QVRINH80 INH; +SPR25 PO; +SYMIN INH; +TRAZ50TA35 PO
--- NOTE | 2016-09-22 07:05 | PULMONARY FUNCTION TEST ---
Interpretation is based off ATS criteria. SPIROMETRY: Severe obstructive ventilatory disease with an FEV1 of 38% predicted. BRONCHODILATOR RESPONSE: Borderline bronchodilator response noted. LUNG VOLUMES: Signs of hyperinflation with residual volume of 150%. DIFFUSION CAPACITY: Severely reduced diffusion capacity at 38% predicted, but corrected to 55% based off alveolar volume. INTERPRETATION: Severe obstructive ventilatory disease.
== END | disposition home or self-care (01) ==
LOC: C.RC 10:40
PROVIDERS: ATTEND Family Medicine
DX: J44.9 Chronic obstructive pulmonary disease, unspecified (principal)

== ENCOUNTER → 2016-09-25 | Outpatient (CLI) | payer BC | END | disposition home or self-care (01) | LOC: C.LABSPEC 11:16 | PROVIDERS: ATTEND Nurse Practitioner Adult Health | DX: N39.41 Urge incontinence (principal) ==

== ENCOUNTER 2016-11-29 10:25 | Inpatient (IN) | payer BC, OTHER ==
[~2016-11-29] VITALS: Ht 160 cm; Wt 98.5 kg
[~2016-11-29 10:25] MED LIST changes: -AMIO200T4 PO; -AZIT-57 PO; -CLR10 PO; -CRD200 PO; -ELQ25 PO; -FERR1TAB13 PO; -FURO40TA3 PO; -LISI-729 PO; -LSN5 PO; -LSX40 PO; -MELATAB2 PO; -METO100T44 PO; +METO1TAB69 PO; -METO50TA7 PO; -MYR25 PO; -NVLGIPEN SC; -NVLNI SC; -POTA20TA16 PO; -PRD5 PO; -PRED-301 PO; -PRED10TA PO; -PRED20TA PO; -QVRINH80 INH; -SPR25 PO; -TRAZ50TA35 PO
[2016-11-29] MEDS ORDERED: MAGNESIUM SULFATE 1GM / D5W 1 GM BAG IV STA (11:03)
[2016-11-29] MEDS ORDERED: METHYLPREDNISOLONE 125 MG VIAL IV STA (11:03)
--- NOTE | 2016-11-29 11:11 | EMERGENCY ROOM VISIT NOTE ---
History Report prepared by Rosi: Stacey Berumen Under the Supervision of: Dr. Sridhar Briggs M.D. First contact with patient: 11:00 Chief Complaint: RESPIRATORY DISTRESS Stated Complaint: SHORTNESS OF BREATH Nursing Triage Summary: Patient arrived via EMS. Pt c/o SOB for months, worse recently. Hx Chf and COPD. Wears 3L NC Oxygen at home at all times. Today after going upstairs to bathroom and back downstairs her sats were in the 60's. EMS reports patient was 94% on 3L on their arrival, they administered Albuterol. On arrival to ED, patient asked to go to bathroom. 400cc clear yellow urine. After pt ambulated back to liter on 3L NC patient pulse ox dropped to 59%. 15L applied, sats to 94%. Pt maintains 92 to 94% on 4L. Pt reports she takes Duonebs at home 3 to 4 times a day. She is prescribed Lasix 40mg twice a day but only takes Lasix 20mg daily. Pt states cough, tight, loosens after neb treatements. History of Present Illness The patient is a 76 year old female who presents to the Emergency Room with complaints of persistent, worsened shortness of breath that began prior to arrival. The patient states that she typically wears 3L of supplemental nasal cannula oxygen. Nursing staff reports that the patient was found to have an oxygen saturation of 59% on 3L with exertion. The patient reports a history of COPD and CHF. She notes that she takes Lasix daily, but denies being on any anticoagulants. The patient states that her symptoms are worsened with exertion. She reports recent weight loss. The patient reports a chronic cough , noting that she brings up clear sputum. The patient reports recent fatigue. She states that if she has to say a long sentence she has to stop part way through to catch her breath and states that her voice is weaker. The patient denies any congestion, fever, chills, nausea, vomiting, diarrhea, constipation, or urinary symptoms. She denies being on any current prednisone. Source of History: patient Onset: prior to arrival Position: other (global) Quality: other (shortness of breath) Timing: worsening, other (persistent) Modifying Factors (Worsening): exertion Associated Symptoms: + cough, + fatigue, + weakness (voice), No fevers, No chills, No nausea, No vomiting, No diarrhea, No urinary symptoms Note: Associated Symptoms: weight loss Review of Systems See HPI for pertinent positives and negatives. A total of ten systems were reviewed and were otherwise negative. Past Medical & Surgical Medical Problems: (1) CHF (congestive heart failure) (2) CHF exacerbation (3) Diab Susu Wo Compl, Type Ii Or Unspec Type, Uncontrolled (4) Hyperlipidemia Nec/Nos (5) Hypertension Nos (6) Hypoxemia (7) Influenza A (8) Oral candidiasis (9) Pneumonia (10) Respiratory failure, sodpv-gr-[id number] Family History Cancer Diabetes mellitus FH: heart disease Social History Smoking Status: Former Smoker Alcohol Use: none Drug Use: none Marital Status: single, Housing Status: [facility] Occupation Status: retired Current/Historical Medications Scheduled Beclomethasone Dip (Qvar), 80 MCG INH BID Budesonide/Formoterol Fumarate (Symbicort 160-4.5 Mcg/Act), 2 PUFFS INH BID Cyanocobalamin (Vitamin B12 500MCG), 1,000 MCG PO DAILY Ferrous Sulfate (Kp Ferrous Sulfate), 1 TAB PO DAILY Fluoxetine Hcl (Prozac), 20 MG PO QAM Furosemide (Lasix), 20 MG PO DAILY Glipizide (Glipizide), 5 MG PO BID Ipratropium-Albuterol (Duoneb), 1 TREATMENT INH Q6HWA Lisinopril (Prinivil), 5 MG PO DAILY Metoprolol Succ (Toprol Xl) (Toprol-Xl ), 100 MG PO QPM Mirabegron (Myrbetriq Er), 25 MG PO DAILY Nystatin (Nystatin), 5 ML PO QID Pravastatin Sodium (Pravastatin Sodium), 10 MG PO QPM Ropinirole (Requip), 2 MG PO TID Spironolactone (Aldactone), 12.5 MG PO QAM Scheduled PRN Amoxicillin (Amoxil), 500 MG PO UD PRN for DENTAL WORK Tramadol HCl (Tramadol HCl), 50 MG PO Q6 PRN for Pain Allergies Coded Allergies: Atropine (Verified Allergy, Severe, RASH, 04/15/16) Dobutamine (Verified Allergy, Severe, RASH, 04/15/16) Physical Exam Vital Signs Date Time Temp Pulse Resp B/P (MAP) Pulse Ox O2 Delivery O2 Flow Rate FiO2 11/29/16 14:00 93 22 134/63 93 Nasal Cannula 5.0 11/29/16 13:29 99 11/29/16 12:52 95 Nasal Cannula 5.0 11/29/16 12:08 84 26 166/81 100 Nebulizer 8.0 11/29/16 11:21 87 12 94 Mask 11/29/16 10:54 94 Oxymask 6.0 11/29/16 10:36 70 11/29/16 10:30 37.1 89 20 179/85 95 Oxymask 15.0 11/29/16 10:30 91 Nasal Cannula 3.0 11/29/16 10:30 59 Nasal Cannula 3.0 Physical Exam GENERAL: Awake, alert, chronically ill appearing, uncomfortable-appearing, in no distress HENT: Normocephalic, atraumatic. Dry mucous membranes. EYES: Normal conjunctiva. Sclera non-icteric. NECK: Supple. No nuchal rigidity. FROM. Mild JVD. RESPIRATORY: Scattered wheezes throughout, diminished breath sounds at both bases. CARDIAC: ST, normal rhythm. Extremities warm and well perfused. Pulses equal. ABDOMEN: Obese. Soft, non-distended. No tenderness to palpation. No rebound or guarding. No masses. RECTAL: Deferred. MUSCULOSKELETAL: Chest examination reveals no tenderness. The back is symmetrical on inspection without obvious abnormality. There is no CVA tenderness to palpation. No joint edema. LOWER EXTREMITIES: 1+ bilateral lower extremity edema. Calves are equal size bilaterally and non-tender. No discoloration. NEURO: Normal sensorium. No sensory or motor deficits noted. SKIN: No rash or jaundice noted. Medical Decision & Procedures ER Provider Diagnostic Interpretation: X-ray: Per my interpretation, radiologist review. CHEST ONE VIEW PORTABLE HISTORY: Atypical CHEST PAIN COMPARISON: Chest 08/24/2016. FINDINGS: No pneumothorax. The heart remains mildly enlarged. Mildly tortuous thoracic aorta. Trace bilateral pleural effusions and patchy bibasilar densities are again noted. There is mild central pulmonary vascular congestion without overt edema. IMPRESSION: 1. No change in the trace bilateral pleural effusions and nonspecific patchy bibasilar densities. This could represent atelectasis or pneumonia. 2. Stable mild cardiomegaly. 3. Mild central pulmonary vascular congestion without overt edema. Electronically signed by: Vivek Sal M.D. 11/29/2016 11:28 AM Dictated Date/Time: 11/29/2016 11:26 AM Laboratory Results Test 11/29/16 12:13 Venous Blood pH 7.35 (7.36-7.41) Venous Blood Partial Pressure CO2 86 mmHg (38.0-50.0) Venous Blood Partial Pressure O2 36 mmHg Venous Blood HCO3 46 mmol/L Venous Blood Oxygen Saturation 60.8 % Venous Blood Base Excess 17.6 mEq/L Pro-B-Type Natriuretic Peptide 2528 pg/ml (0-900) Laboratory results reviewed by me Medications Administered Medications (Trade) Dose Ordered Sig/Polly Route Start Time Stop Time Status Last Admin Dose Admin Albuterol/ Ipratropium (Duoneb) 12 ml ONE ONCE INH 11/29/16 11:15 11/29/16 11:16 DC 11/29/16 11:21 12 ML Methylprednisolone Sodium Succinate (Solu-Medrol IV) 125 mg NOW STAT IV 11/29/16 11:03 11/29/16 11:10 DC 11/29/16 11:40 125 MG Magnesium Sulfate (Magnesium Sulfate) 2 gm NOW STAT IV 11/29/16 11:03 11/29/16 11:10 DC 11/29/16 11:40 2 GM Azithromycin 500 mg/Dextrose 255 ml @ 125 mls/hr ONE ONCE IV 11/29/16 11:15 11/29/16 13:17 DC 11/29/16 12:07 125 MLS/HR Furosemide (Lasix Inj) 40 mg NOW STAT IV 11/29/16 13:09 11/29/16 13:10 DC 11/29/16 13:59 40 MG ECG Indication: SOB/dyspnea Rate (beats per minute): 105 Rhythm: sinus tachycardia Findings: PAC, no acute ischemic change, other (normal intervals) ED Course 1102: The patient was evaluated in room B8. A complete history and physical exam was performed. 1103: Ordered Magnesium Sulfate 2 gm IV, Solu-Medrol IV 125 mg IV. 1115: Ordered Azithromycin 500 mg/Dextrose 255 ml @ 125 mls/hr IV, DuoNeb 12 ml INH. 1309: I reevaluated the patient and she is resting. I discussed the exam findings with her and I discussed the treatment plan. She verbalized complete understanding and agreement. She is going to be evaluated for further treatment. Ordered Lasix Inj 40 mg IV. 1349: I discussed the patients case with JORJE Roberson. He is going to evaluate the patient for further treatment. Medical Decision Differential diagnosis: Etiologies such as infections, reactive airway disease, pneumonia, pneumothorax , COPD, CHF, cardiac ischemia, pulmonary embolism, musculoskeletal, gastrointestinal, as well as others were entertained. The patient is an 76-year-old woman with a past medical history of CHF, COPD on 3 L home O2 presents to the emergency department with worsening shortness of breath in setting of several days of cough congestion and sputum production history of present illness. Of note, patient is supposed to be taking 40 mg of Lasix daily but has been only taking 20 because she has to walk upstairs to use the bathroom this is difficult. On arrival the patient appears short of breath but in no acute distress. Has diffuse wheezes throughout with diminished breath sounds at the bases. Mild JVD as well. EKG unchanged from prior. Troponin negative. Chest x-ray shows cardiomegaly with mild venous congestion with a BNP 2900 which is up from most recent. Patient was given 40 mg of Lasix IV. Considering the patient's COPD history and exam was treated with continuous nebs and feels improvement. Additionally given Solu-Medrol, magnesium, azithromycin. However considering the patient's work of breathing on arrival and desaturation with ambulation patient will be admitted for further management. Medication Reconcilliation Current Medication List: was personally reviewed by me Blood Pressure Screening Patient's blood pressure: Elevated blood pressure Blood pressure disposition: Elevated BP felt to be situational, Did not require urgent referral Consults Time Called: 1223 Consulting Physician: JORJE Roberson Returned Call: [phone] I discussed the patients case with JORJE Roberson. He is going to evaluate the patient for further treatment. Impression Primary Impression: COPD exacerbation Additional Impression: CHF exacerbation Scribe Attestation The scribe's documentation has been prepared under my direction and personally reviewed by me in its entirety. I confirm that the note above accurately reflects all work, treatment, procedures, and medical decision making performed by me. Departure Information Referrals Luc Daly D.O. (PCP) Patient Instructions Asthma - [facility], COPD - [facility], Croup - [facility], My [facility] Problem Qualifiers
[2016-11-29] MEDS ORDERED: ALBUT/IPRATROP 3MG/0.5MG NEB 3 ML VIAL INH ONE (11:15)
[2016-11-29 11:21] VITALS: PULSE 87; O2SAT 94
--- NOTE | 2016-11-29 11:29 | DIAGNOSTIC IMAGING REPORT ---
CHEST ONE VIEW PORTABLE HISTORY: Atypical CHEST PAIN COMPARISON: Chest 08/24/2016. FINDINGS: No pneumothorax. The heart remains mildly enlarged. Mildly tortuous thoracic aorta. Trace bilateral pleural effusions and patchy bibasilar densities are again noted. There is mild central pulmonary vascular congestion without overt edema. IMPRESSION: 1. No change in the trace bilateral pleural effusions and nonspecific patchy bibasilar densities. This could represent atelectasis or pneumonia. 2. Stable mild cardiomegaly. 3. Mild central pulmonary vascular congestion without overt edema. Electronically signed by: Vivek Sal M.D. 11/29/2016 11:28 AM Dictated Date/Time: 11/29/2016 11:26 AM
[2016-11-29] MEDS: AZITHROMYCIN IV 500 MG in DEXTROSE 5% 250ML 250 ML IV ONE ×2 (11:40→12:07)
[2016-11-29 12:35] LABS: VEN BLD GAS O2 SATURATION 60.8 %; VEN BLOOD GAS BASE EXCESS 17.6 mEq/L
[2016-11-29 12:40] LABS: BASO % 0.1 %; BASO ABS # 0.01 K/uL (0-0.2); COMPLETE YES; EOS % 0.8 %; HEMATOCRIT 32.1 % (37-47); IG% 0.4 %; LYMPH % 11.6 %; MEAN CELL VOLUME 103.5 fL (80-100); MEAN CORPUSCULAR HEMOGLOBIN 31.6 pg (25-34); MEAN CORPUSCULAR HGB CONC 30.5 g/dl (32-36); MEAN PLATELET VOLUME 10.7 fL (7.4-10.4); MONO % 6.6 %; NEUT % 80.5 %; PLATELET COUNT 137 K/uL (130-400); WHITE BLOOD COUNT 7.75 K/uL (4.8-10.8)
[2016-11-29 12:49] LABS: BLOOD UREA NITROGEN 22 mg/dl (7-18); BUN/CREATININE RATIO 18.2 (10-20); CALCIUM 9.3 mg/dl (8.5-10.1); CHLORIDE 92 mmol/L (98-107); GLUCOSE 201 mg/dl (70-99); POTASSIUM 3.3 mmol/L (3.5-5.1); SODIUM 142 mmol/L (136-145)
[2016-11-29] MEDS ORDERED: FERR1TAB13 PO (12:51)
[2016-11-29] MEDS ORDERED: LISI-729 PO (12:54)
[2016-11-29] MEDS ORDERED: MYR25 PO (12:56)
[2016-11-29] MEDS ORDERED: QVRINH80 INH (12:58)
[2016-11-29] MEDS ORDERED: SPR25 PO (13:00)
[2016-11-29] MEDS ORDERED: FUROSEMIDE 40 MG/4 ML VIAL IV STA (13:09)
[2016-11-29 13:29] LABS: CARBON DIOXIDE 47 mmol/L (21-32)
[2016-11-29] MEDS ORDERED: MAGNESIUM HYDROXIDE SUSP 30 ML UDC PO PRN (14:00)
[2016-11-29] MEDS ORDERED: ALUMINUM/MAGNESIUM/SIMETH (MAALOX MAX) 30 ML UDC PO PRN (14:00)
[2016-11-29] MEDS ORDERED: ONDANSETRON INJ 2 MG/ML 2 ML VIAL IV PRN (14:00)
[2016-11-29] MEDS ORDERED: POLYETHYLENE (MIRALAX) 17 GM PACK PO PRN (14:00)
[2016-11-29] MEDS ORDERED: TRAMADOL HCL 50 MG TAB PO PRN (14:00)
[2016-11-29] MEDS ORDERED: ACETAMINOPHEN 325 MG TAB PO PRN (14:00)
--- NOTE | 2016-11-29 14:18 | History and Physical ---
History & Physical Date & Time of Service: Nov 29, 2016 at 14:14 Chief Complaint: Shortness Of Breath Primary Care Physician: Luc Daly D.O. History of Present Illness Source: patient, hospital records Ms. Callahan is a 76 y/o female with PMHx of Chronic Respiratory Failure 2/2 COPD on Chronic 3L, Diastolic CHF, T2DM, HTN, and HLD who presents to the ED c/ o worsening SOB x 2 weeks. She reports noticing more labored breathing over the past 2 weeks even at rest. She has been using her DuoNeb 3-4 times a day which loosens the sputum in her chest but largely hasn't helped her overall symptoms. She does have a chronic cough of clear to white sputum. The only change in characteristic is increased frequency of this cough. At home, patient is on 3 L NC continuously. Today she reports going upstairs and back down when her saturations dropped into the 60s. When EMS arrived, upon ambulation patient noted to have oxygen saturations at 59%. Her symptoms are exacerbated with exertion however she has noticed some shortness of breath at rest that is not her baseline. Prior to arrival, she states that she needed to take breaks even with talking. She denies weight gain and expresses that she has noticed a recent weight loss. Associated generalized fatigue over the past several months. She states that she has been predominantly housebound due to decreased energy and generalized weakness. In the ED, vitals have remained stable. She has required increased oxygen needs from baseline. CXR with trace bilateral pleural effusions and patchy bibasilar densities which are unchanged from July 2016, and mild pulmonary vascular congestion without overt edema. CO2 47. BNP 2528. Echocardiogram from June 2015 with EF 65-70% and evidence of LVH. She received Lasix 40 mg IV 1 dose, Solu-Medrol 125 mg IV 1 dose, and azithromycin 500 mg IV 1 dose. Patient will be admitted to telemetry for COPD exacerbation and possible diastolic CHF exacerbation. Past Medical/Surgical History Medical Problems: (1) CHF (congestive heart failure) Status: Chronic (2) CHF exacerbation Status: Resolved (3) COPD (chronic obstructive pulmonary disease) Status: Chronic (4) Diab Susu Wo Compl, Type Ii Or Unspec Type, Uncontrolled Status: Chronic (5) Hyperlipidemia Nec/Nos Status: Chronic (6) Hypertension Nos Status: Chronic (7) Respiratory failure, [id number] Status: Chronic Family History Cancer Diabetes mellitus FH: heart disease Social History Smoking Status: Former Smoker Smokeless Tobacco Use: No Alcohol Use: none Drug Use: none Marital Status: single, Housing status: lives alone Occupational Status: retired Immunizations History of Influenza Vaccine: Yes Influenza Vaccine Date: Jan 16, 2013 History of Tetanus Vaccine?: Yes Tetanus Immunization Date: Jan 07, 2013 History of Pneumococcal: Yes Pneumococcal Date: Feb 16, 2010 History of Hepatitis B Vaccine: No Multi-Drug Resistant Organisms History of MDRO: No Allergies Coded Allergies: Atropine (Verified Allergy, Severe, RASH, 04/15/16) Dobutamine (Verified Allergy, Severe, RASH, 04/15/16) Home Medications Scheduled Beclomethasone Dip (Qvar), 80 MCG INH BID Budesonide/Formoterol Fumarate (Symbicort 160-4.5 Mcg/Act), 2 PUFFS INH BID Cyanocobalamin (Vitamin B12 500MCG), 1,000 MCG PO DAILY Ferrous Sulfate (Kp Ferrous Sulfate), 1 TAB PO DAILY Fluoxetine Hcl (Prozac), 20 MG PO QAM Furosemide (Lasix), 20 MG PO DAILY Glipizide (Glipizide), 5 MG PO BID Ipratropium-Albuterol (Duoneb), 1 TREATMENT INH Q6HWA Lisinopril (Prinivil), 5 MG PO DAILY Metoprolol Succ (Toprol Xl) (Toprol-Xl ), 100 MG PO QPM Mirabegron (Myrbetriq Er), 25 MG PO DAILY Nystatin (Nystatin), 5 ML PO QID Pravastatin Sodium (Pravastatin Sodium), 10 MG PO QPM Ropinirole (Requip), 2 MG PO TID Spironolactone (Aldactone), 12.5 MG PO QAM Scheduled PRN Amoxicillin (Amoxil), 500 MG PO UD PRN for DENTAL WORK Tramadol HCl (Tramadol HCl), 50 MG PO Q6 PRN for Pain Review of Systems Constitutional: + weight loss, + fatigue, No fever, No chills ENT: No nasal symptoms, No sore throat, No trouble swallowing Respiratory: + cough (chronic), + sputum (chronic - white), + wheezing, + dyspnea on exertion, + dyspnea at rest Cardiovascular: No chest pain, No palpitations Abdomen: No pain, No nausea, No vomiting, No diarrhea, No constipation Musculoskeletal: + swelling (mild increase from baseline bilat lower extremities), No calf pain Genitourinary - Female: No dysuria Hematologic / Lymphatic: No abnormal bleeding/bruising, No clotting problems Integumentary: No rash Physical Exam Vital Signs Date Time Temp Pulse Resp B/P (MAP) Pulse Ox O2 Delivery O2 Flow Rate FiO2 11/29/16 14:00 93 22 134/63 93 Nasal Cannula 5.0 11/29/16 13:29 99 11/29/16 12:52 95 Nasal Cannula 5.0 11/29/16 12:08 84 26 166/81 100 Nebulizer 8.0 11/29/16 11:21 87 12 94 Mask 11/29/16 10:54 94 Oxymask 6.0 11/29/16 10:36 70 11/29/16 10:30 37.1 89 20 179/85 95 Oxymask 15.0 11/29/16 10:30 91 Nasal Cannula 3.0 11/29/16 10:30 59 Nasal Cannula 3.0 General Appearance: WD/WN, no apparent distress, + obese Head: normocephalic, atraumatic Eyes: sclerae normal ENT: hearing grossly normal, pharynx normal Neck: supple, no JVD, trachea midline Respiratory/Chest: lungs clear (limited exam due to body habitus), normal breath sounds, no respiratory distress, no accessory muscle use Cardiovascular: regular rate, rhythm, no gallop, no murmur Abdomen/GI: normal bowel sounds, non tender, soft Extremities/Musculoskelatal: no calf tenderness, + swelling (trace to 1+ pitting edema of bilat lower extremities; mildly erthematous without open wounds or weeping) Neurologic/Psych: alert, oriented x 3 Skin: normal color, warm/dry Diagnostics Laboratory Results Results Past 24 Hours Test 11/29/16 12:13 Range/Units White Blood Count 7.75 4.8-10.8 K/uL Red Blood Count 3.10 4.2-5.4 M/uL Hemoglobin 9.8 12.0-16.0 g/dL Hematocrit 32.1 37-47 % Mean Corpuscular Volume 103.5 80-100 fL Mean Corpuscular Hemoglobin 31.6 25-34 pg Mean Corpuscular Hemoglobin Concent 30.5 32-36 g/dl Platelet Count 137 130-400 K/uL Mean Platelet Volume 10.7 7.4-10.4 fL Neutrophils (%) (Auto) 80.5 % Lymphocytes (%) (Auto) 11.6 % Monocytes (%) (Auto) 6.6 % Eosinophils (%) (Auto) 0.8 % Basophils (%) (Auto) 0.1 % Neutrophils # (Auto) 6.24 1.4-6.5 K/uL Lymphocytes # (Auto) 0.90 1.2-3.4 K/uL Monocytes # (Auto) 0.51 0.11-0.59 K/uL Eosinophils # (Auto) 0.06 0-0.5 K/uL Basophils # (Auto) 0.01 0-0.2 K/uL RDW Standard Deviation 55.6 36.4-46.3 fL RDW Coefficient of Variation 14.6 11.5-14.5 % Immature Granulocyte % (Auto) 0.4 % Immature Granulocyte # (Auto) 0.03 0.00-0.02 K/uL Sodium Level 142 136-145 mmol/L Potassium Level 3.3 3.5-5.1 mmol/L Chloride Level 92 98-107 mmol/L Carbon Dioxide Level 47 21-32 mmol/L Anion Gap 3.0 3-11 mmol/L Blood Urea Nitrogen 22 7-18 mg/dl Creatinine 1.20 0.60-1.20 mg/dl Est Creatinine Clear Calc Drug Dose 46.2 ml/min Estimated GFR () 51.6 Estimated GFR (Non- 44.5 BUN/Creatinine Ratio 18.2 10-20 Random Glucose 201 70-99 mg/dl Calcium Level 9.3 8.5-10.1 mg/dl Troponin I < 0.015 0-0.045 ng/ml Pro-B-Type Natriuretic Peptide 2528 0-900 pg/ml Microbiology Results 11/29/16 Blood Culture, Received Pending 11/29/16 Blood Culture, Received Pending Diagnostic Radiology CHEST ONE VIEW PORTABLE FINDINGS: No pneumothorax. The heart remains mildly enlarged. Mildly tortuous thoracic aorta. Trace bilateral pleural effusions and patchy bibasilar densities are again noted. There is mild central pulmonary vascular congestion without overt edema. IMPRESSION: 1. No change in the trace bilateral pleural effusions and nonspecific patchy bibasilar densities. This could represent atelectasis or pneumonia. 2. Stable mild cardiomegaly. 3. Mild central pulmonary vascular congestion without overt edema. EKG Sinus rhythm with Premature atrial complexes Minimal voltage criteria for LVH, may be normal variant Borderline ECG When compared with ECG of 17-APR-2016 06:43, Premature atrial complexes are now Present Vent. rate has increased BY 36 BPM T wave amplitude has decreased in Anterior leads Confirmed by FREDDY MORAN ([id number]) on 11/29/2016 12:33:33 PM Impression Assessment and Plan Ms. Callahan is a 76 y/o female with PMHx of Chronic Respiratory Failure 2/2 COPD on Chronic 3L, Diastolic CHF, T2DM, HTN, and HLD who presents to the ED c/ o worsening SOB x 2 weeks. Acute on Chronic Respiratory Failure 2/2 COPD Exacerbation: Baseline 3L O2 NC - Methyprednisolone 60 mg IV Q8H - Ceftriaxone 1 g IV daily and Zithromax 250 mg IV x 4 days - Duonebs LORETTA and PRN - Symbicort 2 puffs BID Acute on Chronic Diastolic CHF?: - Exam is difficult due to body habitus - does not appear to be in drastic CHF failure as COPD seems to be the main cause of symptoms - Repeat echocardiogram for further evaluation - Lasix 40 mg IV x 1 dose in ED - will await output and can give intermittent Lasix as exam dictates -- Home dose is Lasix 20 mg daily and Spironolactone 25 mg daily - both which are currently held while receiving IV dosing - Follows with Иван Argueta PA-C - patient mentions they have considered chronic daily steroids but currently is not on any daily T2DM: A1c 6.6 - Hold Glipizide - SSI - goal range 140-180; correction 25; ratio 8 HTN: - Lisinopril 5 mg daily and Metoprolol Succ 100 mg daily HLD: - Pravastatin 10 mg daily a DVT Prophylaxis: Heparin 5000 units SC Q8H Code Status: DO NOT RESUSCITATE Disposition: - Lives at home alone in a 2-story condo - PT/OT evaluations -- Discussed interest in possible need for acute rehab as she expresses decreased functioning and being housebound throughout the summer due to generalized weakness Attending Addendum: I have physically seen and examined this patient, have directed the physician assistants medical activities, and agree with the H&P as noted above with the following exceptions as noted. The patient presents to the emergency department with worsening breathing over the past 2 weeks initially with exertion but now also at rest. She's been using DuoNeb's 4 times a day without significant improvement in symptoms she wears 3 L nasal cannula oxygen continuously., When EMS arrived, she desatted to 59% with ambulation. The patient denies palpitations, vision change, hearing change, sore throat, fevers, chills, sweats, nausea, vomiting, diarrhea or constipation, abdominal pain, pelvic pain, blood in urine or stool, dysuria, urinary frequency or urgency, headache, memory loss, rash, abnormal bruising or bleeding, imbalance , focal weakness, numbness or tingling in arms or legs, generalized arthralgias or myalgias, back or neck pain, night sweats, or allergy symptoms. The review of systems is otherwise negative other than for that already noted above, and at least 10 systems have been reviewed. The patient is awake, well-developed and adequately nourished, alert and oriented 3, normocephalic and atraumatic, lying in bed and in no acute distress. HEENT--PERRL, EOMI, mucous membranes and oropharynx dry. Neck--supple, no JVD or bruits, thyroid normal, trachea midline, no adenopathy. Heart--normal S1 and S2, no extra beats, no murmurs, rubs or gallops. Lungs--coarse breath sounds with scattered wheezes bilaterally, no respiratory distress, no accessory muscle use. Abdomen--normal bowel sounds and soft, nontender and nondistended, no hernias or masses, no organomegaly. Extremities--no cyanosis, clubbing. Bilateral pretibial 1+ pitting Edema. There are good distal pulses b/l. Dermatologic--normal skin turgor, normal color, warm and dry, no abnormal lymph nodes, no rash. Neurologic--cranial nerves II through XII grossly intact, motor and sensory examination normal. Rheumatologic--normal range of motion, nontender, muscles and joints. Psychiatric--normal affect. Assessment and Plan: 1. Acute on chronic respiratory failure with hypoxia and hypercapnia/COPD exacerbation/acute on chronic diastolic CHF-- The patient will be admitted to telemetry for serial cardiac enzymes, cardiac rhythm monitoring and a 2-D echocardiogram with Dopplers. Solu-Medrol 60 mg IV every 8 hours. Ceftriaxone 1 g IV daily and Zithromax 500 mg IV daily. Do nebs every 4 hours while awake and every 2 hours when necessary. Baseline nasal cannula 3 L O2, increase to keep pulse ox greater than or equal to 92%. Received Lasix 40 mg IV 1 in the ED. Resume Lasix 20 mg by mouth daily as prolactin 25 mg by mouth daily tomorrow. Continue lisinopril 5 mg by mouth daily and metoprolol succinate 100 mg by mouth daily. 2. Diabetes mellitus--hold glipizide. Place on Accu-Cheks before meals and at bedtime with NovoLog coverage per scale. 3. Hyperlipidemia--continue pravastatin 10 mg by mouth daily. 4. Deconditioning--consult physical therapy/occupational therapy. Would benefit from inpatient rehabilitation. Level of Care Telemetry Advanced Directives Existing Advance Directive: Yes Existing Living Will: No Existing Power of System Dispatcher: No Resuscitation Status DO NOT RESUSCITATE VTE Prophylaxis VTE Risk Assessment Done? Y/N: Yes Risk Level: Moderate Given or contraindicated: Unfractionated heparin SQ, T.E.D. Stockings, SCD's
[2016-11-29] MEDS ORDERED: GLUCOSE 40% GEL 15 GM TUBE PO PRN (14:30)
[2016-11-29] MEDS ORDERED: GLUCOSE 10 TABS/TUBE PO PRN (14:30)
[2016-11-29] MEDS ORDERED: DEXTROSE 50% 50 ML SYR IV PRN (14:30)
[2016-11-29] MEDS ORDERED: GLUCAGON FOR INJ 1 MG VIAL SQ PRN (14:30)
[2016-11-29] MEDS ORDERED: POTASSIUM CHLORIDE 10 MEQ TABCR PO STA (14:38)
[2016-11-29] MEDS: ALBUT/IPRATROP 3MG/0.5MG NEB 3 ML VIAL INH SCH ×2 (15:56→19:41)
[2016-11-29 16:09] VITALS: BP 134/71; PULSE 118; TEMP 37.1; O2SAT 93; BMI 37.9
[2016-11-29] MEDS ORDERED: ALBUT/IPRATROP 3MG/0.5MG NEB 3 ML VIAL INH PRN (17:15)
[2016-11-29] MEDS: CEFTRIAXONE SOD INJ 1 GM in DEXTROSE 5% ADD-VANTAGE 50ML 50 ML IV SCH (17:34)
[2016-11-29] MEDS: NYSTATIN SUSP 500,000 U/5 ML UDC PO SCH ×2 (17:34→20:49)
[2016-11-29] MEDS: INSULIN ASPART 100 UNITS/ML 3 ML PEN SC SCH ×2 (17:39→21:04)
[2016-11-29] MEDS ORDERED: NURSING VERBAL MED ORDER ONE ×2 (18:15→19:45)
[2016-11-29] MEDS ORDERED: INSULIN ASPART 100 UNITS/ML 3 ML PEN SC ONE (18:15)
[2016-11-29] MEDS ORDERED: INSULIN GLARGINE SOLOSTAR 100 UNITS/ML 3 ML PEN SC ONE (18:30)
[2016-11-29] MEDS: ROPINIROLE HCL 1 MG TAB PO SCH ×2 (18:30→20:49)
[2016-11-29 18:51] VITALS: BP 160/79; PULSE 91; TEMP 36.5; O2SAT 90
[2016-11-29 19:41] VITALS: PULSE 86; O2SAT 95
[2016-11-29] MEDS ORDERED: METHYLPREDNISOLONE IV 60 MG in SYRINGE 0 ML IV SCH (20:00)
[2016-11-29] MEDS ORDERED: POTASSIUM CHLORIDE 20 MEQ TABCR PO ONE (20:00)
[2016-11-29 20:03] VITALS: O2SAT 91
[2016-11-29 20:37] LABS: MAGNESIUM 2.1 mg/dl (1.8-2.4)
[2016-11-29] MEDS: PRAVASTATIN SOD 10 MG TAB PO SCH (20:49)
[2016-11-29] MEDS: BUDESONIDE/FORMOTEROL FUMARATE 160/4.5 60 PUFFS/INHALER INH SCH (20:49)
[2016-11-29] MEDS: METHYLPREDNISOLONE IV 30 MG in SYRINGE 0 ML IV SCH (20:49)
[2016-11-29] MEDS: METOPROLOL SUCC 50MG EXT REL TAB PO SCH (20:49)
[2016-11-29] MEDS: HEPARIN SOD 5000 UNIT/0.5 ML CARP SQ SCH (21:05)
[2016-11-30] VITALS (12 sets, daily range): BP systolic 134–145; BP diastolic 68–82; PULSE 58–88; TEMP 36.4–37; O2SAT 90–97; Ht 160 cm; Wt 98.5 kg
[2016-11-30] MEDS: METHYLPREDNISOLONE IV 30 MG in SYRINGE 0 ML IV SCH ×3 (05:52→21:36)
[2016-11-30] MEDS: HEPARIN SOD 5000 UNIT/0.5 ML CARP SQ SCH ×3 (05:54→21:37)
[2016-11-30] MEDS: ALBUT/IPRATROP 3MG/0.5MG NEB 3 ML VIAL INH SCH ×4 (07:19→19:23)
[2016-11-30] MEDS: CYANOCOBALAMIN 500 MCG TAB (VIT B-12) PO SCH (07:57)
[2016-11-30] MEDS: BUDESONIDE/FORMOTEROL FUMARATE 160/4.5 60 PUFFS/INHALER INH SCH ×2 (07:57→20:11)
[2016-11-30] MEDS: SPIRONOLACTONE 25 MG TAB PO SCH (08:12)
[2016-11-30] MEDS: FERROUS SULFATE 325 MG TAB PO SCH (08:13)
[2016-11-30] MEDS: NYSTATIN SUSP 500,000 U/5 ML UDC PO SCH ×4 (08:13→20:11)
[2016-11-30] MEDS: MIRABEGRON ER 25 MG TAB PO SCH (08:13)
[2016-11-30] MEDS: FUROSEMIDE 20 MG TAB PO SCH (08:13)
[2016-11-30] MEDS: FLUOXETINE HCL 20 MG CAP PO SCH (08:14)
[2016-11-30] MEDS: LISINOPRIL 5 MG TAB PO SCH (08:14)
[2016-11-30] MEDS: ROPINIROLE HCL 1 MG TAB PO SCH ×3 (08:14→20:12)
[2016-11-30] MEDS: INSULIN ASPART 100 UNITS/ML 3 ML PEN SC SCH ×4 (08:18→20:14)
[2016-11-30] MEDS: INSULIN GLARGINE SOLOSTAR 100 UNITS/ML 3 ML PEN SC SCH (08:19)
--- NOTE | 2016-11-30 08:44 | Medical Student: [facility] ---
Med Student Progress Note Date of Service Nov 30, 2016. Subjective Pt evaluation today including: conversation w/ patient, physical exam, chart review, lab review, review of studies Pain: None PO Intake: Diabetic diet Voiding: no voiding problems Ms. Callahan is a 76 y/o female with PMH of Chronic Respiratory Failure 2/2 COPD on constant 3L Oxygen via NC at home, Diastolic CHF, DM type II, HTN, and HLD who presents to the ED c/o worsening SOB x 2 weeks. She was admitted to telemetry on 11/29/16 for COPD exacerbation and possible diastolic CHF exacerbation. Hospital Day 1: Today she reports that she feels tired and weak all over. She explains that she has not had a car for the past 2 months and as a result, has been sedentary at home for two months. Now, when she tries to walk to the car or even talk too much, she becomes short of breath. At home, one flight of stairs will bring her oxygen saturation to high 50s while using 3L O2 via NC. She denies chest pain. She reports productive cough of white-yellow sputum. She reports bilateral lower extremity edema. Oxygen at 5L NC without shortness of breath with 93% saturation. Review of Systems Constitutional: + weakness, + fatigue, No fever, No chills Eyes: No eye pain, No redness ENT: No nasal symptoms, No sore throat Respiratory: + cough, + sputum (yellow-white), + wheezing, + shortness of breath, + dyspnea on exertion, + dyspnea at rest Cardiac: + edema, No chest pain, No orthopnea, No palpitations Abdomen: No pain, No nausea, No vomiting, No diarrhea, No constipation Musculoskeletal: No muscle pain, No calf pain Female : No dysuria, No urinary frequency Neurologic: + numbness/tingling (bilateral lower extremities ) Psychiatric: No depression symptoms, No anxiety Heme: No abnormal bleeding/bruising, No clotting problems Endo: + fatigue Skin: No rash, No itch Objective Vital Signs Date Time Temp Pulse Resp B/P (MAP) Pulse Ox O2 Delivery O2 Flow Rate FiO2 11/30/16 07:36 36.9 74 18 134/77 (96) 90 5.0 11/30/16 07:23 88 16 96 Nasal Cannula 5.0 11/30/16 04:53 36.4 80 16 135/75 (95) 93 11/30/16 04:00 Nasal Cannula 5.0 11/30/16 00:24 36.9 58 16 139/68 (91) 95 5.0 11/29/16 20:03 91 Nasal Cannula 5.0 11/29/16 19:41 86 16 95 Nasal Cannula 5.0 11/29/16 18:51 36.5 91 26 160/79 (106) 90 Room Air 11/29/16 16:09 37.1 118 22 134/71 93 Nasal Cannula 5.0 11/29/16 14:00 93 22 134/63 93 Nasal Cannula 5.0 11/29/16 13:29 99 11/29/16 12:52 95 Nasal Cannula 5.0 11/29/16 12:08 84 26 166/81 100 Nebulizer 8.0 11/29/16 11:21 87 12 94 Mask 11/29/16 10:54 94 Oxymask 6.0 11/29/16 10:36 70 11/29/16 10:30 37.1 89 20 179/85 95 Oxymask 15.0 11/29/16 10:30 91 Nasal Cannula 3.0 11/29/16 10:30 59 Nasal Cannula 3.0 Physical Exam General Appearance: WD/WN, no apparent distress, + obese, + pertinent finding ( horizontal head tremor) ENT: normal ENT inspection, hearing grossly normal, TMs normal Neck: supple, no adenopathy, thyroid normal, trachea midline Respiratory/Chest: chest non-tender, no accessory muscle use, + decreased breath sounds, + wheezing (expiratory wheezes right middle and lower lobe) Cardiovascular: regular rate, rhythm, no edema, no gallop, no murmur Abdomen: normal bowel sounds, non tender, soft, no organomegaly Extremities: non-tender, normal inspection, no calf tenderness, + pedal edema ( 2+ pitting edema bilaterally to level of mid-calf ) Neurologic/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6 % Monocytes (%) (Auto) 6.6 % Eosinophils (%) (Auto) 0.8 % Basophils (%) (Auto) 0.1 % Neutrophils # (Auto) 6.24 K/uL Lymphocytes # (Auto) 0.90 K/uL Monocytes # (Auto) 0.51 K/uL Eosinophils # (Auto) 0.06 K/uL Basophils # (Auto) 0.01 K/uL RDW Standard Deviation 55.6 fL RDW Coefficient of Variation 14.6 % Immature Granulocyte % (Auto) 0.4 % Immature Granulocyte # (Auto) 0.03 K/uL Venous Blood pH 7.35 Venous Blood Partial Pressure CO2 86 mmHg Venous Blood Partial Pressure O2 36 mmHg Venous Blood HCO3 46 mmol/L Venous Blood Oxygen Saturation 60.8 % Venous Blood Base Excess 17.6 mEq/L Sodium Level 142 mmol/L Potassium Level 3.3 mmol/L Chloride Level 92 mmol/L Carbon Dioxide Level 47 mmol/L Anion Gap 3.0 mmol/L Blood Urea Nitrogen 22 mg/dl Creatinine 1.20 mg/dl Est Creatinine Clear Calc Drug Dose 46.2 ml/min Estimated GFR () 51.6 Estimated GFR (Non- 44.5 BUN/Creatinine Ratio 18.2 Random Glucose 201 mg/dl Calcium Level 9.3 mg/dl Troponin I < 0.015 ng/ml < 0.015 ng/ml Pro-B-Type Natriuretic Peptide 2528 pg/ml Bedside Glucose 464 mg/dl 236 mg/dl Magnesium Level 2.1 mg/dl Medications Current Inpatient Medications Medications (Trade) Dose Ordered Sig/Loretta Route Start Time Stop Time Status Last Admin Dose Admin Heparin Sodium (Porcine) (Heparin Sq 5000 Unit/0.5ml) 5,000 unit Q8 SQ 11/29/16 22:00 12/29/16 21:59 11/30/16 05:54 5,000 UNIT Acetaminophen (Tylenol Tab) 650 mg Q4H PRN PO 11/29/16 14:00 12/29/16 13:59 Al Hydrox/Mg Hydrox/Simethicone (Maalox Max Susp) 15 ml Q4H PRN PO 11/29/16 14:00 12/29/16 13:59 Magnesium Hydroxide (Milk Of Magnesia Susp) 30 ml Q12H PRN PO 11/29/16 14:00 12/29/16 13:59 Ondansetron HCl (Zofran Inj) 4 mg Q6H PRN IV 11/29/16 14:00 12/29/16 13:59 Polyethylene (Miralax Powder Packet) 17 gm DAILY PRN PO 11/29/16 14:00 12/29/16 13:59 Albuterol/ Ipratropium (Duoneb) 3 ml QIDR INH 11/29/16 16:00 12/29/16 15:59 11/30/16 11:19 3 ML Budesonide/ Formoterol Fumarate (Symbicort 160/ 4.5 Inh) 2 puffs BID INH 11/29/16 21:00 12/29/16 20:59 11/30/16 07:57 2 PUFFS Cyanocobalamin (Vitamin B-12 Tab) 1,000 mcg DAILY PO 11/30/16 09:00 12/30/16 08:59 11/30/16 07:57 1,000 MCG Fluoxetine HCl (Prozac Cap) 20 mg QAM PO 11/30/16 09:00 12/30/16 08:59 11/30/16 08:14 20 MG Lisinopril (Zestril Tab) 5 mg DAILY PO 11/30/16 09:00 12/30/16 08:59 11/30/16 08:14 5 MG Metoprolol Succinate (Toprol Xl Tab) 100 mg QPM PO 11/29/16 21:00 12/29/16 20:59 11/29/16 20:49 100 MG Mirabegron (Myrbetriq Er) 25 mg DAILY PO 11/30/16 09:00 12/30/16 08:59 11/30/16 08:13 25 MG Pravastatin Sodium (Pravachol Tab) 10 mg QPM PO 11/29/16 21:00 12/29/16 20:59 11/29/16 20:49 10 MG Ropinirole HCl (Requip Tab) 2 mg TID PO 11/29/16 21:00 12/29/16 20:59 11/30/16 08:14 2 MG Tramadol HCl (Ultram Tab) 50 mg Q6 PRN PO 11/29/16 14:00 12/29/16 13:59 Ferrous Sulfate (Feosol Tab) 325 mg DAILY PO 11/30/16 09:00 12/30/16 08:59 11/30/16 08:13 325 MG Ceftriaxone Sodium 1 gm/ Dextrose 50 ml @ 100 mls/hr Q24H IV 11/29/16 18:00 12/06/16 17:59 11/29/16 17:34 100 MLS/HR Azithromycin 250 mg/Dextrose 252.5 ml @ 125 mls/hr Q24H IV 11/30/16 12:00 12/06/16 11:59 11/30/16 12:29 125 MLS/HR Nystatin (Mycostatin Susp) 5 ml QID PO 11/29/16 17:00 12/09/16 16:59 11/30/16 12:29 5 ML Insulin Aspart (novoLOG ASPART) SLIDING SCALE If C... ACHS SC 11/29/16 16:00 12/29/16 15:59 11/30/16 12:31 6 UNITS Glucose (Glucose 40% Gel) 15-30 GRAMS 15 GRAMS... UD PRN PO 11/29/16 14:30 12/29/16 14:29 Glucose (Glucose Chew Tab) 4-8 Tablets 4 Tabl... UD PRN PO 11/29/16 14:30 12/29/16 14:29 Dextrose (Dextrose 50% 50ML Syringe) 25-50ML OF 50% DW IV FOR... UD PRN IV 11/29/16 14:30 12/29/16 14:29 Glucagon (Glucagon Inj) 1 mg UD PRN SQ 11/29/16 14:30 12/29/16 14:29 Albuterol/ Ipratropium (Duoneb) 3 ml Q2H PRN INH 11/29/16 17:15 12/29/16 17:14 Furosemide (Lasix Tab) 20 mg DAILY PO 11/30/16 09:00 12/30/16 08:59 11/30/16 08:13 20 MG Spironolactone (Aldactone Tab) 12.5 mg QAM PO 11/30/16 09:00 12/30/16 08:59 11/30/16 08:12 12.5 MG Insulin Glargine (Lantus Solostar Pen) 16 units DAILY SC 11/30/16 09:00 12/30/16 08:59 11/30/16 08:19 16 UNITS Methylprednisolone Sodium Succinate 30 mg/Syringe 0.48 ml @ 1.5 mls/min Q8H IV 11/29/16 22:00 12/29/16 21:59 11/30/16 05:52 1.5 MLS/MIN Diagnostic Radiology ECHO 11/29/16 * -- Conclusions -- * The left ventricle is borderline dilated. * There is mild concentric left ventricular hypertrophy. * Left ventricular systolic function is normal. * Grade I diastolic dysfunction, (abnormal relaxation pattern). * Borderline left atrial enlargement. * There is mild mitral regurgitation. * Right ventricular systolic pressure is elevated at 50-60mmHg. * Compared to an echocardiogram performed in June 2015, there is minimal change CHEST ONE VIEW PORTABLE FINDINGS: No pneumothorax. The heart remains mildly enlarged. Mildly tortuous thoracic aorta. Trace bilateral pleural effusions and patchy bibasilar densities are again noted. There is mild central pulmonary vascular congestion without overt edema. IMPRESSION: 1. No change in the trace bilateral pleural effusions and nonspecific patchy bibasilar densities. This could represent atelectasis or pneumonia. 2. Stable mild cardiomegaly. 3. Mild central pulmonary vascular congestion without overt edema. EKG Sinus rhythm with Premature atrial complexes Minimal voltage criteria for LVH, may be normal variant Borderline ECG When compared with ECG of 17-APR-2016 06:43, Premature atrial complexes are now Present Vent. rate has increased BY 36 BPM T wave amplitude has decreased in Anterior leads Confirmed by FREDDY MORAN ([id number]) on 11/29/2016 12:33:33 PM Assessment and Plan Assessment and Plan: ASSESSMENT: Ms. Callahan is a 76 y/o female with PMH of Chronic Respiratory Failure 2/2 COPD on constant 3L Oxygen via NC at home, Diastolic CHF, DM type II, HTN, and HLD who presents to the ED c/o worsening SOB x 2 weeks. Etiology of her progressive dyspnea on exertion is likely multifactorial, with acute exacerbations of both chronic COPD and CHF contributing. PLAN: Acute on Chronic Respiratory Failure 2/2 COPD Exacerbation, baseline 3L O2 NC Bronchodilators: Albuterol/Ipratropium (Duonebs) LORETTA Q4h and PRN Q2h and Budesonide/ Formoterol Fumarate (Symbicort) 2 puffs BID Corticosteroids: Methyprednisolone 60 mg IV Q8H Antibiotics: Ceftriaxone 1 g IV daily and Azythromycin (Zithromax) 250 mg IV x 4 days Oxygen: Baseline nasal cannula 3 L O2, increase PRN to keep pulse ox greater than or equal to 92% Prevention: encoruage annual influenza vaccine, pneumovax. Quit smoking in 2002. Follows with Иван Argueta PA-C - patient mentions they have considered chronic daily steroids but currently is not on any daily Continue Acetaminophen (Tylenol Tab) 650 mg Q4H PRN for pain control Acute on Chronic Diastolic CHF Monitor serial cardiac enzymes adn cardiac rhythm monitoring Repeat 2-D echocardiogram with Dopplers Furosemide (Lasix Tab) 20 mg po DAILY Spironolactone (Aldactone Tab) 12.5 mg po QAM Diabetes Mellitus type II Most recent Hb A1c 6.6 Hold Glipizide SSI - goal range 140-180; correction 25; ratio [address] Accu-Cheks before meals and at bedtime with NovoLog coverage per scale. Lisinopril 5 mg daily Metoprolol Succ 100 mg daily HLD Pravastatin 10 mg daily a Deconditioning Consult physical therapy/occupational therapy Would benefit from inpatient rehabilitation. GI Al Hydrox/Mg Hydrox/Simethicone (Maalox Max Susp) 15 ml po Q4H PRN PO Magnesium Hydroxide(Milk Of Magnesia Susp) 30 ml po Q12H PRN PO Ondansetron HCl (Zofran Inj) 4 mg IV Q6H PRN IV Polyethylene(Miralax PowderPacket) 17 gm po DAILY PRN Cyanocobalamin(Vitamin B-12 Tab) 1,000 mcg po DAILY DVT Prophylaxis: Heparin 5000 units SC Q8H Code Status: DO NOT RESUSCITATE Disposition: - Lives at home alone in a 2-story condo - PT/OT evaluations Discussed interest in possible need for acute rehab as she expresses decreased functioning and being housebound throughout the summer due to generalized weakness
[2016-11-30 10:18] LABS: COMPLETE YES; HEMATOCRIT 31.5 % (37-47); IG% 0.3 %; LYMPH ABS # 0.29 K/uL (1.2-3.4); MEAN CELL VOLUME 102.3 fL (80-100); MEAN CORPUSCULAR HEMOGLOBIN 32.1 pg (25-34); MEAN CORPUSCULAR HGB CONC 31.4 g/dl (32-36); MEAN PLATELET VOLUME 10.6 fL (7.4-10.4); MONO % 2.1 %; NEUT % 94.6 %; PLATELET COUNT 163 K/uL (130-400); RED BLOOD COUNT 3.08 M/uL (4.2-5.4); WHITE BLOOD COUNT 9.67 K/uL (4.8-10.8)
[2016-11-30 10:58] LABS: CALCIUM 9.6 mg/dl (8.5-10.1); CREATININE 1.6 mg/dl (0.60-1.20); MAGNESIUM 2.3 mg/dl (1.8-2.4); PHOSPHORUS 2.8 mg/dl (2.5-4.9); POTASSIUM 4.4 mmol/L (3.5-5.1)
[2016-11-30] MEDS: AZITHROMYCIN IV 250 MG in DEXTROSE 5% 250ML 250 ML IV SCH (12:29)
--- NOTE | 2016-11-30 13:16 | ECHOCARDIOGRAM REPORT ---
*NOTICE TO RECEIVING LIBERTARIAN AGENCY This information is strictly Confidential and protected under [place] law. [place] law prohibits you from making any further disclosure of this information unless further disclosure is expressly permitted by the written consent of the person to whom it pertains or is authorized by law. A general authorization for the release of medical or other information is not sufficient for this purpose. Hospital accepts no responsibility if the information is made available to any other person, INCLUDING THE PATIENT. Interpretation Summary * Name: ANIL LLAMAS Study Date: 11/30/2016 09:07 AM BP: 134/63 mmHg * Patient Location: C.2T\S\S242\S\2 HR: 73 * : 1940 (M/d/yyyy) Gender: Female Height: 63 in * Age: 76 yrs Ethnicity: CA Weight: 214 lb * Ordering Physician: Chanel Gaffney * Referring Physician: Self, Referred * Performed By: Rosalia Sales RCS * * Reason For Study: CHF * BSA: 2.0 m2 * -- Conclusions -- * The left ventricle is borderline dilated. * There is mild concentric left ventricular hypertrophy. * Left ventricular systolic function is normal. * Grade I diastolic dysfunction, (abnormal relaxation pattern). * Borderline left atrial enlargement. * There is mild mitral regurgitation. * Right ventricular systolic pressure is elevated at 50-60mmHg. * Compared to an echocardiogram performed in June 2015, there is minimal change Procedure Details * Left Ventricle The left ventricle is borderline dilated. There is mild concentric left ventricular hypertrophy. Left ventricular systolic function is normal. Ejection Fraction = 55-60%. Grade I diastolic dysfunction, (abnormal relaxation pattern). The left ventricular wall motion is normal. * Right Ventricle The right ventricle is normal in size and function. * Atria Borderline left atrial enlargement. Right atrial size is normal. * Mitral Valve The mitral valve is grossly normal. There is mild mitral regurgitation. * Tricuspid Valve The tricuspid valve is not well visualized. There is trace tricuspid regurgitation. Right ventricular systolic pressure is elevated at 50-60mmHg. * Aortic Valve The aortic valve is normal in structure and function. No hemodynamically significant valvular aortic stenosis. There is no significant aortic regurgitation. * Great Vessels The aortic root is normal size. * Pericardium/Pleural Trace pericardial effusion * * MMode 2D Measurements and Calculations * RVDd 3.1 cm * IVSd 1.3 cm * * LVIDd 5.6 cm * LVIDs 4.0 cm * LVPWd 1.3 cm * * IVS/LVPW 0.98 * FS 28.7 % * EDV(Teich) 150.5 ml * ESV(Teich) 68.2 ml * EF(Teich) 54.7 % * * EDV(cubed) 171.0 ml * ESV(cubed) 61.9 ml * EF(cubed) 63.8 % * * LV mass(C)d 301.4 grams * LV mass(C)dI 151.4 grams/m\S\2 * * SV(Teich) 82.4 ml * SI(Teich) 41.4 ml/m\S\2 * SV(cubed) 109.1 ml * SI(cubed) 54.8 ml/m\S\2 * * Ao root diam 3.0 cm * Ao root area 7.0 cm\S\2 * * LVOT diam 2.0 cm * LVOT area 3.2 cm\S\2 * * EDV(MOD-sp4) 68.2 ml * ESV(MOD-sp4) 24.2 ml * EF(MOD-sp4) 64.5 % * * EDV(MOD-sp2) 88.1 ml * ESV(MOD-sp2) 27.8 ml * EF(MOD-sp2) 68.4 % * * SV(MOD-sp4) 44.0 ml * SI(MOD-sp4) 22.1 ml/m\S\2 * * SV(MOD-sp2) 60.3 ml * SI(MOD-sp2) 30.3 ml/m\S\2 * * * Doppler Measurements and Calculations * Ao V2 max 150.7 cm/sec * Ao max PG 9.1 mmHg * Ao max PG (full) 4.2 mmHg * REYMUNDO(V,A) 2.4 cm\S\2 * REYMUNDO(V,D) 2.4 cm\S\2 * * LV V1 max PG 4.8 mmHg * * LV V1 max 110.1 cm/sec * * TR max nima 335.8 cm/sec * *
--- NOTE | 2016-11-30 16:55 | Progress Note ---
Subjective Date of Service: Nov 30, 2016. Problem List Medical Problems: (1) Cellulitis Status: Acute (2) COPD exacerbation Status: Acute (3) COPD exacerbation Status: Acute (4) COPD exacerbation Status: Acute (5) Hypoxia Status: Acute (6) SOB (shortness of breath) Status: Acute Objective Vital Signs Date Time Temp Pulse Resp B/P (MAP) Pulse Ox O2 Delivery O2 Flow Rate FiO2 11/30/16 16:02 36.7 66 19 145/80 (101) 90 Nasal Cannula 2.0 11/30/16 15:40 Nasal Cannula 2.0 11/30/16 15:27 78 16 91 Nasal Cannula 5.0 11/30/16 12:00 93 Nasal Cannula 2.0 11/30/16 11:19 62 16 97 Nasal Cannula 5.0 11/30/16 11:16 37.0 68 18 139/79 (99) 94 5.0 11/30/16 08:00 93 Nasal Cannula 2.0 11/30/16 07:36 36.9 74 18 134/77 (96) 90 5.0 11/30/16 07:23 88 16 96 Nasal Cannula 5.0 11/30/16 04:53 36.4 80 16 135/75 (95) 93 11/30/16 04:00 Nasal Cannula 5.0 11/30/16 00:24 36.9 58 16 139/68 (91) 95 5.0 11/29/16 20:03 91 Nasal Cannula 5.0 11/29/16 19:41 86 16 95 Nasal Cannula 5.0 11/29/16 18:51 36.5 91 26 160/79 (106) 90 Room Air Laboratory Results Last 24 Hours Test 11/29/16 17:32 11/29/16 19:59 11/29/16 21:00 11/30/16 06:45 Bedside Glucose 464 mg/dl 236 mg/dl 265 mg/dl Magnesium Level 2.1 mg/dl Troponin I < 0.015 ng/ml Test 11/30/16 10:04 11/30/16 11:25 11/30/16 15:59 White Blood Count 9.67 K/uL Red Blood Count 3.08 M/uL Hemoglobin 9.9 g/dL Hematocrit 31.5 % Mean Corpuscular Volume 102.3 fL Mean Corpuscular Hemoglobin 32.1 pg Mean Corpuscular Hemoglobin Concent 31.4 g/dl Platelet Count 163 K/uL Mean Platelet Volume 10.6 fL Neutrophils (%) (Auto) 94.6 % Lymphocytes (%) (Auto) 3.0 % Monocytes (%) (Auto) 2.1 % Eosinophils (%) (Auto) 0.0 % Basophils (%) (Auto) 0.0 % Neutrophils # (Auto) 9.15 K/uL Lymphocytes # (Auto) 0.29 K/uL Monocytes # (Auto) 0.20 K/uL Eosinophils # (Auto) 0.00 K/uL Basophils # (Auto) 0.00 K/uL RDW Standard Deviation 53.5 fL RDW Coefficient of Variation 14.3 % Immature Granulocyte % (Auto) 0.3 % Immature Granulocyte # (Auto) 0.03 K/uL Sodium Level 138 mmol/L Potassium Level 4.4 mmol/L Chloride Level 91 mmol/L Carbon Dioxide Level 42 mmol/L Anion Gap 4.0 mmol/L Blood Urea Nitrogen 30 mg/dl Creatinine 1.60 mg/dl Est Creatinine Clear Calc Drug Dose 34.0 ml/min Estimated GFR () 36.4 Estimated GFR (Non- 31.4 BUN/Creatinine Ratio 19.0 Random Glucose 220 mg/dl Calcium Level 9.6 mg/dl Phosphorus Level 2.8 mg/dl Magnesium Level 2.3 mg/dl Bedside Glucose 131 mg/dl 265 mg/dl Assessment and Plan 76-year-old white female admitted on 11/29/2016 because of worsening difficulty breathing, Acute on chronic respiratory failure with hypoxia and hypercapnia/COPD exacerbation/acute on chronic diastolic CHF-- Little better serial cardiac enzymes were negative, cardiac rhythm monitoring were unremarkable 2-D echocardiogram with Dopplers was done Results in below The left ventricle is borderline dilated. * There is mild concentric left ventricular hypertrophy. * Left ventricular systolic function is normal. * Grade I diastolic dysfunction, (abnormal relaxation pattern). * Borderline left atrial enlargement. * There is mild mitral regurgitation. * Right ventricular systolic pressure is elevated at 50-60mmHg. * Compared to an echocardiogram performed in June 2015, there is minimal change Continue Solu-Medrol 60 mg IV every 8 hours. Continue Ceftriaxone 1 g IV daily and Zithromax 500 mg IV daily because of possible COPD exacerbation and bronchitis Do nebs every 4 hours while awake and every 2 hours when necessary. Baseline nasal cannula 3 L O2 with chronic O2 dependent, i Received Lasix 40 mg IV 1 in the ED. Resume Lasix 20 mg by mouth daily Aldactone 25 mg by mouth daily tomorrow. Continue lisinopril 5 mg by mouth daily and metoprolol succinate 100 mg by mouth daily. Diabetes mellitus--hold glipizide., Continue sliding scale Hyperlipidemia--continue pravastatin 10 mg by mouth daily. Possible Deconditioning--consult physical therapy/occupational therapy. Moderate obesity GI and DVT prophylaxis is covered Continued [facility] stay due to: multiple IV medications needed Discharge planning: home
[2016-11-30] MEDS ORDERED: PANTOprazole SOD 40 MG TAB PO ONE (17:15)
--- NOTE | 2016-11-30 17:40 | Pulmonary Consultation ---
History General Date of Service: Nov 30, 2016. Stated Complaint: Chf Exacerbation; Copd Exacerbation HPI The patient is a 76 year old female who presents to [facility] with complaints of Chf Exacerbation; Copd Exacerbation. The patient's primary care provider is Luc Daly D.O.. Ms. Callahan is a 76-year-old female with history of COPD on long-term oxygen therapy, diastolic CHF, hypertension, hyperlipidemia type 2 diabetes who presented to the ER on 11/29/2016 with complaints of worsening shortness of breath. Patient states that she has been homebound for the last 8 weeks. She has been ambulating within her home but noticed that she's had increased dyspnea on exertion and increased to dyspnea at rest. She says she normally is on about 3 L of nasal cannula, but sometimes notices that she drops into the 60s with exertion. She denies any fevers, chills, chest pain, orthopnea or PND. She denies any postnasal drip.She has history of GERD but denies any symptoms at this time. She states that she has a chronic cough of whitish to clear sputum however it has increased in amount. She denies any color change. She states that she sees Иван Lama the pulmonary clinic. PFT done on 09/21 show severe obstructive ventilatory disease with an FEV1 of 30% predicted. Bronchodilator response. Lung volumes showed signs of hyperinflation with a residual volume of 160 %. Diffusion capacity showed severely reduced DLCO at 30 % predicted. She is currently on Qvar and Symbicort as well as DuoNeb inhalers. She states that she's been using 2 nebs every every 4 hours secondary to increased chest tightness however feels that this has not resolved any of her symptoms. She also states that she's had generalized lethargy and fatigue associated with lower extremity weakness and swelling. In the ED, her vitals were laboratory data was significant for a hemoglobin 9.8 , bicarbonate of 47, glucose 464, BNP of 2528, troponin less than 0.015. Chest x-ray she used trace bilateral pleural effusion, stable mild cardiomegaly with mild central pulmonary vascular congestion. She was given Lasix 40 mg IV 1 dose, azithromycin 500 mg IV 1 dose, Solu-Medrol 125 mg IV 1 and admitted to telemetry for further acute on chronic hypoxic respiratory failure. Today, on my evaluation as he states that she's feeling a little bit better. She's requesting rehabilitation upon discharge. She is still short of breath at rest and on exertion. She is currently on 2 L nasal cannula with a saturation of 83%. Historian: patient Onset: yesterday Severity: moderate Complaint Status: improved Review of Systems Constitutional: reports: as stated in HPI Eyes: reports: as stated in HPI Cardiovascular: reports: as stated in HPI Respiratory: reports: as stated in HPI Gastrointestinal: reports: as stated in HPI Genitourinary - Female: reports: as stated in HPI Musculoskeletal: reports: as stated in HPI Integumentary: reports: as stated in HPI Neurologic: reports: as stated in HPI Psychiatric: reports: as stated in HPI Endocrine: as stated in HPI Hematologic / Lymphatic: as stated in HPI Allergic / Immunologic: as stated in HPI Past Medical History Past Medical History: CHF COPD Hypertension Hyperlipidemia Type 2 diabetes Past Medical History: congestive heart failure, COPD, depression, diabetes, GERD, high cholesterol, hypertension, renal disease, other Past Surgical History: Hysterectomy Orthopedic surgery Past Surgical History: cholecystectomy, hysterectomy, orthopedic surgery, spinal surgery, TKR, tonsillectomy Family History Cancer Diabetes mellitus FH: heart disease She is a family history of diabetes, Cancer and heart disease Parent: Cancer Social History She is a former smoker, she quit in 2002. She smoked one pack per day for many years. She denies any alcohol or illicit drug use. She lives alone and is retired. Hx Tobacco Use In Past Year?: No (.) Smoking Status: Former Smoker Alcohol: socially Drug Use: none Marital status: single, Housing status: lives alone Occupational Status: retired Immunizations History of Influenza Vaccine: Yes Influenza Vaccine Date: Jan 16, 2013 History of Tetanus Vaccine?: Yes Tetanus Immunization Date: Jan 07, 2013 History of Pneumococcal: Yes Pneumococcal Date: Feb 16, 2010 History of Hepatitis B Vaccine: No History of MDRO History of MDRO: No Allergies Coded Allergies: Atropine (Verified Allergy, Severe, RASH, 04/15/16) Dobutamine (Verified Allergy, Severe, RASH, 04/15/16) Current Medications Reported Home Medications Medications Dose Route/Sig Max Daily Dose Days Date Category Dose Instructions Qvar (Beclomethasone Dip) 80 Mcg/Act Aer 80 Mcg INH BID 11/29/16 Reported Myrbetriq Er (Mirabegron) 25 Mg Tab 25 Mg PO DAILY 11/29/16 Reported Prinivil (Lisinopril) 5 Mg Tab 5 Mg PO DAILY 11/29/16 Reported Kp Ferrous Sulfate (Ferrous Sulfate) 325 Mg Tab 1 Tab PO DAILY 30 11/29/16 Reported Symbicort 160-4.5 Mcg/Act (Budesonide/Formoterol Fumarate) 60 Puffs/Inhaler Aero 2 Puffs INH BID 09/01/16 Rx Duoneb (Ipratropium-Albuterol) 3 Ml Nebu 1 Treatment INH Q6HWA 30 09/01/16 Rx Use 1 neb treatment every 6 hours while awake. May use every 2 hours as needed for shortness of breath & wheezing. Nystatin 5 Ml Susp 5 Ml PO QID 11 04/21/16 Rx Take 5 ml (1 teaspoon) by mouth four times a day. Aldactone (Spironolactone) 25 Mg Tab 12.5 Mg PO QAM 04/15/16 Reported Amoxil (Amoxicillin) 500 Mg Cap 500 Mg PO UD PRN 04/15/16 Reported Lasix (Furosemide) 20 Mg Tab 20 Mg PO DAILY 04/15/16 Reported Tramadol HCl 50 Mg Tab 50 Mg PO Q6 PRN 04/15/16 Reported Glipizide 5 Mg Tab 5 Mg PO BID 04/15/16 Reported Pravastatin Sodium 10 Mg Tab 10 Mg PO QPM 08/10/13 Reported Vitamin B12 500MCG (Cyanocobalamin) 500 Mcg Tab 1,000 Mcg PO DAILY 08/10/13 Reported Requip (Ropinirole HCl) 2 Mg Tab 2 Mg PO TID 07/10/12 Reported Toprol-Xl (Metoprolol Succinate) 100 Mg Tabcr 100 Mg PO QPM 07/10/12 Reported Prozac (Fluoxetine Hcl) 20 Mg Cap 20 Mg PO QAM 10/13/11 Reported Physical Physical Exam Vital Signs: Date Time Temp Pulse Resp B/P (MAP) Pulse Ox O2 Delivery O2 Flow Rate FiO2 11/30/16 16:02 36.7 66 19 145/80 (101) 90 Nasal Cannula 2.0 11/30/16 15:40 Nasal Cannula 2.0 11/30/16 15:27 78 16 91 Nasal Cannula 5.0 11/30/16 12:00 93 Nasal Cannula 2.0 11/30/16 11:19 62 16 97 Nasal Cannula 5.0 11/30/16 11:16 37.0 68 18 139/79 (99) 94 5.0 11/30/16 08:00 93 Nasal Cannula 2.0 11/30/16 07:36 36.9 74 18 134/77 (96) 90 5.0 11/30/16 07:23 88 16 96 Nasal Cannula 5.0 11/30/16 04:53 36.4 80 16 135/75 (95) 93 11/30/16 04:00 Nasal Cannula 5.0 11/30/16 00:24 36.9 58 16 139/68 (91) 95 5.0 11/29/16 20:03 91 Nasal Cannula 5.0 11/29/16 19:41 86 16 95 Nasal Cannula 5.0 11/29/16 18:51 36.5 91 26 160/79 (106) 90 Room Air General Appearance: WD/WN, NO APPARENT DISTRESS, mild distress Head: NORMOCEPHALIC, ATRAUMATIC Eyes: PERRLA, NO DISCHARGE, EOMI, SCLERAE NORMAL, CONJUNCTIVAE NORMAL ENT: NORMAL MOUTH EXAM, NORMAL THROAT EXAM, dentures Neck: NORMAL RANGE OF MOTION, NO TENDERNESS, TRACHEA MIDLINE, NO STRIDOR, SUPPLE Respiratory: NO RESPIRATORY DISTRESS, rhonchi, wheezing Cardiovasular: REGULAR RATE/RHYTHM, NORMAL S1S2 Abdomen: NON TENDER, NORMAL BOWEL SOUNDS (obese) Back: NORMAL INSPECTION Upper Extremities: other (tremulous) Edema: Bilateral LE (3+) Neuro: ALERT, ORIENTED x 3, NORMAL SPEECH, other (tremulous) Psychiatric: NORMAL AFFECT, NO SUICIDAL IDEATION, CONTRACTS FOR SAFETY Diagnostics Labs Results Past 24 Hours Test 11/29/16 17:32 11/29/16 19:59 11/29/16 21:00 11/30/16 06:45 Range/Units Bedside Glucose 464 236 265 70-90 mg/dl Magnesium Level 2.1 1.8-2.4 mg/dl Troponin I < 0.015 0-0.045 ng/ml Test 11/30/16 10:04 11/30/16 11:25 11/30/16 15:59 Range/Units White Blood Count 9.67 4.8-10.8 K/uL Red Blood Count 3.08 4.2-5.4 M/uL Hemoglobin 9.9 12.0-16.0 g/dL Hematocrit 31.5 37-47 % Mean Corpuscular Volume 102.3 80-100 fL Mean Corpuscular Hemoglobin 32.1 25-34 pg Mean Corpuscular Hemoglobin Concent 31.4 32-36 g/dl Platelet Count 163 130-400 K/uL Mean Platelet Volume 10.6 7.4-10.4 fL Neutrophils (%) (Auto) 94.6 % Lymphocytes (%) (Auto) 3.0 % Monocytes (%) (Auto) 2.1 % Eosinophils (%) (Auto) 0.0 % Basophils (%) (Auto) 0.0 % Neutrophils # (Auto) 9.15 1.4-6.5 K/uL Lymphocytes # (Auto) 0.29 1.2-3.4 K/uL Monocytes # (Auto) 0.20 0.11-0.59 K/uL Eosinophils # (Auto) 0.00 0-0.5 K/uL Basophils # (Auto) 0.00 0-0.2 K/uL RDW Standard Deviation 53.5 36.4-46.3 fL RDW Coefficient of Variation 14.3 11.5-14.5 % Immature Granulocyte % (Auto) 0.3 % Immature Granulocyte # (Auto) 0.03 0.00-0.02 K/uL Sodium Level 138 136-145 mmol/L Potassium Level 4.4 3.5-5.1 mmol/L Chloride Level 91 98-107 mmol/L Carbon Dioxide Level 42 21-32 mmol/L Anion Gap 4.0 3-11 mmol/L Blood Urea Nitrogen 30 7-18 mg/dl Creatinine 1.60 0.60-1.20 mg/dl Est Creatinine Clear Calc Drug Dose 34.0 ml/min Estimated GFR () 36.4 Estimated GFR (Non- 31.4 BUN/Creatinine Ratio 19.0 10-20 Random Glucose 220 70-99 mg/dl Calcium Level 9.6 8.5-10.1 mg/dl Phosphorus Level 2.8 2.5-4.9 mg/dl Magnesium Level 2.3 1.8-2.4 mg/dl Bedside Glucose 131 265 70-90 mg/dl Diagnostic Radiology TTE 11/30/2016 * -- Conclusions -- * The left ventricle is borderline dilated. * There is mild concentric left ventricular hypertrophy. * Left ventricular systolic function is normal. * Grade I diastolic dysfunction, (abnormal relaxation pattern). * Borderline left atrial enlargement. * There is mild mitral regurgitation. * Right ventricular systolic pressure is elevated at 50-60mmHg. * Compared to an echocardiogram performed in June 2015, there is minimal change Chest x-ray from 11/29/2016 FINDINGS: No pneumothorax. The heart remains mildly enlarged. Mildly tortuous thoracic aorta. Trace bilateral pleural effusions and patchy bibasilar densities are again noted. There is mild central pulmonary vascular congestion without overt edema. IMPRESSION: 1. No change in the trace bilateral pleural effusions and nonspecific patchy bibasilar densities. This could represent atelectasis or pneumonia. 2. Stable mild cardiomegaly. 3. Mild central pulmonary vascular congestion without overt edema. EKG EKG 11/30/19 19:45 Ventricular rate of 87 bpm Sinus rhythm with Premature atrial complexes with Aberrant conduction Minimal voltage criteria for LVH, may be normal variant Nonspecific ST abnormality Abnormal ECG Impression Assessment and Plan Acute on chronic hypoxic hypercapnic respiratory failure COPD on long-term oxygen therapy Diastolic dysfunction Pulmonary hypertension Deconditioning Uncontrolled DM Ms. Callahan appears to have acute on chronic hypoxic respiratory failure. I feel that this is multi factorial in nature. I'll continue to treat this as a COPD exacerbation and she has had increased production of sputum however I feel that there is a strong component of obesity hypoventilation syndrome. Diastolic dysfunction which is evident and lower extremity edema and swelling. Due to her body habitus, she may have a component of obesity hypoventilation syndrome. She also had has pulmonary hypertension seen on TTE and RHC from 2014, PAP 52/21. Probably secondary to pulmonary disease, not amenable to PH therapy since it is not group I. This may most likely type III /III pulmonary hypertension. The treatment for this is to optimize underlying pulmonary and cardiac disease. Continue supplemental oxygen to maintain SaO2 between 88-92% She should decompensate a trial of BiPAP may be warranted Continue with azithromycin as it does have inflammatory properties. However I don't think she requires ceftriaxone at this time Continue with systemic corticosteroids and then switch to taper Continue with Symbicort 160-4.52 puffs twice a day, however I would discontinue Qvar as patient does not require to inhaled corticosteroids. I would add Spiriva to her regimen upon discharge Continue with DuoNeb every 4 hours Continue with aggressive diuresis his spironolactone and Lasix to try to maintain a negative balance as her kidney function tolerate Recommend the patient be seen by Occupational therapy and physical therapy She may benefit from a pulmonary rehabilitation program and was discharged Continue DVT prophylaxis I appreciate the consult.
[2016-11-30] MEDS: CEFTRIAXONE SOD INJ 1 GM in DEXTROSE 5% ADD-VANTAGE 50ML 50 ML IV SCH (20:09)
[2016-11-30] MEDS: PRAVASTATIN SOD 10 MG TAB PO SCH (20:12)
[2016-11-30] MEDS: METOPROLOL SUCC 50MG EXT REL TAB PO SCH (20:13)
[2016-12-01] VITALS (14 sets, daily range): BP systolic 130–176; BP diastolic 68–99; PULSE 63–88; TEMP 36.4–37.1; O2SAT 90–97
[2016-12-01] MEDS: HEPARIN SOD 5000 UNIT/0.5 ML CARP SQ SCH ×3 (05:37→22:00)
[2016-12-01] MEDS: METHYLPREDNISOLONE IV 30 MG in SYRINGE 0 ML IV SCH ×3 (05:38→21:58)
[2016-12-01 06:48] LABS: COMPLETE YES; HEMATOCRIT 31.1 % (37-47); IG% 0.3 %; LYMPH % 5.9 %; LYMPH ABS # 0.43 K/uL (1.2-3.4); MEAN CELL VOLUME 102.6 fL (80-100); MEAN CORPUSCULAR HEMOGLOBIN 31.7 pg (25-34); MEAN CORPUSCULAR HGB CONC 30.9 g/dl (32-36); MONO % 2.6 %; NEUT % 91.2 %; PLATELET COUNT 153 K/uL (130-400); RED BLOOD COUNT 3.03 M/uL (4.2-5.4); WHITE BLOOD COUNT 7.23 K/uL (4.8-10.8)
[2016-12-01] MEDS: ALBUT/IPRATROP 3MG/0.5MG NEB 3 ML VIAL INH SCH ×4 (06:52→19:59)
[2016-12-01 07:25] LABS: BUN/CREATININE RATIO 25.1 (10-20); CALCIUM 8.7 mg/dl (8.5-10.1); CREATININE 1.7 mg/dl (0.60-1.20); MAGNESIUM 2.6 mg/dl (1.8-2.4); POTASSIUM 4.4 mmol/L (3.5-5.1)
[2016-12-01 07:29] LABS: PHOSPHORUS 5.1 mg/dl (2.5-4.9)
[2016-12-01] MEDS: ROPINIROLE HCL 1 MG TAB PO SCH ×3 (07:48→20:18)
[2016-12-01] MEDS: LISINOPRIL 5 MG TAB PO SCH (07:48)
[2016-12-01] MEDS: CYANOCOBALAMIN 500 MCG TAB (VIT B-12) PO SCH (07:48)
[2016-12-01] MEDS: FERROUS SULFATE 325 MG TAB PO SCH (07:48)
[2016-12-01] MEDS: MIRABEGRON ER 25 MG TAB PO SCH (07:49)
[2016-12-01] MEDS: NYSTATIN SUSP 500,000 U/5 ML UDC PO SCH ×4 (07:49→20:15)
[2016-12-01] MEDS: PANTOprazole SOD 40 MG TAB PO SCH (07:49)
[2016-12-01] MEDS: FUROSEMIDE 20 MG TAB PO SCH (07:50)
[2016-12-01] MEDS: BUDESONIDE/FORMOTEROL FUMARATE 160/4.5 60 PUFFS/INHALER INH SCH ×2 (07:50→20:15)
[2016-12-01] MEDS: SPIRONOLACTONE 25 MG TAB PO SCH (07:50)
[2016-12-01] MEDS: INSULIN ASPART 100 UNITS/ML 3 ML PEN SC SCH ×4 (07:53→20:19)
[2016-12-01] MEDS: INSULIN GLARGINE SOLOSTAR 100 UNITS/ML 3 ML PEN SC SCH (07:54)
[2016-12-01] MEDS: FLUOXETINE HCL 20 MG CAP PO SCH (07:55)
--- NOTE | 2016-12-01 09:20 | Progress Note ---
Subjective Date of Service: Dec 01, 2016. Subjective Pt evaluation today including: conversation w/ patient, physical exam, chart review, lab review, review of studies, conversation w/ category consultant, review of inpatient medication list Sitting in bedside, feeling okay, oxygen 2-3 L/m, however when up and walk to the restroom this morning possible dropped to 60s, Denied chest pain, lower extremity still's swollen, reported bilateral lower extremity weakness, which is not new Problem List Medical Problems: (1) Cellulitis Status: Acute (2) COPD exacerbation Status: Acute (3) COPD exacerbation Status: Acute (4) COPD exacerbation Status: Acute (5) Hypoxia Status: Acute (6) SOB (shortness of breath) Status: Acute Review of Systems Constitutional: + weakness, + fatigue, No fever, No chills, No sweats, No weight loss, No problem reported Eyes: No worsening of vision, No eye pain, No redness, No discharge, No diplopia ENT: No hearing loss, No unusual epistaxis, No nasal symptoms, No sore throat, No tinnitus, No dental problems, No trouble swallowing Respiratory: + cough, + wheezing, + shortness of breath, No sputum, No dyspnea on exertion, No dyspnea at rest, No hemoptysis Cardiac: No chest pain, No orthopnea, No PND, No edema, No claudication, No palpitations Abdomen: No pain, No nausea, No vomiting, No diarrhea, No constipation Musculoskeletal: No joint pain, No muscle pain, No swelling, No calf pain Female : No dysuria, No urinary frequency, No hematuria, No incontinence, No abnormal vaginal bleeding, No vaginal discharge Neurologic: No memory loss, No paralysis, No weakness, No numbness/tingling, No vertigo, No balance problems Psychiatric: No depression symptoms, No anhedonism, No anxiety, No insomnia, No substance abuse Heme: No abnormal bleeding/bruising, No clotting problems, No swollen lymph nodes, No night sweats Endo: No fatigue, No excessive thirst, No excessive urination Skin: No rash, No itch, No new/changing skin lesions, No color change, No bleeding Objective Vital Signs Date Time Temp Pulse Resp B/P (MAP) Pulse Ox O2 Delivery O2 Flow Rate FiO2 12/01/16 07:39 36.4 69 20 169/95 (119) 94 Nasal Cannula 3.0 12/01/16 06:52 88 16 95 Nasal Cannula 3.0 12/01/16 04:26 37.1 66 16 164/95 (118) 94 12/01/16 04:00 Nasal Cannula 3.0 12/01/16 00:04 36.6 81 18 130/68 (88) 92 3.0 12/01/16 00:00 Nasal Cannula 3.0 11/30/16 20:00 Nasal Cannula 3.0 11/30/16 19:23 85 16 95 Nasal Cannula 3.5 11/30/16 19:10 36.7 77 21 143/82 (102) 91 Nasal Cannula 3.0 11/30/16 16:02 36.7 66 19 145/80 (101) 90 Nasal Cannula 2.0 11/30/16 15:40 Nasal Cannula 2.0 11/30/16 15:27 78 16 91 Nasal Cannula 5.0 11/30/16 12:00 93 Nasal Cannula 2.0 11/30/16 11:19 62 16 97 Nasal Cannula 5.0 11/30/16 11:16 37.0 68 18 139/79 (99) 94 5.0 Physical Exam General Appearance: WD/WN, no apparent distress, + obese Eyes: normal inspection, PERRL, EOMI, sclerae normal ENT: normal ENT inspection, hearing grossly normal, pharynx normal Neck: supple, no adenopathy, thyroid normal, no JVD, no carotid bruits, trachea midline Respiratory/Chest: chest non-tender, normal breath sounds, no respiratory distress, no accessory muscle use, + decreased breath sounds, + wheezing (sound better than yesterday) Cardiovascular: regular rate, rhythm, no edema, no gallop, no JVD, no murmur Abdomen: normal bowel sounds, non tender, soft, no organomegaly, no pulsatile mass Extremities: normal range of motion, non-tender, normal inspection, no pedal edema, no calf tenderness, normal capillary refill, pelvis stable Neurologic/Psychiatric: sizing sprayer II-XII nml as tested, no motor/sensory deficits, alert, normal mood/affect, oriented x 3 Skin: normal color, warm/dry, no rash Lymphatic: no adenopathy Laboratory Results Last 24 Hours Test 11/30/16 10:04 11/30/16 11:25 11/30/16 15:59 11/30/16 20:01 White Blood Count 9.67 K/uL Red Blood Count 3.08 M/uL Hemoglobin 9.9 g/dL Hematocrit 31.5 % Mean Corpuscular Volume 102.3 fL Mean Corpuscular Hemoglobin 32.1 pg Mean Corpuscular Hemoglobin Concent 31.4 g/dl Platelet Count 163 K/uL Mean Platelet Volume 10.6 fL Neutrophils (%) (Auto) 94.6 % Lymphocytes (%) (Auto) 3.0 % Monocytes (%) (Auto) 2.1 % Eosinophils (%) (Auto) 0.0 % Basophils (%) (Auto) 0.0 % Neutrophils # (Auto) 9.15 K/uL Lymphocytes # (Auto) 0.29 K/uL Monocytes # (Auto) 0.20 K/uL Eosinophils # (Auto) 0.00 K/uL Basophils # (Auto) 0.00 K/uL RDW Standard Deviation 53.5 fL RDW Coefficient of Variation 14.3 % Immature Granulocyte % (Auto) 0.3 % Immature Granulocyte # (Auto) 0.03 K/uL Sodium Level 138 mmol/L Potassium Level 4.4 mmol/L Chloride Level 91 mmol/L Carbon Dioxide Level 42 mmol/L Anion Gap 4.0 mmol/L Blood Urea Nitrogen 30 mg/dl Creatinine 1.60 mg/dl Est Creatinine Clear Calc Drug Dose 34.0 ml/min Estimated GFR () 36.4 Estimated GFR (Non- 31.4 BUN/Creatinine Ratio 19.0 Random Glucose 220 mg/dl Calcium Level 9.6 mg/dl Phosphorus Level 2.8 mg/dl Magnesium Level 2.3 mg/dl Bedside Glucose 131 mg/dl 265 mg/dl 289 mg/dl Test 12/01/16 06:14 White Blood Count 7.23 K/uL Red Blood Count 3.03 M/uL Hemoglobin 9.6 g/dL Hematocrit 31.1 % Mean Corpuscular Volume 102.6 fL Mean Corpuscular Hemoglobin 31.7 pg Mean Corpuscular Hemoglobin Concent 30.9 g/dl Platelet Count 153 K/uL Mean Platelet Volume 11.0 fL Neutrophils (%) (Auto) 91.2 % Lymphocytes (%) (Auto) 5.9 % Monocytes (%) (Auto) 2.6 % Eosinophils (%) (Auto) 0.0 % Basophils (%) (Auto) 0.0 % Neutrophils # (Auto) 6.59 K/uL Lymphocytes # (Auto) 0.43 K/uL Monocytes # (Auto) 0.19 K/uL Eosinophils # (Auto) 0.00 K/uL Basophils # (Auto) 0.00 K/uL RDW Standard Deviation 54.3 fL RDW Coefficient of Variation 14.5 % Immature Granulocyte % (Auto) 0.3 % Immature Granulocyte # (Auto) 0.02 K/uL Sodium Level 134 mmol/L Potassium Level 4.4 mmol/L Chloride Level 89 mmol/L Carbon Dioxide Level 39 mmol/L Anion Gap 6.0 mmol/L Blood Urea Nitrogen 43 mg/dl Creatinine 1.70 mg/dl Est Creatinine Clear Calc Drug Dose 32.6 ml/min Estimated GFR () 33.8 Estimated GFR (Non- 29.2 BUN/Creatinine Ratio 25.1 Random Glucose 293 mg/dl Calcium Level 8.7 mg/dl Phosphorus Level 5.1 mg/dl Magnesium Level 2.6 mg/dl Assessment and Plan 76-year-old white female admitted on 11/29/2016 because of worsening difficulty breathing, Acute on chronic respiratory failure with hypoxia and hypercapnia/COPD exacerbation/acute on chronic diastolic CHF exacerbation-- Little better, continue improving serial cardiac enzymes were negative, cardiac rhythm monitoring were unremarkable 2-D echocardiogram with Dopplers was done Results in below The left ventricle is borderline dilated. * There is mild concentric left ventricular hypertrophy. * Left ventricular systolic function is normal. * Grade I diastolic dysfunction, (abnormal relaxation pattern). * Borderline left atrial enlargement. * There is mild mitral regurgitation. * Right ventricular systolic pressure is elevated at 50-60mmHg. * Compared to an echocardiogram performed in June 2015, there is minimal change Continue Solu-Medrol 60 mg IV every 8 hours. [employer] Executive Director input appreciated, continue Zithromax 500 mg IV daily because of possible COPD exacerbation and bronchitis Discontinued Ceftriaxone 1 g IV Do nebs every 4 hours while awake and every 2 hours when necessary. Baseline nasal cannula 3 L O2 with chronic O2 dependent Possible need to increase oxygen level in 3-4 L per min when up and when up and walk, discussed with patient about this Received Lasix 40 mg IV 1 in the ED. Resume Lasix 20 mg by mouth daily Aldactone 25 mg by mouth daily tomorrow. Continue lisinopril 5 mg by mouth daily and metoprolol succinate 100 mg by mouth daily. Diabetes mellitus--hold glipizide., Continue sliding scale Hyperlipidemia--continue pravastatin 10 mg by mouth daily. Possible Deconditioning--consult physical therapy/occupational therapy. Moderate obesity GI and DVT prophylaxis is covered Possible discharge day 1 or 2 if continued to improve Continued [facility] stay due to: multiple IV medications needed Discharge planning: home
--- NOTE | 2016-12-01 10:04 | Pulmonology Progress Note ---
Pulmonary Progress Note Date of Service Dec 01, 2016. Attending Dr. Pollard Subjective Patient with COPD on snf O2 therapy (usually 3 L at home), diastolic CHF, HTN, hyperlipidemia, and DM2. SaO2 this morning has been between 92-95 %. She has been consistently on 3 L. Yesterday, she was on 5 L. The patient states that when she got up and went to the bathroom this morning, her SaO2 per pulse ox was in the 50% range. She still has MANCUSO and SOB while at rest. Denies chest pain, sinus pressure, post nasal drip, or mucus production today. She overall does not feel much improved. She did get up and walk around with PT yesterday and is hoping to do so again today. She states that she did not go very far, but feels she needs conditioning. Medications reviewed: Azithromycin 250 mg, Lasix 20 mg daily, Spironolactone 12.5 mg daily, Symbicort , Duoneb Labs reviewed (12/01): WBC 7.23, Hgb 9.6, Hct 31.1 Na+ 134, K+ 4.4, Cl- 89, Bicarb 39 Creatinine 1.70, BUN 43 Blood cx: NGTD CXR 11/29: Reviewed and viewed by me No change in trace b/l pleural effusions and patchy bibasilar densities from . Stable cardiomegaly and mild central pulmonary vascular congestion Previous PFT 09/21: severe obstructive ventilatory disease with FEV1 of 30% predicted. Lung volumes showed hyperinflation with residual volume of 160%, and DLCO was severely reduced at 30% predicted. Objective General: Patient is awake, alert, cooperative, and in no acute distress. Obese. Head: Normocephalic, Atraumatic. ENT: PERRLA, No discharge, EOMI, Sclera normal Neck: Normal ROM. Trachea midline. No stridor Respiratory: Very slight high-pitched end-expiratory wheeze in b/l upper lobes. Normal breath sounds. No respiratory distress. No accessory muscle use. Cardiovascular: Regular rate and rhythm. Extra beats. No murmur appreciate. Normal S1/S2. Abdomen: Normal bowel sounds hear throughout. No guarding. Abdomen is soft and nontender Back: Normal inspection. Extremities: No edema, cyanosis. Normal ROM Neuro: Alert, Oriented x 3. CN II-XII grossly intact. Sensation and motor function grossly intact. Psych: Mood and affect are normal. Pulses: Dorsal pedal b/l 2+ Assessment & Plan Acute on chronic hypoxic, hypercapnic respiratory failure COPD on long-term O2 Diastolic dysfunction with elevated RVSP Pulmonary HTN Deconditioning Uncontrolled DM2 Patient continues on 3 L via nasal cannula. Desaturation during walk to bathroom and back this morning, therefore recommend increasing patient's O2 supplementation to 5L with ambulation. Will require 2 step prior to discharge to check O2 requirements with ambulation. Continue to monitor O2 and keep SaO2 >92%. Continue Azithromycin for antiinflammatory properties Continue Symbicort and Duoneb- likely will add Spiriva to her regimen upon discharge Continue aggressive diuresis- continue to maintain negative fluid balance as tolerated Continue PT/OT- patient likely has large component of deconditioning. Likely will benefit from outpatient PT/OT post-D/C as well. May also consider pulmonary rehab. Continue systemic corticosteroids and then transition to taper. Data Medications: Current Inpatient Medications Medications (Trade) Dose Ordered Sig/Polly Route Start Time Stop Time Status Last Admin Dose Admin Heparin Sodium (Porcine) (Heparin Sq 5000 Unit/0.5ml) 5,000 unit Q8 SQ 11/29/16 22:00 12/29/16 21:59 12/01/16 05:37 5,000 UNIT Acetaminophen (Tylenol Tab) 650 mg Q4H PRN PO 11/29/16 14:00 12/29/16 13:59 Al Hydrox/Mg Hydrox/Simethicone (Maalox Max Susp) 15 ml Q4H PRN PO 11/29/16 14:00 12/29/16 13:59 Magnesium Hydroxide (Milk Of Magnesia Susp) 30 ml Q12H PRN PO 11/29/16 14:00 12/29/16 13:59 Ondansetron HCl (Zofran Inj) 4 mg Q6H PRN IV 11/29/16 14:00 12/29/16 13:59 Polyethylene (Miralax Powder Packet) 17 gm DAILY PRN PO 11/29/16 14:00 12/29/16 13:59 Albuterol/ Ipratropium (Duoneb) 3 ml QIDR INH 11/29/16 16:00 12/29/16 15:59 12/01/16 06:52 3 ML Budesonide/ Formoterol Fumarate (Symbicort 160/ 4.5 Inh) 2 puffs BID INH 11/29/16 21:00 12/29/16 20:59 12/01/16 07:50 2 PUFFS Cyanocobalamin (Vitamin B-12 Tab) 1,000 mcg DAILY PO 11/30/16 09:00 12/30/16 08:59 12/01/16 07:48 1,000 MCG Fluoxetine HCl (Prozac Cap) 20 mg QAM PO 11/30/16 09:00 12/30/16 08:59 12/01/16 07:55 20 MG Lisinopril (Zestril Tab) 5 mg DAILY PO 11/30/16 09:00 12/30/16 08:59 12/01/16 07:48 5 MG Metoprolol Succinate (Toprol Xl Tab) 100 mg QPM PO 11/29/16 21:00 12/29/16 20:59 11/30/16 20:13 100 MG Mirabegron (Myrbetriq Er) 25 mg DAILY PO 11/30/16 09:00 12/30/16 08:59 12/01/16 07:49 25 MG Pravastatin Sodium (Pravachol Tab) 10 mg QPM PO 11/29/16 21:00 12/29/16 20:59 11/30/16 20:12 10 MG Ropinirole HCl (Requip Tab) 2 mg TID PO 11/29/16 21:00 12/29/16 20:59 12/01/16 07:48 2 MG Tramadol HCl (Ultram Tab) 50 mg Q6 PRN PO 11/29/16 14:00 12/29/16 13:59 Ferrous Sulfate (Feosol Tab) 325 mg DAILY PO 11/30/16 09:00 12/30/16 08:59 12/01/16 07:48 325 MG Azithromycin 250 mg/Dextrose 252.5 ml @ 125 mls/hr Q24H IV 11/30/16 12:00 12/06/16 11:59 11/30/16 12:29 125 MLS/HR Nystatin (Mycostatin Susp) 5 ml QID PO 11/29/16 17:00 12/09/16 16:59 12/01/16 07:49 5 ML Insulin Aspart (novoLOG ASPART) SLIDING SCALE If C... ACHS SC 11/29/16 16:00 12/29/16 15:59 12/01/16 07:53 16 UNITS Glucose (Glucose 40% Gel) 15-30 GRAMS 15 GRAMS... UD PRN PO 11/29/16 14:30 12/29/16 14:29 Glucose (Glucose Chew Tab) 4-8 Tablets 4 Tabl... UD PRN PO 11/29/16 14:30 12/29/16 14:29 Dextrose (Dextrose 50% 50ML Syringe) 25-50ML OF 50% DW IV FOR... UD PRN IV 11/29/16 14:30 12/29/16 14:29 Glucagon (Glucagon Inj) 1 mg UD PRN SQ 11/29/16 14:30 12/29/16 14:29 Albuterol/ Ipratropium (Duoneb) 3 ml Q2H PRN INH 11/29/16 17:15 12/29/16 17:14 Furosemide (Lasix Tab) 20 mg DAILY PO 11/30/16 09:00 12/30/16 08:59 12/01/16 07:50 20 MG Spironolactone (Aldactone Tab) 12.5 mg QAM PO 11/30/16 09:00 12/30/16 08:59 12/01/16 07:50 12.5 MG Insulin Glargine (Lantus Solostar Pen) 16 units DAILY SC 11/30/16 09:00 12/30/16 08:59 12/01/16 07:54 16 UNITS Methylprednisolone Sodium Succinate 30 mg/Syringe 0.48 ml @ 1.5 mls/min Q8H IV 11/29/16 22:00 12/29/16 21:59 12/01/16 05:38 1.5 MLS/MIN Pantoprazole Sodium (Protonix Tab) 40 mg QAM PO 12/01/16 09:00 12/31/16 08:59 12/01/16 07:49 40 MG Vital Signs: Date Time Temp Pulse Resp B/P (MAP) Pulse Ox O2 Delivery O2 Flow Rate FiO2 12/01/16 07:39 36.4 69 20 169/95 (119) 94 Nasal Cannula 3.0 12/01/16 06:52 88 16 95 Nasal Cannula 3.0 12/01/16 04:26 37.1 66 16 164/95 (118) 94 12/01/16 04:00 Nasal Cannula 3.0 12/01/16 00:04 36.6 81 18 130/68 (88) 92 3.0 12/01/16 00:00 Nasal Cannula 3.0 11/30/16 20:00 Nasal Cannula 3.0 11/30/16 19:23 85 16 95 Nasal Cannula 3.5 11/30/16 19:10 36.7 77 21 143/82 (102) 91 Nasal Cannula 3.0 11/30/16 16:02 36.7 66 19 145/80 (101) 90 Nasal Cannula 2.0 11/30/16 15:40 Nasal Cannula 2.0 11/30/16 15:27 78 16 91 Nasal Cannula 5.0 11/30/16 12:00 93 Nasal Cannula 2.0 11/30/16 11:19 62 16 97 Nasal Cannula 5.0 11/30/16 11:16 37.0 68 18 139/79 (99) 94 5.0 Laboratory Results: Last 24 Hours Test 11/30/16 10:04 11/30/16 11:25 11/30/16 15:59 11/30/16 20:01 White Blood Count 9.67 K/uL Red Blood Count 3.08 M/uL Hemoglobin 9.9 g/dL Hematocrit 31.5 % Mean Corpuscular Volume 102.3 fL Mean Corpuscular Hemoglobin 32.1 pg Mean Corpuscular Hemoglobin Concent 31.4 g/dl Platelet Count 163 K/uL Mean Platelet Volume 10.6 fL Neutrophils (%) (Auto) 94.6 % Lymphocytes (%) (Auto) 3.0 % Monocytes (%) (Auto) 2.1 % Eosinophils (%) (Auto) 0.0 % Basophils (%) (Auto) 0.0 % Neutrophils # (Auto) 9.15 K/uL Lymphocytes # (Auto) 0.29 K/uL Monocytes # (Auto) 0.20 K/uL Eosinophils # (Auto) 0.00 K/uL Basophils # (Auto) 0.00 K/uL RDW Standard Deviation 53.5 fL RDW Coefficient of Variation 14.3 % Immature Granulocyte % (Auto) 0.3 % Immature Granulocyte # (Auto) 0.03 K/uL Sodium Level 138 mmol/L Potassium Level 4.4 mmol/L Chloride Level 91 mmol/L Carbon Dioxide Level 42 mmol/L Anion Gap 4.0 mmol/L Blood Urea Nitrogen 30 mg/dl Creatinine 1.60 mg/dl Est Creatinine Clear Calc Drug Dose 34.0 ml/min Estimated GFR () 36.4 Estimated GFR (Non- 31.4 BUN/Creatinine Ratio 19.0 Random Glucose 220 mg/dl Calcium Level 9.6 mg/dl Phosphorus Level 2.8 mg/dl Magnesium Level 2.3 mg/dl Bedside Glucose 131 mg/dl 265 mg/dl 289 mg/dl Test 12/01/16 06:14 White Blood Count 7.23 K/uL Red Blood Count 3.03 M/uL Hemoglobin 9.6 g/dL Hematocrit 31.1 % Mean Corpuscular Volume 102.6 fL Mean Corpuscular Hemoglobin 31.7 pg Mean Corpuscular Hemoglobin Concent 30.9 g/dl Platelet Count 153 K/uL Mean Platelet Volume 11.0 fL Neutrophils (%) (Auto) 91.2 % Lymphocytes (%) (Auto) 5.9 % Monocytes (%) (Auto) 2.6 % Eosinophils (%) (Auto) 0.0 % Basophils (%) (Auto) 0.0 % Neutrophils # (Auto) 6.59 K/uL Lymphocytes # (Auto) 0.43 K/uL Monocytes # (Auto) 0.19 K/uL Eosinophils # (Auto) 0.00 K/uL Basophils # (Auto) 0.00 K/uL RDW Standard Deviation 54.3 fL RDW Coefficient of Variation 14.5 % Immature Granulocyte % (Auto) 0.3 % Immature Granulocyte # (Auto) 0.02 K/uL Sodium Level 134 mmol/L Potassium Level 4.4 mmol/L Chloride Level 89 mmol/L Carbon Dioxide Level 39 mmol/L Anion Gap 6.0 mmol/L Blood Urea Nitrogen 43 mg/dl Creatinine 1.70 mg/dl Est Creatinine Clear Calc Drug Dose 32.6 ml/min Estimated GFR () 33.8 Estimated GFR (Non- 29.2 BUN/Creatinine Ratio 25.1 Random Glucose 293 mg/dl Calcium Level 8.7 mg/dl Phosphorus Level 5.1 mg/dl Magnesium Level 2.6 mg/dl
[2016-12-01] MEDS: AZITHROMYCIN IV 250 MG in DEXTROSE 5% 250ML 250 ML IV SCH (13:20)
[2016-12-01] MEDS: METOPROLOL SUCC 50MG EXT REL TAB PO SCH (20:18)
[2016-12-01] MEDS: PRAVASTATIN SOD 10 MG TAB PO SCH (20:18)
[2016-12-02] VITALS (12 sets, daily range): BP systolic 159–181; BP diastolic 83–99; PULSE 61–78; TEMP 36.3–36.7; O2SAT 91–100
[2016-12-02] MEDS: METHYLPREDNISOLONE IV 30 MG in SYRINGE 0 ML IV SCH (05:49)
[2016-12-02] MEDS: HEPARIN SOD 5000 UNIT/0.5 ML CARP SQ SCH ×3 (05:51→21:54)
[2016-12-02] MEDS: ALBUT/IPRATROP 3MG/0.5MG NEB 3 ML VIAL INH SCH ×4 (07:24→19:01)
[2016-12-02 07:41] LABS: BUN/CREATININE RATIO 29.8 (10-20); CALCIUM 8.7 mg/dl (8.5-10.1); CREATININE 1.7 mg/dl (0.60-1.20); MAGNESIUM 2.7 mg/dl (1.8-2.4); POTASSIUM 4.4 mmol/L (3.5-5.1)
[2016-12-02 07:50] LABS: HEMATOCRIT 31.6 % (37-47); MEAN CELL VOLUME 100.3 fL (80-100); MEAN CORPUSCULAR HEMOGLOBIN 31.4 pg (25-34); MEAN CORPUSCULAR HGB CONC 31.3 g/dl (32-36); MEAN PLATELET VOLUME 11.5 fL (7.4-10.4); PLATELET COUNT 123 K/uL (130-400); RED BLOOD COUNT 3.15 M/uL (4.2-5.4); WHITE BLOOD COUNT 5.17 K/uL (4.8-10.8)
[2016-12-02] MEDS: INSULIN ASPART 100 UNITS/ML 3 ML PEN SC SCH ×4 (08:00→21:52)
[2016-12-02] MEDS: INSULIN GLARGINE SOLOSTAR 100 UNITS/ML 3 ML PEN SC SCH (08:01)
[2016-12-02] MEDS: BUDESONIDE/FORMOTEROL FUMARATE 160/4.5 60 PUFFS/INHALER INH SCH ×2 (08:01→21:48)
[2016-12-02] MEDS: FERROUS SULFATE 325 MG TAB PO SCH (08:02)
[2016-12-02] MEDS: LISINOPRIL 5 MG TAB PO SCH (08:02)
[2016-12-02] MEDS: CYANOCOBALAMIN 500 MCG TAB (VIT B-12) PO SCH (08:02)
[2016-12-02] MEDS: ROPINIROLE HCL 1 MG TAB PO SCH ×3 (08:02→21:50)
[2016-12-02] MEDS: FLUOXETINE HCL 20 MG CAP PO SCH (08:03)
[2016-12-02] MEDS: PANTOprazole SOD 40 MG TAB PO SCH (08:03)
[2016-12-02] MEDS: MIRABEGRON ER 25 MG TAB PO SCH (08:03)
[2016-12-02] MEDS: SPIRONOLACTONE 25 MG TAB PO SCH (08:03)
[2016-12-02] MEDS: FUROSEMIDE 20 MG TAB PO SCH (08:04)
[2016-12-02] MEDS: NYSTATIN SUSP 500,000 U/5 ML UDC PO SCH ×4 (08:04→21:49)
--- NOTE | 2016-12-02 09:33 | Pulmonology Progress Note ---
Pulmonary Progress Note Date of Service Dec 02, 2016. Attending Dr. Pollard Subjective Patient seen and examined this morning. She is sitting the edge of bed. She states that her breathing feel better. She feels less short of breath and was able to ambulate in the halls with the nurse. She is complaining of bilateral lower extremity swelling. Objective General: Patient is awake, alert, cooperative, and in no acute distress. Obese. Head: Normocephalic, Atraumatic. ENT: PERRLA, No discharge, EOMI, Sclera normal Neck: Normal ROM. Trachea midline. No stridor Respiratory: Very slight high-pitched end-expiratory wheeze in b/l upper lobes. Normal breath sounds. No respiratory distress. No accessory muscle use. Cardiovascular: Regular rate and rhythm. Extra beats. No murmur appreciate. Normal S1/S2. Abdomen: Normal bowel sounds hear throughout. No guarding. Abdomen is soft and nontender Back: Normal inspection. Extremities: No edema, cyanosis. Normal ROM Neuro: Alert, Oriented x 3. CN II-XII grossly intact. Sensation and motor function grossly intact. Psych: Mood and affect are normal. Pulses: Dorsal pedal b/l 2+ Last 24 Hours Test 12/01/16 11:20 12/01/16 16:09 12/01/16 20:13 12/02/16 06:40 Bedside Glucose 292 mg/dl 225 mg/dl 79 mg/dl 228 mg/dl Test 12/02/16 06:43 White Blood Count 5.17 K/uL Red Blood Count 3.15 M/uL Hemoglobin 9.9 g/dL Hematocrit 31.6 % Mean Corpuscular Volume 100.3 fL Mean Corpuscular Hemoglobin 31.4 pg Mean Corpuscular Hemoglobin Concent 31.3 g/dl RDW Standard Deviation 52.0 fL RDW Coefficient of Variation 14.2 % Platelet Count 123 K/uL Mean Platelet Volume 11.5 fL Sodium Level 135 mmol/L Potassium Level 4.4 mmol/L Chloride Level 92 mmol/L Carbon Dioxide Level 40 mmol/L Anion Gap 3.0 mmol/L Blood Urea Nitrogen 51 mg/dl Creatinine 1.70 mg/dl Est Creatinine Clear Calc Drug Dose 32.5 ml/min Estimated GFR () 33.8 Estimated GFR (Non- 29.2 BUN/Creatinine Ratio 29.8 Random Glucose 228 mg/dl Calcium Level 8.7 mg/dl Magnesium Level 2.7 mg/dl Assessment & Plan Acute on chronic hypoxic, hypercapnic respiratory failure COPD on long-term O2 Diastolic dysfunction with elevated RVSP Pulmonary HTN Deconditioning Uncontrolled DM2 Acute on chronic renal failure Patient continues on 3 L via nasal cannula. Recommend increasing patient's O2 supplementation to 5L with ambulation. Will require 2 step prior to discharge to check O2 requirements with ambulation. Continue to monitor O2 and keep SaO2 >92%. Continue Azithromycin for antiinflammatory properties Continue Symbicort and Duoneb- likely will add Spiriva to her regimen upon discharge Continue aggressive diuresis- continue to maintain negative fluid balance as tolerated She increased creatinine 1.7 for last two days. Currently on Lasix and Spironolactone. Continue PT/OT- patient likely has large component of deconditioning. Likely will benefit from outpatient PT/OT post-D/C as well. May also consider pulmonary rehab. Continue systemic corticosteroids and then transition to taper. Data Medications: Current Inpatient Medications Medications (Trade) Dose Ordered Sig/Polly Route Start Time Stop Time Status Last Admin Dose Admin Heparin Sodium (Porcine) (Heparin Sq 5000 Unit/0.5ml) 5,000 unit Q8 SQ 11/29/16 22:00 12/29/16 21:59 12/02/16 05:51 5,000 UNIT Acetaminophen (Tylenol Tab) 650 mg Q4H PRN PO 11/29/16 14:00 12/29/16 13:59 Al Hydrox/Mg Hydrox/Simethicone (Maalox Max Susp) 15 ml Q4H PRN PO 11/29/16 14:00 12/29/16 13:59 Magnesium Hydroxide (Milk Of Magnesia Susp) 30 ml Q12H PRN PO 11/29/16 14:00 12/29/16 13:59 Ondansetron HCl (Zofran Inj) 4 mg Q6H PRN IV 11/29/16 14:00 12/29/16 13:59 Polyethylene (Miralax Powder Packet) 17 gm DAILY PRN PO 11/29/16 14:00 12/29/16 13:59 Albuterol/ Ipratropium (Duoneb) 3 ml QIDR INH 11/29/16 16:00 12/29/16 15:59 12/02/16 07:24 3 ML Budesonide/ Formoterol Fumarate (Symbicort 160/ 4.5 Inh) 2 puffs BID INH 11/29/16 21:00 12/29/16 20:59 12/02/16 08:01 2 PUFFS Cyanocobalamin (Vitamin B-12 Tab) 1,000 mcg DAILY PO 11/30/16 09:00 12/30/16 08:59 12/02/16 08:02 1,000 MCG Fluoxetine HCl (Prozac Cap) 20 mg QAM PO 11/30/16 09:00 12/30/16 08:59 12/02/16 08:03 20 MG Lisinopril (Zestril Tab) 5 mg DAILY PO 11/30/16 09:00 12/30/16 08:59 12/02/16 08:02 5 MG Metoprolol Succinate (Toprol Xl Tab) 100 mg QPM PO 11/29/16 21:00 12/29/16 20:59 12/01/16 20:18 100 MG Mirabegron (Myrbetriq Er) 25 mg DAILY PO 11/30/16 09:00 12/30/16 08:59 12/02/16 08:03 25 MG Pravastatin Sodium (Pravachol Tab) 10 mg QPM PO 11/29/16 21:00 12/29/16 20:59 12/01/16 20:18 10 MG Ropinirole HCl (Requip Tab) 2 mg TID PO 11/29/16 21:00 12/29/16 20:59 12/02/16 08:02 2 MG Tramadol HCl (Ultram Tab) 50 mg Q6 PRN PO 11/29/16 14:00 12/29/16 13:59 Ferrous Sulfate (Feosol Tab) 325 mg DAILY PO 11/30/16 09:00 12/30/16 08:59 12/02/16 08:02 325 MG Azithromycin 250 mg/Dextrose 252.5 ml @ 125 mls/hr Q24H IV 11/30/16 12:00 12/06/16 11:59 12/01/16 13:20 125 MLS/HR Nystatin (Mycostatin Susp) 5 ml QID PO 11/29/16 17:00 12/09/16 16:59 12/02/16 08:04 5 ML Insulin Aspart (novoLOG ASPART) SLIDING SCALE If C... ACHS SC 11/29/16 16:00 12/29/16 15:59 12/02/16 08:00 7 UNITS Glucose (Glucose 40% Gel) 15-30 GRAMS 15 GRAMS... UD PRN PO 11/29/16 14:30 12/29/16 14:29 Glucose (Glucose Chew Tab) 4-8 Tablets 4 Tabl... UD PRN PO 11/29/16 14:30 12/29/16 14:29 Dextrose (Dextrose 50% 50ML Syringe) 25-50ML OF 50% DW IV FOR... UD PRN IV 11/29/16 14:30 12/29/16 14:29 Glucagon (Glucagon Inj) 1 mg UD PRN SQ 11/29/16 14:30 12/29/16 14:29 Albuterol/ Ipratropium (Duoneb) 3 ml Q2H PRN INH 11/29/16 17:15 12/29/16 17:14 Furosemide (Lasix Tab) 20 mg DAILY PO 11/30/16 09:00 12/30/16 08:59 12/02/16 08:04 20 MG Spironolactone (Aldactone Tab) 12.5 mg QAM PO 11/30/16 09:00 12/30/16 08:59 12/02/16 08:03 12.5 MG Insulin Glargine (Lantus Solostar Pen) 16 units DAILY SC 11/30/16 09:00 12/30/16 08:59 12/02/16 08:01 16 UNITS Methylprednisolone Sodium Succinate 30 mg/Syringe 0.48 ml @ 1.5 mls/min Q8H IV 11/29/16 22:00 12/29/16 21:59 12/02/16 05:49 1.5 MLS/MIN Pantoprazole Sodium (Protonix Tab) 40 mg QAM PO 12/01/16 09:00 12/31/16 08:59 12/02/16 08:03 40 MG I & O: Test 11/29/16 12:13 11/29/16 19:59 11/30/16 10:04 12/01/16 06:14 Venous Blood pH 7.35 Venous Blood Partial Pressure CO2 86 Venous Blood Partial Pressure O2 36 Venous Blood HCO3 46 Venous Blood Oxygen Saturation 60.8 Venous Blood Base Excess 17.6 Troponin I < 0.015 < 0.015 Pro-B-Type Natriuretic Peptide 2528 Immature Granulocyte % (Auto) 0.3 0.3 White Blood Count 9.67 7.23 Red Blood Count 3.08 3.03 Hemoglobin 9.9 9.6 Hematocrit 31.5 31.1 Mean Corpuscular Volume 102.3 102.6 Mean Corpuscular Hemoglobin 32.1 31.7 Mean Corpuscular Hemoglobin Concent 31.4 30.9 Platelet Count 163 153 Mean Platelet Volume 10.6 11.0 Neutrophils (%) (Auto) 94.6 91.2 Lymphocytes (%) (Auto) 3.0 5.9 Monocytes (%) (Auto) 2.1 2.6 Eosinophils (%) (Auto) 0.0 0.0 Basophils (%) (Auto) 0.0 0.0 Neutrophils # (Auto) 9.15 6.59 Lymphocytes # (Auto) 0.29 0.43 Monocytes # (Auto) 0.20 0.19 Eosinophils # (Auto) 0.00 0.00 Basophils # (Auto) 0.00 0.00 Immature Granulocyte # (Auto) 0.03 0.02 Phosphorus Level 2.8 5.1 RDW Standard Deviation 54.3 RDW Coefficient of Variation 14.5 Sodium Level 134 Potassium Level 4.4 Chloride Level 89 Carbon Dioxide Level 39 Anion Gap 6.0 Blood Urea Nitrogen 43 Creatinine 1.70 Est Creatinine Clear Calc Drug Dose 32.6 Estimated GFR () 33.8 Estimated GFR (Non- 29.2 BUN/Creatinine Ratio 25.1 Random Glucose 293 Calcium Level 8.7 Magnesium Level 2.6 Test 12/01/16 20:13 12/02/16 06:40 12/02/16 06:43 POC Glucose 79 228 White Blood Count 5.17 Red Blood Count 3.15 Hemoglobin 9.9 Hematocrit 31.6 Mean Corpuscular Volume 100.3 Mean Corpuscular Hemoglobin 31.4 Mean Corpuscular Hemoglobin Concent 31.3 RDW Standard Deviation 52.0 RDW Coefficient of Variation 14.2 Platelet Count 123 Mean Platelet Volume 11.5 Sodium Level 135 Potassium Level 4.4 Chloride Level 92 Carbon Dioxide Level 40 Anion Gap 3.0 Blood Urea Nitrogen 51 Creatinine 1.70 Est Creatinine Clear Calc Drug Dose 32.5 Estimated GFR () 33.8 Estimated GFR (Non- 29.2 BUN/Creatinine Ratio 29.8 Random Glucose 228 Calcium Level 8.7 Magnesium Level 2.7 Vital Signs: Date Time Temp Pulse Resp B/P (MAP) Pulse Ox O2 Delivery O2 Flow Rate FiO2 12/02/16 08:09 36.4 70 20 181/99 (126) 97 Nasal Cannula 3.0 12/02/16 08:00 93 Nasal Cannula 2.0 12/02/16 07:24 69 16 100 Nasal Cannula 3.0 12/02/16 04:00 Nasal Cannula 3.0 12/02/16 03:15 36.3 66 20 159/85 (109) 94 Nasal Cannula 3.0 Humidified Oxygen 12/02/16 00:01 Nasal Cannula 3.0 12/01/16 23:02 36.7 67 20 176/99 (124) 95 Nasal Cannula 3.0 12/01/16 20:00 Nasal Cannula 3.0 12/01/16 19:59 81 16 97 Nasal Cannula 3.0 12/01/16 19:36 36.7 64 20 161/90 (113) 90 Nasal Cannula 3.0 12/01/16 16:00 93 Nasal Cannula 2.0 12/01/16 15:58 76 16 97 Nasal Cannula 3.0 12/01/16 15:13 36.4 64 20 151/83 (105) 93 Nasal Cannula 3.0 12/01/16 12:11 36.4 63 20 162/81 (108) 91 Nasal Cannula 3.0 12/01/16 12:00 93 Nasal Cannula 2.0 12/01/16 11:19 65 16 96 Nasal Cannula 3.0 Laboratory Results: Last 24 Hours Test 12/01/16 11:20 12/01/16 16:09 12/01/16 20:13 12/02/16 06:40 Bedside Glucose 292 mg/dl 225 mg/dl 79 mg/dl 228 mg/dl Test 12/02/16 06:43 White Blood Count 5.17 K/uL Red Blood Count 3.15 M/uL Hemoglobin 9.9 g/dL Hematocrit 31.6 % Mean Corpuscular Volume 100.3 fL Mean Corpuscular Hemoglobin 31.4 pg Mean Corpuscular Hemoglobin Concent 31.3 g/dl RDW Standard Deviation 52.0 fL RDW Coefficient of Variation 14.2 % Platelet Count 123 K/uL Mean Platelet Volume 11.5 fL Sodium Level 135 mmol/L Potassium Level 4.4 mmol/L Chloride Level 92 mmol/L Carbon Dioxide Level 40 mmol/L Anion Gap 3.0 mmol/L Blood Urea Nitrogen 51 mg/dl Creatinine 1.70 mg/dl Est Creatinine Clear Calc Drug Dose 32.5 ml/min Estimated GFR () 33.8 Estimated GFR (Non- 29.2 BUN/Creatinine Ratio 29.8 Random Glucose 228 mg/dl Calcium Level 8.7 mg/dl Magnesium Level 2.7 mg/dl
[2016-12-02] MEDS: AZITHROMYCIN IV 250 MG in DEXTROSE 5% 250ML 250 ML IV SCH (11:52)
[2016-12-02] MEDS ORDERED: LISINOPRIL 5 MG TAB PO ONE (12:45)
--- NOTE | 2016-12-02 17:14 | Progress Note ---
Subjective Date of Service: Dec 02, 2016. Subjective Pt evaluation today including: conversation w/ patient, physical exam, chart review, lab review, review of studies, conversation w/ consultant nurse, review of inpatient medication list Complaining about gaining weight, still sob, and wheezing Problem List Medical Problems: (1) Cellulitis Status: Acute (2) COPD exacerbation Status: Acute (3) COPD exacerbation Status: Acute (4) COPD exacerbation Status: Acute (5) Hypoxia Status: Acute (6) SOB (shortness of breath) Status: Acute Review of Systems Constitutional: + fatigue, No fever, No chills, No sweats, No weight loss, No weakness, No problem reported Eyes: No worsening of vision, No eye pain, No redness, No discharge, No diplopia ENT: No hearing loss, No unusual epistaxis, No nasal symptoms, No sore throat, No tinnitus, No dental problems, No trouble swallowing Respiratory: + cough, + wheezing, No sputum, No shortness of breath, No dyspnea on exertion, No dyspnea at rest, No hemoptysis Cardiac: + edema, No chest pain, No orthopnea, No PND, No claudication, No palpitations Abdomen: No pain, No nausea, No vomiting, No diarrhea, No constipation Musculoskeletal: No joint pain, No muscle pain, No swelling, No calf pain Female : No dysuria, No urinary frequency, No hematuria, No incontinence, No abnormal vaginal bleeding, No vaginal discharge Neurologic: No memory loss, No paralysis, No weakness, No numbness/tingling, No vertigo, No balance problems Psychiatric: No depression symptoms, No anhedonism, No anxiety, No insomnia, No substance abuse Heme: No abnormal bleeding/bruising, No clotting problems, No swollen lymph nodes, No night sweats Endo: No fatigue, No excessive thirst, No excessive urination Skin: No rash, No itch, No new/changing skin lesions, No color change, No bleeding Objective Vital Signs Date Time Temp Pulse Resp B/P (MAP) Pulse Ox O2 Delivery O2 Flow Rate FiO2 12/02/16 15:20 93 Nasal Cannula 3.0 12/02/16 14:53 36.7 78 16 93 3.0 12/02/16 14:31 78 16 93 Nasal Cannula 3.0 12/02/16 12:33 36.7 68 22 178/97 (124) 96 Nasal Cannula 4.0 12/02/16 12:00 93 Nasal Cannula 2.0 12/02/16 11:18 61 16 95 Nasal Cannula 3.0 12/02/16 08:09 36.4 70 20 181/99 (126) 97 Nasal Cannula 3.0 12/02/16 08:00 93 Nasal Cannula 2.0 12/02/16 07:24 69 16 100 Nasal Cannula 3.0 12/02/16 04:00 Nasal Cannula 3.0 12/02/16 03:15 36.3 66 20 159/85 (109) 94 Nasal Cannula 3.0 Humidified Oxygen 12/02/16 00:01 Nasal Cannula 3.0 12/01/16 23:02 36.7 67 20 176/99 (124) 95 Nasal Cannula 3.0 12/01/16 20:00 Nasal Cannula 3.0 12/01/16 19:59 81 16 97 Nasal Cannula 3.0 12/01/16 19:36 36.7 64 20 161/90 (113) 90 Nasal Cannula 3.0 Physical Exam General Appearance: WD/WN, no apparent distress, + obese Eyes: normal inspection, PERRL, EOMI, sclerae normal ENT: normal ENT inspection, hearing grossly normal, pharynx normal Neck: supple, no adenopathy, thyroid normal, no JVD, no carotid bruits, trachea midline Respiratory/Chest: chest non-tender, normal breath sounds, no respiratory distress, no accessory muscle use, + decreased breath sounds, + wheezing Cardiovascular: regular rate, rhythm, no gallop, no JVD, no murmur, + pertinent finding (trace to 1+ edema) Abdomen: normal bowel sounds, non tender, soft, no organomegaly, no pulsatile mass Extremities: normal range of motion, non-tender, normal inspection, no pedal edema, no calf tenderness, normal capillary refill, pelvis stable Neurologic/Psychiatric: quail farmer II-XII nml as tested, no motor/sensory deficits, alert, normal mood/affect, oriented x 3 Skin: normal color, warm/dry, no rash Lymphatic: no adenopathy Laboratory Results Last 24 Hours Test 12/01/16 20:13 12/02/16 06:40 12/02/16 06:43 12/02/16 11:27 Bedside Glucose 79 mg/dl 228 mg/dl 347 mg/dl White Blood Count 5.17 K/uL Red Blood Count 3.15 M/uL Hemoglobin 9.9 g/dL Hematocrit 31.6 % Mean Corpuscular Volume 100.3 fL Mean Corpuscular Hemoglobin 31.4 pg Mean Corpuscular Hemoglobin Concent 31.3 g/dl RDW Standard Deviation 52.0 fL RDW Coefficient of Variation 14.2 % Platelet Count 123 K/uL Mean Platelet Volume 11.5 fL Sodium Level 135 mmol/L Potassium Level 4.4 mmol/L Chloride Level 92 mmol/L Carbon Dioxide Level 40 mmol/L Anion Gap 3.0 mmol/L Blood Urea Nitrogen 51 mg/dl Creatinine 1.70 mg/dl Est Creatinine Clear Calc Drug Dose 32.5 ml/min Estimated GFR () 33.8 Estimated GFR (Non- 29.2 BUN/Creatinine Ratio 29.8 Random Glucose 228 mg/dl Calcium Level 8.7 mg/dl Magnesium Level 2.7 mg/dl Test 12/02/16 16:11 Bedside Glucose 252 mg/dl Assessment and Plan 76-year-old white female admitted on 11/29/2016 because of worsening difficulty breathing, Acute on chronic respiratory failure with hypoxia and hypercapnia/COPD exacerbation/acute on chronic diastolic CHF exacerbation-- Little better, continue improving serial cardiac enzymes were negative, cardiac rhythm monitoring were unremarkable 2-D echocardiogram with Dopplers was done Results in below The left ventricle is borderline dilated. * There is mild concentric left ventricular hypertrophy. * Left ventricular systolic function is normal. * Grade I diastolic dysfunction, (abnormal relaxation pattern). * Borderline left atrial enlargement. * There is mild mitral regurgitation. * Right ventricular systolic pressure is elevated at 50-60mmHg. * Compared to an echocardiogram performed in June 2015, there is minimal change Has been on Solu-Medrol 60 mg IV every 8 hours, will change to 40 every 12 because of patient's condition has some improve [employer] Sal[employer] input appreciated, continue Zithromax 500 mg IV daily because of possible COPD exacerbation and bronchitis, change azithromycin to by mouth Discontinued Ceftriaxone 1 g IV Do nebs every 4 hours while awake and every 2 hours when necessary. Baseline nasal cannula 3 L O2 with chronic O2 dependent, is not approaching in baseline Possible need to increase oxygen level in 3-4 L per min when up and when up and walk, discussed with patient about this Received Lasix 40 mg IV 1 in the ED. Increase Lasix to 40 mg by mouth daily Aldactone 25 mg by mouth daily because of complaining about weight gain, Discussed the risk of possible worsening renal function, she understand and agreed to take the risk Continue lisinopril 5 mg by mouth daily and metoprolol succinate 100 mg by mouth daily. Diabetes mellitus--hold glipizide., Continue sliding scale Hyperlipidemia--continue pravastatin 10 mg by mouth daily. Possible Deconditioning--consult physical therapy/occupational therapy. Moderate obesity GI and DVT prophylaxis is covered Possible discharge day 1 or 2 if continued to improve Continued [facility] stay due to: multiple IV medications needed Discharge planning: home
[2016-12-02] MEDS ORDERED: FUROSEMIDE 20 MG TAB PO ONE (17:15)
[2016-12-02] MEDS: METOPROLOL SUCC 50MG EXT REL TAB PO SCH (21:50)
[2016-12-02] MEDS: PRAVASTATIN SOD 10 MG TAB PO SCH (21:51)
[2016-12-03] VITALS (10 sets, daily range): BP systolic 148–178; BP diastolic 79–84; PULSE 50–78; TEMP 36.3–36.7; O2SAT 91–94
[2016-12-03] MEDS: HEPARIN SOD 5000 UNIT/0.5 ML CARP SQ SCH ×3 (06:12→20:29)
[2016-12-03] MEDS: ALBUT/IPRATROP 3MG/0.5MG NEB 3 ML VIAL INH SCH ×4 (07:07→19:21)
[2016-12-03 07:11] LABS: BUN/CREATININE RATIO 30.6 (10-20); CALCIUM 8.5 mg/dl (8.5-10.1); CREATININE 1.7 mg/dl (0.60-1.20); MAGNESIUM 2.7 mg/dl (1.8-2.4); PHOSPHORUS 5.5 mg/dl (2.5-4.9); POTASSIUM 4.5 mmol/L (3.5-5.1)
[2016-12-03] MEDS ORDERED: LISINOPRIL 10 MG TAB PO SCH (08:00)
[2016-12-03] MEDS: FLUOXETINE HCL 20 MG CAP PO SCH (08:15)
[2016-12-03] MEDS: ROPINIROLE HCL 1 MG TAB PO SCH ×3 (08:15→20:35)
[2016-12-03] MEDS: FERROUS SULFATE 325 MG TAB PO SCH (08:16)
[2016-12-03] MEDS: FUROSEMIDE 20 MG TAB PO SCH (08:16)
[2016-12-03] MEDS: BUDESONIDE/FORMOTEROL FUMARATE 160/4.5 60 PUFFS/INHALER INH SCH ×2 (08:16→20:41)
[2016-12-03] MEDS: PANTOprazole SOD 40 MG TAB PO SCH (08:16)
[2016-12-03] MEDS: NYSTATIN SUSP 500,000 U/5 ML UDC PO SCH ×4 (08:17→20:37)
[2016-12-03] MEDS: CYANOCOBALAMIN 500 MCG TAB (VIT B-12) PO SCH (08:18)
[2016-12-03] MEDS: MIRABEGRON ER 25 MG TAB PO SCH (08:18)
[2016-12-03] MEDS: AZITHROMYCIN 250 MG TAB PO SCH (08:18)
[2016-12-03] MEDS: SPIRONOLACTONE 25 MG TAB PO SCH (08:20)
[2016-12-03] MEDS: INSULIN GLARGINE SOLOSTAR 100 UNITS/ML 3 ML PEN SC SCH (08:32)
[2016-12-03] MEDS: INSULIN ASPART 100 UNITS/ML 3 ML PEN SC SCH ×4 (08:32→20:30)
--- NOTE | 2016-12-03 10:18 | Pulmonology Progress Note ---
Pulmonary Progress Note Date of Service Dec 03, 2016. Attending Subjective Patient seen and examined. States that she is feeling much better today. She is still having dyspnea on exertion, but is no longer coughing and now with less lower extremity swelling. Objective General: Patient is awake, alert, cooperative, and in no acute distress. Obese. Head: Normocephalic, Atraumatic. ENT: PERRLA, No discharge, EOMI, Sclera normal Neck: Normal ROM. Trachea midline. No stridor Respiratory: Decreased breath sounds bilaterlly, No respiratory distress. No accessory muscle use. Cardiovascular: Regular rate and rhythm.No murmur appreciate. Abdomen: Normal bowel sounds hear throughout. No guarding. Abdomen is soft and nontender Back: Normal inspection. Extremities:3+ pitting edema, cyanosis. Normal ROM Neuro: Alert, Oriented x 3. CN II-XII grossly intact. Sensation and motor function grossly intact. Psych: Mood and affect are normal. Pulses: Dorsal pedal Assessment & Plan Acute on chronic hypoxic, hypercapnic respiratory failure COPD on long-term O2 Diastolic dysfunction with elevated RVSP Pulmonary HTN Deconditioning Uncontrolled DM2 Acute on chronic renal failure Ms. Callahan appears to be almost back at her baseline. She is no respiratory distress. She continues to have dyspnea on exertion which is improving slowly. Patient continues on 3 L via nasal cannula. Recommend increasing patient's O2 supplementation to 5L with ambulation. Will require 2 step prior to discharge to check O2 requirements with ambulation. Continue to monitor O2 and keep SaO2 >92%. Continue Azithromycin for antiinflammatory properties Continue Symbicort and Duoneb- likely will add Spiriva to her regimen upon discharge Continue aggressive diuresis- continue to maintain negative fluid balance as tolerated She increased creatinine 1.7 for last three days. Currently on Lasix and Spironolactone. Consider increasing lasix 40 mg daily Continue PT/OT- patient likely has large component of deconditioning. Likely will benefit from outpatient PT/OT post-D/C as well. May also consider pulmonary rehab. Continue with steroid taper. She should follow up with in Pulmonary in 1-2 weeks post hospital discharge. Will sign off case today. Data Medications: Current Inpatient Medications Medications (Trade) Dose Ordered Sig/Polly Route Start Time Stop Time Status Last Admin Dose Admin Heparin Sodium (Porcine) (Heparin Sq 5000 Unit/0.5ml) 5,000 unit Q8 SQ 11/29/16 22:00 12/29/16 21:59 12/03/16 06:12 5,000 UNIT Acetaminophen (Tylenol Tab) 650 mg Q4H PRN PO 11/29/16 14:00 12/29/16 13:59 Al Hydrox/Mg Hydrox/Simethicone (Maalox Max Susp) 15 ml Q4H PRN PO 11/29/16 14:00 12/29/16 13:59 Magnesium Hydroxide (Milk Of Magnesia Susp) 30 ml Q12H PRN PO 11/29/16 14:00 12/29/16 13:59 Ondansetron HCl (Zofran Inj) 4 mg Q6H PRN IV 11/29/16 14:00 12/29/16 13:59 Polyethylene (Miralax Powder Packet) 17 gm DAILY PRN PO 11/29/16 14:00 12/29/16 13:59 Albuterol/ Ipratropium (Duoneb) 3 ml QIDR INH 11/29/16 16:00 12/29/16 15:59 12/03/16 07:07 3 ML Budesonide/ Formoterol Fumarate (Symbicort 160/ 4.5 Inh) 2 puffs BID INH 11/29/16 21:00 12/29/16 20:59 12/03/16 08:16 2 PUFFS Cyanocobalamin (Vitamin B-12 Tab) 1,000 mcg DAILY PO 11/30/16 09:00 12/30/16 08:59 12/03/16 08:18 1,000 MCG Metoprolol Succinate (Toprol Xl Tab) 100 mg QPM PO 11/29/16 21:00 12/29/16 20:59 12/02/16 21:50 100 MG Mirabegron (Myrbetriq Er) 25 mg DAILY PO 11/30/16 09:00 12/30/16 08:59 12/03/16 08:18 25 MG Pravastatin Sodium (Pravachol Tab) 10 mg QPM PO 11/29/16 21:00 12/29/16 20:59 12/02/16 21:51 10 MG Ropinirole HCl (Requip Tab) 2 mg TID PO 11/29/16 21:00 12/29/16 20:59 12/03/16 08:15 2 MG Tramadol HCl (Ultram Tab) 50 mg Q6 PRN PO 11/29/16 14:00 12/29/16 13:59 Ferrous Sulfate (Feosol Tab) 325 mg DAILY PO 11/30/16 09:00 12/30/16 08:59 12/03/16 08:16 325 MG Nystatin (Mycostatin Susp) 5 ml QID PO 11/29/16 17:00 12/09/16 16:59 12/03/16 08:17 5 ML Insulin Aspart (novoLOG ASPART) SLIDING SCALE If C... ACHS SC 11/29/16 16:00 12/29/16 15:59 12/03/16 08:32 12 UNITS Glucose (Glucose 40% Gel) 15-30 GRAMS 15 GRAMS... UD PRN PO 11/29/16 14:30 12/29/16 14:29 Glucose (Glucose Chew Tab) 4-8 Tablets 4 Tabl... UD PRN PO 11/29/16 14:30 12/29/16 14:29 Dextrose (Dextrose 50% 50ML Syringe) 25-50ML OF 50% DW IV FOR... UD PRN IV 11/29/16 14:30 12/29/16 14:29 Glucagon (Glucagon Inj) 1 mg UD PRN SQ 11/29/16 14:30 12/29/16 14:29 Albuterol/ Ipratropium (Duoneb) 3 ml Q2H PRN INH 11/29/16 17:15 12/29/16 17:14 Furosemide (Lasix Tab) 20 mg DAILY PO 11/30/16 09:00 12/30/16 08:59 12/03/16 08:16 20 MG Spironolactone (Aldactone Tab) 12.5 mg QAM PO 11/30/16 09:00 12/30/16 08:59 12/03/16 08:20 12.5 MG Insulin Glargine (Lantus Solostar Pen) 16 units DAILY SC 11/30/16 09:00 12/30/16 08:59 12/03/16 08:32 16 UNITS Pantoprazole Sodium (Protonix Tab) 40 mg QAM PO 12/01/16 09:00 12/31/16 08:59 12/03/16 08:16 40 MG Azithromycin (Zithromax Tab) 250 mg QAM PO 12/03/16 08:00 12/10/16 08:59 12/03/16 08:18 250 MG Prednisone (PredniSONE TAB) 40 mg BID PO 12/02/16 20:00 01/01/17 20:59 12/03/16 08:14 40 MG Lisinopril (Zestril Tab) 10 mg DAILY PO 12/03/16 08:00 12/30/16 08:59 12/03/16 08:17 10 MG Fluoxetine HCl (Prozac Cap) 40 mg QAM PO 12/03/16 08:00 12/30/16 08:59 12/03/16 08:15 40 MG Vital Signs: Date Time Temp Pulse Resp B/P (MAP) Pulse Ox O2 Delivery O2 Flow Rate FiO2 12/03/16 07:31 36.3 56 20 173/83 (113) 94 Nasal Cannula 3.0 12/03/16 07:09 50 18 94 Nasal Cannula 3.0 12/03/16 00:00 93 Nasal Cannula 3.0 12/03/16 00:00 36.7 71 22 161/79 (106) 94 Nasal Cannula 3.0 12/02/16 20:00 93 Nasal Cannula 3.0 12/02/16 19:01 70 18 93 Nasal Cannula 3.0 12/02/16 15:20 93 Nasal Cannula 3.0 12/02/16 15:20 36.7 69 18 163/83 (109) 91 Nasal Cannula 3.0 12/02/16 14:53 36.7 78 16 93 3.0 12/02/16 14:31 78 16 93 Nasal Cannula 3.0 12/02/16 12:33 36.7 68 22 178/97 (124) 96 Nasal Cannula 4.0 12/02/16 12:00 93 Nasal Cannula 2.0 12/02/16 11:18 61 16 95 Nasal Cannula 3.0 Laboratory Results: Last 24 Hours Test 12/02/16 11:27 12/02/16 16:11 12/02/16 19:58 12/03/16 05:26 Bedside Glucose 347 mg/dl 252 mg/dl 280 mg/dl Sodium Level 135 mmol/L Potassium Level 4.5 mmol/L Chloride Level 91 mmol/L Carbon Dioxide Level 39 mmol/L Anion Gap 5.0 mmol/L Blood Urea Nitrogen 52 mg/dl Creatinine 1.70 mg/dl Est Creatinine Clear Calc Drug Dose 32.4 ml/min Estimated GFR () 33.8 Estimated GFR (Non- 29.2 BUN/Creatinine Ratio 30.6 Random Glucose 279 mg/dl Calcium Level 8.5 mg/dl Phosphorus Level 5.5 mg/dl Magnesium Level 2.7 mg/dl Test 12/03/16 08:09 Bedside Glucose 293 mg/dl
--- NOTE | 2016-12-03 13:05 | Progress Note ---
Subjective Date of Service: Dec 03, 2016. Subjective Pt evaluation today including: conversation w/ patient, physical exam, chart review, lab review, review of studies, conversation w/ [employer] consultant, review of inpatient medication list Patient continue to have fatigue today. She feels that her breathing has improved. She is hoping to have home physical therapy upon discharge. She complains of no pain. Bowels moving well. Labs today: Na+ 135, K+ 91, Bicarb 39 Creatinine 1.7- stable Phosphorus 5.5, Magnesium 2.7 WBC 5.17 Hgb/Hct 9.9/31.6 No new imaging. Discussed patient with Dr. Pollard and Dr. Baez. Blood cultures: NGTD Problem List Medical Problems: (1) Cellulitis Status: Acute (2) COPD exacerbation Status: Acute (3) COPD exacerbation Status: Acute (4) COPD exacerbation Status: Acute (5) Hypoxia Status: Acute (6) SOB (shortness of breath) Status: Acute Review of Systems All Other Systems: Reviewed and Negative Medications Current Inpatient Medications Medications (Trade) Dose Ordered Sig/Polly Route Start Time Stop Time Status Last Admin Dose Admin Heparin Sodium (Porcine) (Heparin Sq 5000 Unit/0.5ml) 5,000 unit Q8 SQ 11/29/16 22:00 12/29/16 21:59 12/03/16 06:12 5,000 UNIT Acetaminophen (Tylenol Tab) 650 mg Q4H PRN PO 11/29/16 14:00 12/29/16 13:59 Al Hydrox/Mg Hydrox/Simethicone (Maalox Max Susp) 15 ml Q4H PRN PO 11/29/16 14:00 12/29/16 13:59 Magnesium Hydroxide (Milk Of Magnesia Susp) 30 ml Q12H PRN PO 11/29/16 14:00 12/29/16 13:59 Ondansetron HCl (Zofran Inj) 4 mg Q6H PRN IV 11/29/16 14:00 12/29/16 13:59 Polyethylene (Miralax Powder Packet) 17 gm DAILY PRN PO 11/29/16 14:00 12/29/16 13:59 Albuterol/ Ipratropium (Duoneb) 3 ml QIDR INH 11/29/16 16:00 12/29/16 15:59 12/03/16 11:10 3 ML Budesonide/ Formoterol Fumarate (Symbicort 160/ 4.5 Inh) 2 puffs BID INH 11/29/16 21:00 12/29/16 20:59 12/03/16 08:16 2 PUFFS Cyanocobalamin (Vitamin B-12 Tab) 1,000 mcg DAILY PO 11/30/16 09:00 12/30/16 08:59 12/03/16 08:18 1,000 MCG Metoprolol Succinate (Toprol Xl Tab) 100 mg QPM PO 11/29/16 21:00 12/29/16 20:59 12/02/16 21:50 100 MG Mirabegron (Myrbetriq Er) 25 mg DAILY PO 11/30/16 09:00 12/30/16 08:59 12/03/16 08:18 25 MG Pravastatin Sodium (Pravachol Tab) 10 mg QPM PO 11/29/16 21:00 12/29/16 20:59 12/02/16 21:51 10 MG Ropinirole HCl (Requip Tab) 2 mg TID PO 11/29/16 21:00 12/29/16 20:59 12/03/16 08:15 2 MG Tramadol HCl (Ultram Tab) 50 mg Q6 PRN PO 11/29/16 14:00 12/29/16 13:59 Ferrous Sulfate (Feosol Tab) 325 mg DAILY PO 11/30/16 09:00 12/30/16 08:59 12/03/16 08:16 325 MG Nystatin (Mycostatin Susp) 5 ml QID PO 11/29/16 17:00 12/09/16 16:59 12/03/16 08:17 5 ML Insulin Aspart (novoLOG ASPART) SLIDING SCALE If C... ACHS SC 11/29/16 16:00 12/29/16 15:59 12/03/16 08:32 12 UNITS Glucose (Glucose 40% Gel) 15-30 GRAMS 15 GRAMS... UD PRN PO 11/29/16 14:30 12/29/16 14:29 Glucose (Glucose Chew Tab) 4-8 Tablets 4 Tabl... UD PRN PO 11/29/16 14:30 12/29/16 14:29 Dextrose (Dextrose 50% 50ML Syringe) 25-50ML OF 50% DW IV FOR... UD PRN IV 11/29/16 14:30 12/29/16 14:29 Glucagon (Glucagon Inj) 1 mg UD PRN SQ 11/29/16 14:30 12/29/16 14:29 Albuterol/ Ipratropium (Duoneb) 3 ml Q2H PRN INH 11/29/16 17:15 12/29/16 17:14 Furosemide (Lasix Tab) 20 mg DAILY PO 11/30/16 09:00 12/30/16 08:59 12/03/16 08:16 20 MG Spironolactone (Aldactone Tab) 12.5 mg QAM PO 11/30/16 09:00 12/30/16 08:59 12/03/16 08:20 12.5 MG Insulin Glargine (Lantus Solostar Pen) 16 units DAILY SC 11/30/16 09:00 12/30/16 08:59 12/03/16 08:32 16 UNITS Pantoprazole Sodium (Protonix Tab) 40 mg QAM PO 12/01/16 09:00 12/31/16 08:59 12/03/16 08:16 40 MG Azithromycin (Zithromax Tab) 250 mg QAM PO 12/03/16 08:00 12/10/16 08:59 12/03/16 08:18 250 MG Lisinopril (Zestril Tab) 10 mg DAILY PO 12/03/16 08:00 12/30/16 08:59 12/03/16 08:17 10 MG Fluoxetine HCl (Prozac Cap) 40 mg QAM PO 12/03/16 08:00 12/30/16 08:59 12/03/16 08:15 40 MG Prednisone (PredniSONE TAB) 40 mg DAILY PO 12/04/16 08:00 01/01/17 20:59 UNV Objective Vital Signs Date Time Temp Pulse Resp B/P (MAP) Pulse Ox O2 Delivery O2 Flow Rate FiO2 12/03/16 11:25 58 18 94 Nasal Cannula 3.0 12/03/16 07:31 36.3 56 20 173/83 (113) 94 Nasal Cannula 3.0 12/03/16 07:09 50 18 94 Nasal Cannula 3.0 12/03/16 00:00 93 Nasal Cannula 3.0 12/03/16 00:00 36.7 71 22 161/79 (106) 94 Nasal Cannula 3.0 12/02/16 20:00 93 Nasal Cannula 3.0 12/02/16 19:01 70 18 93 Nasal Cannula 3.0 12/02/16 15:20 93 Nasal Cannula 3.0 12/02/16 15:20 36.7 69 18 163/83 (109) 91 Nasal Cannula 3.0 12/02/16 14:53 36.7 78 16 93 3.0 12/02/16 14:31 78 16 93 Nasal Cannula 3.0 Physical Exam General Appearance: no apparent distress, + obese Eyes: normal inspection, sclerae normal ENT: hearing grossly normal Neck: supple, trachea midline Respiratory/Chest: chest non-tender, lungs clear, normal breath sounds, no respiratory distress, no accessory muscle use Cardiovascular: regular rate, rhythm Abdomen: normal bowel sounds, non tender, soft Extremities: normal range of motion, + pertinent finding (trace to 1+ pitting edema b/l lower extremities) Neurologic/Psychiatric: alert, normal mood/affect Skin: normal color, warm/dry, no rash Comments: VS 12/03 T 36.3 C HR 56 RR 20 BP 173/83 SaO2 94 % on 3 L via nasal cannula Laboratory Results Last 24 Hours Test 12/02/16 16:11 12/02/16 19:58 12/03/16 05:26 12/03/16 08:09 Bedside Glucose 252 mg/dl 280 mg/dl 293 mg/dl Sodium Level 135 mmol/L Potassium Level 4.5 mmol/L Chloride Level 91 mmol/L Carbon Dioxide Level 39 mmol/L Anion Gap 5.0 mmol/L Blood Urea Nitrogen 52 mg/dl Creatinine 1.70 mg/dl Est Creatinine Clear Calc Drug Dose 32.4 ml/min Estimated GFR () 33.8 Estimated GFR (Non- 29.2 BUN/Creatinine Ratio 30.6 Random Glucose 279 mg/dl Calcium Level 8.5 mg/dl Phosphorus Level 5.5 mg/dl Magnesium Level 2.7 mg/dl Test 12/03/16 11:21 Bedside Glucose 315 mg/dl Assessment and Plan Acute on chronic respiratory failure with hypoxia/hypercapnea emt intermediate dependence on O2 at home COPD with exacerbation Acute on chronic diastolic CHF Patient is improving overall, but continues to have fatigue and elevated creatinine. Patient initially on Solu-Medrol 60 mg Q. 8 hours, but then transitioned to PO prednisone 40 mg BID. Discussed with Dr. Pollard- will decrease to 40 mg ONCE daily and then taper as outpatient if tolerating Continue Duoneb Q 4 hrs while awake and Q 2 hr PRN Continues on 3 L via nasal cannula- similar to typical at home consumption. May need increased flow rate with ambulation Continues Lasix 40 mg daily and Aldactone 25 mg daily for increased fluid retention- Creatinine stable so far Continue lisinopril and metoprolol at current doses. May need adjustment if BP continues to be elevated. Diabetes- Continue sliding scale insulin while in house. Transition to typical regimen upon D/C Hyperlipidemia- continue pravastatin Deconditioning- PT/OT feels that patient's needs may be adequately met with home health services. Will place order for Home Health upon discharge Obesity GI/DVT prophylaxis- in place Continued [facility] stay due to: multiple IV medications needed Discharge planning: home
[2016-12-03] MEDS ORDERED: LISINOPRIL 2.5 MG TAB PO ONE (15:15)
[2016-12-03] MEDS: METOPROLOL SUCC 50MG EXT REL TAB PO SCH (20:36)
[2016-12-03] MEDS: PRAVASTATIN SOD 10 MG TAB PO SCH (20:36)
[2016-12-04] VITALS: O2SAT 91
[2016-12-04 00:11] VITALS: BP 161/84; PULSE 65; TEMP 36.7; O2SAT 93
[2016-12-04] MEDS: HEPARIN SOD 5000 UNIT/0.5 ML CARP SQ SCH ×2 (06:09→13:27)
[2016-12-04] MEDS: ALBUT/IPRATROP 3MG/0.5MG NEB 3 ML VIAL INH SCH ×3 (07:27→15:26)
[2016-12-04 07:30] VITALS: PULSE 63; O2SAT 93
[2016-12-04 07:51] VITALS: BP 155/87; PULSE 64; TEMP 36.3; O2SAT 96
[2016-12-04] MEDS ORDERED: INSULIN GLARGINE SOLOSTAR 100 UNITS/ML 3 ML PEN SC SCH (08:00)
[2016-12-04] MEDS ORDERED: LISINOPRIL 5 MG TAB PO SCH (08:00)
[2016-12-04] MEDS: SPIRONOLACTONE 25 MG TAB PO SCH (08:37)
[2016-12-04] MEDS: ROPINIROLE HCL 1 MG TAB PO SCH ×2 (08:38→13:27)
[2016-12-04] MEDS: FERROUS SULFATE 325 MG TAB PO SCH (08:38)
[2016-12-04] MEDS: PANTOprazole SOD 40 MG TAB PO SCH (08:38)
[2016-12-04] MEDS: CYANOCOBALAMIN 500 MCG TAB (VIT B-12) PO SCH (08:38)
[2016-12-04] MEDS: NYSTATIN SUSP 500,000 U/5 ML UDC PO SCH ×2 (08:40→12:15)
[2016-12-04] MEDS: AZITHROMYCIN 250 MG TAB PO SCH (08:40)
[2016-12-04] MEDS: FLUOXETINE HCL 20 MG CAP PO SCH (08:41)
[2016-12-04] MEDS: FUROSEMIDE 20 MG TAB PO SCH (08:41)
[2016-12-04] MEDS: MIRABEGRON ER 25 MG TAB PO SCH (08:42)
[2016-12-04] MEDS: BUDESONIDE/FORMOTEROL FUMARATE 160/4.5 60 PUFFS/INHALER INH SCH (08:44)
[2016-12-04] MEDS: INSULIN ASPART 100 UNITS/ML 3 ML PEN SC SCH ×2 (08:48→13:27)
[2016-12-04 11:10] VITALS: PULSE 68; O2SAT 89
[2016-12-04] MEDS ORDERED: PRED-301 PO (12:55)
[2016-12-04] MEDS ORDERED: LSN5 PO (12:55)
[2016-12-04] MEDS ORDERED: ZTHM250 PO (12:58)
[2016-12-04] MEDS ORDERED: FURO40TA3 PO (13:16)
--- NOTE | 2016-12-04 13:18 | Discharge Instructions ---
Discharge Instructions Date of Service Dec 04, 2016. Admission Reason for Admission: Chf Exacerbation; Copd Exacerbation Discharge Discharge Diagnosis / Problem: CHF exacerbation, COPD exacerbation Discharge Goals Goal(s): Decrease discomfort, Improve function, Increase independence, Improve disease control, Learn about illness, Diagnostic testing, Therapeutic intervention Activity Recommendations Activity Limitations: resume your previous activity Exercise/Sports Limitations: as tolerated . Instructions / Follow-Up Instructions / Follow-Up Patient to be discharged home with home health Please continue to take azithromycin 250 mg tablet once a day for 6 more days Please take prednisone taper as directed, 5mg tablet, 6 pills daily for 3 days, then 4 pills daily for 3 days, then 2 pills daily for 3 days then stop Notice increase in lasix to 40 mg daily and lisinopril to 12.5 mg daily If worsening shortness of breath, chest pain, fevers, please report to ER Current Hospital Diet Patient's current hospital diet: AHA Diet (Heart Healthy), Diabetes Type 2 Diet Discharge Diet Recommended Diet: AHA Diet (Heart Healthy), Diabetes Type 2 Diet Pending Studies Studies pending at discharge: no Medical Emergencies . Who to Call and When: Medical Emergencies: If at any time you feel your situation is an emergency, please call 911 immediately. . Non-Emergent Contact Non-Emergency issues call your: Primary Care Provider Call Non-Emergent contact if: you have a fever, your pain is worsening . . "Provider Documentation" section prepared by Blair Raymundo. . VTE Core Measure Inpt VTE Proph given/why not?: Unfractionated heparin SQ, T.E.D. Stockings, SCD 's
[2016-12-04 15:02] VITALS: BP 152/79; PULSE 68; TEMP 36.7; O2SAT 91
--- NOTE | 2016-12-04 16:13 | Discharge Summary ---
Discharge Summary Date of Service Dec 04, 2016. Discharge Summary Admission Date: Nov 29, 2016 at 14:13 Discharge Date: Dec 04, 2016 Discharge Disposition: Home with services Principal Diagnosis: COPD exacerbation, CHF exacerbation Immunizations: Have You Had Influenza Vaccine: Yes Influenza Vaccine Date: Jan 16, 2013 History of Tetanus Vaccine?: Yes Tetanus Immunization Date: Jan 07, 2013 History of Pneumococcal: Yes Pneumococcal Date: Feb 16, 2010 History of Hepatitis B Vaccine: No Consultations: Pulmonary Discharge Exam Review of Systems: Constitutional: No fever, No chills, No sweats, No weakness Respiratory: No cough, No sputum, No wheezing, No shortness of breath, No dyspnea on exertion Cardiovascular: No chest pain, No orthopnea, No PND, No edema Abdomen: No pain, No nausea, No vomiting, No diarrhea Musculoskeletal: No joint pain, No muscle pain, No swelling, No calf pain Genitourinary - Female: No dysuria, No urinary frequency, No urinary urgency , No urinary incontinence Neurologic: No memory loss, No paralysis, No weakness, No numbness/tingling Psychiatric: No depression symptoms, No anhedonism, No anxiety, No insomnia Endocrine: No fatigue, No excessive thirst Integumentary: No rash, No itch Physical Exam: General Appearance: WD/WN, no apparent distress Eyes: normal inspection, PERRL, EOMI, sclerae normal Neck: supple, no adenopathy, thyroid normal, no JVD Respiratory/Chest: chest non-tender, lungs clear, normal breath sounds, no respiratory distress Cardiovascular: regular rate, rhythm, no edema, no gallop, no JVD Abdomen / GI: normal bowel sounds, non tender, soft, no organomegaly Extremities: normal inspection, no calf tenderness, normal capillary refill , no pedal edema Neurologic/Psychiatric: alert, normal mood/affect, normal reflexes, oriented x 3 Skin: normal color, warm/dry, no rash Lymphatic: no adenopathy Hospital Course Acute on chronic 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 8 hours, but then transitioned to PO prednisone taper on discharge: Prednisone 30 mg x 3 days, 20 mg x 3 days then 10 mg x 3 days then stop Continue Duoneb Q 4 hrs while awake and Q 2 hr PRN Continues on 3 L via nasal cannula- similar to typical at home consumption. May need increased flow rate with ambulation Increased Lasix to 40 mg daily and Aldactone 25 mg daily for increased fluid retention- Creatinine stable so far Elev BP, Increase lisinopril 10 12.g mg PO daily and cont metoprolol at current doses. May need adjustment if BP continues to be elevated. Finally 7 day course of azithromycin on DC to cover atypicals with COPD exab Diabetes- Continue sliding scale insulin while in house. Transition to typical regimen upon D/C Hyperlipidemia- continue pravastatin Deconditioning- PT/OT feels that patient's needs may be adequately met with home health services. Will place order for Home Health upon discharge Obesity Total Time Spent: Greater than 30 minutes This includes examination of the patient, discharge planning, medication reconciliation, and communication with other providers. Discharge Instructions Please refer to the electronic Patient Visit Report (Discharge Instructions) for additional information. Additional Copies To Luc Daly D.O.
== END 2016-12-04 15:57 | disposition home health service (06) | DRG 291 ==
LOC: EDBD 10:25 → C.EDB 10:26 → C.2T 14:13 → ENRESERV 15:18 → C.MS4W 12-02 15:44
PROVIDERS: ADMIT Hospitalist; ATTEND Hospitalist
DX: I11.0 Hypertensive heart disease with heart failure (principal); I50.33 Acute on chronic diastolic (congestive) heart failure; J96.21 Acute and chronic respiratory failure with hypoxia; J44.1 Chronic obstructive pulmonary disease with (acute) exacerbation; Z87.891 Personal history of nicotine dependence; Z99.81 Dependence on supplemental oxygen; E11.9 Type 2 diabetes mellitus without complications; E78.5 Hyperlipidemia, unspecified

== ENCOUNTER → 2017-02-12 | Outpatient (CLI) | payer BC ==
[~2017-02-12] MED LIST changes: +AMIO200T4 PO; -AMOX500C3 PO; +CLR10 PO; +CRD200 PO; -DLR500 PO; -DTR2 PO; +FERR1TAB13 PO; -FERR325T51 PO; -FURO-85 PO; +LSX40 PO; +MELATAB2 PO; +METO100T44 PO; -METO1TAB69 PO; +METO50TA7 PO; +MYR25 PO; +POTA20TA16 PO; -PRD10 PO; +PRD5 PO; +PRED-301 PO; +PRED10TA PO; +PRED20TA PO; +QVRINH80 INH; -SPIR25TA PO; +SPR25 PO; +TRAZ50TA35 PO; -ULT50 PO
[2017-02-12 09:12] LABS: BLOOD UREA NITROGEN 105 mg/dl (7-18); BUN/CREATININE RATIO 28.7 (10-20); CALCIUM 8.7 mg/dl (8.5-10.1); CARBON DIOXIDE 27 mmol/L (21-32); CHLORIDE 96 mmol/L (98-107); CREATININE 3.65 mg/dl (0.60-1.20); GLUCOSE 134 mg/dl (70-99); POTASSIUM 5.1 mmol/L (3.5-5.1); SODIUM 135 mmol/L (136-145)
== END ==
LOC: C.LABCC 08:10
PROVIDERS: ATTEND Internal Medicine
DX: N18.9 Chronic kidney disease, unspecified (principal)

== ENCOUNTER → 2017-02-13 | Outpatient (CLI) | payer BC ==
[2017-02-13 08:18] LABS: COMPLETE YES; HEMATOCRIT 35.4 % (37-47); IG% 0.4 %; LYMPH % 3.2 %; LYMPH ABS # 0.33 K/uL (1.2-3.4); MEAN CORPUSCULAR HEMOGLOBIN 31.5 pg (25-34); MEAN CORPUSCULAR HGB CONC 32.5 g/dl (32-36); MEAN PLATELET VOLUME 10.9 fL (7.4-10.4); MONO % 2.8 %; NEUT % 93.6 %; PLATELET COUNT 179 K/uL (130-400); RED BLOOD COUNT 3.65 M/uL (4.2-5.4); WHITE BLOOD COUNT 10.41 K/uL (4.8-10.8)
[2017-02-13 08:35] LABS: BLOOD UREA NITROGEN 105 mg/dl (7-18); BUN/CREATININE RATIO 30.7 (10-20); CALCIUM 8.9 mg/dl (8.5-10.1); CARBON DIOXIDE 30 mmol/L (21-32); CHLORIDE 93 mmol/L (98-107); CREATININE 3.42 mg/dl (0.60-1.20); GLUCOSE 428 mg/dl (70-99); SODIUM 133 mmol/L (136-145)
[2017-02-13 08:46] LABS: BETA-HYDROXYBUTYRATE 0.98 mg/dL (0.2-2.81)
== END ==
LOC: C.LABCC 07:45
PROVIDERS: ATTEND Internal Medicine
DX: N18.9 Chronic kidney disease, unspecified (principal)

== ENCOUNTER → 2017-02-14 | Outpatient (CLI) | payer BC ==
[2017-02-14 09:20] LABS: BASO % 0.1 %; BASO ABS # 0.01 K/uL (0-0.2); COMPLETE YES; EOS % 0.2 %; HEMATOCRIT 40.5 % (37-47); IG% 0.3 %; LYMPH % 7.7 %; LYMPH ABS # 0.96 K/uL (1.2-3.4); MEAN CELL VOLUME 97.1 fL (80-100); MEAN CORPUSCULAR HEMOGLOBIN 31.7 pg (25-34); MEAN CORPUSCULAR HGB CONC 32.6 g/dl (32-36); MEAN PLATELET VOLUME 11.2 fL (7.4-10.4); MONO % 3.8 %; NEUT % 87.9 %; PLATELET COUNT 222 K/uL (130-400); RED BLOOD COUNT 4.17 M/uL (4.2-5.4); WHITE BLOOD COUNT 12.52 K/uL (4.8-10.8)
[2017-02-14 10:34] LABS: BLOOD UREA NITROGEN 108 mg/dl (7-18); CALCIUM 9.5 mg/dl (8.5-10.1); CARBON DIOXIDE 29 mmol/L (21-32); CHLORIDE 93 mmol/L (98-107); GLUCOSE 181 mg/dl (70-99); POTASSIUM 5.7 mmol/L (3.5-5.1); SODIUM 133 mmol/L (136-145)
== END ==
LOC: C.LABCC 09:08
PROVIDERS: ATTEND Internal Medicine
DX: N18.9 Chronic kidney disease, unspecified (principal)

== ENCOUNTER 2017-02-17 01:16 | Inpatient (IN) | payer BC, OTHER ==
[~2017-02-17] VITALS: Ht 160 cm; Wt 87.0 kg
[2017-02-17] VITALS (22 sets, daily range): BP systolic 67–125; BP diastolic 38–78; PULSE 49–73; TEMP 36.3–36.7; O2SAT 93–99; BMI 33.4
[~2017-02-17 01:16] MED LIST changes: -AMIO200T4 PO; -MELATAB2 PO; -METO50TA7 PO; -PRD5 PO; -PRED-301 PO; -PRED20TA PO; -TRAZ50TA35 PO
[2017-02-17] MEDS ORDERED: ACETAMINOPHEN 325 MG TAB PO PRN (02:30)
[2017-02-17] MEDS ORDERED: MoRPHine SULFATE 2 MG/ML CARP IV PRN (02:30)
[2017-02-17] MEDS ORDERED: INSULIN IV INFUSION PROTOCOL STA ×2 (02:36→14:08)
--- NOTE | 2017-02-17 02:44 | History and Physical ---
History & Physical Date & Time of Service: Feb 17, 2017 at 02:40 Chief Complaint: Dka, Acute Renal Failure Primary Care Physician: No Doctor, Assigned History of Present Illness Source: patient, hospital records, EMS Nydia Callahan is a 76 yo F with COPD and CHF who was recently discharged for COPD exacerbation and new atrial fibrillation, who presented to [facility] ED earlier today with hyperglycemia. She reports her blood sugars have been high the last few days, in the 300-400 range. She reports she also has just not felt right since leaving the hospital. She has also been on a long steroid taper, but is unclear what dose she is on. She went to [facility] after discharge for a week of rehab and then to [facility] where she resides now. Her CO2 today was 120 and BSG 600s. Her ABG at [facility] ED had a pH of 7.29. She was given 2L IV fluids and 5 units of Insulin, and started on an insulin drip. She also reports in the last few weeks her legs have been weaker than usual, and she feels they give way. She denies any chest pain, shortness of breath, abdominal pain. Currently, she reports feeling well. She was transferred by helicopter to the ICU here. During her last admission, she was found to have a CO2 of over 100, taken to the ICU and started on BiPAP. She was not intubated. She also developed atrial fibrillation and was started on amiodarone. She was not started on anticoagulation due to falls. Past Medical/Surgical History Medical Problems: (1) CHF (congestive heart failure) Status: Chronic (2) CHF exacerbation Status: Resolved (3) Diab Susu Wo Compl, Type Ii Or Unspec Type, Uncontrolled Status: Chronic (4) Hyperlipidemia Nec/Nos Status: Chronic (5) Hypertension Nos Status: Chronic (6) Respiratory failure, [id number] Status: Chronic Family History Cancer Diabetes mellitus FH: heart disease Social History Smoking Status: Former Smoker Smokeless Tobacco Use: No Alcohol Use: none Drug Use: none Marital Status: single, Housing status: lives alone Occupational Status: retired Immunizations History of Influenza Vaccine: Yes Influenza Vaccine Date: Jan 16, 2013 History of Tetanus Vaccine?: Yes Tetanus Immunization Date: Jan 07, 2013 History of Pneumococcal: Yes Pneumococcal Date: Feb 16, 2010 History of Hepatitis B Vaccine: No Multi-Drug Resistant Organisms History of MDRO: No Allergies Coded Allergies: Atropine (Verified Allergy, Intermediate, RASH, 01/26/17) Dobutamine (Verified Allergy, Intermediate, RASH, 01/26/17) Home Medications Scheduled Amiodarone Hcl (Cordarone), 200 MG PO DAILY Beclomethasone Dip (Qvar), 80 MCG INH BID Budesonide/Formoterol Fumarate (Symbicort 160-4.5 Mcg/Act), 2 PUFFS INH BID Cyanocobalamin (Vitamin B12 500MCG), 1,000 MCG PO DAILY Ferrous Sulfate (Kp Ferrous Sulfate), 1 TAB PO DAILY Fluoxetine Hcl (Prozac), 20 MG PO QAM Furosemide (Furosemide), 80 MG PO DAILY Glipizide (Glipizide), 5 MG PO BID Ipratropium-Albuterol (Duoneb), 1 TREATMENT INH Q6HWA Loratadine (Claritin), 10 MG PO QAM Melatonin (Melatonin Maximum Strengt), 1 TAB PO HS Metoprolol Succ (Toprol Xl) (Toprol-Xl), 1 TAB PO PM Mirabegron (Myrbetriq Er), 25 MG PO DAILY Nystatin (Nystatin), 5 ML PO QID Potassium Ext Rel (Klor-Con), 20 MEQ PO DAILY Pravastatin Sodium (Pravastatin Sodium), 10 MG PO QPM Prednisone (Prednisone), 15 MG PO DAILY Prednisone (Prednisone), 20 MG PO DAILY Prednisone (Prednisone), 5 MG PO DAILY Prednisone (Prednisone), 10 MG PO DAILY Ropinirole (Requip), 2 MG PO TID Trazodone Hcl (Trazodone), 25 MG PO HS Review of Systems See HPI for pertinent positives & negatives. A total of 10 systems reviewed and were otherwise negative. Physical Exam General Appearance: WD/WN, no apparent distress Head: normocephalic, atraumatic Eyes: normal inspection, PERRL ENT: hearing grossly normal Neck: supple, no JVD Respiratory/Chest: lungs clear, normal breath sounds, no respiratory distress Cardiovascular: regular rate, rhythm, no murmur, normal peripheral pulses Abdomen/GI: normal bowel sounds, non tender, soft Diagnostics Laboratory Results Results Past 24 Hours Test 02/17/17 02:30 Range/Units Microbiology Results 02/17/17 MRSA DNA Surveillance Screen, Ordered Pending CXR normal Impression Assessment and Plan 76 yo female, with end-stage COPD and CHF who presents with DKA, transferred from [facility] ED. DKA - Continue NSS 100mL/hour - Continue insulin drip per protocol - Repeating labwork now, then will determine if need to get labs q4h - Glipizide on hold - would consider cancelling entirely due to falls risk Acute on chronic respiratory failure with hypercapnia - Continue current o2 regime with BiPAP at night - Hold her current prednisone taper, seems to be starting 20mg dose tomorrow. Will provide a stress dose of hydrocortisone 50mg at 8am. Day team to please r/ v. - Continue daily Lasix 80mg - Continue inhalers Chronic diastolic CHF - I&O monitoring, lauren already in place - daily weights CAD - Continue statin, beta-veena (Toprol XL 50mg daily). SARAH-I stopped last admission due to ABIEL. Atrial fibrillation - Continue amiodarone 200mg daily - Pt refused [facility] anticoagulation last admission Restless leg syndrome - Continue ropinirole Leg weakness - Likely deconditioning, but will consider broader differentials after DKA has resolved - PT/OT when able to Depression - Continue Prozac Urinary incontinence - Continue Mirabegron VTE: Heparin SQ Code status: DNR Dispo: Admitted to ICU Attending addendum: I have physically seen this patient, have supervised the medical residents activities, and agree with the H&P unless as otherwise noted. Assessment and Plan: DKA/accepted in transfer from [facility] ED-- Order stat labs: CBC with differential, chemistry profile, magnesium, ABG, EKG, troponin, chest x-ray. Continue insulin drip per protocol For now place on normal saline 100 ML's per hour Follow laboratories per protocol. Acute on chronic respiratory failure with hypercapnia/CHF/atrial fibrillation BiPAP at bedtime Continue metoprolol succinate 50 mg daily Continue Lasix 80 mg by mouth daily Continue amiodarone 200 mg daily Restless leg syndrome-- Continue ropinirole Level of Care Critical Care Advanced Directives Existing Advance Directive: Yes Existing Living Will: Yes Existing Power of Field Service Engineer: Yes Resuscitation Status DO NOT RESUSCITATE VTE Prophylaxis VTE Risk Assessment Done? Y/N: Yes Risk Level: Moderate Given or contraindicated: SCD's Resident Tracking Resident Involvement: Resident Care Provided Care Provided: Adult Hospital Medicine
[2017-02-17] MEDS ORDERED: MODERATE STRESS LEVEL ONE (02:45)
[2017-02-17] MEDS ORDERED: DKA GOAL RANGE 150-250 mg/dl 1 EA ONE (02:45)
[2017-02-17] MEDS ORDERED: PHARMACY GLYCEMIC MGMT CONSULT PRN (02:45)
[2017-02-17] MEDS ORDERED: PATIENT'S HEIGHT AND/OR WEIGHT NEEDED SCH (03:00)
[2017-02-17 03:16] LABS: COMPLETE YES; EOS % 0.6 %; HEMATOCRIT 36.8 % (37-47); IG% 0.5 %; LYMPH % 2.9 %; LYMPH ABS # 0.25 K/uL (1.2-3.4); MEAN CELL VOLUME 96.3 fL (80-100); MEAN CORPUSCULAR HEMOGLOBIN 30.6 pg (25-34); MEAN CORPUSCULAR HGB CONC 31.8 g/dl (32-36); MEAN PLATELET VOLUME 11.6 fL (7.4-10.4); MONO % 0.9 %; NEUT % 95.1 %; PLATELET COUNT 106 K/uL (130-400); RED BLOOD COUNT 3.82 M/uL (4.2-5.4); WHITE BLOOD COUNT 8.77 K/uL (4.8-10.8)
[2017-02-17 03:25] LABS: PROTHROMBIN TIME (PATIENT) 10.2 SECONDS (9.0-12.0)
[2017-02-17 03:35] LABS: ALT/SGPT 24 U/L (12-78); AST/SGOT 8 U/L (15-37); BLOOD UREA NITROGEN 142 mg/dl (7-18); BUN/CREATININE RATIO 34.8 (10-20); CALCIUM 8.1 mg/dl (8.5-10.1); CARBON DIOXIDE 26 mmol/L (21-32); CHLORIDE 98 mmol/L (98-107); CREATININE 4.09 mg/dl (0.60-1.20); GLUCOSE 261 mg/dl (70-99); MAGNESIUM 2.4 mg/dl (1.8-2.4); POTASSIUM 5.5 mmol/L (3.5-5.1); SODIUM 133 mmol/L (136-145)
[2017-02-17 03:38] LABS: ALB/GLOB RATIO 1.1 (0.9-2); ALKALINE PHOSPHATASE 68 U/L (45-117)
--- NOTE | 2017-02-17 03:52 | Critical Care Consultation ---
Critical Care Consultation Date of Consultation: Feb 17, 2017. Attending Physician: Yamil Torres M.D. Reason for Consultation: Patient transferred to [facility] via [facility] secondary to DKA with blood sugars greater than 600 requiring insulin drip, hyperkalemia, and hyponatremia. History of Present Illness Patient is a 76-year-old female with a significant past medical history of COPD , diabetes mellitus, CHF, hypertension, and hyperlipidemia who presents to the ICU via [facility] from [facility] for suspected DKA with blood sugars greater than 600 with hyponatremia at 125 and hyperkalemia with a potassium of 6.6. She is currently on a prednisone taper after being admitted at this facility for a pneumonia and hypercapnic respiratory failure. While at [facility], she received 2 L of normal saline, 10 units regular insulin, insulin drip, 20 mg Lasix, and 30 g of Kayexalate. This patient was felt to be too complex for their facility requiring transfer to higher level care. Patient was accepted to our facility for ICU status for closer monitoring. Patient reports that after her stay in our facility, she was discharged to [facility] for rehabilitation. After that, she was discharged to a half-way in [place]. She was just discharged from [facility] on . This evening and last evening, she noticed that her blood sugars have been elevated at greater than 500. This evening, her blood glucose was found to be greater than 600. She was subsequently directed to the [facility] ER for further evaluation. The patient reports that other than some bilateral leg weakness, she reports that she has been doing well since her time of discharge. She denies any associated headaches, dizziness, lightheadedness, chest pain, palpitations, short of breath, productive cough, nausea, vomiting, abdominal pain, polydipsia, polyuria, polyphagia, diarrhea, or recent falls. The patient otherwise reports feeling okay. Patient denies any pain rating her discomfort a 0/10. Past Medical/Surgical History Medical Problems: (1) CHF (congestive heart failure) (2) CHF exacerbation (3) Diab Susu Wo Compl, Type Ii Or Unspec Type, Uncontrolled (4) DKA (diabetic ketoacidoses) (5) Hyperlipidemia Nec/Nos (6) Hypertension Nos (7) Hypoxemia (8) Influenza A (9) Oral candidiasis (10) Pneumonia (11) Renal failure (12) Respiratory failure, [id number] Family History Cancer Diabetes mellitus FH: heart disease Noncontributory Social History Smoking Status: Former Smoker Smokeless Tobacco Use: No Alcohol Use: none Drug Use: none Marital Status: single, Housing Status: penitentiary Occupation Status: retired Allergies Coded Allergies: Atropine (Verified Allergy, Intermediate, RASH, 01/26/17) Dobutamine (Verified Allergy, Intermediate, RASH, 01/26/17) Home Medications Scheduled Amiodarone Hcl (Cordarone), 200 MG PO DAILY Beclomethasone Dip (Qvar), 80 MCG INH BID Budesonide/Formoterol Fumarate (Symbicort 160-4.5 Mcg/Act), 2 PUFFS INH BID Cyanocobalamin (Vitamin B12 500MCG), 1,000 MCG PO DAILY Ferrous Sulfate (Kp Ferrous Sulfate), 1 TAB PO DAILY Fluoxetine Hcl (Prozac), 20 MG PO QAM Furosemide (Furosemide), 80 MG PO DAILY Glipizide (Glipizide), 5 MG PO BID Ipratropium-Albuterol (Duoneb), 1 TREATMENT INH Q6HWA Loratadine (Claritin), 10 MG PO QAM Melatonin (Melatonin Maximum Strengt), 1 TAB PO HS Metoprolol Succ (Toprol Xl) (Toprol-Xl), 1 TAB PO PM Mirabegron (Myrbetriq Er), 25 MG PO DAILY Nystatin (Nystatin), 5 ML PO QID Potassium Ext Rel (Klor-Con), 20 MEQ PO DAILY Pravastatin Sodium (Pravastatin Sodium), 10 MG PO QPM Prednisone (Prednisone), 15 MG PO DAILY Prednisone (Prednisone), 20 MG PO DAILY Prednisone (Prednisone), 5 MG PO DAILY Prednisone (Prednisone), 10 MG PO DAILY Ropinirole (Requip), 2 MG PO TID Trazodone Hcl (Trazodone), 25 MG PO HS Current Inpatient Medications Current Inpatient Medications Medications (Trade) Dose Ordered Sig/Polly Route Start Time Stop Time Status Last Admin Dose Admin Heparin Sodium (Porcine) (Heparin Sq 5000 Unit/0.5ml) 5,000 unit Q12H SQ 02/17/17 02:30 03/19/17 02:29 UNV Acetaminophen (Tylenol Tab) 650 mg Q4H PRN PO 02/17/17 02:30 03/19/17 02:29 Morphine Sulfate (MoRPHine SULFATE INJ) 2 mg Q2H PRN IV 02/17/17 02:30 03/03/17 02:29 Amiodarone HCl (Cordarone Tab) 200 mg BID PO 02/17/17 09:00 03/19/17 08:59 Beclomethasone Dipropionate (Qvar 80 Mcg Hfa Inhaler) 2 puffs BID INH 02/17/17 09:00 03/19/17 08:59 Budesonide/ Formoterol Fumarate (Symbicort 160/ 4.5 Inh) 2 puffs BID INH 02/17/17 09:00 03/19/17 08:59 Fluoxetine HCl (Prozac Cap) 20 mg QAM PO 02/17/17 09:00 03/19/17 08:59 Furosemide (Lasix Tab) 80 mg DAILY PO 02/17/17 09:00 03/19/17 08:59 Albuterol/ Ipratropium (Duoneb) 0.5 ml Q6RWA INH 02/17/17 09:00 03/19/17 08:59 Lisinopril (Zestril Tab) 10 mg DAILY PO 02/17/17 09:00 03/19/17 08:59 Loratadine (Claritin Tab) 10 mg QAM PO 02/17/17 09:00 03/19/17 08:59 Metoprolol Succinate (Toprol Xl Tab) 100 mg QPM PO 02/17/17 21:00 03/19/17 20:59 Mirabegron (Myrbetriq Er) 25 mg DAILY PO 02/17/17 09:00 03/19/17 08:59 Nystatin (Mycostatin Susp) 5 ml QID PRN PO 02/17/17 02:45 02/27/17 02:44 Pravastatin Sodium (Pravachol Tab) 10 mg QPM PO 02/17/17 21:00 03/19/17 20:59 Ropinirole HCl (Requip Tab) 2 mg TID PO 02/17/17 09:00 03/19/17 08:59 Spironolactone (Aldactone Tab) 25 mg BID17 PO 02/17/17 09:00 03/19/17 08:59 Insulin Aspart (novoLOG ASPART) [facility] 02/17/17 08:00 03/19/17 07:59 Miscellaneous Information (Consult Glycemic Management Pharmacy) 1 ea UD PRN N/A 02/17/17 02:45 03/19/17 02:44 Sodium Chloride 1,000 ml @ 125 mls/hr Q8H IV 02/17/17 04:00 02/18/17 03:59 02/17/17 03:20 125 MLS/HR Insulin Human Regular 250 units/ Sodium Chloride 252.5 ml @ 0 mls/hr Q24H IV 02/17/17 04:00 03/19/17 03:59 Miscellaneous Information (Patient'S Height And/Or Weight Needed) 1 ea Q2H N/A 02/17/17 03:00 03/19/17 02:59 Review of Systems A complete 10-point Review of Systems was discussed with the patient, with pertinent positives and negatives listed in the History of Present Illness. All remaining Review of Systems questions can be considered negative unless otherwise specified. Physical Exam VITAL SIGNS - Vital signs and nursing notes were reviewed. GENERAL - 76-year-old female appearing her stated age who is in no acute distress. Communicates well with provider and answers questions appropriately. HEAD - NC/AT. EYES - PERRL with EOMI bilaterally. Sclera anicteric. Palpebral conjunctiva pink and moist with no injection noted. EARS - No deformities of external structures noted on gross examination bilaterally. NOSE - Midline and without cyanosis. No epistaxis or purulent drainage noted. MOUTH/OROPHARYNX - Without perioral cyanosis. Buccal mucosa pink and dry and without leukoplakia. NECK - Neck with FROM. Supple to palpation. LUNGS - Chest wall symmetric without accessory muscle use, intercostals retractions, or central cyanosis. Normal vesicular breath sounds CTA B/L. No wheezes, rales, or rhonchi appreciated. CARDIAC - RRR with S1/S2. No murmur, rubs, or gallops appreciated. No reproducible tenderness to palpation appreciated over the anterior chest wall. ABDOMEN - Abdominal contour obese and without pulsations or visible masses. BS normoactive all four quadrants. No tenderness, palpable masses, hepatosplenomegaly, or ascites noted. EXTREMITIES - No clubbing or peripheral cyanosis. Trace pretibial edema present bilaterally. +3/5 radial and dorsalis pedis pulses palpated throughout. +5/5 strength noted in UE/LE bilaterally. NEUROLOGIC - Cranial nerves II through XII grossly intact. Sensory intact to light touch throughout. PSYCH - A&Ox3 and cooperates fully with examiner. Pt is very pleasant and interacts well with examiner. Laboratory Results Last 24 Hours Test 02/17/17 02:49 White Blood Count 8.77 K/uL Red Blood Count 3.82 M/uL Hemoglobin 11.7 g/dL Hematocrit 36.8 % Mean Corpuscular Volume 96.3 fL Mean Corpuscular Hemoglobin 30.6 pg Mean Corpuscular Hemoglobin Concent 31.8 g/dl Platelet Count 106 K/uL Mean Platelet Volume 11.6 fL Neutrophils (%) (Auto) 95.1 % Lymphocytes (%) (Auto) 2.9 % Monocytes (%) (Auto) 0.9 % Eosinophils (%) (Auto) 0.6 % Basophils (%) (Auto) 0.0 % Neutrophils # (Auto) 8.35 K/uL Lymphocytes # (Auto) 0.25 K/uL Monocytes # (Auto) 0.08 K/uL Eosinophils # (Auto) 0.05 K/uL Basophils # (Auto) 0.00 K/uL RDW Standard Deviation 50.4 fL RDW Coefficient of Variation 14.2 % Immature Granulocyte % (Auto) 0.5 % Immature Granulocyte # (Auto) 0.04 K/uL Diagnostic Results Chest x-ray was obtained and reviewed by myself. It was compared to priors. There is atelectasis noted to the LEFT-sided lower base which is unchanged from prior x-ray on 04/12/2016. Radiologist's impression unavailable at the time of dictation. Assessment & Plan (1) DKA (diabetic ketoacidoses) (2) Renal failure (3) CHF exacerbation (4) Diab Susu Wo Compl, Type Ii Or Unspec Type, Uncontrolled (5) Hypertension Nos (6) COPD (chronic obstructive pulmonary disease) Reason Critically Ill: Patient transferred to [facility] via [facility] secondary to DKA with blood sugars greater than 600 requiring insulin drip, hyperkalemia, and hyponatremia. Hypotension with blood pressures in the 90s over 40s. Neuro - * CAM ICU: NEGATIVE * Restless Leg Syndrome - continue Requip. * Depression - Continue Prozac * Trazodone for sleep. Cardiac - * h/o CHF, HTN, Dyslipidemia: * Continue home Rx as BP tolerates. * EKG demonstrates NSR at 69 bpm. QTc 432ms. * ECHO (11/30/2016): * The left ventricle is borderline dilated. * There is mild concentric left ventricular hypertrophy. * Left ventricular systolic function is normal. * Grade I diastolic dysfunction, (abnormal relaxation pattern). * Borderline left atrial enlargement. * There is mild mitral regurgitation. * Right ventricular systolic pressure is elevated at 50-60mmHg. * Compared to an echocardiogram performed in June 2015, there is minimal change * Hypotension - Acute: * In the setting of ABIEL and Uremia. * Normotensive on arrival. * IVF resuscitation 2/2 ??HHS/DKA - Judicious resuscitation w/ h/o CHF. Patient clinically dehydrated. Will monitor for s/s of fluid overload. * Vasopressors if needed. * Initial Troponin NEGATIVE - will repeat. * Monitor or telemetry in the setting of HYPERkalemia. * EKGs for any chest pain. Respiratory - * h/o COPD and recent pneumonia w/ hypercarbic respiratory failure. * Continue with home medications/inhalers. * No complaints at this time. * BiPAP while sleeping and for any s/s of pulmonary edema. Home settings of 15/ 5. * O2 requirement of 3L NC at baseline. * ABG from outside facility: pH 7.29/pCO2 55/pO2 86/HCO3 24 * Lends itself to a Metabolic Acidosis. I suspect this patient to have a higher baseline CO2 2/2 to chronic lung disease. * CXR was obtained and reviewed from priors and demonstrates no new findings per my interpretation. * Currently on Prednisone taper: * Would continue at this point as the patient's Hyperglycemia is likely 2/2 dehydration versus steroid use. In the setting of such poor lung disease, I anticipate a worse decline in her lung function w/o the use of corticosteroids. GI - * DM diet. RENAL/LYTES - * Hyponatremia at 125 initially: * Corrected Na 133. * Continue with NSS for now. * Hyperkalemia at 6.6 initially: * Initially received 20IV Lasix and 30g Oral Kayexalate at outside facility. * I anticipate the need for repletion as the patient received a large dose of IV insulin and an insulin gtt. * She has no EKG findings at this time of concern. * Anticipate natural correction with intracellular flow w/ current treatment. * ABIEL w/ BUN/Cr of 139/4.4: * Suggestive of prerenal state. * Patient has had increasing diuretic dosing and a fluid restriction 2/2 pulmonary edema. * Suspect this is the main causative factor of her ABIEL and subsequent hyperglycemia. * Fluid resuscitation. * IVF of NSS @150mL/hr initially. * Will adjust fluids and add glucose/K+ as needed. - * Pollard Catheter in place. * Strict I&Os. ENDO - * Hyposmolar Hyperglycemia Nonketotic Syndrome: * Patient with a known history of type 2 diabetes on glipizide alone. Recent stressor of steroid taper with the addition of Lasix for volume control secondary to pulmonary edema. * Her urine was unremarkable for ketones. No beta hydroxybutyric acid levels were obtained in the outside facility however her BSG was found to be greater than 600. * While she does have an acidosis per her ABG, I suspect this to be related to her uremia secondary to dehydration. This patient likely has a baseline elevated CO2 secondary to COPD. Currently at 55, this could represent the sequela of HHNS. * I believe her hypotension to be multifactorial secondary to intravascular disruption from HHS as well as volume depletion. 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 * Regardless, treatment persists with aggressive IVF resuscitation, Blood glucose management, and electrolyte balance. * Initially placed on insulin gtt, will plan to titrate patient's BSG slowly. * Will be judicious with IV fluid replacement secondary to patient's history of CHF and pulmonary edema. * Will monitor serial VBGs. * Thankfully, the patient is without s/s of neurological involvement. HEME - * Stable H&H: * Will monitor daily. ID - * No concerns for infection at this time. * Will monitor fever curve. LINES/IV ACCESS - * PIVs intact. * Pollard Catheter in place DVT PROPHYLAXIS - * Heparin sq BID I have personally spent 40 minutes of critical care time in the direct management of this patient. This is a life/limb threatening event. This includes time spent evaluating patient, direct bedside care, chart review, placing orders, interpretation of diagnostic studies, discussion with consultants, patient, and family members, as well as other required patient management activities. This time is exclusive of all separately billable procedures, and teaching time and separate from and in addition to any other critical care service time. Thank you for this consultation allow us to be part of this patient's care. Please refer to my attending physician's documentation for any further recommendations. Physician Supervision Note: I discussed the case with Mj Solomon PA-C and agree with the findings and plan as documented in the note. I also performed an interview and a physical on the patient. This is a pleasant 76 year-old female, known to me from prior admission in July 2016, with advanced COPD, severe chronic CO2 retention, pulmonary HTN, CKD, DM2 was sent from [facility] for hyperglycemia, suspected DKA, glucose over 600. Unclear what triggered it, she was receiving the medication from her nurse at [place], denies excessive thirst, excessive urination, lethargy, fever or chills, no hyperventilation. She is on a steroid taper, but she almost always on steroids for her COPD Was on insulin drip initially, now off, actually was hypoglycemic briefly, requiring D5 infusion. The patient has however subacute and chronic complaints, she states that her tremors are much worse for the past three weeks and has severe weakness, unable to get up from chair and ambulate after. 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 To me she has great isometric strength b/l. Imp: Uncontrolled hyperglycemia, not DKA Severe COPD Acute on chronic kidney disease DM-2 Tremors Paroxysmal a-fib Plan: At this point I believe she should be switched from oral agents to insulin for management of DM, she has fluctuations on her renal function Off insulin drip. She was not in DKA given her labs and her symptoms. Diabetic education to learn how to administer the insulin Continue on Prednisone 20 mg. Given her history, I recommend pulmonary consult, probably requires a very long taper and a basal dose of Prednisone chronically. I started her last time on Daliresp, but she discontinued it on her own, did not see an improvement, and developed some side effects but cannot remember what they were Continue Symbicort and bronchodilators, DuoNeb Recommend a neurology consult for her new weakness and tremors. CPK is 19. Doubt Parkinson's disease Amiodarone may cause tremors per side-effect profile and it fits as time-event relationship. Would have cardiology weigh in, to see if she can be taken off, maybe started on diltiazem, may have have some rhythm control ability too. OOB to chair Physical therapy Has worsening renal failure. At this point will hold the SARAH inhibitor, stop the diuretics, may be a little overdiuresed now. Renal evaluation. If she continues to worsen, may require hemodialysis Encourage PO intake DVT prophylaxis with SC heparin, SCDs Critical care time spent with the patient and her daughter, reviewing the chart , discussing with the primary team, greater than 60 minutes Documented By: Goyo Price MD
[2017-02-17] MEDS ORDERED: SODIUM CHLORIDE 0.9% 1000ML 1,000 ML IV SCH (04:00)
[2017-02-17] MEDS ORDERED: INSULIN REGULAR 250 UNITS in SODIUM CHLORIDE 0.9% 250ML 250 ML IV SCH (04:00)
[2017-02-17] MEDS ORDERED: PRD5 PO (04:08)
[2017-02-17] MEDS ORDERED: PRED20TA PO (04:08)
[2017-02-17] MEDS ORDERED: TRAZ50TA35 PO (04:08)
[2017-02-17] MEDS ORDERED: PRED-301 PO (04:08)
[2017-02-17] MEDS ORDERED: AMIO200T4 PO (04:08)
[2017-02-17] MEDS ORDERED: PRED10TA PO (04:08)
[2017-02-17] MEDS ORDERED: METO50TA7 PO (04:08)
[2017-02-17] MEDS ORDERED: MELATAB2 PO (04:08)
[2017-02-17] MEDS ORDERED: DEXTROSE 50% 50 ML SYR ONE ×2 (04:37→14:39)
[2017-02-17] MEDS ORDERED: DEXTROSE 50% 50 ML SYR IV ONE (04:45)
[2017-02-17] MEDS: D5W AND NSS 1,000 ML IV SCH ×2 (04:53→11:25)
[2017-02-17] MEDS: ALBUT/IPRATROP 3MG/0.5MG NEB 3 ML VIAL INH SCH ×4 (04:53→20:15)
[2017-02-17 06:29] LABS: BUN/CREATININE RATIO 37.4 (10-20); CALCIUM 7.9 mg/dl (8.5-10.1); CREATININE 3.71 mg/dl (0.60-1.20); POTASSIUM 5.3 mmol/L (3.5-5.1)
[2017-02-17] MEDS: INSULIN ASPART 100 UNITS/ML 3 ML PEN SC SCH ×5 (07:30→20:56)
[2017-02-17] MEDS: HEPARIN SOD 5000 UNIT/0.5 ML CARP SQ SCH ×2 (07:41→19:46)
[2017-02-17] MEDS: BUDESONIDE/FORMOTEROL FUMARATE 160/4.5 60 PUFFS/INHALER INH SCH ×2 (07:42→19:43)
[2017-02-17] MEDS: MIRABEGRON ER 25 MG TAB PO SCH (07:43)
[2017-02-17] MEDS: FLUOXETINE HCL 20 MG CAP PO SCH (07:43)
[2017-02-17] MEDS: AMIODARONE 200 MG TAB PO SCH (07:43)
[2017-02-17] MEDS: BECLOMETHASONE DIP HFA 80 MCG 8.7G INH INH SCH ×2 (07:44→19:42)
[2017-02-17] MEDS: ROPINIROLE HCL 1 MG TAB PO SCH ×3 (07:44→19:43)
[2017-02-17] MEDS: LORATADINE 10 MG TAB PO SCH (07:44)
--- NOTE | 2017-02-17 07:48 | DIAGNOSTIC IMAGING REPORT ---
CHEST ONE VIEW PORTABLE HISTORY: DYSPNEA COMPARISON: Chest 01/31/2017. FINDINGS: No change in the left basilar linear densities. The right lung remains clear. The heart is stable in size. No pneumothorax. Suspect a trace left pleural effusion. No evidence for pulmonary edema. IMPRESSION: Left basilar linear densities and a trace left pleural effusion remain unchanged. Electronically signed by: Vivek Sal M.D. 02/17/2017 7:46 AM Dictated Date/Time: 02/17/2017 7:46 AM
[2017-02-17] MEDS ORDERED: INSULIN ASPART 100 UNITS/ML 3 ML PEN SC SCH ×2 (08:00)
[2017-02-17] MEDS ORDERED: HYDROCORTISONE IV 50 MG in SYRINGE 0 ML IV SCH (08:00)
[2017-02-17] MEDS ORDERED: AMIODARONE 200 MG TAB PO SCH (09:00)
[2017-02-17] MEDS ORDERED: FUROSEMIDE 40 MG TAB PO SCH (09:00)
[2017-02-17] MEDS ORDERED: SPIRONOLACTONE 25 MG TAB PO SCH (09:00)
[2017-02-17] MEDS ORDERED: LISINOPRIL 10 MG TAB PO SCH (09:00)
--- NOTE | 2017-02-17 10:42 | Pharmacy Progress Note ---
Glycemic Control Intl Consult Date of Service Feb 17, 2017. Scope Glycemic Pharmacist consulted by Dr Lyle on 02/16/17 for glycemic control and to write orders per [facility] inpatient glycemic control protocol Objective Weight (Kilograms): 85.400 Accuchecks BSG (last 24hrs): Test 02/17/17 02:49 02/17/17 04:05 02/17/17 04:34 02/17/17 04:59 Random Glucose 261 mg/dl (70-99) Bedside Glucose 112 mg/dl (70-90) 74 mg/dl (70-90) 104 mg/dl (70-90) Test 02/17/17 05:21 02/17/17 07:58 Random Glucose 98 mg/dl (70-99) Bedside Glucose 90 mg/dl (70-90) Laboratory Data (last 24hrs) Test 02/17/17 02:49 02/17/17 05:21 Anion Gap 9.0 mmol/L 11.0 mmol/L BUN/Creatinine Ratio 34.8 37.4 Blood Urea Nitrogen 142 mg/dl 139 mg/dl Creatinine 4.09 mg/dl 3.71 mg/dl Potassium Level 5.5 mmol/L 5.3 mmol/L Sodium Level 133 mmol/L 137 mmol/L White Blood Count 8.77 K/uL Red Blood Count 3.82 M/uL Hemoglobin 11.7 g/dL Hematocrit 36.8 % Mean Corpuscular Volume 96.3 fL Mean Corpuscular Hemoglobin 30.6 pg Mean Corpuscular Hemoglobin Concent 31.8 g/dl Platelet Count 106 K/uL Mean Platelet Volume 11.6 fL Neutrophils (%) (Auto) 95.1 % Lymphocytes (%) (Auto) 2.9 % Monocytes (%) (Auto) 0.9 % Eosinophils (%) (Auto) 0.6 % Basophils (%) (Auto) 0.0 % Neutrophils # (Auto) 8.35 K/uL Lymphocytes # (Auto) 0.25 K/uL Monocytes # (Auto) 0.08 K/uL Eosinophils # (Auto) 0.05 K/uL Basophils # (Auto) 0.00 K/uL HbA1c 7.1% on 01/28/17 Recent Pertinent Medications Outpatient Anti-diabetic Regimen: * Glipizide 5mg PO BIDM Risk Factors for Insulin Resistance: * Steroids {hydrocortisone 50mg IV x 1 dose} * Stress/illness Assessment & Plan ASSESSMENT: * 76yo T2DM female well known to pharmacy per previous admissions/glycemic consults. Most recently in July 2016 and earlier this month. * Patient's insulin needs vary during admission depending on steroid dosing. Pt typically requires 60-80 units of SQ insulin while on high dose RTC dosing of Solumedrol. * Anticipate that patient's needs will be significantly less at this time - pt is only receiving one dose of steroids and is NPO. * Pt with severe hyperglycemia on admission which corrected quickly with IV insulin and hydration {in addition to what was given at [facility] * Pt has D5NS @ 150ml/hr running while NPO/low BSG PLAN FOR INPATIENT GLYCEMIC CONTROL: * Hold outpatient oral diabetes medications * Start IV insulin infusion per ICU hyperglycemia protocol IF BSG >220 mg/dl x 1 * Goal Range 100 - 180 mg/dl * In the critical care setting, continuous IV insulin infusion has been shown to be the best method for achieving glycemic targets. * Basal insulin * Hold off at this time as all BSGs are ~ 100 mg/dl or below * If BSG >140 mg/dl will give a one time dose of NPH 10 units SQ as the kinetics of NPH match that of the hyperglycemic effects of once daily steroid dosing * Bolus insulin: use parameters per previous admissions- titrate based on BSG trends. * NovoLog per scale ACHS or Q6hrs while NPO * Goal Range: Low 120 mg/dL - High 150 mg/dL * Correction Factor: 20 mg/dL/unit * Nutritional / Prandial insulin per carb ratio of 1 unit per 6 grams CHO consumed * Please note that the plan above was derived based on current level of insulin resistance and hospital stress. These recommendations are appropriate for inpatient admission only. Plan of care upon discharge will need to be reassessed to avoid potential outpatient hypo/hyperglycemia. Thank you.
[2017-02-17] MEDS ORDERED: NovoLIN-N (NPH) PER UNIT CHARGE SQ ONE (11:45)
[2017-02-17] MEDS ORDERED: NovoLIN-R BOLUS FROM BAG IV ONE (14:05)
[2017-02-17] MEDS ORDERED: INSULIN PROTOCOL GOAL RANGE ONE (14:15)
[2017-02-17] MEDS ORDERED: SEVERE STRESS LEVEL ONE (14:15)
[2017-02-17] MEDS ORDERED: GLUCAGON FOR INJ 1 MG VIAL SQ PRN (16:30)
[2017-02-17] MEDS ORDERED: DEXTROSE 50% 50 ML SYR IV PRN (16:30)
[2017-02-17] MEDS ORDERED: GLUCOSE 10 TABS/TUBE PO PRN (16:30)
[2017-02-17] MEDS ORDERED: DC IV INSULIN INFUSION SCH (16:30)
[2017-02-17] MEDS ORDERED: GLUCOSE 40% GEL 15 GM TUBE PO PRN (16:30)
[2017-02-17] MEDS ORDERED: INSULIN HUMAN NPH SC SCH (18:00)
--- NOTE | 2017-02-17 18:32 | Family Medicine Progress Note ---
Progress Note Date of Service Feb 17, 2017. Subjective Pt evaluation today including: conversation w/ patient, physical exam, chart review, lab review, review of studies Pt has not been ambulatory since prior to previous admission for hypercapnic resp failure. Patient says that she is incredibly weak. She was dc from [facility] on Feb.07 and transferred to [facility] for rehab. She reports tolerating BIPAP well in the evenings. Denies issues with breathing and mentation, but has had elevated blood glucose levels. Constitutional: No fever, No chills, No sweats Respiratory: No cough, No sputum, No shortness of breath Cardiovascular: No chest pain, No edema, No palpitations Abdomen: No pain, No nausea, No vomiting, No diarrhea Medications Current Inpatient Medications Medications (Trade) Dose Ordered Sig/Polly Route Start Time Stop Time Status Last Admin Dose Admin Heparin Sodium (Porcine) (Heparin Sq 5000 Unit/0.5ml) 5,000 unit Q12H SQ 02/17/17 09:00 03/19/17 08:59 02/17/17 07:41 5,000 UNIT Acetaminophen (Tylenol Tab) 650 mg Q4H PRN PO 02/17/17 02:30 03/19/17 02:29 Morphine Sulfate (MoRPHine SULFATE INJ) 2 mg Q2H PRN IV 02/17/17 02:30 03/03/17 02:29 Beclomethasone Dipropionate (Qvar 80 Mcg Hfa Inhaler) 2 puffs BID INH 02/17/17 09:00 03/19/17 08:59 02/17/17 07:44 2 PUFFS Budesonide/ Formoterol Fumarate (Symbicort 160/ 4.5 Inh) 2 puffs BID INH 02/17/17 09:00 03/19/17 08:59 02/17/17 07:42 2 PUFFS Fluoxetine HCl (Prozac Cap) 20 mg QAM PO 02/17/17 09:00 03/19/17 08:59 02/17/17 07:43 20 MG Albuterol/ Ipratropium (Duoneb) 0.5 ml Q6RWA INH 02/17/17 09:00 03/19/17 08:59 02/17/17 15:25 0.5 ML Loratadine (Claritin Tab) 10 mg QAM PO 02/17/17 09:00 03/19/17 08:59 02/17/17 07:44 10 MG Mirabegron (Myrbetriq Er) 25 mg DAILY PO 02/17/17 09:00 03/19/17 08:59 02/17/17 07:43 25 MG Nystatin (Mycostatin Susp) 5 ml QID PRN PO 02/17/17 02:45 02/27/17 02:44 Pravastatin Sodium (Pravachol Tab) 10 mg QPM PO 02/17/17 21:00 03/19/17 20:59 Ropinirole HCl (Requip Tab) 2 mg TID PO 02/17/17 09:00 03/19/17 08:59 02/17/17 13:38 2 MG Miscellaneous Information (Consult Glycemic Management Pharmacy) 1 ea UD PRN N/A 02/17/17 02:45 03/19/17 02:44 Amiodarone HCl (Cordarone Tab) 200 mg DAILY PO 02/17/17 09:00 03/19/17 08:59 02/17/17 07:43 200 MG Metoprolol Succinate (Toprol Xl Tab) 50 mg PM PO 02/17/17 21:00 03/19/17 20:59 Trazodone HCl (Desyrel Tab) 25 mg HS PO 02/17/17 21:00 03/19/17 20:59 Insulin Aspart (novoLOG ASPART) SLIDING SCALE ACHS AK 02/17/17 12:30 03/19/17 12:29 Future hold 02/17/17 17:54 5 UNITS Prednisone (PredniSONE TAB) 20 mg DAILY@0800 PO 02/17/17 13:30 03/19/17 13:29 02/17/17 13:39 20 MG Insulin Human NPH (novoLIN-N NPH) 20 units QDB SC 02/18/17 07:30 03/20/17 07:29 Glucose (Glucose 40% Gel) 15-30 GRAMS 15 GRAMS... UD PRN PO 02/17/17 16:30 03/19/17 16:29 Glucose (Glucose Chew Tab) 4-8 Tablets 4 Tabl... UD PRN PO 02/17/17 16:30 03/19/17 16:29 02/17/17 16:38 4 TABS Dextrose (Dextrose 50% 50ML Syringe) 25-50ML OF 50% DW IV FOR... UD PRN IV 02/17/17 16:30 12 16:29 Glucagon (Glucagon Inj) 1 mg UD PRN SQ 02/17/17 16:30 03/19/17 16:29 Objective Vital Signs Date Time Temp Pulse Resp B/P (MAP) Pulse Ox O2 Delivery O2 Flow Rate FiO2 02/17/17 16:00 96 Nasal Cannula 3.0 02/17/17 15:27 62 16 96 Nasal Cannula 3.0 02/17/17 15:25 36.6 62 20 108/66 (80) 97 Nasal Cannula 2.0 02/17/17 12:00 97 Nasal Cannula 2.0 02/17/17 12:00 36.3 61 18 115/60 (78) 97 Nasal Cannula 2.0 02/17/17 10:00 62 18 110/63 (79) 97 Nasal Cannula 2.0 02/17/17 08:00 97 Nasal Cannula 2.0 02/17/17 08:00 36.3 62 18 91/78 (82) 97 Nasal Cannula 2.0 02/17/17 07:35 57 16 95 Nasal Cannula 2.0 02/17/17 06:00 51 35 105/52 (69) 02/17/17 05:10 99 Nasal Cannula 4.0 02/17/17 05:01 54 17 93/42 (59) 97 02/17/17 05:00 55 23 97 02/17/17 04:31 55 20 91/40 (57) 96 02/17/17 04:17 55 24 102/43 (62) 97 02/17/17 04:13 55 25 84/40 (55) 95 02/17/17 04:08 54 12 83/38 (53) 96 02/17/17 04:06 54 22 72/39 (50) 95 02/17/17 04:01 36.7 49 22 67/39 (48) 95 Nasal Cannula 4.0 02/17/17 04:00 54 23 02/17/17 03:00 60 15 97 02/17/17 02:15 36.5 69 22 125/69 99 Nasal Cannula 4.0 Physical Exam General Appearance: WD/WN, no apparent distress Neck: supple, no adenopathy Respiratory/Chest: chest non-tender, lungs clear, normal breath sounds, no respiratory distress, no accessory muscle use Cardiovascular: regular rate, rhythm, no edema, no gallop, no JVD, no murmur Extremities: + pedal edema Neurologic/Psychiatric: columnist/commentator II-XII nml as tested, alert, normal mood/affect, oriented x 3, + pertinent finding (resting tremor ) Skin: normal color, warm/dry, no rash Laboratory Results 02/17/17 02:49 Red Blood Count 3.82, Mean Corpuscular Volume 96.3, Mean Corpuscular Hemoglobin 30.6, Mean Corpuscular Hemoglobin Concent 31.8, Mean Platelet Volume 11.6, Neutrophils (%) (Auto) 95.1, Lymphocytes (%) (Auto) 2.9, Monocytes (%) (Auto) 0.9, Eosinophils (%) (Auto) 0.6, Basophils (%) (Auto) 0.0, Neutrophils # (Auto) 8.35, Lymphocytes # (Auto) 0.25, Monocytes # (Auto) 0.08, Eosinophils # (Auto) 0.05, Basophils # (Auto) 0.00 02/17/17 05:21 Test 02/17/17 02:49 02/17/17 03:59 02/17/17 05:21 02/17/17 17:51 White Blood Count 8.77 K/uL (4.8-10.8) Red Blood Count 3.82 M/uL (4.2-5.4) Hemoglobin 11.7 g/dL (12.0-16.0) Hematocrit 36.8 % (37-47) Mean Corpuscular Volume 96.3 fL (80-100) Mean Corpuscular Hemoglobin 30.6 pg (25-34) Mean Corpuscular Hemoglobin Concent 31.8 g/dl (32-36) Platelet Count 106 K/uL (130-400) Mean Platelet Volume 11.6 fL (7.4-10.4) Neutrophils (%) (Auto) 95.1 % Lymphocytes (%) (Auto) 2.9 % Monocytes (%) (Auto) 0.9 % Eosinophils (%) (Auto) 0.6 % Basophils (%) (Auto) 0.0 % Neutrophils # (Auto) 8.35 K/uL (1.4-6.5) Lymphocytes # (Auto) 0.25 K/uL (1.2-3.4) Monocytes # (Auto) 0.08 K/uL (0.11-0.59) Eosinophils # (Auto) 0.05 K/uL (0-0.5) Basophils # (Auto) 0.00 K/uL (0-0.2) RDW Standard Deviation 50.4 fL (36.4-46.3) RDW Coefficient of Variation 14.2 % (11.5-14.5) Immature Granulocyte % (Auto) 0.5 % Immature Granulocyte # (Auto) 0.04 K/uL (0.00-0.02) Prothrombin Time 10.2 SECONDS (9.0-12.0) Prothromb Time International Ratio 1.0 (0.9-1.1) Magnesium Level 2.4 mg/dl (1.8-2.4) Total Bilirubin 0.6 mg/dl (0.2-1) Direct Bilirubin 0.3 mg/dl (0-0.2) Aspartate Amino Transf (AST/SGOT) 8 U/L (15-37) Alanine Aminotransferase (ALT/SGPT) 24 U/L (12-78) Alkaline Phosphatase 68 U/L (45-117) Total Creatine Kinase 19 U/L (26-192) Troponin I < 0.015 ng/ml (0-0.045) Total Protein 6.3 gm/dl (6.4-8.2) Albumin 3.3 gm/dl (3.4-5.0) Globulin 3.0 gm/dl (2.5-4.0) Albumin/Globulin Ratio 1.1 (0.9-2) Osmolality 336 mOsm/kg (280-300) Anion Gap 11.0 mmol/L (3-11) Est Creatinine Clear Calc Drug Dose 13.8 ml/min Estimated GFR () 13.2 Estimated GFR (Non- 11.4 BUN/Creatinine Ratio 37.4 (10-20) Calcium Level 7.9 mg/dl (8.5-10.1) Bedside Glucose 180 mg/dl (70-90) Date/Time Source Procedure Growth Status 02/17/17 02:30 Nasal MRSA DNA Surveillance Screen - Final Specimen Negative for MRSA by DNA Probe Complete Assessment and Plan 76 yo female, with end-stage COPD and CHF who presents with BG >600 transferred from [facility]. Patient transferred and initially treated for suspected DKA Acute on chronic respiratory failure with hypercapnia - Continue current o2 regime with BiPAP at night - Continue Prednisone 20mg dose tomorrow. Reducing dose by 5mg q 3 days. - Continue daily Lasix 80mg - Continue inhalers - ABG at [facility]-->7.29 ph, 55 co2, 24 hco3. Much improved from previous admission where Co2 was >100. - check for need of bipap on discharge. Chronic COPD - continue inhalers and prednisone. will need very slow taper. - consider pul consult as outpatient Hypergycemia, Labile blood glucose on prednisone - Non-gap acidosis, pt is not in DKA - Insulin drip cancelled - Pt transferred to telemetry - Glipizide on hold - will d/c on discharge and should go home on insulin. Hyperkalemia -Improved with insulin and hydration -follow BMP Hyponatremia -Improved 125--->133 -Follow BMP Chronic diastolic CHF - I&O monitoring, lauren already in place - daily weights CAD - Continue statin, beta-veena (Toprol XL 50mg daily). SARAH-I stopped last admission due to ABIEL. Atrial fibrillation - Continue amiodarone 200mg daily - Pt refused exterminator anticoagulation last admission Restless leg syndrome - Continue ropinirole Gait disturbance with leg weakness and tremor - ? sec to steroid induced muscle weakness/deconditioning -Pt describes a worsening tremor that began prior to last visit for resp failure. -Prior to last visit patient had fallen and hit her head -Head CT was unremarkable during last visit - PT/OT when able to Depression - Continue Prozac Urinary incontinence - Continue Mirabegron VTE: Heparin SQ Code status: DNR Dispo: Admitted to ICU Reviewed: Pt Seen/Exam by Me History breathing back to baseline Constitutional: denies: fever Respiratory: negative: short of breath Cardiovascular: denies chest pain Gastrointestinal/Abdominal: negative: abdominal pain General Appearance: no apparent distress Respiratory: no respiratory distress, decreased breath sounds Cardiovascular: regular rate, rhythm Gastrointestinal: soft Neurologic/Psychiatric: alert, oriented x 3 Skin Characteristics: warm/dry Assessment/Plan Resident Physician Supervision Note: I independently interviewed and examined the patient and verified the romo history and physical, reviewed labs and image studies, discussed the case with the resident Dr. Laird and agree with the findings and care plan.
[2017-02-17] MEDS: METOPROLOL SUCC 50MG EXT REL TAB PO SCH (19:40)
[2017-02-17] MEDS: PRAVASTATIN SOD 10 MG TAB PO SCH (19:45)
[2017-02-17 20:02] LABS: BLOOD UREA NITROGEN 127 mg/dl (7-18); BUN/CREATININE RATIO 36.8 (10-20); CALCIUM 8.6 mg/dl (8.5-10.1); CARBON DIOXIDE 22 mmol/L (21-32); CHLORIDE 100 mmol/L (98-107); CREATININE 3.46 mg/dl (0.60-1.20); GLUCOSE 170 mg/dl (70-99); SODIUM 138 mmol/L (136-145)
[2017-02-17] MEDS ORDERED: SODIUM CHLORIDE 0.65% NA SOLN 45 ML (OCEAN) ONE (20:52)
[2017-02-17] MEDS: NYSTATIN SUSP 500,000 U/5 ML UDC PO PRN (20:58)
[2017-02-17] MEDS ORDERED: NURSING VERBAL MED ORDER ONE (21:00)
[2017-02-17] MEDS ORDERED: METOPROLOL SUCC 50MG EXT REL TAB PO SCH (21:00)
[2017-02-17] MEDS ORDERED: SODIUM CHLORIDE 0.65% NA SOLN 45 ML (OCEAN) PRN (21:00)
[2017-02-17] MEDS: TRAZODONE HCL 50 MG TAB PO SCH (22:26)
[2017-02-18] VITALS (11 sets, daily range): BP systolic 104–135; BP diastolic 61–80; PULSE 56–70; TEMP 36–36.8; O2SAT 90–97
[2017-02-18] MEDS: ALBUT/IPRATROP 3MG/0.5MG NEB 3 ML VIAL INH SCH ×3 (07:14→19:20)
--- NOTE | 2017-02-18 07:26 | DIAGNOSTIC IMAGING REPORT ---
CHEST ONE VIEW PORTABLE CLINICAL HISTORY: SHORTNESS OF BREATH COMPARISON STUDY: 02/17/2017 FINDINGS: The heart is mildly enlarged. There are linear left basilar densities, likely representing subsegmental atelectatic change. There is no overt failure. There is stable blunting of the left lateral costophrenic angle. There is no lobar consolidation. IMPRESSION: Stable linear opacities the left lung base likely representing subsegmental atelectatic change. Electronically signed by: Conner Shultz M.D. 02/18/2017 7:24 AM Dictated Date/Time: 02/18/2017 7:23 AM
[2017-02-18] MEDS ORDERED: INSULIN HUMAN NPH SC SCH ×3 (07:30→11:45)
[2017-02-18 07:44] LABS: COMPLETE YES; EOS % 0.4 %; HEMATOCRIT 34.9 % (37-47); IG% 0.5 %; LYMPH % 6.6 %; MEAN CELL VOLUME 95.9 fL (80-100); MEAN CORPUSCULAR HEMOGLOBIN 31.3 pg (25-34); MEAN CORPUSCULAR HGB CONC 32.7 g/dl (32-36); MEAN PLATELET VOLUME 10.6 fL (7.4-10.4); MONO % 3.8 %; NEUT % 88.7 %; PLATELET COUNT 119 K/uL (130-400); RED BLOOD COUNT 3.64 M/uL (4.2-5.4); WHITE BLOOD COUNT 7.58 K/uL (4.8-10.8)
[2017-02-18 07:51] LABS: PARTIAL THROMBOPLASTIN RATIO 0.9; PROTHROMBIN TIME (PATIENT) 10.7 SECONDS (9.0-12.0)
[2017-02-18 08:12] LABS: MAGNESIUM 2.3 mg/dl (1.8-2.4); PHOSPHORUS 7.1 mg/dl (2.5-4.9)
[2017-02-18] MEDS: ROPINIROLE HCL 1 MG TAB PO SCH ×3 (08:22→20:22)
[2017-02-18] MEDS: MIRABEGRON ER 25 MG TAB PO SCH (08:22)
[2017-02-18] MEDS: LORATADINE 10 MG TAB PO SCH (08:22)
[2017-02-18] MEDS: AMIODARONE 200 MG TAB PO SCH (08:23)
[2017-02-18] MEDS: FLUOXETINE HCL 20 MG CAP PO SCH (08:24)
[2017-02-18] MEDS: BECLOMETHASONE DIP HFA 80 MCG 8.7G INH INH SCH ×2 (08:24→20:20)
[2017-02-18] MEDS: BUDESONIDE/FORMOTEROL FUMARATE 160/4.5 60 PUFFS/INHALER INH SCH ×2 (08:24→20:20)
[2017-02-18] MEDS: INSULIN ASPART 100 UNITS/ML 3 ML PEN SC SCH ×4 (08:29→20:20)
[2017-02-18] MEDS: NYSTATIN SUSP 500,000 U/5 ML UDC PO PRN (08:30)
[2017-02-18] MEDS: HEPARIN SOD 5000 UNIT/0.5 ML CARP SQ SCH ×2 (08:30→20:21)
--- NOTE | 2017-02-18 10:34 | Pharmacy Progress Note ---
Pharmacy Glycemic Short Note 2 Date of Service Feb 18, 2017. OUTPATIENT ANTIDIABETIC REGIMEN: * Glipizide 5mg PO BIDM ASSESSMENT: * 76yo T2DM female well known to pharmacy per previous admissions/glycemic consults. Most recently in July 2016 and earlier this month. See progress note from 02/17/17 for more background info. Yesterday, 02/17/17: Pt had poor glycemic control with wide up/down fluctuations in BSGs. * Pt transferred from [facility] with severe hyperglycemia (was given insulin at [facility]) and then continued on IV insulin infusion at [facility] * BSGs dropped to low 100's and therefore IV insulin infusion was stopped. * Pt was given a dose of hydrocortisone and PO prednisone in the morning which caused rebound hyperglycemia. * NPH 34 units (0.4 units/kg) was given for steroid induced hyperglycemia secondary to once daily prednisone. NPH is the insulin of choice for once daily prednisone as its kinetics coincide with the hyperglycemic kinetics of prednisone. Pt with "low" A1c of ~ 7% and may not require basal insulin for HS - -> AM BSG drop (pt has adequate overnight basal insulin secretion). Therefore, using NPH which is a 12-18hr insulin (not 24hrs like Lantus) is preferred to prevent AM hypo in this patient * BSG was checked 2hrs after NPH given and unfortunately BSG was increasing instead of decreasing (BSG 252; NPH given; then, two hours later BSG 296). IV insulin infusion was restarted per ICU protocol for BSG >220 mg/dl x 1 * After only a few hours on the IV insulin infusion, BSG dropped, non-critical hypoglycemia occurred. Drip stopped. Today, 02/18/17: * AM fasting BSG is in goal range for inpatient targets at 125mg/dl * Prednisone dose stable at 20mg PO daily, but no hydrocortisone ordered. * Will decrease NPH dose accordingly. Recommended dosing of NPH for 20mg of prednisone is 0.2units/kg which equates to 20 units of NPH * Nursing uncomfortable with giving 20 units this AM, therefore, we will break up the dose. * Give 10 units NPH with breakfast and if BSG >140 mg/dl at lunch will give the remaining 10 units NPH for a total dose of 20 units this AM PLAN FOR INPATIENT GLYCEMIC CONTROL: * Basal insulin: decrease dose in accordance with decreased steroid dosing * NPH 20 units (~0.2units/kg) SQ daily in the morning with prednisone administration * Will give 10 units with breakfast and the remaining 10 units with lunch granted BSG >140mg/dl at lunch * Bolus insulin: continue weight based/moderate stress dosing * NovoLog per scale ACHS or Q6hrs while NPO * Goal Range: Low 120 mg/dL - High 150 mg/dL * Correction Factor: 20 mg/dL/unit * Nutritional / Prandial insulin per carb ratio of 1 unit per 8 grams CHO consumed PLAN FOR DISCHARGE: * A1c is in goal range at 7.1% on 02/18/17 * Reasonable to continue current outpatient regimen at discharge provided it is not causing hypoglycemia as an outpatient
--- NOTE | 2017-02-18 11:38 | Family Medicine Progress Note ---
Progress Note Date of Service Feb 18, 2017. Subjective Pt evaluation today including: conversation w/ patient, conversation w/ family , physical exam, chart review, lab review, review of studies Patient does not have any acute complaints over night. She slept well, no issues , although she was not set up with her BIPAP last night. Constitutional: No fever, No chills, No sweats Respiratory: + shortness of breath, + dyspnea on exertion, No cough, No sputum, No wheezing Cardiovascular: No chest pain, No edema, No palpitations Abdomen: No pain, No nausea, No vomiting Medications Current Inpatient Medications Medications (Trade) Dose Ordered Sig/Polly Route Start Time Stop Time Status Last Admin Dose Admin Heparin Sodium (Porcine) (Heparin Sq 5000 Unit/0.5ml) 5,000 unit Q12H SQ 02/17/17 09:00 03/19/17 08:59 02/18/17 08:30 5,000 UNIT Acetaminophen (Tylenol Tab) 650 mg Q4H PRN PO 02/17/17 02:30 03/19/17 02:29 Morphine Sulfate (MoRPHine SULFATE INJ) 2 mg Q2H PRN IV 02/17/17 02:30 03/03/17 02:29 Beclomethasone Dipropionate (Qvar 80 Mcg Hfa Inhaler) 2 puffs BID INH 02/17/17 09:00 03/19/17 08:59 02/18/17 08:24 2 PUFFS Budesonide/ Formoterol Fumarate (Symbicort 160/ 4.5 Inh) 2 puffs BID INH 02/17/17 09:00 03/19/17 08:59 02/18/17 08:24 2 PUFFS Fluoxetine HCl (Prozac Cap) 20 mg QAM PO 02/17/17 09:00 03/19/17 08:59 02/18/17 08:24 20 MG Albuterol/ Ipratropium (Duoneb) 0.5 ml Q6RWA INH 02/17/17 09:00 03/19/17 08:59 02/18/17 07:14 3 ML Loratadine (Claritin Tab) 10 mg QAM PO 02/17/17 09:00 03/19/17 08:59 02/18/17 08:22 10 MG Mirabegron (Myrbetriq Er) 25 mg DAILY PO 02/17/17 09:00 03/19/17 08:59 02/18/17 08:22 25 MG Nystatin (Mycostatin Susp) 5 ml QID PRN PO 02/17/17 02:45 02/27/17 02:44 02/18/17 08:30 5 ML Pravastatin Sodium (Pravachol Tab) 10 mg QPM PO 02/17/17 21:00 03/19/17 20:59 02/17/17 19:45 10 MG Ropinirole HCl (Requip Tab) 2 mg TID PO 02/17/17 09:00 03/19/17 08:59 02/18/17 08:22 2 MG Miscellaneous Information (Consult Glycemic Management Pharmacy) 1 ea UD PRN N/A 02/17/17 02:45 03/19/17 02:44 Amiodarone HCl (Cordarone Tab) 200 mg DAILY PO 02/17/17 09:00 03/19/17 08:59 02/18/17 08:23 200 MG Metoprolol Succinate (Toprol Xl Tab) 50 mg PM PO 02/17/17 21:00 03/19/17 20:59 Trazodone HCl (Desyrel Tab) 25 mg HS PO 02/17/17 21:00 03/19/17 20:59 02/17/17 22:26 25 MG Insulin Aspart (novoLOG ASPART) SLIDING SCALE ACHS SC 02/17/17 12:30 03/19/17 12:29 Future hold 02/18/17 08:29 7 UNITS Prednisone (PredniSONE TAB) 20 mg DAILY@0800 PO 02/17/17 13:30 03/19/17 13:29 02/18/17 08:22 20 MG Glucose (Glucose 40% Gel) 15-30 GRAMS 15 GRAMS... UD PRN PO 02/17/17 16:30 03/19/17 16:29 Glucose (Glucose Chew Tab) 4-8 Tablets 4 Tabl... UD PRN PO 02/17/17 16:30 03/19/17 16:29 02/17/17 16:38 4 TABS Dextrose (Dextrose 50% 50ML Syringe) 25-50ML OF 50% DW IV FOR... UD PRN IV 02/17/17 16:30 03/19/17 16:29 Glucagon (Glucagon Inj) 1 mg UD PRN SQ 02/17/17 16:30 03/19/17 16:29 Sodium Chloride ([place] Nasal [place]) 1 sprays PRN PRN NA 02/17/17 21:00 03/19/17 20:59 Insulin Human NPH (novoLIN-N NPH) 10 units TODAY@1145 SC 02/18/17 11:45 02/18/17 12:30 Insulin Human NPH (novoLIN-N NPH) 20 units QDB SC 02/19/17 07:30 03/21/17 07:29 Objective Vital Signs Date Time Temp Pulse Resp B/P (MAP) Pulse Ox O2 Delivery O2 Flow Rate FiO2 02/18/17 08:15 36.3 60 18 135/80 (98) 96 3.0 02/18/17 08:00 Nasal Cannula 2.0 02/18/17 07:14 62 16 94 Nasal Cannula 2.0 02/18/17 04:02 36.0 56 18 104/63 (77) 97 Nasal Cannula 3.0 02/18/17 04:00 Nasal Cannula 2.0 02/18/17 00:11 36.3 59 22 112/61 (78) 97 Nasal Cannula 3.0 02/17/17 23:59 Nasal Cannula 2.0 02/17/17 20:15 73 16 93 Nasal Cannula 2.0 02/17/17 20:00 Nasal Cannula 2.0 02/17/17 19:32 36.5 59 22 104/62 (76) 96 Nasal Cannula 2.0 02/17/17 16:00 96 Nasal Cannula 3.0 02/17/17 15:27 62 16 96 Nasal Cannula 3.0 02/17/17 15:25 36.6 62 20 108/66 (80) 97 Nasal Cannula 2.0 02/17/17 12:00 97 Nasal Cannula 2.0 02/17/17 12:00 36.3 61 18 115/60 (78) 97 Nasal Cannula 2.0 Physical Exam General Appearance: WD/WN, no apparent distress Neck: supple, no adenopathy Respiratory/Chest: chest non-tender, lungs clear, normal breath sounds, no respiratory distress, no accessory muscle use Cardiovascular: regular rate, rhythm, no edema, no gallop, no JVD, no murmur Abdomen: normal bowel sounds, non tender, soft, no organomegaly Neurologic/Psychiatric: alert, normal mood/affect, oriented x 3 Skin: normal color, warm/dry, no rash Laboratory Results 02/18/17 07:06 Red Blood Count 3.64, Mean Corpuscular Volume 95.9, Mean Corpuscular Hemoglobin 31.3, Mean Corpuscular Hemoglobin Concent 32.7, Mean Platelet Volume 10.6, Neutrophils (%) (Auto) 88.7, Lymphocytes (%) (Auto) 6.6, Monocytes (%) (Auto) 3.8, Eosinophils (%) (Auto) 0.4, Basophils (%) (Auto) 0.0, Neutrophils # (Auto) 6.72, Lymphocytes # (Auto) 0.50, Monocytes # (Auto) 0.29, Eosinophils # (Auto) 0.03, Basophils # (Auto) 0.00 02/17/17 18:57 02/17/17 20:25 Test 02/17/17 18:57 02/18/17 06:03 02/18/17 07:06 Anion Gap 16.0 mmol/L (3-11) Est Creatinine Clear Calc Drug Dose 14.8 ml/min Estimated GFR () 14.3 Estimated GFR (Non- 12.4 BUN/Creatinine Ratio 36.8 (10-20) Calcium Level 8.6 mg/dl (8.5-10.1) Bedside Glucose 125 mg/dl (70-90) White Blood Count 7.58 K/uL (4.8-10.8) Red Blood Count 3.64 M/uL (4.2-5.4) Hemoglobin 11.4 g/dL (12.0-16.0) Hematocrit 34.9 % (37-47) Mean Corpuscular Volume 95.9 fL (80-100) Mean Corpuscular Hemoglobin 31.3 pg (25-34) Mean Corpuscular Hemoglobin Concent 32.7 g/dl (32-36) Platelet Count 119 K/uL (130-400) Mean Platelet Volume 10.6 fL (7.4-10.4) Neutrophils (%) (Auto) 88.7 % Lymphocytes (%) (Auto) 6.6 % Monocytes (%) (Auto) 3.8 % Eosinophils (%) (Auto) 0.4 % Basophils (%) (Auto) 0.0 % Neutrophils # (Auto) 6.72 K/uL (1.4-6.5) Lymphocytes # (Auto) 0.50 K/uL (1.2-3.4) Monocytes # (Auto) 0.29 K/uL (0.11-0.59) Eosinophils # (Auto) 0.03 K/uL (0-0.5) Basophils # (Auto) 0.00 K/uL (0-0.2) RDW Standard Deviation 50.4 fL (36.4-46.3) RDW Coefficient of Variation 14.4 % (11.5-14.5) Immature Granulocyte % (Auto) 0.5 % Immature Granulocyte # (Auto) 0.04 K/uL (0.00-0.02) Prothrombin Time 10.7 SECONDS (9.0-12.0) Prothromb Time International Ratio 1.0 (0.9-1.1) Activated Partial Thromboplast Time 22.1 SECONDS (21.0-31.0) Partial Thromboplastin Ratio 0.9 Phosphorus Level 7.1 mg/dl (2.5-4.9) Magnesium Level 2.3 mg/dl (1.8-2.4) Assessment and Plan 76 yo female, with end-stage COPD and CHF who presents with BG >600 transferred from [facility]. Patient transferred and initially treated for suspected DKA Acute on chronic respiratory failure with hypercapnia - Continue current o2 regime with BiPAP at night--was not started last night, called respiratory to setup - Continue Prednisone 20mg dose tomorrow. Reducing dose by 5mg q 3 days (15 mg on Sunday) - Continue daily Lasix 80mg - Continue inhalers - ABG at formerly [facility]-->7.29 ph, 55 co2, 24 hco3. Much improved from previous admission where Co2 was >100. - check for need of bipap on discharge. Chronic COPD - continue inhalers and prednisone. will need very slow taper. - consider pul consult as outpatient Hypergycemia, Labile blood glucose on prednisone - Non-gap acidosis, pt is not in DKA - Insulin drip cancelled - Pt transferred to telemetry - Glipizide on hold - will d/c on discharge and should go home on insulin. Gait disturbance with leg weakness and tremor - ? sec to steroid induced muscle weakness/deconditioning -Pt describes a worsening tremor that began prior to last visit for respiratory failure. -Neurology consulted -Prior to last visit patient had fallen and hit her head -Head CT was unremarkable during last visit - PT/OT consult Hyperkalemia -Improved with insulin and hydration -follow BMP Hyponatremia -Improved -Follow BMP Chronic diastolic CHF - I&O monitoring, lauren already in place - daily weights CAD - Continue statin, beta-veena (Toprol XL 50mg daily). SARAH-I stopped last admission due to ABIEL. Atrial fibrillation - Continue amiodarone 200mg daily - Pt refused correction anticoagulation last admission Restless leg syndrome - Continue ropinirole Depression - Continue Prozac Urinary incontinence - Continue Mirabegron VTE: Heparin SQ Code status: DNR Dispo: Admitted to ICU Reviewed: Pt Seen/Exam by Me History breathing well blood sugars are better controlled daughter at bedside Constitutional: denies: fever Respiratory: negative: short of breath Cardiovascular: denies chest pain General Appearance: no apparent distress Respiratory: no respiratory distress, decreased breath sounds Cardiovascular: regular rate, rhythm Neurologic/Psychiatric: alert, oriented x 3 Assessment/Plan Resident Physician Supervision Note: I independently interviewed and examined the patient and verified the romo history and physical, reviewed labs and image studies, discussed the case with the resident Dr. Laird and agree with the findings and care plan.
[2017-02-18] MEDS: PRAVASTATIN SOD 10 MG TAB PO SCH (20:21)
[2017-02-18] MEDS: TRAZODONE HCL 50 MG TAB PO SCH (20:21)
[2017-02-18] MEDS: METOPROLOL SUCC 50MG EXT REL TAB PO SCH (20:22)
--- NOTE | 2017-02-18 20:29 | Progress Note ---
Post ICU Progress Note Date & Time Feb 18, 2017 at 20:25 Vital Signs Vital Signs Past 12 Hours Date Time Temp Pulse Resp B/P (MAP) Pulse Ox O2 Delivery O2 Flow Rate FiO2 02/18/17 20:11 Nasal Cannula 2.0 02/18/17 19:37 36.8 67 20 109/66 (80) 95 Nasal Cannula 2.0 02/18/17 19:20 70 16 94 BiPAP/CPAP 2.0 02/18/17 16:00 Nasal Cannula 2.0 02/18/17 15:37 36.7 64 22 110/62 (78) 90 BiPAP 02/18/17 14:24 70 16 96 BiPAP/CPAP 2.0 02/18/17 12:46 67 93 3.0 02/18/17 12:00 Nasal Cannula 2.0 BiPAP 02/18/17 11:32 36.2 63 20 116/73 (87) 96 3.0 Notes Mental Status: alert / awake Nausea / Vomiting: adequately controlled Pain: adequately controlled Airway Patency, RR, SpO2: stable & adequate BP & HR: stable & adequate Patient is a 76-year-old female who initially presented to the ICU from [facility] with hyperglycemia. She was vigorously hydrated and received insulin with response of blood glucose. She was found have an ABIEL which is likely the main contributor to the patient's symptoms. At this point, she should continue chronically with her steroids secondary to the severe pathology her lung disease. He Lasix has been discontinued 2/2 worsening ABIEL contributing to acidosis. Otherwise, the patient has shown great improvement throughout her stay. On evaluation today, the patient reports feeling better. She was able to stand today. She does report a residual tremor, but is encouraged that she will see neurology tomorrow. Otherwise, the patient reports feeling fine. Consider outpatient follow up in 1 to 2 weeks with: Per admitting team. Repeat imaging needed: N/A Follow up cultures: None Reviewed progress notes, labs, and inpatient medication list Continue current management Additional recommendations: None at this time. Thank you for allowing us to participate in the care of this patient. At this time, Critical Care Services will sign off on this patient. Please feel free to reconsult as needed.
[2017-02-19] VITALS (10 sets, daily range): BP systolic 108–161; BP diastolic 67–85; PULSE 60–70; TEMP 36.4–37; O2SAT 92–98; Ht 160 cm; Wt 87.0 kg
[2017-02-19] MEDS: ALBUT/IPRATROP 3MG/0.5MG NEB 3 ML VIAL INH SCH ×3 (07:17→20:06)
[2017-02-19] MEDS ORDERED: INSULIN HUMAN NPH SC SCH (07:30)
[2017-02-19 07:31] LABS: COMPLETE YES; EOS % 0.5 %; HEMATOCRIT 33.6 % (37-47); IG% 0.5 %; LYMPH % 10.5 %; LYMPH ABS # 0.67 K/uL (1.2-3.4); MEAN CELL VOLUME 96.3 fL (80-100); MEAN CORPUSCULAR HEMOGLOBIN 29.8 pg (25-34); MEAN PLATELET VOLUME 10.8 fL (7.4-10.4); MONO % 5.5 %; PLATELET COUNT 108 K/uL (130-400); RED BLOOD COUNT 3.49 M/uL (4.2-5.4); WHITE BLOOD COUNT 6.41 K/uL (4.8-10.8)
[2017-02-19 07:39] LABS: PARTIAL THROMBOPLASTIN RATIO 0.9; PROTHROMBIN TIME (PATIENT) 10.8 SECONDS (9.0-12.0)
--- NOTE | 2017-02-19 08:03 | DIAGNOSTIC IMAGING REPORT ---
SINGLE VIEW CHEST CLINICAL HISTORY: Dyspnea. FINDINGS: An AP, portable, upright chest radiograph is compared to study dated 02/18/2017 and correlated with chest CT dated 12/06/2015. The examination is degraded by portable technique and patient rotation. The heart is top normal for projection. There is atherosclerotic calcification of the thoracic aorta. Emphysema and chronic interstitial thickening are similar to previous. There is left bibasilar scarring versus atelectasis, with mild elevation of left hemidiaphragm. No pneumothorax is seen. The skeletal structures are osteopenic. The bony thorax is grossly intact. IMPRESSION: Emphysematous change with no acute cardiopulmonary abnormality. Electronically signed by: Ivan Garcia M.D. 02/19/2017 8:02 AM Dictated Date/Time: 02/19/2017 8:01 AM
[2017-02-19 08:06] LABS: BUN/CREATININE RATIO 36.3 (10-20); CALCIUM 8.2 mg/dl (8.5-10.1); CREATININE 2.85 mg/dl (0.60-1.20); MAGNESIUM 2.3 mg/dl (1.8-2.4); POTASSIUM 4.5 mmol/L (3.5-5.1)
[2017-02-19 08:13] LABS: ALB/GLOB RATIO 1.1 (0.9-2); PHOSPHORUS 5.6 mg/dl (2.5-4.9)
[2017-02-19] MEDS: BUDESONIDE/FORMOTEROL FUMARATE 160/4.5 60 PUFFS/INHALER INH SCH ×2 (08:36→20:25)
[2017-02-19] MEDS: BECLOMETHASONE DIP HFA 80 MCG 8.7G INH INH SCH ×2 (08:36→20:25)
[2017-02-19] MEDS: LORATADINE 10 MG TAB PO SCH (08:37)
[2017-02-19] MEDS: HEPARIN SOD 5000 UNIT/0.5 ML CARP SQ SCH ×2 (08:37→20:31)
[2017-02-19] MEDS: MIRABEGRON ER 25 MG TAB PO SCH (08:37)
[2017-02-19] MEDS: FLUOXETINE HCL 20 MG CAP PO SCH (08:38)
[2017-02-19] MEDS: ROPINIROLE HCL 1 MG TAB PO SCH ×3 (08:38→20:27)
[2017-02-19] MEDS: AMIODARONE 200 MG TAB PO SCH (08:38)
[2017-02-19] MEDS: INSULIN ASPART 100 UNITS/ML 3 ML PEN SC SCH ×4 (08:41→20:30)
--- NOTE | 2017-02-19 09:31 | Pharmacy Progress Note ---
Glycemic Control Progress Note Date of Service Feb 19, 2017. Scope Glycemic Pharmacist consulted for glycemic control to write orders per [facility] inpatient glycemic control protocol. Objective Accuchecks BSG (last 24hrs): Test 02/18/17 11:14 02/18/17 16:32 02/18/17 20:10 02/19/17 06:11 Bedside Glucose 223 mg/dl (70-90) 172 mg/dl (70-90) 270 mg/dl (70-90) 156 mg/dl (70-90) Test 02/19/17 06:55 Random Glucose 150 mg/dl (70-99) Recent Pertinent Medications The patient is currently receiving: * Basal insulin: NPH 10 units every 24 hours in the morning * Correctional Insulin: Novolog Correction per scale ACHS Goal Range: Low 120 mg/dL - High 150 mg/dL Correction Factor: 20 mg/dL/unit * Prandial insulin: Per carb ratio of 1 unit per 8 grams CHO consumed Outpatient Anti-Diabetic Meds glipizide 5 mg PO BIDM Assessment & Plan ASSESSMENT: * See progress note from 02/17/17 for more background info, in short: * Pt receiving SQ basal bolus insulin regimen for hyperglycemia secondary to baseline DM (outpatient regimen on hold), stress from recurrent COPD and hypercapnia, and prednisone 20 mg PO daily. * Patient is currently receiving an average of ~60 units of insulin per day * 20 units of basal insulin * 37 units of prandial/correctional insulin * BSGs ranging 125 - 270 mg/dl over the past 24hrs * Changes needed to insulin regimen: * AM Fasting BSG = 156 mg/dl. This is slightly above goal range for patient based on inpatient targets and co-morbidities. The patient had an adequate drop in blood sugar from 270 mg/dL to 156 mg/dL overnight indicating that she still has adequate PM insulin secretion. Continuing NPH is an excellent option. Did not increase NPH today as the carbohydrate coverage did not appear appropriate yesterday. * Post-prandial BSGs are elevated and BSGs rise throughout the day therefore need to tighten CR. * Total daily dose = ~60 units. Expect this number to decrease as prednisone tapered. PLAN FOR INPATIENT GLYCEMIC CONTROL: * Continuing NPH 20 units SQ qAM * Continuing correction factor of 20 mg/dl/unit * TIGHTENING carb ratio to 1 unit per 7 grams CHO consumed * Continuing goal range of Low 120 mg/dL - High 150 mg/dL RECOMMENDATIONS FOR DISCHARGE: * Glipizide is not recommended in individuals with renal impairment. May suggest utilizing different oral agent (such as Invokana which caveat that it can cause increased risk of amputation) or injectable (such as Victoza, Byetta, or even once daily Lantus) Thank you.
--- NOTE | 2017-02-19 10:49 | Neurology Consultation ---
Neurology Consultation Date of Consultation: Feb 19, 2017. Attending Physician: Kristine Sales M.D. Primary Care Physician: Fabricio Mir M.D. Reason for Consultation: Consultation for tremors and leg weakness History of Present Illness Source: patient, hospital records This is a 76-year-old female who presents with hyperglycemia. She was recently hospitalized couple weeks ago with respiratory failure and COPD exacerbation. Patient reports that the tremors started after her last hospital discharge. She reports that she's been on steroids before without any significant increase in her tremors. She does report having lifelong base line action tremors but do not significantly affect her activities. She reports her mother has similar action tremors. Patient reports that now her tremors affect her handwriting. It affects her ability to eat and get food to her mouth. Tremors are worse with action. A little bit better at rest. She reports that they're in both hands. She denies that they're in the legs. No new numbness or tingling. No changes in her vision. No trouble swallowing. No changes with her speech. She denies any recent change in her inhalers or breathing treatments In addition the patient reports that shortly before her last hospitalization she noted increasing leg weakness. She reports that it was slow and insidious onset. Reports that her legs would get tired and give out. She would be able to stand for 10 minutes but would not be able to walk a significant distance. She feels that physical therapy at [facility] helps some but not enough. She reports that beforehand she was walking with the assistance of a walker regularly but now she needs a walker all the time. She denies any pain in association. She does have a history of back pain and back surgery but denies that any back pain is affecting her ability to walk at this time. She does feel like her back is weak and often has to consciously think about standing up straight. Denies any radiculopathy type symptoms. Denies any numbness or tingling in her lower extremities. She does report that her lower extremities are often sore. CK noted to be 19 In addition at last hospital visit the patient was diagnosed with A. fib. She is not on anticoagulation and denies that the topic of anticoagulation was ever brought up with her. Per review of cardiology consult at last hospitalization, anticoagulation was recommended. Past Medical/Surgical History Medical Problems: (1) Cellulitis Status: Acute (2) COPD exacerbation Status: Acute (3) COPD exacerbation Status: Acute (4) COPD exacerbation Status: Acute (5) Hypoxia Status: Acute (6) PNA (pneumonia) Status: Acute (7) SOB (shortness of breath) Status: Acute (8) Weakness Status: Acute COPD, CHF, A. fib, diabetes, hypertension Family History Patient reports mother with likely benign essential tremors. Diabetes, cancer, CAD with the family Social History Patient reports that before her last to hospitalization she was able to walk sometimes unassisted and sometimes with a walker. She is independent in activities of daily living. Smoking Status: Former smoker Smokeless Tobacco Use: No Alcohol Use: none Drug Use: none Marital Status: single, Housing Status: jail Occupation Status: retired Allergies Coded Allergies: Atropine (Verified Allergy, Intermediate, RASH, 01/26/17) Dobutamine (Verified Allergy, Intermediate, RASH, 01/26/17) Current Inpatient Medications Current Inpatient Medications Medications (Trade) Dose Ordered Sig/Polly Route Start Time Stop Time Status Last Admin Dose Admin Heparin Sodium (Porcine) (Heparin Sq 5000 Unit/0.5ml) 5,000 unit Q12H SQ 02/17/17 09:00 03/19/17 08:59 02/19/17 08:37 5,000 UNIT Acetaminophen (Tylenol Tab) 650 mg Q4H PRN PO 02/17/17 02:30 03/19/17 02:29 Morphine Sulfate (MoRPHine SULFATE INJ) 2 mg Q2H PRN IV 02/17/17 02:30 03/03/17 02:29 Beclomethasone Dipropionate (Qvar 80 Mcg Hfa Inhaler) 2 puffs BID INH 02/17/17 09:00 03/19/17 08:59 02/19/17 08:36 2 PUFFS Budesonide/ Formoterol Fumarate (Symbicort 160/ 4.5 Inh) 2 puffs BID INH 02/17/17 09:00 03/19/17 08:59 02/19/17 08:36 2 PUFFS Fluoxetine HCl (Prozac Cap) 20 mg QAM PO 02/17/17 09:00 03/19/17 08:59 02/19/17 08:38 20 MG Albuterol/ Ipratropium (Duoneb) 0.5 ml Q6RWA INH 02/17/17 09:00 03/19/17 08:59 02/19/17 07:17 0.5 ML Loratadine (Claritin Tab) 10 mg QAM PO 02/17/17 09:00 03/19/17 08:59 02/19/17 08:37 10 MG Mirabegron (Myrbetriq Er) 25 mg DAILY PO 02/17/17 09:00 03/19/17 08:59 02/19/17 08:37 25 MG Nystatin (Mycostatin Susp) 5 ml QID PRN PO 02/17/17 02:45 02/27/17 02:44 02/18/17 08:30 5 ML Pravastatin Sodium (Pravachol Tab) 10 mg QPM PO 02/17/17 21:00 03/19/17 20:59 02/18/17 20:21 10 MG Ropinirole HCl (Requip Tab) 2 mg TID PO 02/17/17 09:00 03/19/17 08:59 02/19/17 08:38 2 MG Miscellaneous Information (Consult Glycemic Management Pharmacy) 1 ea UD PRN N/A 02/17/17 02:45 03/19/17 02:44 Amiodarone HCl (Cordarone Tab) 200 mg DAILY PO 02/17/17 09:00 03/19/17 08:59 02/19/17 08:38 200 MG Metoprolol Succinate (Toprol Xl Tab) 50 mg PM PO 02/17/17 21:00 03/19/17 20:59 02/18/17 20:22 50 MG Trazodone HCl (Desyrel Tab) 25 mg HS PO 02/17/17 21:00 03/19/17 20:59 02/18/17 20:21 25 MG Insulin Aspart (novoLOG ASPART) SLIDING SCALE ACHS SC 02/17/17 12:30 03/19/17 12:29 Future hold 02/19/17 08:41 9 UNITS Prednisone (PredniSONE TAB) 20 mg DAILY@0800 PO 02/17/17 13:30 03/19/17 13:29 02/19/17 08:37 20 MG Glucose (Glucose 40% Gel) 15-30 GRAMS 15 GRAMS... UD PRN PO 02/17/17 16:30 03/19/17 16:29 Glucose (Glucose Chew Tab) 4-8 Tablets 4 Tabl... UD PRN PO 02/17/17 16:30 03/19/17 16:29 02/17/17 16:38 4 TABS Dextrose (Dextrose 50% 50ML Syringe) 25-50ML OF 50% DW IV FOR... UD PRN IV 02/17/17 16:30 03/19/17 16:29 Glucagon (Glucagon Inj) 1 mg UD PRN SQ 02/17/17 16:30 03/19/17 16:29 Sodium Chloride (Continental Nasal Ray) 1 sprays PRN PRN NA 02/17/17 21:00 03/19/17 20:59 Insulin Human NPH (novoLIN-N NPH) 20 units QDB SC 02/19/17 07:30 03/21/17 07:29 02/19/17 08:43 20 UNITS Review of Systems Complete review of systems otherwise negative except for the above noted in history of present illness Physical Exam Vital Signs (Past 24 Hrs): Date Time Temp Pulse Resp B/P (MAP) Pulse Ox O2 Delivery O2 Flow Rate FiO2 02/19/17 08:11 36.4 60 18 135/78 (97) 96 Room Air 02/19/17 08:00 Nasal Cannula 2.0 02/19/17 07:17 62 16 98 BiPAP/CPAP 2.0 02/19/17 04:26 Nasal Cannula 2.0 02/19/17 03:19 36.5 67 18 110/67 (81) 97 BiPAP 3.0 02/19/17 01:10 61 94 3.0 02/19/17 00:44 Nasal Cannula 2.0 02/18/17 23:58 36.3 64 22 131/73 (92) 95 Nasal Cannula 2.0 02/18/17 20:11 Nasal Cannula 2.0 02/18/17 19:37 36.8 67 20 109/66 (80) 95 Nasal Cannula 2.0 02/18/17 19:20 70 16 94 BiPAP/CPAP 2.0 02/18/17 16:00 Nasal Cannula 2.0 02/18/17 15:37 36.7 64 22 110/62 (78) 90 BiPAP 02/18/17 14:24 70 16 96 BiPAP/CPAP 2.0 02/18/17 12:46 67 93 3.0 02/18/17 12:00 Nasal Cannula 2.0 BiPAP 02/18/17 11:32 36.2 63 20 116/73 (87) 96 3.0 Gen.: Patient is alert and sitting in chair, in no acute distress. HEENT: Normocephalic /atraumatic, no scleral icterus Heart: Regular rate and rhythm Extremities: No gross deformities or rashes noted Neurological examination: Mental status: Patient is alert and oriented x3. Attention and concentration normal for the situation. Good fund of knowledge. Remote and recent memory intact. Speech is fluent without any dysarthria or aphasia noted Cranial nerve: Funduscopic examination was unremarkable. No papilledema. Pupils equally round and reactive to light. Extraocular muscles intact without nystagmus. No facial asymmetry noted. Facial sensation intact. Tongue is midline. Good palatal elevation. Good shoulder shrug bilaterally. Hearing grossly intact to voice. Strength: 5/5 both proximal and distally in all extremities with the exception of 4/5 bilateral hip flexion and 4+/5 knee extension. There is no arm drift. Tone is normal. No rigidity. Sensation: Grossly intact to light touch in all extremities. Deep tendon reflexes: +1 in bilateral biceps, brachioradialis and patellar. Toes were downgoing to plantar stimulation Coordination: Patient had good finger to nose without dysmetria Station within the chair was normal Patient did have fairly continuous high-frequency low to moderate amplitude tremors in bilateral upper extremities and sometimes head tremor. Certainly worsened with movement or activity. Laboratory Results Past 24 Hours: 02/19/17 06:55 Red Blood Count 3.49, Mean Corpuscular Volume 96.3, Mean Corpuscular Hemoglobin 29.8, Mean Corpuscular Hemoglobin Concent 31.0, Mean Platelet Volume 10.8, Neutrophils (%) (Auto) 83.0, Lymphocytes (%) (Auto) 10.5, Monocytes (%) (Auto) 5.5, Eosinophils (%) (Auto) 0.5, Basophils (%) (Auto) 0.0, Neutrophils # (Auto) 5.33, Lymphocytes # (Auto) 0.67, Monocytes # (Auto) 0.35, Eosinophils # (Auto) 0.03, Basophils # (Auto) 0.00 02/19/17 06:55 Test 02/19/17 06:11 02/19/17 06:55 Bedside Glucose 156 mg/dl (70-90) White Blood Count 6.41 K/uL (4.8-10.8) Red Blood Count 3.49 M/uL (4.2-5.4) Hemoglobin 10.4 g/dL (12.0-16.0) Hematocrit 33.6 % (37-47) Mean Corpuscular Volume 96.3 fL (80-100) Mean Corpuscular Hemoglobin 29.8 pg (25-34) Mean Corpuscular Hemoglobin Concent 31.0 g/dl (32-36) Platelet Count 108 K/uL (130-400) Mean Platelet Volume 10.8 fL (7.4-10.4) Neutrophils (%) (Auto) 83.0 % Lymphocytes (%) (Auto) 10.5 % Monocytes (%) (Auto) 5.5 % Eosinophils (%) (Auto) 0.5 % Basophils (%) (Auto) 0.0 % Neutrophils # (Auto) 5.33 K/uL (1.4-6.5) Lymphocytes # (Auto) 0.67 K/uL (1.2-3.4) Monocytes # (Auto) 0.35 K/uL (0.11-0.59) Eosinophils # (Auto) 0.03 K/uL (0-0.5) Basophils # (Auto) 0.00 K/uL (0-0.2) RDW Standard Deviation 50.5 fL (36.4-46.3) RDW Coefficient of Variation 14.4 % (11.5-14.5) Immature Granulocyte % (Auto) 0.5 % Immature Granulocyte # (Auto) 0.03 K/uL (0.00-0.02) Prothrombin Time 10.8 SECONDS (9.0-12.0) Prothromb Time International Ratio 1.0 (0.9-1.1) Activated Partial Thromboplast Time 22.5 SECONDS (21.0-31.0) Partial Thromboplastin Ratio 0.9 Anion Gap 9.0 mmol/L (3-11) Est Creatinine Clear Calc Drug Dose 18.0 ml/min Estimated GFR () 18.1 Estimated GFR (Non- 15.6 BUN/Creatinine Ratio 36.3 (10-20) Calcium Level 8.2 mg/dl (8.5-10.1) Phosphorus Level 5.6 mg/dl (2.5-4.9) Magnesium Level 2.3 mg/dl (1.8-2.4) Total Bilirubin 0.4 mg/dl (0.2-1) Aspartate Amino Transf (AST/SGOT) 8 U/L (15-37) Alanine Aminotransferase (ALT/SGPT) 18 U/L (12-78) Alkaline Phosphatase 53 U/L (45-117) Total Protein 5.4 gm/dl (6.4-8.2) Albumin 2.8 gm/dl (3.4-5.0) Globulin 2.6 gm/dl (2.5-4.0) Albumin/Globulin Ratio 1.1 (0.9-2) Impression This is a 76-year-old female with: 1) 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 Most likely medication causing new worsening of tremors is amiodarone as the patient reports that she's been on steroids and her current inhalers in the past without any worsening of her tremors. 2) bilateral leg weakness appears to be slow in onset and progression. Could be secondary to decondition and medical status. 3) A. fib not on anticoagulation Plan Recommend discussing with cardiology if the patient can be put on another medication other than amiodarone to see if this would improve her enhanced physiological tremors. Recommend intensive PT/OT for lower extremity weakness. If she does not improve with physical therapy, could consider an EMG as an outpatient. Recommendations anticoagulation in the setting of A. fib as previously recommended by cardiology. Patient is at high risk for strokes not on anticoagulation with A. fib. Fall risk is no longer considered an adequate contraindication to anticoagulation. Thank you for allowing me to participate in this patient's care. If there is any questions or concerns, feel free to call/page me.
--- NOTE | 2017-02-19 12:37 | Progress Note ---
Subjective Date of Service: Feb 19, 2017. Subjective Pt evaluation today including: conversation w/ patient, conversation w/ family , physical exam, chart review, lab review, review of studies, conversation w/ it infrastructure consultant, review of inpatient medication list Still has a lot of tremor, otherwise doing okay, sitting up in chair, talked over the phone, no special complaint No special complaint Problem List Medical Problems: (1) Cellulitis Status: Acute (2) COPD exacerbation Status: Acute (3) COPD exacerbation Status: Acute (4) COPD exacerbation Status: Acute (5) Hypoxia Status: Acute (6) PNA (pneumonia) Status: Acute (7) SOB (shortness of breath) Status: Acute (8) Weakness Status: Acute Review of Systems Constitutional: + weakness, + fatigue, No fever, No chills, No sweats, No weight loss, No problem reported Eyes: No worsening of vision, No eye pain, No redness, No discharge, No diplopia ENT: No hearing loss, No unusual epistaxis, No nasal symptoms, No sore throat, No tinnitus, No dental problems, No trouble swallowing Respiratory: + shortness of breath, No cough, No sputum, No wheezing, No dyspnea on exertion, No dyspnea at rest, No hemoptysis Cardiac: No chest pain, No orthopnea, No PND, No edema, No claudication, No palpitations Abdomen: No pain, No nausea, No vomiting, No diarrhea, No constipation Musculoskeletal: No joint pain, No muscle pain, No swelling, No calf pain Female : No dysuria, No urinary frequency, No hematuria, No incontinence, No abnormal vaginal bleeding, No vaginal discharge Neurologic: + see HPI, No memory loss, No paralysis, No weakness, No numbness/ tingling, No vertigo, No balance problems Psychiatric: No depression symptoms, No anhedonism, No anxiety, No insomnia, No substance abuse Heme: No abnormal bleeding/bruising, No clotting problems, No swollen lymph nodes, No night sweats Endo: No fatigue, No excessive thirst, No excessive urination Skin: No rash, No itch, No new/changing skin lesions, No color change, No bleeding Objective Vital Signs Date Time Temp Pulse Resp B/P (MAP) Pulse Ox O2 Delivery O2 Flow Rate FiO2 02/19/17 12:00 Nasal Cannula 2.0 02/19/17 11:50 36.7 63 18 108/69 (82) 97 2.0 02/19/17 08:11 36.4 60 18 135/78 (97) 96 Room Air 02/19/17 08:00 Nasal Cannula 2.0 02/19/17 07:17 62 16 98 BiPAP/CPAP 2.0 02/19/17 04:26 Nasal Cannula 2.0 02/19/17 03:19 36.5 67 18 110/67 (81) 97 BiPAP 3.0 02/19/17 01:10 61 94 3.0 02/19/17 00:44 Nasal Cannula 2.0 02/18/17 23:58 36.3 64 22 131/73 (92) 95 Nasal Cannula 2.0 02/18/17 20:11 Nasal Cannula 2.0 02/18/17 19:37 36.8 67 20 109/66 (80) 95 Nasal Cannula 2.0 02/18/17 19:20 70 16 94 BiPAP/CPAP 2.0 02/18/17 16:00 Nasal Cannula 2.0 02/18/17 15:37 36.7 64 22 110/62 (78) 90 BiPAP 02/18/17 14:24 70 16 96 BiPAP/CPAP 2.0 02/18/17 12:46 67 93 3.0 Physical Exam General Appearance: WD/WN, no apparent distress, + obese Eyes: normal inspection, PERRL, EOMI, sclerae normal ENT: normal ENT inspection, hearing grossly normal, pharynx normal Neck: supple, no adenopathy, thyroid normal, no JVD, no carotid bruits, trachea midline Respiratory/Chest: chest non-tender, lungs clear, normal breath sounds, no respiratory distress, no accessory muscle use Cardiovascular: regular rate, rhythm, no edema, no gallop, no JVD, no murmur Abdomen: normal bowel sounds, non tender, soft, no organomegaly, no pulsatile mass, + pertinent finding (Pollard in place with clear urine) Extremities: normal range of motion, non-tender, normal inspection, no pedal edema, no calf tenderness, normal capillary refill, pelvis stable, + swelling ( trace swelling) Neurologic/Psychiatric: sales communications manager II-XII nml as tested, no motor/sensory deficits, alert, normal mood/affect, oriented x 3, + pertinent finding (tremor which is not new) Skin: normal color, warm/dry, no rash Lymphatic: no adenopathy Laboratory Results Last 24 Hours Test 02/18/17 16:32 02/18/17 20:10 02/19/17 06:11 02/19/17 06:55 Bedside Glucose 172 mg/dl 270 mg/dl 156 mg/dl White Blood Count 6.41 K/uL Red Blood Count 3.49 M/uL Hemoglobin 10.4 g/dL Hematocrit 33.6 % Mean Corpuscular Volume 96.3 fL Mean Corpuscular Hemoglobin 29.8 pg Mean Corpuscular Hemoglobin Concent 31.0 g/dl Platelet Count 108 K/uL Mean Platelet Volume 10.8 fL Neutrophils (%) (Auto) 83.0 % Lymphocytes (%) (Auto) 10.5 % Monocytes (%) (Auto) 5.5 % Eosinophils (%) (Auto) 0.5 % Basophils (%) (Auto) 0.0 % Neutrophils # (Auto) 5.33 K/uL Lymphocytes # (Auto) 0.67 K/uL Monocytes # (Auto) 0.35 K/uL Eosinophils # (Auto) 0.03 K/uL Basophils # (Auto) 0.00 K/uL RDW Standard Deviation 50.5 fL RDW Coefficient of Variation 14.4 % Immature Granulocyte % (Auto) 0.5 % Immature Granulocyte # (Auto) 0.03 K/uL Prothrombin Time 10.8 SECONDS Prothromb Time International Ratio 1.0 Activated Partial Thromboplast Time 22.5 SECONDS Partial Thromboplastin Ratio 0.9 Sodium Level 138 mmol/L Potassium Level 4.5 mmol/L Chloride Level 99 mmol/L Carbon Dioxide Level 30 mmol/L Anion Gap 9.0 mmol/L Blood Urea Nitrogen 104 mg/dl Creatinine 2.85 mg/dl Est Creatinine Clear Calc Drug Dose 18.0 ml/min Estimated GFR () 18.1 Estimated GFR (Non- 15.6 BUN/Creatinine Ratio 36.3 Random Glucose 150 mg/dl Calcium Level 8.2 mg/dl Phosphorus Level 5.6 mg/dl Magnesium Level 2.3 mg/dl Total Bilirubin 0.4 mg/dl Aspartate Amino Transf (AST/SGOT) 8 U/L Alanine Aminotransferase (ALT/SGPT) 18 U/L Alkaline Phosphatase 53 U/L Total Protein 5.4 gm/dl Albumin 2.8 gm/dl Globulin 2.6 gm/dl Albumin/Globulin Ratio 1.1 Assessment and Plan 76 yo female, with end-stage COPD and CHF admitted on 02/17/2017 with severe hyperglycemia with BG >600 transferred from [facility]. Patient transferred and initially treated for suspected DKA Acute on chronic respiratory failure with hypercapnia, stable resolving, continue current o2 regime with BiPAP at night, Continue Prednisone 20mg dose, continue taper dose by 5mg q 3 days (15 mg on Sunday) Continue daily Lasix 80mg, inhaler, need to check for need of bipap on discharge. Chronic COPD, continue inhalers and prednisone. will need very slow taper. Hypergycemia upon admission, Labile blood glucose on prednisone , Non-gap acidosis, pt is not in DKA , Insulin drip cancelled Glipizide on hold, plan to d/c on discharge and should go home on insulin. Gait disturbance with leg weakness and tremor, Restless leg syndrome neuro saw patient, continue current medication, recommend anticoagulation for stroke prevention Continue PT/OT, and fdc facility rehabilitation Hyperkalemia Hyponatremia Chronic diastolic CHF CAD Depression Urinary incontinence The above condition is stable continue current medication Atrial fibrillation, likely proximal atrial fibrillation, is on amiodarone and NSR, Continue amiodarone 200mg daily , per recommendation and documented in several occasion, has been felt not a t good candidate anticoagulation , and Pt refused half-way anticoagulation last admission, because this is important decision, I talked to patient again, seems she is considering about the anticoagulation, discussed the risk and benefit, and patient requests to talk to still photographer to have further discussion, has request cardiology consult VTE: Heparin SQ , Code status: DNR, planning fdc rehabilitation, today will DC Pollard catheter, up and walk with RN , and talk to still photographer about anticoagulation, possible discharge tomorrow Continued [facility] stay due to: multiple IV medications needed Discharge planning: fdc facility
[2017-02-19] MEDS: TRAZODONE HCL 50 MG TAB PO SCH (20:26)
[2017-02-19] MEDS: PRAVASTATIN SOD 10 MG TAB PO SCH (20:27)
[2017-02-19] MEDS: METOPROLOL SUCC 50MG EXT REL TAB PO SCH (20:28)
[2017-02-19] MEDS: NYSTATIN SUSP 500,000 U/5 ML UDC PO PRN (23:47)
[2017-02-20] VITALS (11 sets, daily range): BP systolic 119–146; BP diastolic 69–82; PULSE 54–66; TEMP 36.4–36.8; O2SAT 91–98
[2017-02-20] MEDS: ALBUT/IPRATROP 3MG/0.5MG NEB 3 ML VIAL INH SCH ×3 (07:10→19:40)
[2017-02-20 07:15] LABS: HEMATOCRIT 32.7 % (37-47); MEAN CELL VOLUME 95.9 fL (80-100); MEAN CORPUSCULAR HEMOGLOBIN 30.8 pg (25-34); MEAN CORPUSCULAR HGB CONC 32.1 g/dl (32-36); RED BLOOD COUNT 3.41 M/uL (4.2-5.4); WHITE BLOOD COUNT 6.16 K/uL (4.8-10.8)
[2017-02-20 07:29] LABS: PARTIAL THROMBOPLASTIN RATIO 0.9; PROTHROMBIN TIME (PATIENT) 10.8 SECONDS (9.0-12.0)
[2017-02-20] MEDS: HEPARIN SOD 5000 UNIT/0.5 ML CARP SQ SCH (07:39)
[2017-02-20] MEDS: INSULIN ASPART 100 UNITS/ML 3 ML PEN SC SCH ×4 (07:39→20:53)
[2017-02-20 07:41] LABS: MAGNESIUM 2.1 mg/dl (1.8-2.4); PHOSPHORUS 4.6 mg/dl (2.5-4.9)
[2017-02-20] MEDS: LORATADINE 10 MG TAB PO SCH (07:41)
[2017-02-20] MEDS: FLUOXETINE HCL 20 MG CAP PO SCH (07:41)
[2017-02-20] MEDS: ROPINIROLE HCL 1 MG TAB PO SCH ×3 (07:42→20:47)
[2017-02-20] MEDS: AMIODARONE 200 MG TAB PO SCH (07:42)
[2017-02-20] MEDS: NYSTATIN SUSP 500,000 U/5 ML UDC PO PRN ×2 (07:42→20:48)
[2017-02-20] MEDS: MIRABEGRON ER 25 MG TAB PO SCH (07:43)
[2017-02-20] MEDS: BECLOMETHASONE DIP HFA 80 MCG 8.7G INH INH SCH ×2 (07:43→20:45)
[2017-02-20] MEDS: BUDESONIDE/FORMOTEROL FUMARATE 160/4.5 60 PUFFS/INHALER INH SCH ×2 (07:43→20:44)
[2017-02-20 07:47] LABS: MEAN PLATELET VOLUME 10.7 fL (7.4-10.4); PLATELET COUNT 88 K/uL (130-400)
[2017-02-20 07:48] LABS: COMPLETE YES; EOS % 1.1 %; IG% 0.3 %; LYMPH % 15.4 %; LYMPH ABS # 0.95 K/uL (1.2-3.4); MONO % 4.5 %; NEUT % 78.7 %; PLT ESTIMATE DECREASED
--- NOTE | 2017-02-20 09:21 | CARDIOLOGY CONSULTATION ---
DATE OF CONSULTATION: 02/20/2017 REASON FOR CONSULTATION: Right-sided heart failure, end-stage COPD, paroxysmal atrial fibrillation, question tremors related to amiodarone and potential need for anticoagulation. REQUESTING: Carlos VENTURA MD. NARROW GAUGE ENGINEER: Renny Crabtree DO, [facility]. Dear Dr. Ventura: Thank you for requesting cardiology consultation on Nydia with regards to her paroxysmal atrial fibrillation, end-stage COPD, need for anticoagulation, and tremors potentially worsened by amiodarone. As you know her history is well documented. She just left [facility] on the 07 of February with pneumonia and COPD exacerbation and significantly elevated pCO2 levels. She was discharged to an assisted living facility. This admission she was admitted with blood sugars greater than 600 with hyponatremia and hyperkalemia. She was aggressively treated with saline and insulin and improvement in her electrolytes. She is feeling much better currently. She had tremors during her last admission, it was unclear what the etiology may have been, although there was a discussion even the last admission that amiodarone can make tremors, underlying tremors worse. She denies any palpitations, lightheadedness or dizziness. She denies any chest pain, chest pressure, chest heaviness. She does have bruising on her arms from her current admission and her last admission. She denies any dark stools or black stools. Neurology saw the patient and is concerned that her tremors may be related to amiodarone and had a question with regards to anticoagulation. As has been well documented on the chart, she has refused anticoagulation up until this point. She denies any lower extremity edema, increased abdominal distension. She denies any worsening underlying right-sided heart failure symptoms. She notes the tremors are interfering with her ability to use her cell phone and to type and to write and it is affecting her overall quality of life significantly. The rest of review of systems otherwise negative. SOCIAL HISTORY: She is a former smoker. She is . She lives in an assisted living facility currently. FAMILY HISTORY: Positive for cancer, diabetes and heart disease. PAST MEDICAL HISTORY: 1. Asymptomatic atrial fibrillation, placed on amiodarone earlier in January 2017. 2. Previous refusal of anticoagulation. 3. Cor pulmonale with severe end-stage COPD. 4. End-stage COPD requiring 3 liters of nasal cannula and BIPAP at night. 5. Chronic diastolic and right-sided heart failure. 6. History of severe pulmonary hypertension. 7. Diabetes mellitus type 2. 8. Chronic kidney disease. 9. Hyperlipidemia. 10. Hypertension. 11. Restless leg syndrome. ALLERGIES: ATROPINE AND DOBUTAMINE. MEDICATIONS: Her inpatient medications were reviewed in detail. PHYSICAL EXAMINATION: GENERAL: She is awake, alert, oriented x3. She looks more frail than when I last saw her 2 weeks ago. VITAL SIGNS: Her heart rate is 60, respirations 18, blood pressure 146/82. Her sats 98% on 2 liters. HEENT: 2+ carotid upstrokes. No evidence of carotid bruits. Her jugular venous pressure cannot be assessed due to her neck size. Sclerae is anicteric. Her hearing is normal. LUNGS: Globally decreased breath sounds but no rales, rhonchi or wheezing. HEART: Regular rate and rhythm. No appreciable murmurs, rubs or gallops. ABDOMEN: Soft, nontender, nondistended, positive bowel sounds. EXTREMITIES: No clubbing, cyanosis or edema. PSYCHIATRIC: Affect appeared appropriate. LABORATORY STUDIES: Hemoglobin 10.5, platelet count of 88,000. Sodium 138, potassium 4.5. Her BUN was 104 with a creatinine of 2.85. Her AST was 8. Her ALT was 18. Her coags were normal. DIAGNOSTIC STUDIES: Chest x-ray from 02/19/2017 emphysematous changes, no acute cardiopulmonary abnormality. IMPRESSION: 1. Paroxysmal atrial fibrillation with a significantly elevated CHADS2-VASc score. 2. Previous refusal to consider anticoagulation now potentially interested. 3. Tremors potentially worsened by amiodarone. 4. Acute kidney injury on chronic kidney disease. 5. Severe end-stage chronic obstructive pulmonary disease with cor pulmonale and severe pulmonary hypertension. As I discussed with Nydia, there are 2 options. One would be to reduce her amiodarone dose to 100 mg a day understanding that is not the normal maintenance dose, but just to see if her tremors improve while still giving her some protection that we may reduce her risk of recurrent AFib in the future. As you may remember during her last hospitalization, she was unaware that she was in atrial fibrillation. The second option we discussed was stopping the amiodarone completely leaving her on Toprol to reduce her risk of recurrent AFib understanding her risk of AFib is much higher off of amiodarone. Given the tremor, she wishes to stop her amiodarone completely. I did discuss with her it will take 6 weeks to get out of her system and she may not notice an improvement for a month or so. With regards to anticoagulation, we discussed the risks and benefits of anticoagulation in detail. Risks including bleeding or bruising, especially if she falls, the risk of intracranial hemorrhage or subdural hemorrhage if she were to fall when she walks without her walker. This is exacerbated by the fact that she has significant leg weakness as well. We discussed the risks and benefits of Coumadin versus newer anticoagulants like Eliquis. After long discussions, she is agreeable to Eliquis 5 mg b.i.d. Given the criteria for dosing, she is under the age of 82, she weighs more than 60 kilos but her creatinine is greater than 1.5 and was only 1 of 3 criteria for a lower dose. She should be on the 5 mg b.i.d. dosing. All this was discussed with the patient in detail. Thank you for allowing us to participate in her care. ISMAEL
--- NOTE | 2017-02-20 09:45 | Clinical Documentation Query ---
AZUCENA Baron : CLINICAL DOCUMENTATION QUERIES QUERY 1 OF 2 Patient is a 76 year old female admitted for evaluation and treatment of acute on chronic respiratory failure and hyperglycemia. H&P documented DKA. This has been ruled out. As patient is a known type 2 diabetic on recent stressor of steroid taper and acute on chronic diastolic CHF, consider documentation as suggested below. Thank you. In your clinical opinion is this patient being managed for: ( x) Type 2 diabetes mellitus possible Hyperosmolar Hyperglycemic Nonketotic Syndrome ( ) Not Agree ( ) Other explanation of clinical findings (Please Explain) ( ) Unable to determine (Please Define) ( ) Need to Discuss The medical record reflects the following clinical findings, treatment, and risk factors. Clinical Indicators: As above Treatment: IVF, insulin, serial chemistries, serial VBG's. Risk Factors: Age, type 2 DM, steroids, acute illness QUERY 2 OF 2 Admission BUN, creatinine, and estimated GFR were 142 mg/dl, 4.09 mg/dl, and 10 ml/min. Historical documentation includes a diagnosis of CKD stage 3. Neither condition noted in attending documentation. As appropriate, please consider documentation as suggested below. Thank you. In your clinical opinion is this patient being managed for: ( x) ABIEL, POA, on CKD stage 3 POA, on CKD stage 3 Type 2 diabetes mellitus possible Hyperosmolar Hyperglycemic Nonketotic Syndrome ( ) Not Agree ( ) Other explanation of clinical findings (Please Explain) ( ) Unable to determine (Please Define) ( ) Need to Discuss The medical record reflects the following clinical findings, treatment, and risk factors. Clinical Indicators: As above, hyperkalemia, ?prerenal/hypovolemia associated with HHNKS Treatment: IVF, serial chemistries Risk Factors: Age, HHNKS, diuretics, fluid restriction Please clarify and document your clinical opinion in the progress notes and discharge summary. Terms such as "probable", "suspected", "likely", "questionable", "possible", or "still to be ruled out" are acceptable. IF IN AGREEMENT, YOU MUST DOCUMENT ABOVE DIAGNOSTIC STATEMENT IN DAILY PROGRESS NOTES AND DISCHARGE SUMMARY. This document is not part of the patient's record. Thank You, Craig Julian, RN [phone]
[2017-02-20] MEDS: APIXABAN 2.5 MG TAB PO SCH ×2 (09:56→20:46)
[2017-02-20] MEDS ORDERED: INSULIN HUMAN NPH SC SCH (10:00)
--- NOTE | 2017-02-20 10:01 | Pharmacy Progress Note ---
Glycemic Control Progress Note Date of Service Feb 20, 2017. Scope Glycemic Pharmacist consulted for glycemic control to write orders per [facility] inpatient glycemic control protocol. Objective Accuchecks BSG (last 24hrs): Test 02/19/17 11:20 02/19/17 16:21 02/19/17 19:53 Bedside Glucose 169 mg/dl (70-90) 315 mg/dl (70-90) 323 mg/dl (70-90) Recent Pertinent Medications The patient is currently receiving: * Basal insulin: NPH 20 units every 24 hours in the morning * Correctional Insulin: Novolog Correction per scale ACHS Goal Range: Low 120 mg/dL - High 150 mg/dL Correction Factor: 20 mg/dL/unit * Prandial insulin: Per carb ratio of 1 unit per 7 grams CHO consumed Outpatient Anti-Diabetic Meds Glipizide 5 mg PO BID Assessment & Plan ASSESSMENT: * See progress note from 02/17/17 for more background info, in short: * Pt receiving SQ basal bolus insulin regimen for hyperglycemia secondary to baseline DM (outpatient regimen on hold), stress from recurrent COPD and hypercapnia, and prednisone 20 mg PO daily. * Patient is currently receiving an average of ~60 units of insulin per day * 20 units of basal insulin * 33 units of prandial/correctional insulin * BSGs ranging 156 - 323 mg/dl over the past 24hrs * Changes needed to insulin regimen: * AM Fasting BSG = 146 mg/dl. This is slightly above goal range for patient based on inpatient targets and co-morbidities. The patient had an adequate drop in blood sugar from 323 mg/dL to 146 mg/dL overnight indicating that she still has adequate PM insulin secretion. Continuing NPH is an excellent option. Even though prednisone decreased yesterday, increased NPH as proportionally it was not appropriate yesterday. If prednisone 20 mg PO daily was continued would have given 40 units of NPH instead gave 30 units for reduced dose. * Post-prandial BSGs are elevated and BSGs rise throughout the day. Please note pharmacist was not contact about the 315 mg/dL and 323 mg/dL last night. Tightened carbohydrate ratio slightly this morning. NPH was given slightly later today. Lunch blood sugar was much lower than breakfast blood sugar. Did not loosen carbohydrate ratio as patient has large spike after lunch as this is when prednisone effects are prominent. * Total daily dose = ~60 units. Expect this number to decrease as prednisone tapered. PLAN FOR INPATIENT GLYCEMIC CONTROL: * INCREASE NPH to 30 units SQ qAM * Continuing correction factor of 20 mg/dl/unit * Continuing carb ratio to 1 unit per 8 grams CHO consumed * TIGHTENING goal range to Low 110 mg/dL - High 140 mg/dL RECOMMENDATIONS FOR DISCHARGE: * Glipizide is not recommended in individuals with renal impairment. May suggest utilizing different oral agent (such as Invokana which caveat that it can cause increased risk of amputation) or injectable (such as Victoza, Byetta, or even once daily Lantus) Thank you.
--- NOTE | 2017-02-20 10:41 | Progress Note ---
Subjective Date of Service: Feb 20, 2017. Subjective Pt evaluation today including: conversation w/ patient, physical exam, chart review, lab review, review of studies, review of inpatient medication list Patient is doing therapy when seeing her, again has tremor, no other complaint, Problem List Medical Problems: (1) Cellulitis Status: Acute (2) COPD exacerbation Status: Acute (3) COPD exacerbation Status: Acute (4) COPD exacerbation Status: Acute (5) Hypoxia Status: Acute (6) PNA (pneumonia) Status: Acute (7) SOB (shortness of breath) Status: Acute (8) Weakness Status: Acute Review of Systems Constitutional: + weakness Eyes: No worsening of vision, No eye pain, No redness, No discharge, No diplopia ENT: No hearing loss, No unusual epistaxis, No nasal symptoms, No sore throat, No tinnitus, No dental problems, No trouble swallowing Respiratory: No cough, No sputum, No wheezing, No shortness of breath, No dyspnea on exertion, No dyspnea at rest, No hemoptysis Cardiac: No chest pain, No orthopnea, No PND, No edema, No claudication, No palpitations Abdomen: No pain, No nausea, No vomiting, No diarrhea, No constipation Musculoskeletal: No joint pain, No muscle pain, No swelling, No calf pain Female : No dysuria, No urinary frequency, No hematuria, No incontinence, No abnormal vaginal bleeding, No vaginal discharge Neurologic: No memory loss, No paralysis, No weakness, No numbness/tingling, No vertigo, No balance problems Psychiatric: No depression symptoms, No anhedonism, No anxiety, No insomnia, No substance abuse Heme: No abnormal bleeding/bruising, No clotting problems, No swollen lymph nodes, No night sweats Endo: No fatigue, No excessive thirst, No excessive urination Skin: No rash, No itch, No new/changing skin lesions, No color change, No bleeding Objective Vital Signs Date Time Temp Pulse Resp B/P (MAP) Pulse Ox O2 Delivery O2 Flow Rate FiO2 02/20/17 08:00 Nasal Cannula 3.0 02/20/17 07:45 36.7 60 18 146/82 (103) 98 2.0 02/20/17 07:09 60 16 98 Nasal Cannula 2.0 02/20/17 04:00 BiPAP 02/20/17 03:20 36.4 63 20 119/70 (86) 97 BiPAP 3.0 02/20/17 00:20 66 95 3.0 02/19/17 23:59 Nasal Cannula 2.0 02/19/17 23:58 37.0 67 20 161/81 (107) 95 Nasal Cannula 3.0 02/19/17 20:06 36.4 65 18 126/73 (90) 95 Nasal Cannula 3.0 02/19/17 20:06 66 16 94 Nasal Cannula 2.0 02/19/17 20:00 95 Nasal Cannula 2.0 02/19/17 16:33 36.4 70 22 148/85 (106) 92 Nasal Cannula 3.0 02/19/17 16:00 Room Air 02/19/17 14:33 66 16 94 Nasal Cannula 2.0 02/19/17 12:00 Nasal Cannula 2.0 02/19/17 11:50 36.7 63 18 108/69 (82) 97 2.0 Physical Exam General Appearance: WD/WN, no apparent distress, + obese Eyes: normal inspection, PERRL, EOMI, sclerae normal ENT: normal ENT inspection, hearing grossly normal, pharynx normal Neck: supple, no adenopathy, thyroid normal, no JVD, no carotid bruits, trachea midline Respiratory/Chest: chest non-tender, normal breath sounds, no respiratory distress, no accessory muscle use, + decreased breath sounds Cardiovascular: regular rate, rhythm, no edema, no gallop, no JVD, no murmur Abdomen: normal bowel sounds, non tender, soft, no organomegaly, no pulsatile mass Extremities: normal range of motion, non-tender, normal inspection, no pedal edema, no calf tenderness, normal capillary refill, pelvis stable Neurologic/Psychiatric: patient services manager II-XII nml as tested, no motor/sensory deficits, alert, normal mood/affect, oriented x 3, + pertinent finding (tremor) Skin: normal color, warm/dry, no rash Lymphatic: no adenopathy Laboratory Results Last 24 Hours Test 02/19/17 11:20 02/19/17 16:21 02/19/17 19:53 02/20/17 06:53 Bedside Glucose 169 mg/dl 315 mg/dl 323 mg/dl White Blood Count 6.16 K/uL Red Blood Count 3.41 M/uL Hemoglobin 10.5 g/dL Hematocrit 32.7 % Mean Corpuscular Volume 95.9 fL Mean Corpuscular Hemoglobin 30.8 pg Mean Corpuscular Hemoglobin Concent 32.1 g/dl Platelet Count 88 K/uL Mean Platelet Volume 10.7 fL Neutrophils (%) (Auto) 78.7 % Lymphocytes (%) (Auto) 15.4 % Monocytes (%) (Auto) 4.5 % Eosinophils (%) (Auto) 1.1 % Basophils (%) (Auto) 0.0 % Neutrophils # (Auto) 4.84 K/uL Lymphocytes # (Auto) 0.95 K/uL Monocytes # (Auto) 0.28 K/uL Eosinophils # (Auto) 0.07 K/uL Basophils # (Auto) 0.00 K/uL RDW Standard Deviation 50.1 fL RDW Coefficient of Variation 14.4 % Immature Granulocyte % (Auto) 0.3 % Immature Granulocyte # (Auto) 0.02 K/uL Platelet Estimate DECREASED Prothrombin Time 10.8 SECONDS Prothromb Time International Ratio 1.0 Activated Partial Thromboplast Time 22.6 SECONDS Partial Thromboplastin Ratio 0.9 Phosphorus Level 4.6 mg/dl Magnesium Level 2.1 mg/dl Assessment and Plan 76 yo female, with end-stage COPD and CHF admitted on 02/17/2017 with severe hyperglycemia with BG >600 transferred from [facility]. Patient transferred and initially treated for suspected DKA Acute on chronic respiratory failure with hypercapnia, COPD exacerbation stable resolving, continue current o2 regime with BiPAP at night, [facility] jail Continue Prednisone taper dose by 5mg q 3 days Continue daily Lasix 80mg, inhaler Hypergycemia upon admission, Labile blood glucose on prednisone , blood glucose monitoring 300, pharmacy is adjusting dose Following admission Non-gap acidosis, pt is not in DKA , Insulin drip cancelled Glipizide on hold, plan to d/c on discharge and should go home on insulin. Gait disturbance with leg weakness and tremor, possible amiodarone related, detail see below Restless leg syndrome neuro saw patient, continue current medication, recommend anticoagulation for stroke prevention See below Continue PT/OT, and [facility] facility rehabilitation Atrial fibrillation, likely proximal atrial fibrillation, is on amiodarone and NSR, is being on amiodarone 200mg daily , cardiology discussed with patient , recommended to reduce her amiodarone dose to 100 mg a day , or to stop the amiodarone completely, continue on Toprol Start Eliquis 5 mg by mouth twice a day per recommend CARDIOLOGY, patient understand and risk, Hyperkalemia Hyponatremia Chronic diastolic CHF CAD Depression Urinary incontinence The above condition is stable continue current medication, will watch in panel monitor when stopped amiodarone today, start Eliquis, has rehabilitation case coordinator check for co-pay, patient is high risk of readmission VTE: DC Heparin SQ , patient is on eliquis already Code status: DNR, planning jail rehabilitation, Continued [facility] stay due to: multiple IV medications needed Discharge planning: [facility] facility
[2017-02-20] MEDS: PRAVASTATIN SOD 10 MG TAB PO SCH (20:46)
[2017-02-20] MEDS: METOPROLOL SUCC 50MG EXT REL TAB PO SCH (20:47)
[2017-02-20] MEDS: TRAZODONE HCL 50 MG TAB PO SCH (20:49)
[2017-02-21 03:20] VITALS: BP 134/82; PULSE 59; TEMP 36.5; O2SAT 98
[2017-02-21 07:11] LABS: HEMATOCRIT 32.4 % (37-47); MEAN CORPUSCULAR HEMOGLOBIN 31.1 pg (25-34); MEAN CORPUSCULAR HGB CONC 32.7 g/dl (32-36); RED BLOOD COUNT 3.41 M/uL (4.2-5.4); WHITE BLOOD COUNT 5.75 K/uL (4.8-10.8)
[2017-02-21 07:17] VITALS: PULSE 60; O2SAT 94
[2017-02-21] MEDS: ALBUT/IPRATROP 3MG/0.5MG NEB 3 ML VIAL INH SCH (07:17)
[2017-02-21 07:19] LABS: MEAN PLATELET VOLUME 9.7 fL (7.4-10.4); PLATELET COUNT 81 K/uL (130-400)
[2017-02-21 07:20] LABS: INR 1.1 (0.9-1.1); PARTIAL THROMBOPLASTIN RATIO 0.9; PROTHROMBIN TIME (PATIENT) 11.3 SECONDS (9.0-12.0)
[2017-02-21] MEDS ORDERED: INSULIN HUMAN NPH SC SCH ×2 (07:30)
[2017-02-21 07:43] LABS: MAGNESIUM 2.2 mg/dl (1.8-2.4); PHOSPHORUS 4.3 mg/dl (2.5-4.9)
[2017-02-21] MEDS: INSULIN ASPART 100 UNITS/ML 3 ML PEN SC SCH ×2 (07:46→11:57)
[2017-02-21] MEDS: MIRABEGRON ER 25 MG TAB PO SCH (07:49)
[2017-02-21] MEDS: FLUOXETINE HCL 20 MG CAP PO SCH (07:50)
[2017-02-21] MEDS: NYSTATIN SUSP 500,000 U/5 ML UDC PO PRN (07:50)
[2017-02-21] MEDS: APIXABAN 2.5 MG TAB PO SCH (07:50)
[2017-02-21] MEDS: LORATADINE 10 MG TAB PO SCH (07:51)
[2017-02-21] MEDS: BUDESONIDE/FORMOTEROL FUMARATE 160/4.5 60 PUFFS/INHALER INH SCH (07:51)
[2017-02-21] MEDS: BECLOMETHASONE DIP HFA 80 MCG 8.7G INH INH SCH (07:52)
[2017-02-21] MEDS: ROPINIROLE HCL 1 MG TAB PO SCH (07:52)
[2017-02-21 08:05] VITALS: BP 114/68; PULSE 67; TEMP 36.7; O2SAT 93
[2017-02-21 08:11] LABS: COMPLETE YES; EOS % 2.1 %; IG% 0.2 %; LYMPH % 17.4 %; MONO % 5.2 %; NEUT % 75.1 %
[2017-02-21] MEDS ORDERED: ELQ25 PO (08:20)
[2017-02-21] MEDS ORDERED: NVLGIPEN SC (08:20)
[2017-02-21] MEDS ORDERED: NVLNI SC (08:20)
[2017-02-21 09:26] LABS: CALCIUM 8.7 mg/dl (8.5-10.1); CREATININE 2.37 mg/dl (0.60-1.20); POTASSIUM 4.8 mmol/L (3.5-5.1)
--- NOTE | 2017-02-21 11:26 | Progress Note ---
Subjective Date of Service: Feb 21, 2017. Subjective Pt evaluation today including: conversation w/ patient, conversation w/ family , physical exam, chart review, lab review, review of studies, conversation w/ senior research consultant, review of inpatient medication list Still has obvious tremor or shaky, complain is difficult to feeding herself, was up and walk with the therapist yesterday, Heart rate is 60s and is normal sinus resume after stopping amiodarone, Problem List Medical Problems: (1) Cellulitis Status: Acute (2) COPD exacerbation Status: Acute (3) COPD exacerbation Status: Acute (4) COPD exacerbation Status: Acute (5) Hypoxia Status: Acute (6) PNA (pneumonia) Status: Acute (7) SOB (shortness of breath) Status: Acute (8) Weakness Status: Acute Review of Systems Constitutional: + weakness, No fever, No chills, No sweats, No weight loss, No fatigue, No problem reported Eyes: No worsening of vision, No eye pain, No redness, No discharge, No diplopia ENT: No hearing loss, No unusual epistaxis, No nasal symptoms, No sore throat, No tinnitus, No dental problems, No trouble swallowing Respiratory: + cough, + shortness of breath (is in baseline), No sputum, No wheezing, No dyspnea on exertion, No dyspnea at rest, No hemoptysis Cardiac: No chest pain, No orthopnea, No PND, No edema, No claudication, No palpitations Abdomen: No pain, No nausea, No vomiting, No diarrhea, No constipation Musculoskeletal: No joint pain, No muscle pain, No swelling, No calf pain Female : No dysuria, No urinary frequency, No hematuria, No incontinence, No abnormal vaginal bleeding, No vaginal discharge Neurologic: No memory loss, No paralysis, No weakness, No numbness/tingling, No vertigo, No balance problems Psychiatric: No depression symptoms, No anhedonism, No anxiety, No insomnia, No substance abuse Heme: No abnormal bleeding/bruising, No clotting problems, No swollen lymph nodes, No night sweats Endo: No fatigue, No excessive thirst, No excessive urination Skin: No rash, No itch, No new/changing skin lesions, No color change, No bleeding Objective Vital Signs Date Time Temp Pulse Resp B/P (MAP) Pulse Ox O2 Delivery O2 Flow Rate FiO2 02/21/17 08:05 36.7 67 20 114/68 (83) 93 Nasal Cannula 3.0 02/21/17 08:00 Nasal Cannula 3.0 02/21/17 07:17 60 16 94 Nasal Cannula 3.0 02/21/17 04:00 BiPAP 02/21/17 03:20 36.5 59 20 134/82 (99) 98 BiPAP 02/20/17 23:59 BiPAP 02/20/17 23:28 36.6 60 18 122/77 (92) 97 BiPAP 02/20/17 23:19 63 96 3.0 02/20/17 20:00 Nasal Cannula 3.0 02/20/17 19:40 54 16 96 Nasal Cannula 2.0 02/20/17 19:34 36.8 57 18 121/70 (87) 96 Nasal Cannula 2.0 02/20/17 16:45 36.8 63 20 140/73 (95) 91 Nasal Cannula 3.0 02/20/17 16:00 Nasal Cannula 3.0 02/20/17 14:27 60 16 98 Nasal Cannula 2.0 02/20/17 12:00 Nasal Cannula 3.0 02/20/17 11:31 36.8 61 18 124/69 (87) 95 3.0 Physical Exam General Appearance: WD/WN, no apparent distress, + obese Eyes: normal inspection, PERRL, EOMI, sclerae normal ENT: normal ENT inspection, hearing grossly normal, pharynx normal Neck: supple, no adenopathy, thyroid normal, no JVD, no carotid bruits, trachea midline Respiratory/Chest: chest non-tender, normal breath sounds, no respiratory distress, no accessory muscle use, + decreased breath sounds Cardiovascular: regular rate, rhythm, no edema, no gallop, no JVD, no murmur Abdomen: normal bowel sounds, non tender, soft, no organomegaly, no pulsatile mass Extremities: normal range of motion, non-tender, normal inspection, no pedal edema, no calf tenderness, normal capillary refill, pelvis stable 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, no motor/sensory deficits, alert, normal mood/affect, oriented x 3, + pertinent finding (tremor or shaky) Skin: normal color, warm/dry, no rash Lymphatic: no adenopathy Laboratory Results Last 24 Hours Test 02/20/17 11:29 02/20/17 16:13 02/20/17 20:17 02/21/17 06:59 Bedside Glucose 92 mg/dl 162 mg/dl 204 mg/dl White Blood Count 5.75 K/uL Red Blood Count 3.41 M/uL Hemoglobin 10.6 g/dL Hematocrit 32.4 % Mean Corpuscular Volume 95.0 fL Mean Corpuscular Hemoglobin 31.1 pg Mean Corpuscular Hemoglobin Concent 32.7 g/dl Platelet Count 81 K/uL Mean Platelet Volume 9.7 fL Neutrophils (%) (Auto) 75.1 % Lymphocytes (%) (Auto) 17.4 % Monocytes (%) (Auto) 5.2 % Eosinophils (%) (Auto) 2.1 % Basophils (%) (Auto) 0.0 % Neutrophils # (Auto) 4.32 K/uL Lymphocytes # (Auto) 1.00 K/uL Monocytes # (Auto) 0.30 K/uL Eosinophils # (Auto) 0.12 K/uL Basophils # (Auto) 0.00 K/uL RDW Standard Deviation 49.8 fL RDW Coefficient of Variation 14.3 % Immature Granulocyte % (Auto) 0.2 % Immature Granulocyte # (Auto) 0.01 K/uL Prothrombin Time 11.3 SECONDS Prothromb Time International Ratio 1.1 Activated Partial Thromboplast Time 23.2 SECONDS Partial Thromboplastin Ratio 0.9 Phosphorus Level 4.3 mg/dl Magnesium Level 2.2 mg/dl Test 02/21/17 08:54 Sodium Level 136 mmol/L Potassium Level 4.8 mmol/L Chloride Level 101 mmol/L Carbon Dioxide Level 29 mmol/L Anion Gap 7.0 mmol/L Blood Urea Nitrogen 85 mg/dl Creatinine 2.37 mg/dl Est Creatinine Clear Calc Drug Dose 21.8 ml/min Estimated GFR () 22.6 Estimated GFR (Non- 19.5 BUN/Creatinine Ratio 36.0 Random Glucose 197 mg/dl Calcium Level 8.7 mg/dl Magnesium Level 2.0 mg/dl Assessment and Plan 76 yo female, with end-stage COPD and CHF admitted on 02/17/2017 with severe hyperglycemia with BG >600 transferred from [facility]. Patient transferred and initially treated for suspected DKA Hypergycemia upon admission, Labile blood glucose while on prednisone, improving , , pharmacy is adjusting dose , blood glucose will be better controlled because is tapering off prednisone Following admission Non-gap acidosis, pt is not in DKA , Insulin drip cancelled Glipizide on hold, plan to d/c on discharge and should go home on insulin. Acute on chronic respiratory failure with hypercapnia, likely secondary to COPD exacerbation stable resolving, continue current o2 regime with BiPAP at night, she [facility] Continue Prednisone taper dose by 5mg q 3 days, today will be secondary to of 15 mg by mouth daily Continue daily Lasix 80mg, continue inhaler Gait disturbance with leg weakness and tremor, possible multiple factorial, possible worsening from restless leg syndrome , or is amiodarone related, detail see below Restless leg syndrome neuro saw patient, continue current medication, recommend anticoagulation for stroke prevention, See below Continue PT/OT, and [facility] facility rehabilitation Atrial fibrillation, likely proximal atrial fibrillation, is on amiodarone and NSR, is being on amiodarone 200mg daily , cardiology discussed with patient , recommended to reduce her amiodarone dose to 100 mg a day , or to stop the amiodarone completely, continue on Toprol, continue on normal sinus resume Start Eliquis 5 mg by mouth twice a day per recommend CARDIOLOGY, patient understand and weaning to take risks Hyperkalemia Hyponatremia Chronic diastolic CHF CAD Depression Urinary incontinence The above condition is stable continue current medication, will watch in property assessment monitor when stopped amiodarone today, start Eliquis, has renal case manager check for co-pay, patient is high risk of readmission VTE: DC Heparin SQ , patient is on eliquis already Code status: DNR, planning [facility] rehabilitation, patient was stable to go today Continued [facility] stay due to: multiple IV medications needed Discharge planning: [facility] facility
--- NOTE | 2017-02-21 11:32 | Discharge Instructions ---
Discharge Instructions Date of Service Feb 21, 2017. Admission Reason for Admission: Dka, Acute Renal Failure Discharge Discharge Diagnosis / Problem: Hypergycemia upon admission, Labile blood glucose while on prednisone, impr Discharge Goals Goal(s): Decrease discomfort, Improve function, Increase independence, Improve disease control, Improve nutritional status, Learn about illness, Diagnostic testing, Therapeutic intervention, Prevent Disease Progression, Specific goals Activity Recommendations Activity Limitations: resume your previous activity (fall precaution) . Instructions / Follow-Up Instructions / Follow-Up You have Hypergycemia upon admission, Labile blood glucose while on prednisone, improving, You need to continue Lantus insulin plus insulin sliding scale as ordered You have Acute on chronic respiratory failure with hypercapnia, likely secondary to COPD exacerbation You need to continue continue current o2 regime with BiPAP at night, she [facility] machine [facility] the [facility] We are doing Prednisone taper dose by 5mg q 3 days, today will be secondary day of 15 mg by mouth daily, Continue daily Lasix 80mg, continue inhaler You have Gait disturbance with leg weakness and tremor, possible multiple factorial, possible worsening from restless leg syndrome , or is amiodarone related, detail see below Restless leg syndrome neuro saw patient, continue current medication, need to Continue PT/OT, and [facility]-way facility rehabilitation, follow-up with neurologist You have Atrial fibrillation, likely proximal atrial fibrillation, we have discontinue amiodarone completely, continue on Toprol, We have started Eliquis 5 mg by mouth twice a day per recommend CARDIOLOGY, patient really pay attention about fall precaution - you need to follow up with your primary care physician in 1 week, - take medication as instructed, never overdose or any misuse, or take with alcohol, because misuse of medicine may cause organ damage or , call your primary care physician if have questions of medicaitons. - call your primary care physician OR go to local emergency room if has any fever/chill, chest pain, shortness of breathing, nausea/vomiting/abdominal pain , facial droop/slurry speech/local weakness, or if has any questions. - fall precaution - diet as instructed - you need to follow up with your subspecialists, such as button and buckle maker, truck packer and neurologist - you should understand that it is important to follow up the above instruction , and "not following the above instruction" may cause delayed or missed care of your medical conditions which may cause permanent organ damage and even . Current Hospital Diet Patient's current hospital diet: Diabetes Type 2 Diet, Low Sodium Diet (2gm Na) Discharge Diet Recommended Diet: Low Sodium Diet (2gm Na), Diabetes Type 2 Diet Procedures Procedures Performed: no Pending Studies Studies pending at discharge: no Laboratory Results Hemoglobin A1c Test 01/28/17 05:34 Range/Units Estimated Average Glucose 157 mg/dl Hemoglobin A1c 7.1 H 4.5-5.6 % Lipid Panel Test 01/27/17 06:25 Range/Units Triglycerides Level 131 0-150 mg/dl Cholesterol Level 115 0-200 mg/dl HDL Cholesterol 46 mg/dl Cholesterol/HDL Ratio 2.5 LDL Cholesterol, Calculated 43 mg/dl Medical Emergencies . Who to Call and When: Medical Emergencies: If at any time you feel your situation is an emergency, please call 911 immediately. . Non-Emergent Contact Non-Emergency issues call your: Primary Care Provider, Report Manager, Contract Technical Writer . . "Provider Documentation" section prepared by Carlos Baez. . VTE Core Measure Inpt VTE Proph given/why not?: Other Anticoagulation, SCD's
[2017-02-21 11:44] VITALS: BP 114/68; PULSE 67; TEMP 36.7; O2SAT 93
--- NOTE | 2017-02-21 12:37 | Discharge Summary ---
Discharge Summary Date of Service Feb 21, 2017. Discharge Summary Admission Date: Feb 17, 2017 at 02:22 Discharge Date: Feb 21, 2017 Discharge Disposition: long term facility Principal Diagnosis: Hypergycemia Problems/Secondary Diagnoses: Hypergycemia upon admission, Labile blood glucose while on prednisone, Acute on chronic respiratory failure with hypercapnia, likely secondary to COPD exacerbation Gait disturbance with leg weakness and tremor, restless leg syndrome , Atrial fibrillation, have started Eliquis 5 mg by mouth twice a day per recommend CARDIOLOGY, Immunizations: Have You Had Influenza Vaccine: Yes Influenza Vaccine Date: Jan 16, 2013 History of Tetanus Vaccine?: Yes Tetanus Immunization Date: Jan 07, 2013 History of Pneumococcal: Yes Pneumococcal Date: Feb 16, 2010 History of Hepatitis B Vaccine: No Procedures: No Consultations: Family Physician Medication Reconciliation New Medications: Apixaban (Eliquis) 2.5 Mg Tab 5 MG PO BID for 30 Days, #120 TAB Insulin Aspart (Novolog Flexpen) 100 Units/Ml Inj 0 UNITS SC ACHS for 30 Days ISS goal of range, 110 to 140 CF 20 mg/dl/unit INS: Cho ratio= 1 unit per 10 grams cho consumed Insulin Human NPH (Novolin N) 100 Units/Ml Susp 30 UNITS SC QDB for 30 Days Continued Medications: Beclomethasone Dip (Qvar) 80 Mcg/Act Aer 80 MCG INH BID Budesonide/Formoterol Fumarate (Symbicort 160-4.5 Mcg/Act) 60 Puffs/Inhaler Aero 2 PUFFS INH BID, #1 INHALER 2 Refills Cyanocobalamin (Vitamin B12 500MCG) 500 Mcg Tab 1000 MCG PO DAILY Ferrous Sulfate (Kp Ferrous Sulfate) 325 Mg Tab 1 TAB PO DAILY for 30 Days, #30 TAB 3 Refills Fluoxetine Hcl (Prozac) 20 Mg Cap 20 MG PO QAM Furosemide (Furosemide) 40 Mg Tab 80 MG PO DAILY Ipratropium-Albuterol (Duoneb) 3 Ml Nebu 1 TREATMENT INH Q6HWA for 30 Days, #150 UNITS Use 1 neb treatment every 6 hours while awake. May use every 2 hours as needed for shortness of breath & wheezing. Loratadine (Claritin) 10 Mg Tab 10 MG PO QAM for 30 Days, TAB Melatonin (Melatonin Maximum Strengt) 5 Mg Tab 1 TAB PO HS for 30 Days, #30 TAB Metoprolol Succ (Toprol Xl) (Toprol-Xl) 50 Mg Tabcr 1 TAB PO PM for 30 Days, #30 TAB 5 Refills Mirabegron (Myrbetriq Er) 25 Mg Tab 25 MG PO DAILY, TAB Nystatin (Nystatin) 5 Ml Susp 5 ML PO QID for 11 Days, #220 ML Take 5 ml (1 teaspoon) by mouth four times a day. Potassium Ext Rel (Klor-Con) 20 Meq Tabcr 20 MEQ PO DAILY, TAB Pravastatin Sodium (Pravastatin Sodium) 10 Mg Tab 10 MG PO QPM Prednisone (Prednisone) 5 Mg Tab 15 MG PO DAILY for 5 Days Prednisone (Prednisone) 5 Mg Tab 5 MG PO DAILY for 4 Days, #4 TAB Prednisone (Prednisone) 10 Mg Tab 10 MG PO DAILY for 4 Days, #4 TAB Ropinirole (Requip) 2 Mg Tab 2 MG PO TID Trazodone Hcl (Trazodone) 50 Mg Tab 25 MG PO HS, TAB Discontinued Medications: Amiodarone Hcl (Cordarone) 200 Mg Tab 200 MG PO DAILY, TAB Glipizide (Glipizide) 5 Mg Tab 5 MG PO BID Prednisone (Prednisone) 20 Mg Tab 20 MG PO DAILY for 3 Days, #3 TAB Discharge Exam See today's progress note Review of Systems: Constitutional: + problem reported (See today's progress note) Physical Exam: General Appearance: + pertinent finding (See today's progress note) Hospital Course 76 yo female, with end-stage COPD and CHF admitted on 02/17/2017 with severe hyperglycemia with BG >600 transferred from [facility]. Patient transferred and initially treated for suspected DKA Hypergycemia upon admission, Labile blood glucose while on prednisone, improving , , pharmacy is adjusting dose , blood glucose will be better controlled because is tapering off prednisone Following admission Non-gap acidosis, pt is not in DKA , Insulin drip cancelled Glipizide on hold, plan to d/c on discharge and should go home on insulin. Acute on chronic respiratory failure with hypercapnia, likely secondary to COPD exacerbation stable resolving, continue current o2 regime with BiPAP at night, [facility] Continue Prednisone taper dose by 5mg q 3 days, today will be secondary to of 15 mg by mouth daily Continue daily Lasix 80mg, continue inhaler Gait disturbance with leg weakness and tremor, possible multiple factorial, possible worsening from restless leg syndrome , or is amiodarone related, detail see below Restless leg syndrome neuro saw patient, continue current medication, recommend anticoagulation for stroke prevention, See below Continue PT/OT, and senior care facility rehabilitation Atrial fibrillation, likely proximal atrial fibrillation, is on amiodarone and NSR, is being on amiodarone 200mg daily , cardiology discussed with patient , recommended to reduce her amiodarone dose to 100 mg a day , or to stop the amiodarone completely, continue on Toprol, continue on normal sinus resume Start Eliquis 5 mg by mouth twice a day per recommend CARDIOLOGY, patient understand and weaning to take risks Hyperkalemia Hyponatremia Chronic diastolic CHF CAD Depression Urinary incontinence The above condition is stable continue current medication, 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, start Eliquis, has correctional counselor/case manager check for co-pay, patient is high risk of readmission VTE: DC Heparin SQ , patient is on eliquis already Code status: DNR, planning [facility], patient was stable to go today Instructions / Follow-Up You have Hypergycemia upon admission, Labile blood glucose while on prednisone, improving, You need to continue Lantus insulin plus insulin sliding scale as ordered You have Acute on chronic respiratory failure with hypercapnia, likely secondary to COPD exacerbation You need to continue continue current o2 regime with BiPAP at night, she [facility] We are doing Prednisone taper dose by 5mg q 3 days, today will be secondary day of 15 mg by mouth daily, Continue daily Lasix 80mg, continue inhaler You have Gait disturbance with leg weakness and tremor, possible multiple factorial, possible worsening from restless leg syndrome , or is amiodarone related, detail see below Restless leg syndrome neuro saw patient, continue current medication, need to Continue PT/OT, and senior care facility rehabilitation, follow-up with neurologist You have Atrial fibrillation, likely proximal atrial fibrillation, we have discontinue amiodarone completely, continue on Toprol, We have started Eliquis 5 mg by mouth twice a day per recommend CARDIOLOGY, patient really pay attention about fall precaution - you need to follow up with your primary care physician in 1 week, - take medication as instructed, never overdose or any misuse, or take with alcohol, because misuse of medicine may cause organ damage or , call your primary care physician if have questions of medicaitons. - call your primary care physician OR go to local emergency room if has any fever/chill, chest pain, shortness of breathing, nausea/vomiting/abdominal pain , facial droop/slurry speech/local weakness, or if has any questions. - fall precaution - diet as instructed - you need to follow up with your subspecialists, such as law firm consultant, maintenance trainer and neurologist - you should understand that it is important to follow up the above instruction , and "not following the above instruction" may cause delayed or missed care of your medical conditions which may cause permanent organ damage and even . Total Time Spent: Greater than 30 minutes This includes examination of the patient, discharge planning, medication reconciliation, and communication with other providers. Discharge Instructions Please refer to the electronic Patient Visit Report (Discharge Instructions) for additional information. Additional Copies To Fabricio Mir M.D.
== END 2017-02-21 13:30 | DRG 637 ==
LOC: C.MSICU 02:22 → C.2T 14:59
PROVIDERS: ADMIT Hospitalist; ATTEND Family Medicine
DX: E10.10 Type 1 diabetes mellitus with ketoacidosis without coma (principal); I50.33 Acute on chronic diastolic (congestive) heart failure; J96.22 Acute and chronic respiratory failure with hypercapnia; J44.1 Chronic obstructive pulmonary disease with (acute) exacerbation; E87.1 Hypo-osmolality and hyponatremia; N17.9 Acute kidney failure, unspecified; E10.65 Type 1 diabetes mellitus with hyperglycemia; N18.3 Chronic kidney disease, stage 3 (moderate); Z66 Do not resuscitate; I11.0 Hypertensive heart disease with heart failure; E78.5 Hyperlipidemia, unspecified; I48.91 Unspecified atrial fibrillation; G25.81 Restless legs syndrome; E87.5 Hyperkalemia; F32.9 Major depressive disorder, single episode, unspecified; R32 Unspecified urinary incontinence; Z79.899 Other long term (current) drug therapy; Z79.84 Long term (current) use of oral hypoglycemic drugs; Z79.891 Long term (current) use of opiate analgesic; Z99.81 Dependence on supplemental oxygen; Z79.52 Long term (current) use of systemic steroids; Z87.891 Personal history of nicotine dependence

== ENCOUNTER 2017-06-16 09:13 | Inpatient (IN) | payer BC, OTHER ==
[2017-06-16] VITALS (9 sets, daily range): BP systolic 138–160; BP diastolic 72–91; PULSE 80–90; TEMP 36.5–37; O2SAT 90–100; Ht 160 cm; Wt 90.5 kg
[~2017-06-16] VITALS: Ht 160 cm; Wt 90.5 kg
[~2017-06-16 09:13] MED LIST changes: -CRD200 PO; +ELQ25 PO; -GLC5 PO; -LISI10TA PO; +MELATAB2 PO; -METO100T44 PO; +METO50TA8 PO; +NVLGIPEN SC; +NVLNI SC; +PRD5 PO; +PRED-301 PO; -SPR25 PO; +TRAZ50TA35 PO
--- NOTE | 2017-06-16 09:34 | EMERGENCY ROOM VISIT NOTE ---
History Report prepared by Lexieibsid: Zeynep Haque Under the Supervision of: Dr. Wisam Moncada M.D. 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 Positive dry, non- productive cough, congestion. Negative fever, chest pain, abdominal pain, swelling in the legs, weight gain or recent surgery. Nebulizer treatments have provided minimal relief. She wears 3L NC chronically and uses Bi-Pap at night. She denies any history of DVT or PE's. Nursing reports the patients O2 went down into the 50's when she got up to use the bathroom without her NC. The patient did take her morning medications today. 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 A total of ten systems were reviewed and were otherwise negative. Past Medical & Surgical Medical Problems: (1) CHF (congestive heart failure) (2) CHF exacerbation (3) Diab Susu Wo Compl, Type Ii Or Unspec Type, Uncontrolled (4) DKA (diabetic ketoacidoses) (5) Hyperlipidemia Nec/Nos (6) Hypertension Nos (7) Hypoxemia (8) Influenza A (9) Oral candidiasis (10) Pneumonia (11) Renal failure (12) Respiratory failure, [id number] Family History Cancer Diabetes mellitus FH: heart disease Social History Smoking Status: Former Smoker Alcohol Use: none Drug Use: none Marital Status: single, Housing Status: alf Occupation Status: retired Current/Historical Medications Scheduled Budesonide/Formoterol Fumarate (Symbicort 160-4.5 Mcg/Act), 2 PUFFS INH BID Cyanocobalamin (Vitamin B12 500MCG), 1,000 MCG PO DAILY Ferrous Sulfate (Kp Ferrous Sulfate), 1 TAB PO DAILY Fluoxetine Hcl (Prozac), 20 MG PO QAM Furosemide (Furosemide), 80 MG PO DAILY Insulin Aspart (Novolog Flexpen), 0 UNITS SC ACHS Insulin Human NPH (Novolin N), 30 UNITS SC QDB Ipratropium-Albuterol (Duoneb), 1 TREATMENT INH Q6HWA Loratadine (Claritin), 10 MG PO QAM Metoprolol Succ (Toprol Xl) (Toprol-Xl), 1 TAB PO PM Mirabegron (Myrbetriq Er), 25 MG PO DAILY Nystatin (Nystatin), 5 ML PO QID Potassium Ext Rel (Klor-Con), 20 MEQ PO DAILY Pravastatin Sodium (Pravastatin Sodium), 10 MG PO QPM Ropinirole (Requip), 2 MG PO TID Trazodone Hcl (Trazodone), 25 MG PO HS Allergies Coded Allergies: Atropine (Verified Allergy, Intermediate, RASH, 06/16/17) Dobutamine (Verified Allergy, Intermediate, RASH, 06/16/17) Physical Exam Vital Signs Date Time Temp Pulse Resp B/P (MAP) Pulse Ox O2 Delivery O2 Flow Rate FiO2 06/16/17 11:45 85 20 141/67 98 BiPAP 06/16/17 11:27 90 100 35 06/16/17 11:20 86 24 125/66 99 Nasal Cannula 3.0 06/16/17 10:23 82 26 143/67 98 Nasal Cannula 3.0 06/16/17 09:54 98 Nasal Cannula 3.0 06/16/17 09:36 95 Nasal Cannula 3.0 06/16/17 09:35 100 Non-Rebreather 06/16/17 09:34 37.4 83 24 174/85 50 Room Air 06/16/17 09:34 50 Room Air 06/16/17 09:27 86 Physical Exam GENERAL: Awake, alert, well-appearing, in mild distress HENT: Normocephalic, atraumatic. EYES: Normal conjunctiva. Sclera non-icteric. NECK: Supple. No nuchal rigidity. FROM. RESPIRATORY: Nasal canula in place. Diffuse inspiratory and expiratory wheezing. Mild tachypnea. No rhonchi, wheezing, crackles CARDIAC: RRR, no MRG ABDOMEN: Soft, NTND, BS+ MSK: No chest wall TTP, 1-2+ pedal edema of bilateral lower extremities NEURO: GCS 15, CN 2-12 intact, moves all 4s on command SKIN: Dry, scaly skin noted over lower extremities. No rash or jaundice noted. Medical Decision & Procedures ER Provider Diagnostic Interpretation: Radiology results as stated below per my review and radiologist interpretation: CHEST ONE VIEW PORTABLE CLINICAL HISTORY: EVALUATE RESPIRATORY DISTRESS.DYSPNEA dyspnea COMPARISON STUDY: 02/19/2017 FINDINGS: Prominent pulmonary vasculature. Infiltrate left base. Diaphragms are smooth. IMPRESSION: Parenchymal infiltrate left base. Pulmonary vascular congestion. The above report was generated using voice recognition software. It may contain grammatical, syntax or spelling errors. Electronically signed by: Tai Santana M.D. 06/16/2017 10:09 AM Laboratory Results 06/16/17 09:30 Red Blood Count 4.01, Mean Corpuscular Volume 95.5, Mean Corpuscular Hemoglobin 31.7, Mean Corpuscular Hemoglobin Concent 33.2, Mean Platelet Volume 10.1, Neutrophils (%) (Auto) 79.4, Lymphocytes (%) (Auto) 9.9, Monocytes (%) (Auto) 7.6, Eosinophils (%) (Auto) 2.5, Basophils (%) (Auto) 0.3, Neutrophils # (Auto) 5.13, Lymphocytes # (Auto) 0.64, Monocytes # (Auto) 0.49, Eosinophils # (Auto) 0.16, Basophils # (Auto) 0.02 06/16/17 09:30 Test 06/16/17 09:30 06/16/17 09:44 06/16/17 09:59 06/16/17 10:01 White Blood Count 6.46 K/uL (4.8-10.8) Red Blood Count 4.01 M/uL (4.2-5.4) Hemoglobin 12.7 g/dL (12.0-16.0) Hematocrit 38.3 % (37-47) Mean Corpuscular Volume 95.5 fL (80-100) Mean Corpuscular Hemoglobin 31.7 pg (25-34) Mean Corpuscular Hemoglobin Concent 33.2 g/dl (32-36) Platelet Count 135 K/uL (130-400) Mean Platelet Volume 10.1 fL (7.4-10.4) Neutrophils (%) (Auto) 79.4 % Lymphocytes (%) (Auto) 9.9 % Monocytes (%) (Auto) 7.6 % Eosinophils (%) (Auto) 2.5 % Basophils (%) (Auto) 0.3 % Neutrophils # (Auto) 5.13 K/uL (1.4-6.5) Lymphocytes # (Auto) 0.64 K/uL (1.2-3.4) Monocytes # (Auto) 0.49 K/uL (0.11-0.59) Eosinophils # (Auto) 0.16 K/uL (0-0.5) Basophils # (Auto) 0.02 K/uL (0-0.2) RDW Standard Deviation 49.9 fL (36.4-46.3) RDW Coefficient of Variation 14.2 % (11.5-14.5) Immature Granulocyte % (Auto) 0.3 % Immature Granulocyte # (Auto) 0.02 K/uL (0.00-0.02) Prothrombin Time 10.5 SECONDS (9.0-12.0) Prothromb Time International Ratio 1.0 (0.9-1.1) Activated Partial Thromboplast Time 25.7 SECONDS (21.0-31.0) Partial Thromboplastin Ratio 1.0 Est Creatinine Clear Calc Drug Dose 31.5 ml/min Estimated GFR () 34.1 Estimated GFR (Non- 29.4 BUN/Creatinine Ratio 16.0 (10-20) Calcium Level 8.9 mg/dl (8.5-10.1) Total Bilirubin 0.4 mg/dl (0.2-1) Aspartate Amino Transf (AST/SGOT) 18 U/L (15-37) Alanine Aminotransferase (ALT/SGPT) 20 U/L (12-78) Alkaline Phosphatase 175 U/L (45-117) Pro-B-Type Natriuretic Peptide 590 pg/ml (0-900) Total Protein 7.6 gm/dl (6.4-8.2) Albumin 3.9 gm/dl (3.4-5.0) Globulin 3.7 gm/dl (2.5-4.0) Albumin/Globulin Ratio 1.1 (0.9-2) Bedside Lactic Acid Venous 1.36 mmol/L (0.90-1.70) Bedside Troponin I < 0.030 ng/ml (0-0.045) Bedside Hemoglobin 12.2 g/dl (12.0-16.0) Bedside Hematocrit 36 % (37-47) Bedside Sodium 141 mEq/L (135-144) Bedside Potassium 3.9 mEq/L (3.3-5.0) Bedside Chloride 93 mEq/L (101-112) Bedside Total CO2 35 mEq/l (24-31) Anion Gap 18.0 mmol/L (16-25) Bedside Blood Urea Nitrogen 29 mg/dl (7-18) Bedside Creatinine 1.6 mg/dl (0.6-1.3) Bedside Glucose (other) 177 mg/dl (70-99) Bedside Ionized Calcium (Mendez) 1.16 mmol/l (1.12-1.32) Test 06/16/17 10:15 06/16/17 10:38 Urine Color YELLOW Urine Appearance CLEAR (CLEAR) Urine pH 5.5 (4.5-7.5) Urine Specific [place] 1.011 (1.000-1.030) Urine Protein NEG (NEG) Urine Glucose (UA) 1+ (NEG) Urine Ketones NEG (NEG) Urine Occult Blood NEG (NEG) Urine Nitrite NEG (NEG) Urine Bilirubin NEG (NEG) Urine Urobilinogen NEG (NEG) Urine Leukocyte Esterase NEG (NEG) Influenza Type A Antigen Neg for Influ A (NEG) Influenza Type B Antigen Neg for Influ B (NEG) Venous Blood pH 7.27 (7.36-7.41) Venous Blood Partial Pressure CO2 82 mmHg (38.0-50.0) Venous Blood Partial Pressure O2 39 mmHg Venous Blood HCO3 37 mmol/L Venous Blood Oxygen Saturation 67.2 % Venous Blood Base Excess 7.5 mEq/L Laboratory results reviewed by me Medications Administered Medications (Trade) Dose Ordered Sig/Polly Route Start Time Stop Time Status Last Admin Dose Admin Albuterol/ Ipratropium (Duoneb) 6 ml Q4R INH 06/16/17 12:00 07/16/17 11:59 06/16/17 10:22 6 ML Methylprednisolone Sodium Succinate (Solu-Medrol IV) 125 mg NOW STAT IV 06/16/17 09:38 06/16/17 09:41 DC 06/16/17 10:13 125 MG Magnesium Sulfate (Magnesium Sulfate) 1 gm NOW STAT IV 06/16/17 09:38 06/16/17 09:41 DC 06/16/17 10:13 1 GM Acetaminophen (Tylenol Tab) 650 mg NOW STAT PO 06/16/17 09:54 06/16/17 09:56 DC 06/16/17 10:13 650 MG Levofloxacin (Levaquin / D5W) 750 mg NOW ONCE IV 06/16/17 11:30 06/16/17 11:31 DC 06/16/17 11:44 750 MG ECG Per My Interpretation Indication: SOB/dyspnea Rate (beats per minute): 81 Rhythm: normal sinus Findings: left axis deviation, other (normal intervals, no STS changes or TWI) ED Course 09: The patient was evaluated in room B6. A complete history and physical exam was performed. 1057: I reevaluated the patient. She is asleep. I will check back. 1123: I discussed the patients case with Dr. Morales, [facility] Hospitalist. The patient will be further evaluated. 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 Triage Nursing notes reviewed. The patient's presentation and history were concerning for breathing difficulties. Differential diagnosis: Etiologies such as infections, reactive airway disease, pneumonia, pneumothorax , COPD, CHF, cardiac ischemia, pulmonary embolism, musculoskeletal, gastrointestinal, as well as others were entertained. Prior records were reviewed. The patient does have multiple medical comorbidities and does reside in a assisted living personal [facility]. Patient was seen and evaluated the bedside. Patient does chronically wear 3 L of O2 at home. Patient does also use a BiPAP at night. Patient has complained of some chest congestion and shortness of breath. Patient she does have shortness of breath just with rest. She also has it with exertion. Patient does not normally lay flat. Patient denies any major weight gains or lower extremity swelling. On exam the patient does have diffuse inspiratory and expiratory wheezing. Patient is mildly tachypneic. Patient does have some 1-2 + pitting edema of the bilateral lower extremities. Patient does have Lasix daily. Patient's EKG was nonischemic and without arrhythmia. Patient did have blood work completed, EKG, troponin, BNP, VBG, lactate, chest x -ray. Patient was given treatments for a likely COPD exacerbation. Patient's BNP did show the patient had mildly elevated glucose at 177. The patient has an elevated bicarb which is likely related to some chronic respiratory acidosis and compensatory metabolic alkalosis. The patient has an anion gap of 13. Less likely DKA given her blood glucose of 177. Patient's chest x-ray does show a left filtrate. Patient was treated for healthcare associated pneumonia with Vanco, cefepime, and Levaquin. Patient's VBG did show some hypercarbic respiratory failure. I did speak with the respiratory therapist in order to place patient on BiPAP. The hospitalist was paged. I did speak with the hospitalist who agreed for to further evaluate and treat the patient. Medication Reconcilliation Current Medication List: was personally reviewed by me Blood Pressure Screening Patient's blood pressure: Elevated blood pressure Blood pressure disposition: Referred to PCP Consults Time Called: 1120 Consulting Physician: Dr. Morales [facility] Hospitalist Returned Call: 1123 I discussed the patients case with Dr. Morales [facility] Hospitalist. The patient will be further evaluated. Impression Primary Impression: COPD exacerbation Additional Impressions: Hypercapnic respiratory failure Nosocomial pneumonia Critical Care I have personally spent greater than 42 minutes of critical care time in the direct management of this patient. This includes bedside care, interpretation of diagnostic studies, and testing, discussion with consultants, patient, and family members, and other required patient management activities. This 42 minutes is in excess of all separately billable procedures. Scribe Attestation The scribe's documentation has been prepared under my direction and personally reviewed by me in its entirety. I confirm that the note above accurately reflects all work, treatment, procedures, and medical decision making performed by me. Departure Information Dispostion Being Evaluated By Hospitalist Referrals Fabricio Mir M.D. (PCP) Problem Qualifiers Additional Impressions: Hypercapnic respiratory failure Chronicity: acute on chronic Qualified Codes: J96.22 - Acute and chronic respiratory failure with hypercapnia
[2017-06-16] MEDS ORDERED: MAGNESIUM SULFATE 1GM / D5W 1 GM BAG IV STA (09:38)
[2017-06-16] MEDS ORDERED: METHYLPREDNISOLONE 125 MG VIAL IV STA (09:38)
[2017-06-16 09:48] LABS: BASO % 0.3 %; BASO ABS # 0.02 K/uL (0-0.2); EOS % 2.5 %; EOS ABS # 0.16 K/uL (0-0.5); HEMATOCRIT 38.3 % (37-47); HEMOGLOBIN 12.7 g/dL (12.0-16.0); IG# 0.02 K/uL (0.00-0.02); LYMPH % 9.9 %; LYMPH ABS # 0.64 K/uL (1.2-3.4); MEAN CELL VOLUME 95.5 fL (80-100); MEAN CORPUSCULAR HEMOGLOBIN 31.7 pg (25-34); MEAN CORPUSCULAR HGB CONC 33.2 g/dl (32-36); MEAN PLATELET VOLUME 10.1 fL (7.4-10.4); MONO % 7.6 %; MONO ABS # 0.49 K/uL (0.11-0.59); NEUT % 79.4 %; NEUT ABS # 5.13 K/uL (1.4-6.5); PLATELET COUNT 135 K/uL (130-400); RED CELL DISTRIBUTION WIDTH CV 14.2 % (11.5-14.5); RED CELL DISTRIBUTION WIDTH SD 49.9 fL (36.4-46.3); WHITE BLOOD COUNT 6.46 K/uL (4.8-10.8)
[2017-06-16] MEDS ORDERED: ACETAMINOPHEN 325 MG TAB PO STA (09:54)
[2017-06-16 09:56] LABS: PTT PATIENT 25.7 SECONDS (21.0-31.0)
[2017-06-16 09:59] LABS: ALBUMIN 3.9 gm/dl (3.4-5.0); CALCIUM 8.9 mg/dl (8.5-10.1); CREATININE 1.68 mg/dl (0.60-1.20); POTASSIUM 3.8 mmol/L (3.5-5.1)
[2017-06-16 10:03] LABS: TOTAL PROTEIN 7.6 gm/dl (6.4-8.2)
--- NOTE | 2017-06-16 10:10 | DIAGNOSTIC IMAGING REPORT ---
CHEST ONE VIEW PORTABLE CLINICAL HISTORY: EVALUATE RESPIRATORY DISTRESS.DYSPNEA dyspnea COMPARISON STUDY: 02/19/2017 FINDINGS: Prominent pulmonary vasculature. Infiltrate left base. Diaphragms are smooth. IMPRESSION: Parenchymal infiltrate left base. Pulmonary vascular congestion. The above report was generated using voice recognition software. It may contain grammatical, syntax or spelling errors. Electronically signed by: Tai Santana M.D. 06/16/2017 10:09 AM Dictated Date/Time: 06/16/2017 10:08 AM
[2017-06-16 10:14] LABS: ISTAT CREATININE 1.6 mg/dl (0.6-1.3); ISTAT IONIZED CALCIUM 1.16 mmol/l (1.12-1.32); ISTAT POTASSIUM 3.9 mEq/L (3.3-5.0)
[2017-06-16] MEDS ORDERED: ALBUT/IPRATROP 3MG/0.5MG NEB 3 ML VIAL ONE (10:19)
[2017-06-16] MEDS: ALBUT/IPRATROP 3MG/0.5MG NEB 3 ML VIAL INH SCH ×5 (10:22→19:15)
[2017-06-16 10:56] LABS: INFLUENZA B ANTIGEN Neg for Influ B (NEG)
[2017-06-16] MEDS ORDERED: VANCOMYCIN IV 1,750 MG in SODIUM CHLORIDE 0.9% 500ML 500 ML IV STA (11:18)
[2017-06-16] MEDS ORDERED: CEFEPIME IV 2,000 MG in DEXTROSE 5% 100ML 100 ML IV STA (11:18)
[2017-06-16] MEDS ORDERED: ACETAMINOPHEN 325 MG TAB PO PRN (11:30)
[2017-06-16] MEDS ORDERED: LEVAQUIN 750MG / 150ML D5W IV ONE (11:30)
[2017-06-16] MEDS ORDERED: ALUMINUM/MAGNESIUM/SIMETH (MAALOX MAX) 30 ML UDC PO PRN (11:30)
[2017-06-16] MEDS ORDERED: ONDANSETRON INJ 2 MG/ML 2 ML VIAL IV PRN (11:30)
[2017-06-16] MEDS ORDERED: VANCOMYCIN CONSULT ACTIVE PRN (11:30)
[2017-06-16] MEDS ORDERED: POLYETHYLENE (MIRALAX) 17 GM PACK PO PRN (11:30)
[2017-06-16] MEDS ORDERED: MAGNESIUM HYDROXIDE SUSP 30 ML UDC PO PRN (11:30)
[2017-06-16] MEDS ORDERED: GLUCAGON FOR INJ 1 MG VIAL SQ PRN (12:15)
[2017-06-16] MEDS ORDERED: GLUCOSE 40% GEL 15 GM TUBE PO PRN (12:15)
[2017-06-16] MEDS ORDERED: GLUCOSE 10 TABS/TUBE PO PRN (12:15)
[2017-06-16] MEDS ORDERED: DEXTROSE 50% 50 ML SYR IV PRN (12:15)
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
--- NOTE | 2017-06-16 13:48 | HISTORY & PHYSICAL EXAMINATION ---
DATE OF ADMISSION: 06/16/2017 ADMISSION HISTORY AND PHYSICAL CHIEF COMPLAINT: Shortness of breath. HISTORY OF PRESENT ILLNESS: The patient is a very pleasant 77-year-old female with a known longstanding history of severe COPD who noted somewhere around mid week she started with congestion and cough and just generally not feeling well. She also notes that she was having difficulty with her BIPAP at night and [facility] was actually supposed to come this Sunday to work with her on the device and/or fix problems; however, unfortunately her breathing continued to worsen at her care facility, they assessed her and felt that she needed to come to the ER and so she was brought here. Here, she was found to have hypoxia; however, the hypoxia appears to be predominantly chronic but definitely acute hypercapnia as well as respiratory distress and we were asked to admit her for further evaluation and treatment. She denies fevers, chills or sweats. She did have body aches. She has had a cough and chest congestion, generally feeling short of breath. REVIEW OF SYSTEMS: Otherwise, entirely negative except for as above. PAST MEDICAL HISTORY: Includes severe COPD on chronic 3 liters oxygen with chronic hypoxic and probably hypercapnic respiratory failure; CHF, uncertain type; type 2 diabetes, on insulin; hyperlipidemia, hypertension; CKD, probably around stage III, working on stage IV. FAMILY HISTORY: Includes diabetes and heart disease. SOCIAL HISTORY: She is a former smoker, none current. She is currently at [facility]. ALLERGIES: ATROPINE AND DOBUTAMINE. PAST SURGICAL HISTORY: Multiple none of significant relevance they include orthopedic surgeries, cholecystectomy, hysterectomy. MEDICATIONS: Symbicort b.i.d., vitamin B12 1000 mcg daily, iron sulfate daily, Prozac 20 mg daily, Lasix 80 mg daily; NovoLog as needed at meals, it sounds like she works with a sliding scale at her facility; Novolin N 30 units daily, DuoNebs q. 6 hours scheduled, Claritin 10 mg daily; metoprolol, uncertain dose daily; Myrbetriq 25 mg daily, nystatin recently but that does not appear to be an ongoing treatment was simply thrush type dosing, potassium 20 mEq daily, Pravachol 10 mg at bedtime, Requip 2 mg t.i.d. and trazodone 25 mg at bedtime. PHYSICAL EXAMINATION: VITAL SIGNS: Initial vitals showed a temp 37.4, pulse 83, respiratory rate 24, blood pressure 174/85. She was 50% on room air, 100% on nonrebreather and now she is in the high 80s on nasal cannula oxygen, having briefly been taken off the BiPAP because she felt like she was unable to converse with it on. GENERAL: She is awake, alert, oriented x3, fatigued appearing, in mild respiratory distress. HEENT: Normocephalic, atraumatic. Mucous membranes are moist. CARDIOVASCULAR: Very distant, regular maybe slightly tachycardic. No rubs, murmurs or gallops. LUNGS: Show diminished air entry base left with a little bit of tactile fremitus and E to A egophony. She has diffuse wheezing throughout. She is using abdominal accessory muscles and she does not have much rib excursion. ABDOMEN: Soft, nondistended, nontender, no masses or organomegaly. EXTREMITIES: Without cyanosis or clubbing. She has about trace bilateral lower extremity edema without erythema or cords. No calf tenderness. She notes this is about chronic. SKIN: Shows no rashes, no pallor or icterus. NEUROLOGIC: Shows cranial nerves II-XII to be grossly intact. Gross motor and sensory are intact. MENTAL STATE: Shows good recent and remote recall. Normal mood and affect. Good judgment and insight. MUSCULOSKELETAL: Shows diminished rib excursion, balanced ligamentous tension was done on the ribs bilaterally with a small degree of improvement in range of motion. LABORATORIES AND DIAGNOSTICS: CBC shows a white count of 6.46, hemoglobin 12.7, hematocrit 38.3, platelets 135. VBG with a pCO2 of 82 and a pH of 7.27. Complete metabolic panel with sodium 138, potassium 3.8, chloride 96, CO2 36, BUN 27, creatinine 1.68, calcium 8.9, glucose 170. Total bili 0.4 with an AST of 18, ALT 20, alkaline phosphatase 175. Troponin of less than 0.030. BNP of 590, total protein 7.6, albumin 3.9. PT 10.5, PTT of 25.7. Urinalysis yellow, clear, specific gravity 1.011, 1+ glucose and Flu negative. IMAGING DATA: Chest x-ray reviewed by radiology as well as myself shows a small left base infiltrate. Radiology also sees pulmonary vascular congestion. ASSESSMENT AND PLAN: 1. Acute predominantly hypercapnic on chronic hypercapnic and hypoxic respiratory failure. This appears to be due to a small pneumonia flaring her chronic obstructive pulmonary disease. Will manage predominantly acutely with BiPAP as well as treating the underlying causes. See below. 2. Hypercapnic respiratory failure, acute superimposed on chronic. This relates to her chronic obstructive pulmonary disease. Will be treating with nebulizers and steroids as well as BIPAP to blow off her CO2 and follow up a blood gas later on today. 3. Healthcare-associated left lower lobe pneumonia. The Emergency Room has initiated vancomycin, Levaquin and cefepime. We will continue the Levaquin. Check methicillin-resistant staphylococcus aureus nares. If it is positive, then we will continue the vancomycin, if it is negative, we will hold the vancomycin and continue with Levaquin alone. 4. Diabetes. Her last A1c was 7.1 about 5 months ago. We will recheck. Continue her home insulin, fingersticks and supplemental insulin transitioning to a more aggressive basal bolus regimen as needed, certainly while she is on higher dosing of steroids it would be likely she will need more insulin, but will need to follow closely and determine this based on her individual needs. 5. Congestive heart failure. Certainly she appears compensated right now. Her last echocardiogram showed mild left ventricular hypokinesis and diastolic dysfunction suggesting her chronic congestive heart failure is probably diastolic. She also has elevated right ventricular pressures suggesting she probably has an element of chronic cor pulmonale, likely related more to her chronic obstructive pulmonary disease than her left heart. At any rate, this all appears to be compensated. We will continue her home Lasix and follow her closely. 6. Chronic kidney disease, approximately stage III working IV. Her creatinine function is actually better than it has been, just reassuring given the pneumonia. Of note, the pneumonia shows no signs of sepsis outside of the very nonspecific slightly fast heart rate. The respiratory rate certainly appears to be consistent with her hypercapnic respiratory failure. More than sepsis from the pneumonia and so well technically, she shows systemic inflammatory response syndrome on her heart rate and her respiratory rate appears to be more consistent with her chronic obstructive pulmonary disease. 7. Deep venous thrombosis prophylaxis, Lovenox. 8. Disposition: [facility] and occupational therapy consultations and social and human services assistant to aid in disposition. 9. Rib somatic dysfunction, OMT done as above. MTDD
[2017-06-16] MEDS ORDERED: INSULIN ASPART 100 UNITS/ML 3 ML PEN SC SCH (16:00)
[2017-06-16] MEDS: ROPINIROLE HCL 1 MG TAB PO SCH ×2 (16:12→21:01)
[2017-06-16] MEDS: METHYLPREDNISOLONE IV 60 MG in SYRINGE 0 ML IV SCH ×2 (16:13→21:02)
[2017-06-16] MEDS: ENOXAPARIN 30 MG/0.3 ML SYR SC SCH (16:13)
[2017-06-16] MEDS: INSULIN ASPART 100 UNITS/ML 3 ML PEN SC SCH ×2 (17:39→20:59)
[2017-06-16] MEDS: TRAZODONE HCL 50 MG TAB PO SCH (20:59)
[2017-06-16] MEDS: METOPROLOL SUCC 50MG EXT REL TAB PO SCH (21:00)
[2017-06-16] MEDS: PRAVASTATIN SOD 10 MG TAB PO SCH (21:01)
[2017-06-16] MEDS: BUDESONIDE/FORMOTEROL FUMARATE 160/4.5 60 PUFFS/INHALER INH SCH (21:03)
[2017-06-17] VITALS (14 sets, daily range): BP systolic 143–174; BP diastolic 76–94; PULSE 76–90; TEMP 36.3–36.9; O2SAT 80–98
[2017-06-17 07:19] LABS: CALCIUM 8.9 mg/dl (8.5-10.1); CREATININE 1.98 mg/dl (0.60-1.20); POTASSIUM 4.4 mmol/L (3.5-5.1)
[2017-06-17] MEDS ORDERED: INSULIN HUMAN NPH SC SCH (07:30)
[2017-06-17] MEDS: BUDESONIDE/FORMOTEROL FUMARATE 160/4.5 60 PUFFS/INHALER INH SCH ×2 (07:40→21:17)
[2017-06-17] MEDS: ROPINIROLE HCL 1 MG TAB PO SCH ×3 (07:40→21:19)
[2017-06-17] MEDS: LORATADINE 10 MG TAB PO SCH (07:40)
[2017-06-17] MEDS: FERROUS SULFATE 325 MG TAB PO SCH (07:41)
[2017-06-17] MEDS: CYANOCOBALAMIN 500 MCG TAB (VIT B-12) PO SCH (07:41)
[2017-06-17] MEDS: FUROSEMIDE 40 MG TAB PO SCH (07:41)
[2017-06-17] MEDS: MIRABEGRON ER 25 MG TAB PO SCH (07:42)
[2017-06-17] MEDS: POTASSIUM CHLORIDE 20 MEQ TABCR PO SCH (07:42)
[2017-06-17] MEDS: FLUOXETINE HCL 20 MG CAP PO SCH (07:43)
[2017-06-17] MEDS: INSULIN ASPART 100 UNITS/ML 3 ML PEN SC SCH ×4 (07:54→21:26)
[2017-06-17] MEDS: METHYLPREDNISOLONE IV 60 MG in SYRINGE 0 ML IV SCH ×3 (07:55→21:17)
[2017-06-17] MEDS: ALBUT/IPRATROP 3MG/0.5MG NEB 3 ML VIAL INH SCH ×5 (09:00→19:31)
[2017-06-17] MEDS: ENOXAPARIN 30 MG/0.3 ML SYR SC SCH (17:17)
[2017-06-17] MEDS ORDERED: PHARMACY GLYCEMIC MGMT CONSULT PRN (17:39)
[2017-06-17] MEDS: TRAZODONE HCL 50 MG TAB PO SCH (21:17)
[2017-06-17] MEDS: PRAVASTATIN SOD 10 MG TAB PO SCH (21:18)
[2017-06-17] MEDS: METOPROLOL SUCC 50MG EXT REL TAB PO SCH (21:18)
[2017-06-17] MEDS ORDERED: INSULIN HUMAN REGULAR IV BOLUS 10 UNIT in SYRINGE 0 ML IV SCH (21:30)
[2017-06-17] MEDS ORDERED: INSULIN GLARGINE SOLOSTAR 100 UNITS/ML 3 ML PEN SC ONE (21:30)
--- NOTE | 2017-06-17 23:41 | Progress Note ---
Subjective Date of Service: Jun 17, 2017. Subjective Pt evaluation today including: conversation w/ patient 77 yo female reports improvement in her breathing, decrease cough. Patient denies any fever chills. Problem List Medical Problems: (1) Cellulitis Status: Acute (2) COPD exacerbation Status: Acute (3) COPD exacerbation Status: Acute (4) COPD exacerbation Status: Acute (5) COPD exacerbation Status: Acute (6) Hypercapnic respiratory failure Status: Acute (7) Hypoxia Status: Acute (8) Nosocomial pneumonia Status: Acute (9) PNA (pneumonia) Status: Acute (10) SOB (shortness of breath) Status: Acute (11) Weakness Status: Acute Review of Systems All Other Systems: Reviewed and Negative Objective Vital Signs Date Time Temp Pulse Resp B/P (MAP) Pulse Ox O2 Delivery O2 Flow Rate FiO2 06/17/17 23:34 36.7 76 18 143/76 (98) 96 3.0 06/17/17 20:00 98 Nasal Cannula 3.0 06/17/17 19:31 80 18 98 Nasal Cannula 3.0 06/17/17 19:01 36.6 81 20 157/84 (108) 96 Nasal Cannula 3.0 06/17/17 16:00 Nasal Cannula 3.0 06/17/17 15:08 36.3 86 20 159/85 (109) 92 Nasal Cannula 3.0 06/17/17 14:20 88 19 98 Nasal Cannula 3.0 06/17/17 12:00 Nasal Cannula 3.0 06/17/17 11:15 83 80 06/17/17 11:06 36.7 79 20 151/84 (106) 96 Nasal Cannula 3.0 06/17/17 08:00 Nasal Cannula 3.0 06/17/17 07:40 36.5 90 20 165/90 (115) 90 Nasal Cannula 3.0 06/17/17 06:58 82 17 98 BiPAP/CPAP 35 06/17/17 04:00 95 BiPAP 35 06/17/17 03:25 36.9 85 18 171/93 (119) 96 174/94 (120) 06/17/17 00:07 36.6 85 18 143/79 (100) 95 3.0 06/17/17 00:00 95 BiPAP 35 06/16/17 23:56 88 95 35 Physical Exam General Appearance: WD/WN, no apparent distress Eyes: normal inspection ENT: normal ENT inspection Neck: supple, no adenopathy Respiratory/Chest: chest non-tender, + pertinent finding (mild wheezing bilaterally) Cardiovascular: regular rate, rhythm, + pertinent finding (pedal edema) Abdomen: normal bowel sounds, non tender, soft Extremities: normal range of motion Neurologic/Psychiatric: alert, oriented x 3 Skin: normal color Lymphatic: no adenopathy Laboratory Results Last 24 Hours Test 06/17/17 06:31 06/17/17 06:48 06/17/17 07:42 06/17/17 11:23 Sodium Level 133 mmol/L Potassium Level 4.4 mmol/L Chloride Level 94 mmol/L Carbon Dioxide Level 33 mmol/L Anion Gap 6.0 mmol/L Blood Urea Nitrogen 39 mg/dl Creatinine 1.98 mg/dl Est Creatinine Clear Calc Drug Dose 26.7 ml/min Estimated GFR () 27.9 Estimated GFR (Non- 24.1 BUN/Creatinine Ratio 19.6 Random Glucose 334 mg/dl Calcium Level 8.9 mg/dl Beta-Hydroxybutyric Acid mg/dL 2.21 mg/dL Bedside Glucose 335 mg/dl 154 mg/dl Test 06/17/17 16:31 06/17/17 20:22 Bedside Glucose 333 mg/dl 372 mg/dl Assessment and Plan 1. Acute predominantly hypercapnic on chronic hypercapnic and hypoxic respiratory failure. Appears improved. will contnue on steroids and BPAP at night. Patient needs to use her mask at home. Qustion on compliance due to damage of her device. This likely played a role in her worsening. 2. Healthcare-associated left lower lobe pneumonia. The Emergency Room has initiated vancomycin, Levaquin and cefepime. We will continue the Levaquin. MRSA NARES neg. will continue levaquin 3. Diabetes. Her last A1c was 7.1 about 5 months ago. We will recheck. Continue her home insulin, fingersticks and supplemental insulin 4. Congestive heart failure. Compensated We will continue her home Lasix and follow her closely. 5. Chronic kidney disease, approximately stage III working IV. stable. will monitor. 7. Deep venous thrombosis prophylaxis, Lovenox. 8. Disposition: will contnue on tele. carlita be able to downgrade tomorrow. discharge in 1-2 days. 9. Rib somatic dysfunction, OMT done as above.
[2017-06-18] VITALS (10 sets, daily range): BP systolic 142–170; BP diastolic 78–92; PULSE 71–80; TEMP 36.3–36.9; O2SAT 94–99
[2017-06-18] MEDS: INSULIN ASPART 100 UNITS/ML 3 ML PEN SC SCH ×5 (00:10→16:15)
[2017-06-18 06:57] LABS: HEMOGLOBIN A1C 7.7 % (4.5-5.6)
[2017-06-18] MEDS: ALBUT/IPRATROP 3MG/0.5MG NEB 3 ML VIAL INH SCH ×2 (07:10→14:12)
[2017-06-18] MEDS: CYANOCOBALAMIN 500 MCG TAB (VIT B-12) PO SCH (07:37)
[2017-06-18] MEDS: MIRABEGRON ER 25 MG TAB PO SCH (07:37)
[2017-06-18] MEDS: ROPINIROLE HCL 1 MG TAB PO SCH ×2 (07:37→14:17)
[2017-06-18] MEDS: FLUOXETINE HCL 20 MG CAP PO SCH (07:37)
[2017-06-18] MEDS: POTASSIUM CHLORIDE 20 MEQ TABCR PO SCH (07:38)
[2017-06-18] MEDS: METHYLPREDNISOLONE IV 60 MG in SYRINGE 0 ML IV SCH ×2 (07:38→14:17)
[2017-06-18] MEDS: FUROSEMIDE 40 MG TAB PO SCH (07:38)
[2017-06-18] MEDS: BUDESONIDE/FORMOTEROL FUMARATE 160/4.5 60 PUFFS/INHALER INH SCH (07:39)
[2017-06-18 07:42] LABS: CALCIUM 8.9 mg/dl (8.5-10.1); CREATININE 1.87 mg/dl (0.60-1.20); POTASSIUM 4.3 mmol/L (3.5-5.1)
[2017-06-18] MEDS: FERROUS SULFATE 325 MG TAB PO SCH (07:43)
[2017-06-18] MEDS: LORATADINE 10 MG TAB PO SCH (07:43)
[2017-06-18] MEDS ORDERED: INSULIN GLARGINE SOLOSTAR 100 UNITS/ML 3 ML PEN SC SCH (09:00)
[2017-06-18 09:43] LABS: HEMATOCRIT 33.5 % (37-47); HEMOGLOBIN 11.1 g/dL (12.0-16.0); MEAN CELL VOLUME 93.8 fL (80-100); MEAN CORPUSCULAR HEMOGLOBIN 31.1 pg (25-34); MEAN CORPUSCULAR HGB CONC 33.1 g/dl (32-36); MEAN PLATELET VOLUME 10.4 fL (7.4-10.4); PLATELET COUNT 125 K/uL (130-400); RED CELL DISTRIBUTION WIDTH CV 13.6 % (11.5-14.5); RED CELL DISTRIBUTION WIDTH SD 46.7 fL (36.4-46.3); WHITE BLOOD COUNT 5.79 K/uL (4.8-10.8)
--- NOTE | 2017-06-18 10:06 | Pharmacy Progress Note ---
Glycemic Control Intl Consult Date of Service Jun 18, 2017. Scope Glycemic Pharmacist consulted by Dr Kruger on 06/17/17 for glycemic control and to write orders per [facility] inpatient glycemic control protocol Objective Weight (Kilograms): 91.400 Accuchecks BSG (last 24hrs): Test 06/17/17 11:23 06/17/17 16:31 06/17/17 20:22 06/17/17 23:54 Bedside Glucose 154 mg/dl (70-90) 333 mg/dl (70-90) 372 mg/dl (70-90) 178 mg/dl (70-90) Test 06/18/17 04:06 06/18/17 07:10 06/18/17 07:28 Bedside Glucose 133 mg/dl (70-90) 157 mg/dl (70-90) Random Glucose 152 mg/dl (70-99) Laboratory Data (last 24hrs) Test 06/18/17 07:10 06/18/17 07:13 Anion Gap 6.0 mmol/L BUN/Creatinine Ratio 31.6 Blood Urea Nitrogen 59 mg/dl Creatinine 1.87 mg/dl Potassium Level 4.3 mmol/L Sodium Level 139 mmol/L White Blood Count 5.79 K/uL HbA1c Test 06/16/17 09:30 Hemoglobin A1c 7.7 % (4.5-5.6) H Recent Pertinent Medications Outpatient Anti-diabetic Regimen: * NPH 30 units with breakfast * Novolog ACHS * Goal 110-140 * CF 20 * CR 10 The patient is currently receiving: * Basal insulin: Lantus 20 units every 12 hours, received 40 units x 1 last evening * Correctional Insulin: Novolog Correction per scale ACHS Goal Range: Low 110 mg/dL - High 140 mg/dL Correction Factor: 15 mg/dL/unit * Prandial insulin: Per carb ratio of 1 unit per 5 grams CHO consumed Risk Factors for Insulin Resistance: * Steroids: Solu-medrol 60 mg TID * Infection: HAP, on Levaquin * Diet: type 2 diabetes Assessment & Plan ASSESSMENT: * Patient with type 2 diabetes, admitted with COPD exacerbation/HAP, started on high dose IV steroids * Pharmacy was consulted for glycemic management last evening, when BSGs were in the 300s * Changes made were: * Change basal to Lantus and increase dose based on insulin calc estimates using stress level of 2 * Tighten CF * Add carb ratio * Add overnight checks * Bolus of IV insulin x 1 * BSGs have significantly improved this AM * Patient remains on Solu-medrol 60 mg IV TID * Will plan to continue same regimen for now, adjusting if BSGs continue to fall and/or steroids are changed PLAN FOR INPATIENT GLYCEMIC CONTROL: * Continue Lantus 20 units BID * Continue Novolog ACHS * Goal 110-140 * CF 15 * CR 5 * No overnight checks since BSGs have improved RECOMMENDATIONS FOR DISCHARGE: * A1c of 7.7% is acceptable for patient's age * Continue outpatient regimen upon discharge * Consider contacting pharmacy for recommendations if patient to be discharged on a steroid taper Thank you.
[2017-06-18] MEDS ORDERED: LEVOFLOXACIN 750 MG TAB PO SCH (11:00)
[2017-06-18] MEDS ORDERED: LVQ750 PO (14:10)
[2017-06-18] MEDS ORDERED: PRED20TA PO (14:10)
--- NOTE | 2017-06-18 14:23 | Discharge Instructions ---
Discharge Instructions Date of Service Jun 18, 2017. Admission Reason for Admission: Copd Exacerbation, Hypercapnic Respiratory Failure Discharge Discharge Diagnosis / Problem: Chronic obstructive pulmondary disease exacerbation, pneumonia Discharge Goals Goal(s): Decrease discomfort, Improve function, Diagnostic testing, Therapeutic intervention Activity Recommendations Activity Limitations: resume your previous activity (as tolerated) . Instructions / Follow-Up Instructions / Follow-Up You were admitted to the hospital with an acute exacerbation of your chronic obstructive pulmonary disease, as well as a small pneumonia. You were treated with IV steroids and antibiotics. As you are now back to your baseline oxygen requirement and feeling better, you are stable for discharge back to assisted living. Medications: *Please take levofloxacin (Levaquin) 750 mg every other day for 2 more doses. These doses are due on 06/20 and 06/22. *Please use your DuoNeb nebulizer scheduled four times a day for the first few days. As your breathing improves, you can then use it just as needed. *Please take the following prednisone taper as directed: -Take 40 mg (2 tablets) twice a day for 3 days, then -Take 40 mg (2 tablets) once a day for 3 days, then -Take 20 mg (1 tablet) once a day for 3 days, then stop. *Continue your home medications as prescribed. Follow up: *Follow up with your primary care provider within 1 week of discharge. Please have a follow up chest x-ray in about 6 weeks to ensure resolution of your pneumonia. Please seek medical attention if you experience fevers, chills, sweats, dizziness/lightheadedness, loss of consciousness, chest pain, shortness of breath, nausea, vomiting, numbness or tingling. Current Hospital Diet Patient's current hospital diet: Low Sodium Diet (2gm Na), Diabetes Type 2 Diet Discharge Diet Recommended Diet: Low Sodium Diet (2gm Na), Diabetes Type 2 Diet Pending Studies Studies pending at discharge: no Laboratory Results Hemoglobin A1c Test 06/16/17 09:30 Range/Units Estimated Average Glucose 174 mg/dl Hemoglobin A1c 7.7 H 4.5-5.6 % Medical Emergencies . Who to Call and When: Medical Emergencies: If at any time you feel your situation is an emergency, please call 911 immediately. . Non-Emergent Contact Non-Emergency issues call your: Primary Care Provider Call Non-Emergent contact if: you have a fever, you have any medication questions . Past History Medical & Surgical History: (1) COPD exacerbation (2) Pneumonia . "Provider Documentation" section prepared by Tova Ventura. .
--- NOTE | 2017-06-18 14:47 | Discharge Summary ---
Discharge Summary Date of Service Jun 18, 2017. Discharge Summary Admission Date: Jun 16, 2017 at 13:18 Discharge Date: Jun 18, 2017 Discharge Disposition: Personal care ([facility] assisted living) Principal Diagnosis: COPD exacerbation, pneumonia Problems/Secondary Diagnoses: Chronic diastolic CHF, HTN, HLD, DM II, CKD stage IV Immunizations: Have You Had Influenza Vaccine: Yes Influenza Vaccine Date: Jan 16, 2013 History of Tetanus Vaccine?: Yes Tetanus Immunization Date: Jan 07, 2013 History of Pneumococcal: Yes Pneumococcal Date: Feb 16, 2010 History of Hepatitis B Vaccine: No Medication Reconciliation New Medications: Prednisone (Prednisone) 20 Mg Tab 20 MG PO UD for 9 Days, #21 TAB Take 40 mg twice a day for 3 days, then 40 mg daily for 3 days, then 20 mg daily for 3 days, then stop Levofloxacin (Levofloxacin) 750 Mg Tab 750 MG PO Q48H for 4 Days, #2 TAB Take 1 tablet on 06/20 and 1 tablet on 06/22 Continued Medications: Budesonide/Formoterol Fumarate (Symbicort 160-4.5 Mcg/Act) 60 Puffs/Inhaler Aero 2 PUFFS INH BID, #1 INHALER 2 Refills Cyanocobalamin (Vitamin B12 500MCG) 500 Mcg Tab 1000 MCG PO DAILY Ferrous Sulfate (Kp Ferrous Sulfate) 325 Mg Tab 1 TAB PO DAILY for 30 Days, #30 TAB 3 Refills Fluoxetine Hcl (Prozac) 20 Mg Cap 20 MG PO QAM Furosemide (Furosemide) 40 Mg Tab 80 MG PO DAILY Insulin Aspart (Novolog Flexpen) 100 Units/Ml Inj 0 UNITS SC ACHS for 30 Days ISS goal of range, 110 to 140 CF 20 mg/dl/unit INS: Cho ratio= 1 unit per 10 grams cho consumed Insulin Human NPH (Novolin N) 100 Units/Ml Susp 30 UNITS SC QDB for 30 Days Ipratropium-Albuterol (Duoneb) 3 Ml Nebu 1 TREATMENT INH Q6HWA for 30 Days, #150 UNITS Use 1 neb treatment every 6 hours while awake. May use every 2 hours as needed for shortness of breath & wheezing. Loratadine (Claritin) 10 Mg Tab 10 MG PO QAM for 30 Days, TAB Metoprolol Succ (Toprol Xl) (Toprol-Xl) 50 Mg Tabcr 1 TAB PO PM for 30 Days, #30 TAB 5 Refills Mirabegron (Myrbetriq Er) 25 Mg Tab 25 MG PO DAILY, TAB Nystatin (Nystatin) 5 Ml Susp 5 ML PO QID for 11 Days, #220 ML Take 5 ml (1 teaspoon) by mouth four times a day. Potassium Ext Rel (Klor-Con) 20 Meq Tabcr 20 MEQ PO DAILY, TAB Pravastatin Sodium (Pravastatin Sodium) 10 Mg Tab 10 MG PO QPM Ropinirole (Requip) 2 Mg Tab 2 MG PO TID Trazodone Hcl (Trazodone) 50 Mg Tab 25 MG PO HS, TAB Discharge Exam The patient reports feeling well. She states her breathing is around baseline. She reports a non-productive cough. The patient denies fevers, chills, sweats , chest pain, palpitations, claudication, wheezing, shortness of breath, nausea , vomiting, abdominal pain, dysuria, hematuria, urinary retention, paralysis, weakness, numbness and tingling. Constitutional: No fever, No chills, No sweats Eyes: No worsening of vision, No eye pain, No diplopia ENT: No hearing loss, No nasal symptoms, No trouble swallowing Respiratory: +Cough. No wheezing, No shortness of breath Cardiovascular: No chest pain, No claudication, No palpitations Abdomen: No pain, No nausea, No vomiting Musculoskeletal: No joint pain, No muscle pain, No swelling Genitourinary - Female: No dysuria, No urinary retention, No hematuria Neurologic: No paralysis, No weakness, No numbness/tingling Integumentary: No rash, No itch, No color change General appearance: +Obese. Well-developed, well-nourished, no apparent distress Head: Normocephalic, atraumatic Eyes: Normal inspection, PERRL, EOMI ENT: Normal ENT inspection, hearing grossly normal, pharynx normal Neck: Supple, no JVD, trachea midline Respiratory/Chest: +Decreased breath sounds. Lungs clear to auscultation, no respiratory distress Cardiovascular: Regular rate & rhythm, no gallop, no murmur Abdomen/GI: Normal bowel sounds, non-tender, soft Extremities/Musculoskeletal: +Trace pitting edema. Normal inspection, no calf tenderness Neurological/Psych: Alert, normal mood/affect, oriented x 3 Skin: Normal color, warm/dry, no rash Hospital Course 77 y/o female with a history of severe COPD on continuous 3L NC and BiPAP, chronic diastolic CHF, HTN, HLD, DM II, CKD stage IV, depression, and RLS who presents with shortness of breath and malaise. Acute on chronic hypercapnic/hypoxic respiratory failure secondary to COPD exacerbation and PNA -Admit to telemetry. No acute events overnight, pt in SR with HR 60s-70s. -Flu negative -Blood cultures NGTD -Continue BiPAP, O2 by protocol. Wears BiPAP and night and 3L NC continuous during day at baseline. Currently on 3L NC -Continue Solu-Medrol 60 mg IV TID. D/C with prednisone taper: 40 mg PO BID x 3 days, 40 mg PO qd x 3 days, 20 mg PO qd x 3 days, then stop -Continue scheduled nebs. Pt has DuoNebs at home -Continue Levaquin 750 mg PO q48h, day #3 of 7. Will continue as outpatient. -Continue Symbicort BID -Recommend repeat CXR in 6 weeks to ensure resolution of PNA Chronic diastolic CHF--stable, no acute exacerbation -Continue Lasix 80 mg PO qd, metoprolol succinate 50 mg PO qd HTN, HLD--stable -Continue metoprolol as above, pravastatin 10 mg PO hs DM II--HgbA1c 7.7 on 06/16 -Pharmacy consulted for glycemic control -Lantus 20 units SC BID here, home NPH was held -Insulin sliding scale -Check BSGs q ac and qhs CKD stage IV--stable -Creatinine around baseline Depression--stable -Continue fluoxetine 20 mg PO qd RLS -Continue Requip 2 mg PO TID DVT prophylaxis -Enoxaparin 30 mg SC q24h Dispo -From [facility], will return -Recommend PT and OT services there I personally interviewed and examined the patient. I agree with history of present illness and physical exam mentioned above, I also performed my own history taking and examination. Past medical history and review of system has been obtained by myself I reviewed all pertinent labs and studies Reviewed current medications I discussed and formulated of the assessment and plan mentioned above. Please refer to the Summary mentioned below. 77-year-old female with chronic respiratory failure on 3-4 L of oxygen at home secondary to severe COPD, diastolic congestive heart failure, hypertension, dyslipidemia, diabetes mellitus type 2, stage III chronic kidney disease and depression presented to the ED with acute on chronic respiratory failure increased shortness of breath. Patient was found to have subtle pneumonia, started on levofloxacin, steroids and bronchodilators. Patient significantly improved and currently back to her baseline 3 L of oxygen nasal cannula. Patient will be discharged home on tapering dose of prednisone and bronchodilators. Patient will follow up with her primary care physician and machine fur cleaner. General Appearance: not in acute distress, morbidly obese Eyes: normal Sclerae, extraocular muscle intact ENT: hearing grossly normal Neck: supple Respiratory/Chest: normal air entry bilateral ,no respiratory distress, no accessory muscle use Cardiovascular: regular rate, rhythm, no murmur Abdomen: non tender, soft, no masses Extremities: no edema Neurologic/Psychiatric: Awake alert oriented times place and person moves all extremities sensation intact cranial nerves II-12 appear to be intact Skin: normal color, warm/dry, no rash Ethan Yepez MD, [facility] hospitalist group Total Time Spent: Greater than 30 minutes This includes examination of the patient, discharge planning, medication reconciliation, and communication with other providers. Discharge Instructions Please refer to the electronic Patient Visit Report (Discharge Instructions) for additional information. Additional Copies To Fabricio Mir M.D.
== END 2017-06-18 17:21 | disposition home or self-care (01) | DRG 193 ==
LOC: EDBD 09:13 → C.EDB 09:16 → ENRESERV 11:48 → C.2T 13:18
PROVIDERS: ADMIT Family Medicine; ATTEND Family Medicine
DX: J18.9 Pneumonia, unspecified organism (principal); J96.21 Acute and chronic respiratory failure with hypoxia; J96.22 Acute and chronic respiratory failure with hypercapnia; J44.1 Chronic obstructive pulmonary disease with (acute) exacerbation; J44.0 Chronic obstructive pulmonary disease with (acute) lower respiratory infection; I50.32 Chronic diastolic (congestive) heart failure; I13.0 Hypertensive heart and chronic kidney disease with heart failure and stage 1 through stage 4 chronic kidney disease, or unspecified chronic kidney disease; N18.4 Chronic kidney disease, stage 4 (severe); Y95 Nosocomial condition; I27.81 Cor pulmonale (chronic); M99.08 Segmental and somatic dysfunction of rib cage; E11.22 Type 2 diabetes mellitus with diabetic chronic kidney disease; E78.5 Hyperlipidemia, unspecified; G25.81 Restless legs syndrome; F32.9 Major depressive disorder, single episode, unspecified; E66.01 Morbid (severe) obesity due to excess calories; Z68.35 Body mass index [BMI] 35.0-35.9, adult; Z99.81 Dependence on supplemental oxygen; Z87.891 Personal history of nicotine dependence; Z79.51 Long term (current) use of inhaled steroids; Z79.4 Long term (current) use of insulin; Z79.899 Other long term (current) drug therapy; Z88.8 Allergy status to other drugs, medicaments and biological substances